=== PATIENT | female | born 1945 | race Caucasian/White ===

== ENCOUNTER → 2017-09-16 09:38 | Outpatient (CLI) | payer MEDICARE, SELFPAY ==
[2017-09-16 15:58] LABS: Vitamin D,25 Hydroxy 29.9 ng/mL (19.95-100.01)
[2017-09-16 16:01] LABS: ALB/GLOB Ratio 0.9 RATIO (0.9-2.4); AST(SGOT) 49 U/L (15-37); Alanine Aminotransfer ALT/SGPT 38 U/L (13-56); Albumin, Serum 3.6 g/dL (3.2-5.0); Alkaline Phosphatase 65 U/L (45-117); Anion Gap 7 (5-15); BUN 12 mg/dL (7-18); BUN/Creat Ratio 12.2 RATIO (10-20); Calcium,Total 8.6 mg/dL (8.5-10.1); Chloride 106 mmol/L (98-107); Cholesterol 234 mg/dL (200); Creatinine, Serum 0.98 mg/dL (0.55-1.02); EST Glomerular Filtration Rate 60 mL/min (>60); Est Glom Filt Rate - Afr Amer 72 mL/min (>60); Glucose 141 mg/dL (70-110); High Density Lipoprotein 39 mg/dL; Potassium 4.2 mmol/L (3.5-5.1); Protein, Total 7.6 g/dL (6.4-8.2); Sodium Level 140 mmol/L (136-145); Thyroid Stim Hormone (TSH) 2.98 uIU/mL (0.358-3.74); Triglycerides 251 mg/dL; Very Low Density Lipoprotein 50 mg/dL (5-40)
[2017-09-16 16:06] LABS: Microalbumin,Random Urine 14.4 mg/L (NO RANGE EST.); Microalbumin:Creatinine Ratio 8.7 mg/g CRE (<30 mg/g CRE)
== END ==
PROVIDERS: Family Provider Family Medicine; PCP Family Medicine; Visit Provider Nurse Practitioner Family
DX: E11.9 Type 2 diabetes mellitus without complications (principal); E78.5 Hyperlipidemia, unspecified; I10 Essential (primary) hypertension; L60.3 Nail dystrophy; L65.9 Nonscarring hair loss, unspecified
CPT/HCPCS: 80053; 80061; 82043; 82306; 82570; 83036; 84443

== ENCOUNTER → 2017-11-20 15:37 | Outpatient (CLI) | payer MEDICARE, SELFPAY | PROVIDERS: Family Provider Family Medicine; PCP Family Medicine | DX: R30.0 Dysuria (principal) | CPT/HCPCS: 87077; 87086; 87088; 87186 ==

== ENCOUNTER → 2017-11-30 15:10 | Outpatient (CLI) | payer MEDICARE, SELFPAY | PROVIDERS: Family Provider Family Medicine; PCP Family Medicine; Visit Provider Family Medicine | DX: Z12.11 Encounter for screening for malignant neoplasm of colon (principal) | CPT/HCPCS: 82274 ==

== ENCOUNTER → 2018-03-18 11:47 | Outpatient (CLI) | payer MEDICARE, SELFPAY ==
[2018-03-18 15:35] LABS: ALB/GLOB Ratio 0.9 RATIO (0.9-2.4); AST(SGOT) 69 U/L (15-37); Alanine Aminotransfer ALT/SGPT 49 U/L (13-56); Albumin, Serum 3.6 g/dL (3.2-5.0); Alkaline Phosphatase 64 U/L (45-117); Anion Gap 7 (5-15); BUN 11 mg/dL (7-18); BUN/Creat Ratio 10.6 RATIO (10-20); Calcium,Total 8.9 mg/dL (8.5-10.1); Chloride 106 mmol/L (98-107); Cholesterol 221 mg/dL (200); Creatinine, Serum 1.04 mg/dL (0.55-1.02); EST Glomerular Filtration Rate 56 mL/min (>60); Est Glom Filt Rate - Afr Amer 67 mL/min (>60); Globulin 3.9 g/dL (2.2-4.2); Glucose 153 mg/dL (74-106); High Density Lipoprotein 40 mg/dL; Potassium 4.3 mmol/L (3.5-5.1); Protein, Total 7.5 g/dL (6.4-8.2); Sodium Level 140 mmol/L (136-145); Triglycerides 250 mg/dL; Very Low Density Lipoprotein 50 mg/dL (5-40)
[2018-03-18 15:38] LABS: Hemoglobin A1c 7.3 % (4.2-6.3)
== END ==
PROVIDERS: Family Provider Family Medicine; PCP Family Medicine; Visit Provider Nurse Practitioner Family
DX: E11.9 Type 2 diabetes mellitus without complications (principal); I10 Essential (primary) hypertension; E78.5 Hyperlipidemia, unspecified
CPT/HCPCS: 80053; 80061; 83036

== ENCOUNTER 2018-04-22 22:19 | Observation (INO) | payer MEDICARE, SELFPAY ==
[2018-04-22 22:20] VITALS: BP 154/84; PULSE 85; RESP 15; TEMP 35.9; O2SAT 98; BMI 27.4
[2018-04-22 22:42] VITALS: BP 173/81; PULSE 80; RESP 19; O2SAT 97
--- NOTE | 2018-04-22 22:50 | EKG12_ITS ---
Test Reason : CP/SOB Blood Pressure : / mmHG Vent. Rate : 083 BPM Atrial Rate : 083 BPM P-R Int : 156 ms QRS Dur : 090 ms QT Int : 386 ms P-R-T Axes : 046 061 029 degrees QTc Int : 453 ms Normal sinus rhythm Normal ECG Confirmed by AMBROSE WOODY ([id number]), acquisitions editor SHEYLA RANGEL ([id number] on 04/29/2018 2:04:15 PM Referred By: JUAN CARLOS Confirmed By:AMBROSE WOODY
--- NOTE | 2018-04-22 22:51 | ED.VISSUMM ---
- ER Visit Summary Date of Service: 04/22/18 Chief Complaint: Chest pain History of Present Illness: The patient is a 73 F who presents for 1 day of substernal chest heaviness and 3 weeks of left-sided posterior rib pain now radiating around to the left anterior ribs. Patient states she has been having gradually worsening pain in the rib cage as described above. She was seen by her doctor for this. It is now radiating around to the anterior chest. Today she developed substernal chest heaviness with associated shortness of breath, mild cough, and pain worse with deep breaths and with coughing. Patient took a full dose aspirin this morning. The substernal heaviness started this evening. The left rib cage pain is described as burning. Patient has had in the past and was told it was inflammation of the chest wall. She denies any fever, abdominal pain, nausea or vomiting, rash or other complaints. She has history of hypertension, diabetes, hypercholesterolemia. No smoking. She has a remote history of a DVT in her upper extremity but does not know how long ago or why it occurred. She is not on blood thinners. She has COPD. No recent steroid use. Physical Examination: Vital signs: afebrile, hypertensive at 173/81, heart rate regular at 80, respirations 19, 97% on room air, no hypoxia on room air General: well nourished, well developed, in no distress Skin: warm, dry, no rash, no pallor HEENT: normocephalic and atraumatic; PERRL, EOMI, moist mucous membranes Cardiovascular: regular rate and rhythm without murmurs, no peripheral edema, 2+ pulses all distal extremities, no hyperesthesia or rash noted to the torso Respiratory: No increased work of breathing, lungs are clear to auscultation bilaterally, no rales, rhonchi or wheezing Abdominal: Abdomen is soft, nontender with normoactive bowel sounds, no guarding or rebound, no masses MSK: Moves all extremities, no deformities, normal strength Neuro: Awake and alert, oriented ?4. No facial droop, sensation and motor function intact and symmetric Test Results: Abnormal Lab Results 04/22/18 04/22/18 04/22/18 22:34 22:34 22:34 WBC 9.2 RBC 4.60 Hgb 13.8 Hct 41.6 MCV 90.4 MCH 30.0 MCHC 33.2 RDW 13.2 RDW Differential 43.1 Plt Count 236 MPV 10.5 Immature Gran % (Auto) 0.100 Neut % (Auto) 48.6 Lymph % (Auto) 41.7 H [place] % (Auto) 5.8 Eos % (Auto) 3.0 Baso % (Auto) 0.8 Absolute Neuts (auto) 4.5 Absolute Lymphs (auto) 3.85 Total Counted Not Reportable PT 12.7 INR 1.0 APTT 29.2 D-Dimer Quant (PE/DVT) 0.35 Sodium 144 Potassium 3.6 Chloride 105 Carbon Dioxide 27.0 Anion Gap 12 BUN 14 Creatinine 1.00 Estim Creat Clear Calc 46.43 Est GFR (MDRD) Af Amer 70 Est GFR (MDRD) Non-Af 58 L BUN/Creatinine Ratio 14.0 Glucose 182 H Calcium 9.1 Troponin I < 0.015 B-Natriuretic Peptide 04/22/18 22:34 WBC RBC Hgb Hct MCV MCH MCHC RDW RDW Differential Plt Count MPV Immature Gran % (Auto) Neut % (Auto) Lymph % (Auto) [place] % (Auto) Eos % (Auto) Baso % (Auto) Absolute Neuts (auto) Absolute Lymphs (auto) Total Counted PT INR APTT D-Dimer Quant (PE/DVT) Sodium Potassium Chloride Carbon Dioxide Anion Gap BUN Creatinine Estim Creat Clear Calc Est GFR (MDRD) Af Amer Est GFR (MDRD) Non-Af BUN/Creatinine Ratio Glucose Calcium Troponin I B-Natriuretic Peptide 29.8 Clinical Impression(s) from Imaging Studies Chest X-Ray 04/22/18 23:00 IMPRESSION: Normal x-ray examination of the chest. Electronically Signed: Dimitrios Salomon MD at 23:09 EDT , Service support , Medications Given Sodium Chloride () 1,000 mls @ 150 mls/hr IV .[id number] [facility] Last Admin: 04/22/18 23:14 Dose: 150 mls/hr Discontinued Medications Morphine Sulfate () 2 mg IV X1 ONE Stop: 04/22/18 23:25 Last Admin: 04/22/18 23:37 Dose: Not Given Nitroglycerin (Nitrostat) 0.4 mg SUBLINGUAL Q5M TIMBO Stop: 04/22/18 23:11 Last Admin: 04/22/18 23:19 Dose: Not Given Admin: 04/22/18 23:19 Dose: Not Given Admin: 04/22/18 23:15 Dose: 0.4 mg Emergency Department Course and Treatment: Patient presents with acute substernal chest heaviness on top of a subacute left-sided rib/chest pain that is different in nature and is worsening. Patient substernal chest heaviness is concerning for possible ACS, given her age and her risk factors. Patient was given 1 nitroglycerin but refused any further because she did not like the flushing feeling it gave her. She also refused any morphine. Patient had [place] taken aspirin this morning. Troponin was negative. EKG shows sinus rhythm without ischemic changes. D-dimer was checked given patient's pleuritic left-sided chest pain for the last 3 weeks that is worsening. D-dimer was normal. BNP normal. CBC and BMP were unremarkable. Chest x-ray showed no acute process, including no infiltrates, effusions or pulmonary edema. Patient was reevaluated and had resolution of the substernal chest heaviness but continued to have the left-sided pleuritic rib pain. She had no evidence of shingles on exam, with no rash and no hyperesthesia to light touch. Because of patient's risk factors, with a HEART score of 4 and JOHANNA of 4, she would benefit from further chest pain workup for possible acute coronary syndrome. Patient was agreeable to this plan. She was discussed with the hospitalist for admission as observation status for further workup. Treatment Plan: [] Disposition: [] Impression: Acute chest pain This note was generated with [employer] software. It may contain incorrect words, spelling, and punctuation that were not noted in review of the chart prior to signing ED Disposition - Plan for ED Patient: Chief Complaint: Shortness of Breath
[2018-04-22 22:55] VITALS: O2SAT 97
[2018-04-22 23:00] LABS: Absolute Lymphocyte Count 3.85 X10^3/ul (0.83-4.51); Absolute Neutrophil Count 4.5 X10^3/uL (2.0-7.7); Basophil# 0.07 X10^3/uL; Basophil% 0.8 % (0-1); Eosinophil# 0.28 X10^3/uL; Hematocrit 41.6 % (37-47); Hemoglobin 13.8 g/dl (12.0-15.0); Lymphocyte # 3.85 X10^3/ul (4.0); Lymphocyte % 41.7 % (19-41); Mean Corp Hgb Conc 33.2 g/gl (32-36); Mean Corpuscular Volume 90.4 fL (81-99); Mean Platelet Vol. 10.5 fl (6.2-12.0); Monocyte# 0.54 X10^3/uL; Monocyte% 5.8 % (0-10); Neutrophil # 4.49 X10^3/uL (2.7-7.7); Neutrophil % 48.6 % (47-70); Platelet Count 236 K/mm3 (150-450); RBC Distribution Width CV 13.2 % (11.6-14.6); RBC Distribution Width SD 43.1 fl (35.1-43.9); White Blood Count 9.2 K/mm3 (4.4-11.0)
[2018-04-22 23:01] LABS: POSITIVE COUNT NO; POSITIVE DIFFERENTIAL NO; POSITIVE MORPHOLOGY NO
[2018-04-22 23:02] LABS: Prothrombin Time (Protime)PT. 12.7 SECONDS (11.7-14.9)
[2018-04-22 23:03] LABS: Partial Thromboplast Time 29.2 Seconds (24.1-36.2)
[2018-04-22 23:06] LABS: D-Dimer Quantitative (DVT/PE) 0.35 FEU/ug/m (0.27-0.49)
[2018-04-22 23:12] LABS: Anion Gap 12 (5-15); BUN 14 mg/dL (7-18); Calcium,Total 9.1 mg/dL (8.5-10.1); Chloride 105 mmol/L (98-107); EST Glomerular Filtration Rate 58 mL/min (>60); Est Glom Filt Rate - Afr Amer 70 mL/min (>60); Estimated Creatinine Clearance 46.43 ml/min; Glucose 182 mg/dL (74-106); Potassium 3.6 mmol/L (3.5-5.1); Sodium Level 144 mmol/L (136-145)
[2018-04-22] MEDS: 0.9% Normal Saline 1,000 ML 150 ML IV (23:14)
[2018-04-22 23:15] VITALS: BP 167/90; PULSE 79
[2018-04-22 23:26] LABS: BNP,B-Type NATRIURETIC PEPTIDE 29.8 pg/mL (0-100)
[2018-04-23] VITALS (20 sets, daily range): BP systolic 139–200; BP diastolic 68–92; PULSE 63–95; RESP 14–18; TEMP 36.4–37.2; O2SAT 94–97; BMI 27.5; BMI 27.8
--- NOTE | 2018-04-23 00:14 | PCM.HP.STD ---
Problem List (1) Left flank pain Status: Acute (2) Chest pain Status: Acute (3) Atypical chest pain Status: Acute (4) Fibromyalgia Status: Chronic (5) Type 2 diabetes mellitus Status: Chronic History of Present Illness Date of Admission: 04/23/18 Chief Complaint: Chest pain ?1 day The patient is a 73 year old F with a significant history of COPD; fibromyalgia; hypertension; and diabetes who presented with a persistence chest pain that started few hours before her admission. She described the chest pain as heaviness on her substernal area. She rates her pain at 5 out of 10. Her pain was aggravated with taking a deep breath. Her pain went away with administration of oxygen at emergency department. She also received a sublingual nitroglycerin ?1 at emergency department. Patient reports that her pain had disappeared before nitroglycerin was administered. EKG and troponin at emergency department was unremarkable. She denies any associated nausea or diaphoresis. Chest pain was nonradiating. Also patient reports 3 weeks of left back and left flank pain. She describes this pain as lying on hot coals. His pain has progressively gotten worse. She was evaluated by her PCP who thought that this was inflammation; and no medication was prescribed at that time. Also she reports episodic 'tightening' pain under her left breast in the last 3 weeks. On the day of admission the frequency of the pain under her left breast increased. This pain is episodic and it last about 1 minute. Past Medical History Past Medical History (Chronic Problems): Chronic Problems Fibromyalgia (Chronic) Type 2 diabetes mellitus (Chronic) Hypertension (Chronic) Allergies escitalopram [From Lexapro] Allergy (Verified 04/22/18 22:49) Other Home Medications: Ambulatory Orders Medication Instructions Recorded Aspirin 1 tab PO DAILY 09/16/16 Metformin HCl [Metformin HCl ER] 1,000 mg PO DAILY 09/16/16 Metoprolol(XL)Succ [Toprol Xl 25 mg PO DAILY #30 tablet 09/16/16 (Beta Esther)] Amlodipine Besylate [Norvasc] 5 mg PO DAILY 08/05/17 Cholecalciferol (Vitamin D3) 5,000 unit PO DAILY 08/05/17 [Vitamin D3] Albuterol IH (ProAir) [Proair Hfa] 2 puff INHALATION Q4H PRN PRN #1 08/06/17 inhaler Budesonide/Formoterol Fumarate 04/23/18 [Symbicort 160-4.5 Mcg Inhaler] Meloxicam [Meloxicam] 7.5 mg PO DAILY 04/23/18 Vitamin D3 04/23/18 Surgical History: cholecystectomy, hysterectomy, total knee arthroplasty, - - Rotator cuff surgery. 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 Paternal History Items: Heart Disease Review of Systems Constitutional: Denies: Chills, Fever, Weight Change Eyes: Denies: Blurred vision, Pain HEENT: Denies: Head Aches, Sinus Congestion, Sinus Drainage Cardiovascular: Reports: Chest Pressure. Denies: Light Headedness, Syncope Respiratory: Reports: Cough, Shortness of Breath Gastrointestinal: Denies: Abdominal Pain, Nausea, Vomiting Genitourinary: Denies: Dysuria Musculoskeletal: Reports: Back Pain. Denies: Joint Pain, Joint Tenderness Skin: Denies: Rash, Wounds Neurological: Denies: Numbness, Tingling, Focal weakness Psychiatric: Denies: Anxiety, Depression, Homicidal Ideations, Suicidal Ideations Hematologic/ Lymphatic: Denies: Easy Bruising, Easy Bleeding VTE Information - Inpt Only VTE Present on Admission: No VTE Mechan Device Prophylaxis: None VTE Pharm Prophylaxis ordered?: Yes Patient Problems: Active and Suspected Problems Left flank pain (Acute) Chest pain (Acute) - Physical Exam General: Alert, Oriented x3, Cooperative HEENT: Atraumatic, PERRLA, EOMI, Normocephalic Neck: Supple, No JVD, Negative Carotid Bruits Lungs: Clear to auscultation, Normal air movement Cardiovascular: Regular rate, No murmurs Abdomen: Bowel Sounds Present, Soft, Non Tender Extremities: No edema, Capillary Refill Less than 3 Seconds Skin: No rashes, No breakdown Musculoskeletal: No Tenderness to Palpation of Joints or Extremities, - - Left flank is not tender to palpation. Lymphatic: No Cervical, Supraclavicular, or Inguinal Adenopathy Neurological: Cranial nerves II-XII grossly intact Psych/Mental Status: Normal Affect, Appropriate Vital Signs Temp Pulse Resp BP Pulse Ox 96.6 F L 79 19 H 167/90 H 97 04/22/18 22:20 04/22/18 23:15 04/22/18 22:42 04/22/18 23:15 04/22/18 22:55 Oxygen Delivery Method Room Air Weight: 74.843 kg Body Mass Index (BMI) 27.4 Finger Stick Blood Glucose 200 Laboratory Tests Past 24 Hrs 04/22/18 04/22/18 04/22/18 22:34 22:34 22:34 WBC 9.2 RBC 4.60 Hgb 13.8 Hct 41.6 MCV 90.4 MCH 30.0 MCHC 33.2 RDW 13.2 RDW Differential 43.1 Plt Count 236 MPV 10.5 Immature Gran % (Auto) 0.100 Neut % (Auto) 48.6 Lymph % (Auto) 41.7 H [place] % (Auto) 5.8 Eos % (Auto) 3.0 Baso % (Auto) 0.8 Absolute Neuts (auto) 4.5 Absolute Lymphs (auto) 3.85 Total Counted Not Reportable PT 12.7 INR 1.0 APTT 29.2 D-Dimer Quant (PE/DVT) 0.35 Sodium 144 Potassium 3.6 Chloride 105 Carbon Dioxide 27.0 Anion Gap 12 BUN 14 Creatinine 1.00 Estim Creat Clear Calc 46.43 Est GFR (MDRD) Af Amer 70 Est GFR (MDRD) Non-Af 58 L BUN/Creatinine Ratio 14.0 Glucose 182 H Calcium 9.1 Troponin I < 0.015 B-Natriuretic Peptide 04/22/18 22:34 WBC RBC Hgb Hct MCV MCH MCHC RDW RDW Differential Plt Count MPV Immature Gran % (Auto) Neut % (Auto) Lymph % (Auto) [place] % (Auto) Eos % (Auto) Baso % (Auto) Absolute Neuts (auto) Absolute Lymphs (auto) Total Counted PT INR APTT D-Dimer Quant (PE/DVT) Sodium Potassium Chloride Carbon Dioxide Anion Gap BUN Creatinine Estim Creat Clear Calc Est GFR (MDRD) Af Amer Est GFR (MDRD) Non-Af BUN/Creatinine Ratio Glucose Calcium Troponin I B-Natriuretic Peptide 29.8 Assessment/Plan All Active Problems Left flank pain (Acute) Chest pain (Acute) Atypical chest pain (Acute) The patient is a 73 year old F with a significant history of COPD; fibromyalgia; hypertension; and diabetes who presented with persistent chest pain that started few hours before her admission; and also with left flank pain that started 3 weeks ago. Atypical chest pain EKG and chest x-ray independently reviewed was unremarkable. Troponin reviewed was unremarkable. Since the time of evaluation patient chest pain had resolved; and further patient had a unremarkable stress test in July 2017, a stress test was not ordered at this time. Patient took her home aspirin 325 mg daily prior to admission. Home aspirin 325 mg continued. Admit to a monitored bed on PCU SL NTG 0.4 mg prn as needed for chest pain Serial cardiac enzymes Stat EKG as needed for chest pain We will consult cardiology for risk stratification and further management. Chronic Hypertension High blood pressure was above goal at the time of admission. This may be a reason for chest pain. Labetalol as needed for systolic blood pressure more than 160. Although patient had blood pressures in the 180s and 200s repeat blood pressure showed a systolic blood pressure of 160. Patient has not required any as needed blood pressure medication at this time. Metoprolol succinate and amlodipine continued. Trend blood pressure; and titrate blood pressure medication. Left flank pain Patient describes left flank pain as a burning. Since burning pain typically goes with pain due to injury to nerve endings gabapentin was prescribed. Patient was requesting imaging to further evaluate for her left flank pain. Since the patient did not have any warning sign of weakness, bowel or bladder incontinence imaging was deferred for a trial of gabapentin. Patient reports that at home she takes Tylenol for pain. Tylenol ordered. Diabetes Above goal at the time of admission. Blood glucose at the time of admission was 182. Patient takes metformin at home. Metformin held since this is too early in her admission; and further tests may be needed. Correction scale insulin ordered. Fibromyalgia Tylenol and meloxicam continued Gabapentin prescribed as above. COPD Albuterol continued. Symbicort continued DVT prophylaxis With subcutaneous heparin. Code Visit OBSV E&M: 05904 Initial observation care L3
--- NOTE | 2018-04-23 00:29 | NURSING ---
Called ED ship captain, Ryan at this time to confirm Pt okay to come to PCU.
[2018-04-23] MEDS: Gabapentin 100 MG Capsule PO ×4 (02:15→18:12)
--- NOTE | 2018-04-23 03:07 | EKG12_ITS ---
Test Reason : CP ADMISSION Blood Pressure : / mmHG Vent. Rate : 070 BPM Atrial Rate : 070 BPM P-R Int : 160 ms QRS Dur : 098 ms QT Int : 426 ms P-R-T Axes : 048 063 031 degrees QTc Int : 460 ms Normal sinus rhythm Normal ECG When compared with ECG of 06-AUG-2017 05:56, No significant change was found Confirmed by AMBROSE WOODY ([id number]), assignment desk editor SHEYLA RANGEL ([id number]) on 04/29/2018 3:14:41 PM Referred By: WOODY Confirmed By:AMBROSE WOODY
[2018-04-23] MEDS: 0.9% NaCl Peripheral Flush Adult/Peds IV ×2 (05:13→20:41)
[2018-04-23 06:56] LABS: Bedside Glucose 152 mg/dL (70-110)
[2018-04-23] MEDS: Albuterol 2.5 MG/3 ML VIAL.NEB. INHALATION ×3 (07:22→18:53)
[2018-04-23] MEDS: Budesonide Respules 0.5 MG/2 ML AMPUL.NEB. INHALATION ×2 (07:22→18:53)
[2018-04-23] MEDS: Aspirin 325 MG Tablet PO (08:53)
[2018-04-23] MEDS: Meloxicam 7.5 MG Tablet PO (08:53)
[2018-04-23] MEDS: amLODIPine 5 MG Tablet PO (08:53)
[2018-04-23] MEDS: Metoprolol(XL)Succ 25 MG Tablet PO (08:53)
[2018-04-23] MEDS: Insulin Lispro 100 UNIT/ML INSULN.PEN SQ ×2 (08:58→20:55)
--- NOTE | 2018-04-23 11:08 | PCM.CONS.C ---
Problem List (1) Left flank pain Status: Acute (2) Chest pain Status: Acute (3) Atypical chest pain Status: Acute (4) Type 2 diabetes mellitus Status: Chronic (5) Hypertension Status: Chronic Reason for Consult Date of Consultation: 04/23/18 Reason for Consultation: Atypical chest pain, diabetes, hypertension, hypercholesterolemia History of Present Illness: The patient is a 73 year old F, moderately obese, with history of hypertension, diabetes, non-smoker, hypercholesterolemia, no previous cardiac issues, very remote catheterization many years ago. Patient noted that she has had progressively worsening left-sided atypical nonexertional sharp chest pain along her left fifth or sixth rib cage, but predominantly focused in the left parasternal area. This pain is reproducible on physical palpation. Patient's pain then progressed last evening with midsternal chest heaviness which she described as someone pressing on her chest. The pain does not appear to be pleuritic in nature with respiration, but is worse when she lays down. Patient has had the shingles shot, and has never had shingles in the past. On further history she has no exertional symptoms, her pain is constant 24/7, and does not worsen with exertion. She denies any fevers, chills, presyncope or syncope. She apparently had a stress test in July 2017 which is a non-walking nuclear test which was negative for inducible ischemia. She has ruled out for myocardial infarction with troponins negative ?3. [] Past Medical History Allergies/Adverse Reactions: Allergies escitalopram [From [employer]] Allergy (Verified 04/22/18 22:49) Other Home Medications: Ambulatory Orders Medication Instructions Recorded Aspirin 1 tab PO DAILY 09/16/16 Metformin HCl [Metformin HCl ER] 1,000 mg PO DAILY 09/16/16 Metoprolol(XL)Succ [Toprol Xl 25 mg PO DAILY #30 tablet 09/16/16 (Beta Esther)] Amlodipine Besylate [Norvasc] 5 mg PO DAILY 08/05/17 Cholecalciferol (Vitamin D3) 5,000 unit PO DAILY 08/05/17 [Vitamin D3] Albuterol IH (ProAir) [Proair Hfa] 2 puff INHALATION Q4H PRN PRN #1 08/06/17 inhaler Budesonide/Formoterol Fumarate 04/23/18 [Symbicort 160-4.5 Mcg Inhaler] Meloxicam [Meloxicam] 7.5 mg PO DAILY 04/23/18 Vitamin D3 04/23/18 Past Medical History (Chronic Problems): Chronic Problems Fibromyalgia (Chronic) Type 2 diabetes mellitus (Chronic) Hypertension (Chronic) Surgical History: cholecystectomy, hysterectomy, total knee arthroplasty, - - Rotator cuff surgery. 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 Paternal History Items: Heart Disease Lives: Spouse/ Significant Other Smoking Status: Never smoker Review of Systems - Review of Systems General: Denies: Fever, Night Sweats, Fatigue Cardiovascular: Reports: Chest Discomfort, Chest Discomfort at Rest. Denies: Shortness of Breath, Orthopnea, PND, Peripheral Edema, Palpitations, Lightheadedness, Dizziness, Near Syncope, Syncope Respiratory: Denies: Cough, Sputum Production, Hemoptysis Gastrointestinal: Denies: Hematemesis, Hematochezia, Melena Genitourinary: Denies: Dysuria, Hematuria Skin: Denies: Rash Subjectve: Patient laying in bed, no acute distress. Does complain of constant dull chest pain which is reproducible with palpation over her left lower parasternal area and is quite tender. Objective: Vital Signs Temp Pulse Resp BP Pulse Ox 97.6 F L 77 15 145/69 H 96 04/23/18 08:51 04/23/18 08:53 04/23/18 08:51 04/23/18 08:51 04/23/18 08:51 Oxygen Delivery Method Room Air Weight: 167 lb 1.766 oz Body Mass Index (BMI) 27.8 Intake and Output for Last 24 Hours 04/21/18 04/22/18 04/23/18 23:59 23:59 23:59 Intake Total 240 / 240 Balance 240 / 240 General: Awake, Alert, Oriented x 3 HEENT: PERRL, EOMI, Sclera Non Icteric Neck: Supple, Good ROM, No Lymph Node Enlargement Lungs: Clear to auscultation Cardiovascular: Regular Rhythm, Normal S1, Normal S2, No Murmurs, No Rubs, No Gallops Vascular: No Carotid Bruits, Normal Femoral Pulses, Normal Radial Pulses, Normal Dorsalis Pedal Pulse, Normal Posterior Tibial Pulses Abdomen: Bowel Sounds Present, Soft, Non Tender, No HSM, No Organomegaly Extremities: No Cyanosis, No Clubbing, No edema Neurological: No Focal Motor or Sensory Deficit 04/23/18 02:00: Troponin I < 0.015 04/23/18 05:04: Troponin I < 0.015 Rhythm: EKG: ECHO: Stress Test: Cardiac Cath: PCI: CT Surgery: Holter monitor: EPS: PPM: CXR: Chest CT Scan: Assessment/Plan 1. Atypical chest pain: The patient has reproducible by palpation atypical exquisite tender pain over her left parasternal area with radiation down into her fifth intercostal space radiating to her back as well. Patient does have a history of fibromyalgia, and this may be a pre-eruption shingles event. Nonetheless she had a different type of chest pressure in her mid chest last evening superimposed upon significant hypertension. She is ruled out for myocardial infarction. Her EKG showed normal sinus rhythm, no acute changes. At this point I would recommend that she undergo a treadmill echocardiogram to determine her blood pressure response to exercise, exercise endurance, and evaluate for ischemia. If the patient has a different quality to her chest pain during the test, or has evidence of ischemia, I have a low threshold for pursuing diagnostic coronary catheterization. If her stress test is negative for inducible ischemia, would recommend medical management at this time. In addition I recommend a 2D echo with Doppler to determine if she has any pericardial effusion which may be contributing to her recumbent type chest pain when she lays back. If this is detected she may have pericarditis and would recommend high-resolution CRP or sed rate. If this is abnormal he she may benefit from ibuprofen 600 mg every 8 hours which would both benefit her fibromyalgia as well as her chest pain. In addition the patient may have symptoms of pre-eruption shingles in that dermatome area which may require antiviral therapy. 2. Hyperlipidemia: Recommend obtaining a fasting lipid profile. Given her diabetes her LDL should be less than 70. 3. Hypertension: It does not appear the patient is well controlled with her blood pressure, I would recommend initiating Cozaar 25 mg p.o. daily. 4. Thank you very much for the opportunity to participate in the cardiac care of your patient. Consultation time took place between 10 and 10:30 AM. Code Visit Inpatient E&M: 80089 Init Hosp L2
[2018-04-23 12:07] LABS: Erythrocyte Sedimentation Rate 11 mm/hr (0-30)
[2018-04-23 12:20] LABS: Bedside Glucose 144 mg/dL (70-110)
[2018-04-23 13:06] LABS: CRP, High Sensitivity Cardiac 1.36 mg/L; Cholesterol 213 mg/dL (200); High Density Lipoprotein 36 mg/dL; Triglycerides 285 mg/dL; Very Low Density Lipoprotein 57 mg/dL (5-40)
--- NOTE | 2018-04-23 14:31 | CASEMGMT ---
According to the [facility] website, the following are in-network tertiary facilities: [facility], [facility], [facility], and . [facility]
[2018-04-23] MEDS: Clopidogrel Bisulfate 300 MG Tablet PO (15:21)
--- NOTE | 2018-04-23 15:30 | PCM.PN.HOSP ---
Patient Problems: Active and Suspected Problems Left flank pain (Acute) Chest pain (Acute) Subjective: No further chest pain. Vitals/I&O's: Vital Signs Temp Pulse Resp BP Pulse Ox 36.4 C L 95 17 139/75 H 95 04/23/18 15:14 04/23/18 15:14 04/23/18 15:14 04/23/18 15:14 04/23/18 15:14 Oxygen Delivery Method Room Air Weight: 75.8 kg Body Mass Index (BMI) 27.8 Intake and Output for Last 24 Hours 04/21/18 04/22/18 04/23/18 23:59 23:59 23:59 Intake Total 640 / 640 Balance 640 / 640 General: Alert, No apparent distress HEENT: Atraumatic, Normocephalic Oral: Moist Mucosa, No Gingival or Mucosal Lesions/ Ulcerations Neck: No Nodes, Thyroid Normal Size and Texture Lungs: Clear to auscultation, Normal air movement, No rhonchi, No wheeze Cardiovascular: Regular rate, Regular Rhythm, Normal S1, Normal S2, No murmurs Abdomen: Bowel Sounds Present, Soft, Non Tender, Non-Distended, No Hepato-splenomegaly Extremities: No edema, No Calf Tenderness Skin: No rashes, No breakdown Psych/Mental Status: Normal Affect, Appropriate Laboratory Results 04/23/18 02:00: Troponin I < 0.015 04/23/18 02:00: C-React Prot High Sens Pending, Triglycerides Pending, Cholesterol Pending, LDL Cholesterol Pending, VLDL Cholesterol Pending, HDL Cholesterol Pending 04/23/18 02:00: C-React Prot High Sens 1.36, Triglycerides 285 H, Cholesterol 213 H, LDL Cholesterol 120, VLDL Cholesterol 57 H, HDL Cholesterol 36 L 04/23/18 05:04: Troponin I < 0.015 04/23/18 05:04: ESR 11 04/23/18 06:41: POC Glucose 152 H 04/23/18 12:15: POC Glucose 144 H Current Medications Acetaminophen (Tylenol) 650 mg PO Q8H PRN PRN PRN Reason: PAIN Albuterol Sulfate (Ventolin Aerosols) 2.5 mg INHALATION Q4H PRN PRN PRN Reason: DYSPNEA/WHEEZING/SOB Albuterol Sulfate (Ventolin Aerosols) 2.5 mg INHALATION Q6HWA.RT [facility] Last Admin: 04/23/18 13:12 Dose: 2.5 mg Amlodipine Besylate (Norvasc) 5 mg PO DAILY [facility] Last Admin: 04/23/18 08:53 Dose: 5 mg Aspirin (Aspirin) 325 mg PO DAILYCM [facility] Last Admin: 04/23/18 08:53 Dose: 325 mg Bisacodyl (Dulcolax) 5 mg PO DAILY PRN PRN PRN Reason: Constipation Budesonide (Pulmicort Aerosol) 0.5 mg INHALATION Q12H.RT [facility] Last Admin: 04/23/18 07:22 Dose: 0.5 mg Cholecalciferol (Vitamin D) 5,000 unit PO DAILY [facility] Last Admin: 04/23/18 08:53 Dose: 5,000 unit Clopidogrel Bisulfate (Plavix) 75 mg PO DAILY [facility] Dextrose (D50w Syringe) 0 gm IV X1 PRN; Protocol PRN Reason: Hypoglycemia Diphenhydramine HCl (Benadryl) 50 mg PO X1 ONE Stop: 04/24/18 06:01 Gabapentin (Neurontin) 100 mg PO TIDCM [facility] Last Admin: 04/23/18 12:15 Dose: 100 mg Glucagon () 1 mg IM .X1 PRN PRN Reason: Hypoglycemia Sodium Chloride () 1,000 mls @ 15 mls/hr IV .Q48H [facility] PRN Reason: KVO Insulin Human Lispro (Humalog Kwikpen (Bkc)) 0 unit SQ ACHS [facility] PRN Reason: Protocol Last Admin: 04/23/18 12:15 Dose: Not Given Labetalol HCl (Trandate) 10 mg IV Q4H PRN PRN PRN Reason: sbp > 160 Last Admin: 04/23/18 05:10 Dose: 10 mg Losartan Potassium (Cozaar) 25 mg PO DAILY [facility] Magnesium Hydroxide (Milk Of Magnesia) 30 ml PO DAILY PRN PRN Reason: Constipation Meloxicam (Mobic) 7.5 mg PO DAILY [facility] Last Admin: 04/23/18 08:53 Dose: 7.5 mg Metoprolol Succinate (Toprol Xl (Beta Esther)) 25 mg PO DAILY [facility] Last Admin: 04/23/18 08:53 Dose: 25 mg Nitroglycerin (Nitrostat) 0.4 mg SUBLINGUAL Q5M PRN PRN Reason: CARDIAC/CHEST PAIN Sodium Chloride () 5 - 30 ml IV UD PRN PRN Reason: SALINE FLUSH Last Admin: 04/23/18 05:13 Dose: 10 ml Medical Necessity - Tobacco Use Smoking Status: Never smoker Assessment/Plan All Active Problems Left flank pain (Acute) Chest pain (Acute) Atypical chest pain (Acute) 1. Chest pain Abnormal stress test today Plan for left heart catheterization on 04/24 On aspirin and Plavix Start high intensity statin 2. DVT prophylaxis with SCDs Code Visit OBSV E&M: 12454 Subsequent observation care L2
[2018-04-23 17:01] LABS: Bedside Glucose 111 mg/dL (70-110)
[2018-04-23] MEDS: Acetaminophen 325 MG Tablet 650 MG PO (20:40)
[2018-04-23] MEDS: Atorvastatin Calcium 40 MG Tablet PO (20:55)
[2018-04-23 22:06] LABS: Bedside Glucose 155 mg/dL (70-110)
[2018-04-24] VITALS (18 sets, daily range): BP systolic 104–141; BP diastolic 55–94; PULSE 70–83; RESP 14–18; TEMP 36–37.2; O2SAT 95–100
[2018-04-24 01:41] LABS: Cholesterol 222 mg/dL (200)
[2018-04-24 01:42] LABS: CRP, High Sensitivity Cardiac 1.36 mg/L; High Density Lipoprotein 33 mg/dL; Triglycerides 286 mg/dL; Very Low Density Lipoprotein 57 mg/dL (5-40)
[2018-04-24 04:00] LABS: Color, Urine Yellow (Yellow); Glucose, Dipstick Normal (Normal); Ketone-Dipstick Negative (Negative); Leukocyte Esterase-Dipstick 25 /ul (Negative); Nitrite-Dipstick Negative (Negative); Occult Blood-Urine Negative /ul (Negative); Protein-Dipstick Negative (Negative); Specific Gravity, Urine 1.015 (1.002-1.030); Urine Bilirubin Dipstick Negative (Negative); Urine Clarity Clear (Clear); Urine Urobilinogen Normal (Normal)
[2018-04-24] MEDS: Losartan Potassium 25 MG Tablet PO (05:50)
[2018-04-24] MEDS: Metoprolol(XL)Succ 25 MG Tablet PO (05:50)
[2018-04-24] MEDS: DiphenhydrAMINE 25 MG Capsule 50 MG PO (05:50)
[2018-04-24] MEDS: Aspirin 325 MG Tablet PO (05:51)
[2018-04-24] MEDS: 0.9% Normal Saline 1,000 ML 15 ML IV (05:51)
[2018-04-24] MEDS: amLODIPine 5 MG Tablet PO ×2 (05:51→13:27)
[2018-04-24] MEDS: Clopidogrel Bisulfate 75 MG Tablet PO (05:51)
[2018-04-24 05:53] LABS: Absolute Lymphocyte Count 1.59 X10^3/ul (0.83-4.51); Absolute Neutrophil Count 3.8 X10^3/uL (2.0-7.7); Basophil# 0.04 X10^3/uL; Basophil% 0.6 % (0-1); Eosinophil# 0.37 X10^3/uL; Eosinophils% 5.8 % (0-5); Hematocrit 39.8 % (37-47); Hemoglobin 13.1 g/dl (12.0-15.0); Lymphocyte # 1.59 X10^3/ul (4.0); Mean Corp Hgb Conc 32.9 g/gl (32-36); Mean Corpuscular Volume 91.1 fL (81-99); Mean Platelet Vol. 10.6 fl (6.2-12.0); Monocyte# 0.53 X10^3/uL; Monocyte% 8.3 % (0-10); Neutrophil # 3.81 X10^3/uL (2.7-7.7); Platelet Count 202 K/mm3 (150-450); RBC Distribution Width CV 13.1 % (11.6-14.6); RBC Distribution Width SD 43.3 fl (35.1-43.9); Red Blood Count 4.37 M/mm3 (4.2-5.4); White Blood Count 6.4 K/mm3 (4.4-11.0)
--- NOTE | 2018-04-24 05:55 | EKG12_ITS ---
Test Reason : AM EKG Blood Pressure : / mmHG Vent. Rate : 072 BPM Atrial Rate : 072 BPM P-R Int : 162 ms QRS Dur : 092 ms QT Int : 414 ms P-R-T Axes : 055 074 053 degrees QTc Int : 453 ms Normal sinus rhythm Normal ECG When compared with ECG of 23-APR-2018 01:28, MANUAL COMPARISON REQUIRED, DATA IS UNCONFIRMED Confirmed by AMBROSE WOODY ([id number]), newspaper editor managing SHEYLA RANGEL ([id number]) on 04/29/2018 3:16:31 PM Referred By: DANIELE Confirmed By:AMBROSE WOODY
[2018-04-24 06:05] LABS: International Normalized Ratio 1.1
[2018-04-24 06:06] LABS: Partial Thromboplast Time 29.5 Seconds (24.1-36.2)
[2018-04-24 06:13] LABS: Anion Gap 10 (5-15); BUN 13 mg/dL (7-18); BUN/Creat Ratio 14.8 RATIO (10-20); Calcium,Total 8.4 mg/dL (8.5-10.1); Chloride 108 mmol/L (98-107); Creatinine, Serum 0.88 mg/dL (0.55-1.02); EST Glomerular Filtration Rate 68 mL/min (>60); Est Glom Filt Rate - Afr Amer 82 mL/min (>60); Estimated Creatinine Clearance 52.76 ml/min; Glucose 150 mg/dL (74-106); Potassium 4.1 mmol/L (3.5-5.1); Sodium Level 142 mmol/L (136-145)
[2018-04-24 06:19] LABS: POSITIVE COUNT NO; POSITIVE DIFFERENTIAL NO; POSITIVE MORPHOLOGY NO
[2018-04-24 06:46] LABS: Bedside Glucose 161 mg/dL (70-110)
[2018-04-24] MEDS: Albuterol 2.5 MG/3 ML VIAL.NEB. INHALATION ×2 (07:13→13:15)
[2018-04-24] MEDS: Budesonide Respules 0.5 MG/2 ML AMPUL.NEB. INHALATION (07:13)
[2018-04-24] MEDS: Gabapentin 100 MG Capsule PO ×3 (10:03→18:06)
[2018-04-24] MEDS: Acetaminophen 325 MG Tablet 650 MG PO ×2 (10:03→18:04)
[2018-04-24] MEDS: Meloxicam 7.5 MG Tablet PO (10:04)
[2018-04-24] MEDS: Carvedilol 3.125 MG TABLET PO (10:05)
[2018-04-24 11:11] LABS: Bedside Glucose 154 mg/dL (70-110)
[2018-04-24] MEDS: Insulin Lispro 100 UNIT/ML INSULN.PEN SQ (11:33)
[2018-04-24] MEDS: Lidocaine 5% Patch 1 PATCH TOPICAL (14:16)
--- NOTE | 2018-04-24 14:55 | PCM.PROGNOTE ---
<Hung Gonsales - Last Filed: 04/24/18 14:55> Patient Problems: Active and Suspected Problems Left flank pain (Acute) Chest pain (Acute) Subjective: No further chest heaviness. Negative cath this AM. Pt is upset this AM that she came in complaining of new back pain in her back ribs that radiates around to the front, and feels that nothing has been done for her back pain and it has not improved. She is not SOB. The pain is worse laying on her left side and laying flat. She has no palpitations. No recent trauma/fall/injury. No pain along the spine/paraspinous area. - Physical Exam General: Alert, Oriented x3, Cooperative HEENT: Atraumatic, PERRLA, EOMI, Normocephalic Neck: Supple, No JVD, Negative Carotid Bruits Lungs: Clear to auscultation, Normal air movement Cardiovascular: Regular rate, No murmurs Abdomen: Bowel Sounds Present, Soft, Non Tender Extremities: No edema, Capillary Refill Less than 3 Seconds Skin: No rashes, No breakdown Musculoskeletal: No Tenderness to Palpation of Joints or Extremities Neurological: Cranial nerves II-XII grossly intact Psych/Mental Status: Normal Affect, Appropriate, Alert and oriented to time, place, person, mood and affect Vital Signs Temp Pulse Resp BP Pulse Ox 97.2 F L 71 16 134/70 H 98 04/24/18 13:00 04/24/18 13:15 04/24/18 13:15 04/24/18 13:00 04/24/18 13:00 Oxygen Delivery Method Room Air Weight: 167 lb 1.766 oz Body Mass Index (BMI) 27.8 Intake and Output for Last 24 Hours 04/22/18 04/23/18 04/24/18 23:59 23:59 23:59 Intake Total 1440 / 1440 570 / 570 Balance 1440 / 1440 570 / 570 Laboratory Tests Past 24 Hrs 04/23/18 04/24/18 04/24/18 02:00 03:02 05:30 WBC 6.4 RBC 4.37 Hgb 13.1 Hct 39.8 MCV 91.1 MCH 30.0 MCHC 32.9 RDW 13.1 RDW Differential 43.3 Plt Count 202 MPV 10.6 Immature Gran % (Auto) 0.300 Neut % (Auto) 60.0 Lymph % (Auto) 25.0 [place] % (Auto) 8.3 Eos % (Auto) 5.8 H Baso % (Auto) 0.6 Absolute Neuts (auto) 3.8 Absolute Lymphs (auto) 1.59 Total Counted Not Reportable PT INR APTT Sodium Potassium Chloride Carbon Dioxide Anion Gap BUN Creatinine Estim Creat Clear Calc Est GFR (MDRD) Af Amer Est GFR (MDRD) Non-Af BUN/Creatinine Ratio Glucose Calcium C-React Prot High Sens 1.36 Triglycerides 286 H Cholesterol 222 H LDL Cholesterol 132 H VLDL Cholesterol 57 H HDL Cholesterol 33 L Urine Color Yellow Urine Clarity Clear Urine pH 6.0 Ur Specific [place] 1.015 Urine Protein Negative Urine Glucose (UA) Normal Urine Ketones Negative Urine Occult Blood Negative Urine Nitrite Negative Urine Bilirubin Negative Urine Urobilinogen Normal Ur Leukocyte Esterase 25 H 04/24/18 04/24/18 05:30 05:30 WBC RBC Hgb Hct MCV MCH MCHC RDW RDW Differential Plt Count MPV Immature Gran % (Auto) Neut % (Auto) Lymph % (Auto) [place] % (Auto) Eos % (Auto) Baso % (Auto) Absolute Neuts (auto) Absolute Lymphs (auto) Total Counted PT 14.0 INR 1.1 APTT 29.5 Sodium 142 Potassium 4.1 Chloride 108 H Carbon Dioxide 24.0 Anion Gap 10 BUN 13 Creatinine 0.88 Estim Creat Clear Calc 52.76 Est GFR (MDRD) Af Amer 82 Est GFR (MDRD) Non-Af 68 BUN/Creatinine Ratio 14.8 Glucose 150 H Calcium 8.4 L C-React Prot High Sens Triglycerides Cholesterol LDL Cholesterol VLDL Cholesterol HDL Cholesterol Urine Color Urine Clarity Urine pH Ur Specific [place] Urine Protein Urine Glucose (UA) Urine Ketones Urine Occult Blood Urine Nitrite Urine Bilirubin Urine Urobilinogen Ur Leukocyte Esterase POC Glucose 04/24/18 04/24/18 04/23/18 10:59 06:42 20:54 POC Glucose 154 H 161 H 155 H 04/23/18 16:56 POC Glucose 111 H Medical Necessity - Tobacco Use Smoking Status: Never smoker Assessment/Plan All Active Problems Left flank pain (Acute) Chest pain (Acute) Atypical chest pain (Acute) 1. Chest pain - +stress but negative cath. See report. Continue asa, statin, coreg, losartan. Trop/bnp negative. LDL 132. Trigs 286. Dr. Zuniga following. Echocardiogram demonstrated EF of 65%, mild hypokinetic inferior mid lateral hypokinesis, final LV EF 70% Chest x-ray negative 2. Back pain - rib pain radiating around ribs - suspect costochondritis. CXR negative. Thoracic xray pending. Lidoderm patch, tylenol. Denies chronic back pain 3. DMt2 - on metformin at home. on SSI here. May benefit from additional therapy, recommend dietary compliance and outpatient a1c. 4. HTN - stable 5. HLD - statin DVT ppx: SCDs DC planning: home when stable This patient was seen by Hung Gonsales PA-C under the supervision of Doctor Ade. <Jeb Booker - Last Filed: 04/24/18 15:53> - Physical Exam General: Alert, Cooperative HEENT: Atraumatic, Normocephalic Lungs: Clear to auscultation, Normal air movement Vital Signs Temp Pulse Resp BP Pulse Ox 36.2 C L 81 16 134/70 H 98 04/24/18 13:00 04/24/18 15:20 04/24/18 13:15 04/24/18 13:00 04/24/18 13:00 Oxygen Delivery Method Room Air Weight: 75.8 kg Body Mass Index (BMI) 27.8 Intake and Output for Last 24 Hours 04/22/18 04/23/18 04/24/18 23:59 23:59 23:59 Intake Total 1440 / 1440 570 / 570 Balance 1440 / 1440 570 / 570 Laboratory Tests Past 24 Hrs 04/23/18 04/24/18 04/24/18 02:00 03:02 05:30 WBC 6.4 RBC 4.37 Hgb 13.1 Hct 39.8 MCV 91.1 MCH 30.0 MCHC 32.9 RDW 13.1 RDW Differential 43.3 Plt Count 202 MPV 10.6 Immature Gran % (Auto) 0.300 Neut % (Auto) 60.0 Lymph % (Auto) 25.0 [place] % (Auto) 8.3 Eos % (Auto) 5.8 H Baso % (Auto) 0.6 Absolute Neuts (auto) 3.8 Absolute Lymphs (auto) 1.59 Total Counted Not Reportable PT INR APTT Sodium Potassium Chloride Carbon Dioxide Anion Gap BUN Creatinine Estim Creat Clear Calc Est GFR (MDRD) Af Amer Est GFR (MDRD) Non-Af BUN/Creatinine Ratio Glucose Calcium C-React Prot High Sens 1.36 Triglycerides 286 H Cholesterol 222 H LDL Cholesterol 132 H VLDL Cholesterol 57 H HDL Cholesterol 33 L Urine Color Yellow Urine Clarity Clear Urine pH 6.0 Ur Specific [place] 1.015 Urine Protein Negative Urine Glucose (UA) Normal Urine Ketones Negative Urine Occult Blood Negative Urine Nitrite Negative Urine Bilirubin Negative Urine Urobilinogen Normal Ur Leukocyte Esterase 25 H 04/24/18 04/24/18 05:30 05:30 WBC RBC Hgb Hct MCV MCH MCHC RDW RDW Differential Plt Count MPV Immature Gran % (Auto) Neut % (Auto) Lymph % (Auto) [place] % (Auto) Eos % (Auto) Baso % (Auto) Absolute Neuts (auto) Absolute Lymphs (auto) Total Counted PT 14.0 INR 1.1 APTT 29.5 Sodium 142 Potassium 4.1 Chloride 108 H Carbon Dioxide 24.0 Anion Gap 10 BUN 13 Creatinine 0.88 Estim Creat Clear Calc 52.76 Est GFR (MDRD) Af Amer 82 Est GFR (MDRD) Non-Af 68 BUN/Creatinine Ratio 14.8 Glucose 150 H Calcium 8.4 L C-React Prot High Sens Triglycerides Cholesterol LDL Cholesterol VLDL Cholesterol HDL Cholesterol Urine Color Urine Clarity Urine pH Ur Specific [place] Urine Protein Urine Glucose (UA) Urine Ketones Urine Occult Blood Urine Nitrite Urine Bilirubin Urine Urobilinogen Ur Leukocyte Esterase POC Glucose 04/24/18 04/24/18 04/23/18 10:59 06:42 20:54 POC Glucose 154 H 161 H 155 H 04/23/18 16:56 POC Glucose 111 H Assessment/Plan Patient seen and examined independently. Data reviewed. I agree with the above note by the physician assistant store manager sales. 1. Chest pain. Left heart catheterization was normal. No additional cardiac workup is necessary. Probably musculoskeletal. 2. Back pain. Patient has reproducible component on exam anteriorly. Thoracic spine x-ray has been performed and results are pending. Based on those results we will determine if any additional testing is necessary or not. Patient states that this pain has been going on for several years which began as a small area in the lateral aspect of her lower thoracic region and then spread more laterally and then anteriorly. Patient states that her pain becomes more severe and then her blood pressure goes up. 2. Hypertension: Patient states that her blood pressure goes up when she is in significant pain. We will increase patient's amlodipine from 5 mg to 10 mg. Code Visit OBSV E&M: 44811 Subsequent observation care L2
[2018-04-24 16:16] LABS: Bedside Glucose 132 mg/dL (70-110)
--- NOTE | 2018-04-24 17:33 | PCM.DC.SUM ---
Discharge Date and Diagnosis - Problem List Patient Problems: Active and Suspected Problems Left flank pain (Acute) Chest pain (Acute) Date of Admission: 04/23/18 Date of Discharge: 04/24/18 - Primary Discharge Diagnosis Active and Suspected Problems Left flank pain - osteoarthritis, mild degenerative spinal changes Chest pain (Acute) - cardiac etiology ruled out Fibromyalgia Type 2 DM HTN COPD - Secondary Discharge Diagnosis Chronic Problems Fibromyalgia (Chronic) Type 2 diabetes mellitus (Chronic) Hypertension (Chronic) Hospital Course and Treatment Imaging Results: RAD/Chest PA and Lateral IMPRESSION: Normal x-ray examination of the chest. Echo: Interpretation Summary The estimated ejection fraction is 65 %. Mid-Lateral : Mildly hypokinetic Abnormal, adequate, treadmill echocardiogram. Positive for ischemia by chest pain and echocardiographic criteria. The patient appeared to developed mid inferior lateral hypokinesis at peak exercise. Poor exercise capacity for age. Hypertensive blood pressure response to exercise. Test terminated due to dyspnea. Final LVEF of 70%. Decreased sensitivity due to poor echo windows requiring Definity enhancing agent. No complications. Heart Cath: CONCLUSIONS Non obstructive coronary arteries Perserved Left Ventricular systolic function with normal EDP RAD/Thoracic Spine 3 Views IMPRESSION: No fracture or dislocation in the thoracic spine. Mild degenerative change. Consults: Zuniga - cardiology Operations: None Procedures: Stress test Summary of Care Provided: The patient is a 73 year old F [] Home Medications: Medications to take at Discharge Aspirin 1 tab PO DAILY 09/16/16 Metoprolol(XL)Succ [Toprol Xl (Beta Esther)] 25 mg PO DAILY #30 tablet 09/16/16 Cholecalciferol (Vitamin D3) [Vitamin D3] 5,000 unit PO DAILY 08/05/17 Albuterol IH (ProAir) [Proair Hfa] 2 puff INHALATION Q4H PRN PRN #1 inhaler 08/06/17 Budesonide/Formoterol Fumarate [Symbicort 160-4.5 Mcg Inhaler] 04/23/18 Meloxicam 7.5 mg PO DAILY 04/23/18 Vitamin D3 04/23/18 Acetaminophen 2 tab PO Q6H PRN #1 tablet 04/24/18 Amlodipine [Norvasc] 10 mg PO DAILY #30 tablet 04/24/18 Gabapentin [Neurontin] 100 mg PO TIDCM #90 capsule 04/24/18 Lidocaine [Lidoderm Patch] 1 patch TOPICAL DAILY #1 patch 04/24/18 Losartan Potassium [Cozaar] 25 mg PO DAILY #30 tablet 04/24/18 Metformin HCl [Metformin HCl ER] 1,000 mg PO DAILY #0 04/24/18 Following Prescrptions Were Given to Patient: Acetaminophen 2 tab PO Q6H PRN #1 tablet PRN Reason: Pain Amlodipine [Norvasc] 10 mg PO DAILY #30 tablet Gabapentin [Neurontin] 100 mg PO TIDCM #90 capsule Losartan Potassium [Cozaar] 25 mg PO DAILY #30 tablet Other Amb Orders: Physical Therapy Evaluation Location: None Selected Primary Care Physician: Tj Velez MD [Primary Care Provider] - Medical Necessity - Tobacco Use Smoking Status: Never smoker
--- NOTE | 2018-04-24 17:36 | PCM.DC ---
- Discharge Diagnoses Current Active Problems: Current Active and Chronic Problems Left flank pain (Acute) Chest pain (Acute) You will use the following diet at home:: No restrictions Your food should be the consistency of: Regular Discharge Activity: Return to Normal Activity Call your doctor if you observe: - - worsening back pain. Allergies/Adverse Reactions: Allergies escitalopram [From Lexapro] Allergy (Verified 04/22/18 22:49) Other Medications to take at Discharge Aspirin 1 tab PO DAILY 09/16/16 Metoprolol(XL)Succ [Toprol Xl (Beta Esther)] 25 mg PO DAILY #30 tablet 09/16/16 Cholecalciferol (Vitamin D3) [Vitamin D3] 5,000 unit PO DAILY 08/05/17 Albuterol IH (ProAir) [Proair Hfa] 2 puff INHALATION Q4H PRN PRN #1 inhaler 08/06/17 Budesonide/Formoterol Fumarate [Symbicort 160-4.5 Mcg Inhaler] 04/23/18 Meloxicam 7.5 mg PO DAILY 04/23/18 Vitamin D3 04/23/18 Acetaminophen 2 tab PO Q6H PRN #1 tablet 04/24/18 Amlodipine [Norvasc] 10 mg PO DAILY #30 tab 04/24/18 Gabapentin [Neurontin] 100 mg PO TIDCM #90 cap 04/24/18 Lidocaine [Lidoderm Patch] 1 patch TOPICAL DAILY #1 patch 04/24/18 Losartan Potassium [Cozaar] 25 mg PO DAILY #30 tab 04/24/18 Metformin HCl [Metformin HCl ER] 1,000 mg PO DAILY #0 04/24/18 The following prescriptions were given: Amlodipine [Norvasc] 10 mg PO DAILY #30 tab Losartan Potassium [Cozaar] 25 mg PO DAILY #30 tab Acetaminophen 2 tab PO Q6H PRN #1 tablet PRN Reason: Pain Gabapentin [Neurontin] 100 mg PO TIDCM #90 cap Orders to be completed after discharge: Physical Therapy Evaluation Location: None Selected Primary Care Physician: Tj Velez MD [Primary Care Provider] - Within 2 Weeks Test Results: Test results from this visit will be discussed in further detail at your follow-up appointment, if applicable. Please Follow Up With: Svetlana Ellsworth MD - Pain Managment. When: as needed for back pain, if medications do not help. Proposed Discharge Date: 04/24/18
--- NOTE | 2018-04-24 17:38 | PCM.DC.SUM ---
Discharge Date and Diagnosis - Problem List Patient Problems: Active and Suspected Problems Thoracic osteoarthritis (Acute) Left flank pain (Acute) Chest pain (Acute) Date of Admission: 04/23/18 Date of Discharge: 04/24/18 - Primary Discharge Diagnosis Active and Suspected Problems Thoracic osteoarthritis (Acute) Left flank pain (Acute) Chest pain (Acute) - Secondary Discharge Diagnosis Chronic Problems Fibromyalgia (Chronic) Type 2 diabetes mellitus (Chronic) Hypertension (Chronic) Hospital Course and Treatment Imaging Results: 04/24/18 13:40 Thoracic Spine 3 Views [RAD] Urgent Clinical Impression(s) from Imaging Studies Chest X-Ray 04/22/18 23:00 IMPRESSION: Normal x-ray examination of the chest. Electronically Signed: Dimitrios Salomon MD at 23:09 EDT , Service support , Thoracic Spine X-Ray 04/24/18 13:40 IMPRESSION: No fracture or dislocation in the thoracic spine. Mild degenerative change. Electronically Signed: Jose Hurley at 16:58 EDT Tel , Service support , Operations: None Procedures: 2-D Echocardiogram, Cardiac catheterization, Stress test Summary of Care Provided: The patient is a 73 year old F back and chest pain. For the chest pain patient underwent standard workup with an echocardiogram which showed an ejection fraction of 70%, a stress test that was abnormal. With the abnormal stress test, cardiology was consulted and patient had a left heart catheterization that showed normal coronaries. Therefore patient's chest pain is noncardiac and likely musculoskeletal. For the patient's back pain, patient states that he gets very bad at times and when it does, her blood pressure can reach into the 200 systolic. Patient underwent a thoracic spine x-ray that did not show any fracture but did show diffuse osteoarthritis. I spoke with the radiologist to read her report and asked if he felt that that this was DISH. He specified he did not and father just more arthritis and not DISH. So this was conveyed to the patient that she has a second arthritis is causing her pain. I told the patient to continue with her Mobic as well as taking up to 4 g per day of Tylenol. Patient was also started on gabapentin which she will continue. Patient may continue with [id number] Lidoderm which are patches instead of the prescription 5% to help her with pain if needed. I recommend patient follow physical therapy and that she may follow-up with pain management to see if injections would be warranted at a later point. I expanded the patient that surgical intervention would be a last resort and there is no indication for surgery at this time. There are did tell her that the arthritis could get worse to the point where she may have nerve root impingement that may potentially yield her requiring surgery. For the patient's accelerated hypertension, patient's Norvasc was increased from 5-10 mg daily, also started on Cozaar 25 mg daily. [] Discharge Diet: No Restrictions Discharge Activity: Return to Normal Activity Call your doctor if you observe: - - worsening back pain. Home Medications: Medications to take at Discharge Aspirin 1 tab PO DAILY 09/16/16 Metoprolol(XL)Succ [Toprol Xl (Beta Esther)] 25 mg PO DAILY #30 tablet 09/16/16 Cholecalciferol (Vitamin D3) [Vitamin D3] 5,000 unit PO DAILY 08/05/17 Albuterol IH (ProAir) [Proair Hfa] 2 puff INHALATION Q4H PRN PRN #1 inhaler 08/06/17 Budesonide/Formoterol Fumarate [Symbicort 160-4.5 Mcg Inhaler] 04/23/18 Meloxicam 7.5 mg PO DAILY 04/23/18 Vitamin D3 04/23/18 Acetaminophen 2 tab PO Q6H PRN #1 tablet 04/24/18 Amlodipine [Norvasc] 10 mg PO DAILY #30 tab 04/24/18 Gabapentin [Neurontin] 100 mg PO TIDCM #90 cap 04/24/18 Lidocaine [Lidoderm Patch] 1 patch TOPICAL DAILY #1 patch 04/24/18 Losartan Potassium [Cozaar] 25 mg PO DAILY #30 tab 04/24/18 Metformin HCl [Metformin HCl ER] 1,000 mg PO DAILY #0 04/24/18 Following Prescrptions Were Given to Patient: Amlodipine [Norvasc] 10 mg PO DAILY #30 tab Losartan Potassium [Cozaar] 25 mg PO DAILY #30 tab Acetaminophen 2 tab PO Q6H PRN #1 tablet PRN Reason: Pain Gabapentin [Neurontin] 100 mg PO TIDCM #90 cap Other Amb Orders: Physical Therapy Evaluation Location: None Selected Primary Care Physician: Tj Velez MD [Primary Care Provider] - Within 2 Weeks Please Follow Up With: Svetlana Ellsworth MD - Pain Managment. When: as needed for back pain, if medications do not help. Disposition: Home Minutes spent on discharge:: 38 Patient Condition:: Good Medical Necessity - Tobacco Use Smoking Status: Never smoker Meaningful Use Info Meaningful Use Diagnoses (Choose all that apply): None applicable Code Visit OBSV E&M: 66198 Observation care discharge
== END 2018-04-24 17:37 | disposition home or self-care (01) ==
LOC: ED 23:40 → PCU 04-23 00:39
PROVIDERS: Internal Medicine Cardiovascular Disease; Admitting Provider Hospitalist; Emergency Provider Emergency Medicine; Family Provider Family Medicine; PCP Family Medicine
DX: R07.89 Other chest pain (principal); I10 Essential (primary) hypertension; E11.9 Type 2 diabetes mellitus without complications; R10.9 Unspecified abdominal pain; M79.7 Fibromyalgia; E78.5 Hyperlipidemia, unspecified; R94.39 Abnormal result of other cardiovascular function study; R06.02 Shortness of breath; Z86.718 Personal history of other venous thrombosis and embolism; J44.9 Chronic obstructive pulmonary disease, unspecified; Z79.899 Other long term (current) drug therapy; Z79.82 Long term (current) use of aspirin; Z79.84 Long term (current) use of oral hypoglycemic drugs; M47.894 Other spondylosis, thoracic region
CPT/HCPCS: 36415; 71046; 72072; 80048; 80061; 81002; 82962; 83880; 84484; 85025; 85379; 85610; 85652; 85730; 86141; 93005; 93017; 93306; 93350; 93458; 94640; 96374; 97802; 99152; 99218; 99284; J7030; Q9957; A4216; C1769; C1894; C8928; C8929; G0378; Q9967

== ENCOUNTER 2019-02-21 23:02 | Emergency (ER) | payer MEDICARE, SELFPAY ==
[2019-02-21 23:03] VITALS: BP 158/85; PULSE 77; RESP 15; TEMP 36.2; BMI 27.6
--- NOTE | 2019-02-21 23:22 | RAD_ITS ---
STUDY: X-RAY - PELVIS AND LEFT HIP REASON FOR EXAM: Female, 74 years old. Left hip injury TECHNIQUE: 3 views of the pelvis and hip. COMPARISON: None. FINDINGS: There is a non-specific bowel gas pattern. Normal visualized soft tissue structures. Normal bilateral iliac wings, sacroiliac joints and visualized sacrum. Normal bilateral superior and inferior pubic rami. Normal pubic symphysis. Normal bilateral ischial tuberosities. Normal visualized femoral head. Normal acetabulum. Normal hip joint. RAD/HIP, UNI W/ Pelvis 2-3 Views IMPRESSION: Negative x-ray examination of the pelvis and hip. Electronically Signed: Souleymane Anders, at 0:13 EDT Tel , Service support ,
--- NOTE | 2019-02-21 23:22 | RAD_ITS ---
STUDY: X-RAY - THORACIC SPINE REASON FOR EXAM: Female, 74 years old. Spine injury TECHNIQUE: 2 view(s) of the thoracic spine were obtained. COMPARISON: None. FINDINGS: Normal kyphosis of the thoracic spine. There is no substantial scoliosis. Normal thoracic vertebrae and endplates. Normal disc space heights. The soft tissue structures are unremarkable. No evidence for fracture or subluxation. RAD/Thoracic Spine 2 Views IMPRESSION: Negative x-ray examination of the thoracic spine. Electronically Signed: Souleymane Anders, at 0:15 EDT Tel , Service support ,
--- NOTE | 2019-02-21 23:24 | ED.VIS.FALL ---
History of Present Illness Chief Complaint: Fall Informant: Patient Occurred: Hours - 1 Mechanism/Context: Trip, Slip Fall down steps #: 1, to concrete outdoors Usually ambulates: Without assistance Location: left hip, left elbow, mid-upper back Quality of Pain: Aching Current Severity: Mild Maximum Severity: Mild Worsened by: movement Relieved by: rest Associated Symptoms: Negative for: Parasthesias, Weakness, Loss of function, Inability to ambulate, Loss of consciousness, Amnesia Narrative: Patient slipped or tripped on the last step coming down a couple outdoor steps to the sidewalk. She had her left arm tucked in when she fell against it, felt like it pushed things over in my back and now it is hurting as well. No neurologic symptoms, no head injury, she had her left hip but has had no discomfort while walking since then. - Past Medical History (1) Thoracic osteoarthritis Status: Chronic (2) Fibromyalgia Status: Chronic (3) Hypertension Status: Chronic (4) Type 2 diabetes mellitus Status: Chronic Past Medical History - Allergies and Home Meds Allergies/Adverse Reactions: Allergies escitalopram [From Lexapro] Allergy (Verified 02/21/19 23:07) Other Primary Care Physician: Tj Velez MD [Primary Care Provider] - Surgical History: cholecystectomy, hysterectomy, total knee arthroplasty, - - Rotator cuff surgery. Lives: Spouse/ Significant Other Smoking Status: Never smoker - Family History Maternal Family History: Reports: - - Liver disease. Paternal Family History: Reports: Heart Disease Review of Systems General: Denies: Chills, Fever, Sweats Eyes: Denies: Visual changes - bilaterally, Diplopia ENT: Denies: Rhinorrhea, Sore throat Cardiovascular: Denies: Chest pain, Palpitations Respiratory: Denies: Dyspnea, Cough, Dyspnea on exertion Gastrointestinal: Denies: Abdominal pain, Nausea, Vomiting, Diarrhea, Melena, Hematochezia Genitourinary: Denies: Dysuria, Hematuria, Frequency Musculoskeletal: Reports: Back pain, Extremity Pain. Denies: Neck pain, Swelling Skin: Reports: Abrasions. Denies: Rash Neurological: Denies: Headache, Weakness, Numbness Physical Exam Vital Signs/Narrative: Vital Signs Temp Pulse Resp BP 02/21/19 23:03 97.2 F L 77 15 158/85 H Inital Vital Signs reviewed: Yes General: Well nourished, Well developed, - - Well-appearing, no distress Head: Normocephalic, Atraumatic Eyes: Perrl, EOMI Neck: Nontender, Full ROM Respiratory: No distress, CTA bilaterally, Chest nontender Abdomen: Soft, Nontender, Nondistended, Normal bowel sounds Back: Paraspinal Tenderness - left rhomboids; minimal associated midline tenderness. no other areas of back tenderness. no step offs. no signs of trauma. Extremeties: Tender left greater trochanter, full range of motion of hip without groin pain. Full range of motion left elbow without any bony tenderness including radial head with supination/pronation. Full range of motion throughout all other joints of all other extremities. Able to ambulate without difficulty. Skin: Normal color, Trauma - minor superficial abrasions lateral left elbow Neurological: Alert, Oriented x3, Cranial nerves II-XII grossly intact, Normal Strength, Normal Sensation, Normal Gait Psychological: Normal affect, Normal Mood Diagnostic/Tx/Re-eval Clinical Impression(s) from Imaging Studies Hip/Pelvis X-Ray 02/21/19 23:22 IMPRESSION: Negative x-ray examination of the pelvis and hip. Electronically Signed: Sebastianernesto Chago, at 0:13 EDT Tel , Service support , Thoracic Spine X-Ray 02/21/19 23:22 IMPRESSION: Negative x-ray examination of the thoracic spine. Electronically Signed: Sebastianernesto Chago, at 0:15 EDT Tel , Service support , - Medical Decision Making Other than known thoracic arthritis in her spine, x-rays show no acute abnormalities as expected. She is ambulatory, given Tylenol at her request, and is doing well and safe for discharge home. ED Disposition - Plan for ED Patient: Disposition: Home or Assisted Living Diagnosis: Fall from slip, trip, or stumble, Contusion of hip, left, Abrasion of left elbow, Acute thoracic myofascial strain Instructions: FALL, Mechanical, Thoracic Strain Referrals: Tj Velez MD [Primary Care Provider] - As Needed
[2019-02-21] MEDS: Acetaminophen 500 MG Tablet 1000 MG PO (23:47)
[2019-02-22 01:00] VITALS: BP 153/73; PULSE 67; RESP 16; O2SAT 97
== END 2019-02-22 01:02 | disposition home or self-care (01) ==
PROVIDERS: Emergency Provider Emergency Medicine; Family Provider Family Medicine; PCP Family Medicine
DX: S29.012A Strain of muscle and tendon of back wall of thorax, initial encounter (principal); S50.312A Abrasion of left elbow, initial encounter; S70.02XA Contusion of left hip, initial encounter; W10.9XXA Fall (on) (from) unspecified stairs and steps, initial encounter; Z88.8 Allergy status to other drugs, medicaments and biological substances; Z90.710 Acquired absence of both cervix and uterus; Z90.49 Acquired absence of other specified parts of digestive tract; E11.9 Type 2 diabetes mellitus without complications; I10 Essential (primary) hypertension; M79.7 Fibromyalgia; M47.9 Spondylosis, unspecified
CPT/HCPCS: 72070; 73502; 99283

== ENCOUNTER → 2019-04-23 12:22 | Outpatient (CLI) | payer MEDICARE, SELFPAY ==
--- NOTE | 2019-04-23 12:26 | BI_ITS ---
MAMMOGRAPHY - BILATERAL SCREENING REASON FOR EXAM: Female, 74 years old. Routine annual screening examination. PERTINENT HISTORY: Non-contributory. Remote left excisional breast biopsy. TECHNIQUE: Digital bilateral breast santy (3D mammographic acquisition) in the CC and MLO projections. 2-D mediolateral oblique (MLO) and craniocaudad (CC) views of both breasts were obtained. CAD: Full Field Digital Mammography with Computer Added Detection was performed. COMPARISON: Comparison is made with prior study dated July 18, 2016 and June 30, 2015. FINDINGS: Breast Composition: The breasts are almost entirely fatty. There are no dominant masses or suspicious calcifications. Stable 1.2 cm nodule in the upper deep outer aspect of the left breast just above a small lymph node. Prior ultrasound demonstrated this to be a lymph node. No other significant abnormalities are identified. There has been no significant change since the prior study. BI/SCREEN MAMM (CAD) W/SANTY BILAT IMPRESSION: Stable bilateral screening mammogram. Yearly follow-up mammogram recommended. (A) ASSESSMENT CATEGORY: BIRADS Category 2: Benign. A letter regarding these results will be sent to the patient by the facility within 30 days. Approximately 10% of breast cancers are not detected by mammography. A normal mammogram should not delay biopsy of a clinically suspicious abnormality. [id number] Electronically Signed: Feroz Lazcano, at 13:28 EDT , Service support ,
== END ==
PROVIDERS: Family Provider Family Medicine; PCP Family Medicine; Referring Provider Family Medicine; Visit Provider Family Medicine
DX: Z12.31 Encounter for screening mammogram for malignant neoplasm of breast (principal)
CPT/HCPCS: 77063; 77067

== ENCOUNTER → 2020-06-14 | Outpatient (CLI) | payer MEDICARE, SELFPAY ==
--- NOTE | 2020-06-14 13:18 | BI_ITS ---
MAMMOGRAPHY - BILATERAL SCREENING REASON FOR EXAM: Female, 75 years old. Routine annual screening examination. PERTINENT HISTORY: Non-contributory. Remote left excisional breast biopsy. TECHNIQUE: Digital bilateral breast santy (3D mammographic acquisition) in the CC and MLO projections. 2-D mediolateral oblique (MLO) and craniocaudad (CC) views of both breasts were obtained. CAD: Full Field Digital Mammography with Computer Added Detection was performed. COMPARISON: Comparison is made with prior study dated 04/23/2019 and 07/18/2016. FINDINGS: Breast Composition: The breasts are almost entirely fatty. There are no dominant masses or suspicious calcifications. Stable 1.2 cm well-defined nodule in the deep upper outer aspect of the left breast in a small lymph node. No other significant abnormalities are identified. There has been no significant change since the prior study. BI/SCREEN MAMM (CAD) W/SANTY BILAT IMPRESSION: Stable bilateral screening mammogram. Yearly follow-up mammogram recommended. (A) ASSESSMENT CATEGORY: BIRADS Category 2: Benign. A letter regarding these results will be sent to the patient by the facility within 30 days. Approximately 10% of breast cancers are not detected by mammography. A normal mammogram should not delay biopsy of a clinically suspicious abnormality. [id number] Electronically Signed: Feroz Lazcano, at 14:19 EDT , Service support ,
== END | disposition home or self-care (01) ==
LOC: OPBI 13:17
PROVIDERS: PCP Family Medicine; Referring Provider Family Medicine; Visit Provider Family Medicine
DX: Z12.31 Encounter for screening mammogram for malignant neoplasm of breast (principal)
CPT/HCPCS: 77063; 77067

== ENCOUNTER → 2020-09-12 | Outpatient (CLI) | payer MEDICARE, SELFPAY ==
[2020-09-12 16:54] LABS: Microalbumin,Random Urine 15.9 mg/L (NO RANGE EST.); Microalbumin:Creatinine Ratio 22.3 mg/g CRE (<30 mg/g CRE)
== END | disposition home or self-care (01) ==
LOC: LABSPEC 16:02
PROVIDERS: PCP Family Medicine; Referring Provider Physician Assistant; Visit Provider Physician Assistant
DX: E11.9 Type 2 diabetes mellitus without complications (principal)
CPT/HCPCS: 82043; 82570

== ENCOUNTER 2020-10-17 09:50 | Outpatient (RCR) | payer MEDICARE, SELFPAY | END 2020-10-17 23:59 | LOC: IMMUN 09:50 | PROVIDERS: PCP Family Medicine; Referring Provider Family Medicine; Visit Provider Family Medicine | DX: Z23 Encounter for immunization (principal) | CPT/HCPCS: 0011A; 0012A ==

== ENCOUNTER → 2020-11-10 12:45 | Outpatient (CLI) | payer MEDICARE, SELFPAY ==
[2020-11-02 13:43] VITALS: BMI 26.1
--- NOTE | 2020-11-10 12:48 | ECHOD_ITS ---
Version 2 Reason For Study: ARRHYTHMIA Procedure This was a 2D Doppler, Color Flow transthoracic echocardiogram. Exam performed in department. Left Ventricle Normal LV size. Left ventricular systolic function is normal. The estimated ejection fraction is 60 %. Stage 1 diastolic dysfunction. No regional wall motion abnormalities noted. Right Ventricle Normal RV size. Normal systolic function. Atria Normal left atrium. Normal right atrium. Mitral Valve Normal mitral valve. Tricuspid Valve Normal tricuspid valve. Mild (1+) tricuspid valve insufficiency. Pulmonary artery systolic pressure is 30 mmHg. Aortic Valve Trisinus/trileaflet aortic valve. Pulmonic Valve Normal pulmonic valve. Great Vessels Normal aortic root. The pulmonary artery is normal size. Normal inferior vena cava. Pericardium/Pleural No pericardial effusion. MMode/2D Measurements & Calculations LVIDd: 4.6 cm IVSd: 0.84 cm Ao root diam: 3.3 cm LVIDs: 3.0 cm LVPWd: 0.74 cm RVDd: 3.3 cm FS: 34.8 % LAV(MOD-bp): 54.8 ml LA A4 area: 19.1 cm2 LA dimension(2D): 3.5 cm LAV(MOD-bp) Indexed: 30.7 ml/m2 LAV(MOD-sp2): 52.0 ml LAV(MOD-sp4): 54.6 ml RA A4 area: 11.1 cm2 Time Measurements MV dec time: 0.24 sec Doppler Measurements & Calculations MV E max corona: 79.0 cm/sec Lat Peak E' Corona: 6.3 cm/sec Med Peak E' Corona: 4.7 cm/sec MV A max corona: 84.5 cm/sec E/E' lat: 12.6 E/E' med: 16.8 MV E/A: 0.93 Ao V2 max: 133.4 cm/sec LV V1 max: 93.7 cm/sec TR max corona: 258.4 cm/sec Ao max P.1 mmHg LV V1 max P.5 mmHg TR max P.7 mmHg Interpretation Summary Normal LV size. Left ventricular systolic function is normal. The estimated ejection fraction is 60 %. Stage 1 diastolic dysfunction. Ordering Physician: Ray Self Referring Physician: GALA SHARMA Performed By: Diamond Rangel, BEN, RVT
== END ==
PROVIDERS: PCP Family Medicine; Referring Provider Internal Medicine Cardiovascular Disease; Visit Provider Internal Medicine Cardiovascular Disease
DX: R00.2 Palpitations (principal)
CPT/HCPCS: 93306

== ENCOUNTER → 2021-03-21 16:18 | Outpatient (CLI) | payer MEDICARE, SELFPAY ==
[2020-11-02 13:43] VITALS: BMI 26.1
[2021-03-21 17:40] LABS: Absolute Lymphocyte Count 2.08 X10^3/uL (0.83-4.51); Absolute Neutrophil Count 4.6 X10^3/uL (2.0-7.7); Basophil# 0.06 X10^3/uL; Basophil% 0.8 % (0-1); Eosinophil# 0.22 X10^3/uL; Eosinophils% 2.9 % (0-5); Hematocrit 42.4 % (37-47); Hemoglobin 13.7 g/dL (12.0-15.0); Lymphocyte # 2.08 X10^3/ul (0.83-4.51); Lymphocyte % 27.8 % (19-41); Mean Corp Hgb Conc 32.3 g/dL (32-36); Mean Platelet Vol. 11.2 fl (6.2-12.0); Monocyte# 0.49 X10^3/uL; Monocyte% 6.5 % (0-10); NRBC Flagged by Analyzer 0 % (0-5); Neutrophil # 4.59 X10^3/uL (2.7-7.7); Neutrophil % 61.3 % (47-70); Platelet Count 279 K/mm3 (150-450); RBC Distribution Width CV 12.9 % (11.6-14.6); RBC Distribution Width SD 43.8 fl (35.1-43.9); Red Blood Count 4.56 M/mm3 (4.2-5.4); White Blood Count 7.5 K/mm3 (4.4-11.0)
[2021-03-21 17:51] LABS: Vitamin D,25 Hydroxy 43.8 ng/mL
[2021-03-21 17:55] LABS: Erythrocyte Sedimentation Rate 13 mm/hr (0-30)
[2021-03-21 18:09] LABS: ALB/GLOB Ratio 0.9 RATIO (0.9-2.4); AST(SGOT) 42 U/L (15-37); Alanine Aminotransfer ALT/SGPT 26 U/L (13-56); Albumin, Serum 3.7 g/dL (3.2-5.0); Alkaline Phosphatase 61 U/L (45-117); Anion Gap 6 (5-15); BUN 15 mg/dL (7-18); BUN/Creat Ratio 15.8 RATIO (10-20); CPK Total, Creatine Kinase 108 U/L (26-192); CRP < 2.90 mg/L (0.0-3.0); Calcium,Total 8.9 mg/dL (8.5-10.1); Chloride 108 mmol/L (98-107); Creatinine, Serum 0.95 mg/dL (0.55-1.02); EST Glomerular Filtration Rate 61 mL/min (>60); Est Glom Filt Rate - Afr Amer 74 mL/min (>60); Globulin 4.1 g/dL (2.2-4.2); Glucose 125 mg/dL (74-106); Magnesium 1.9 mg/dL (1.6-2.6); Potassium 3.9 mmol/L (3.5-5.1); Protein, Total 7.8 g/dL (6.4-8.2); Sodium Level 141 mmol/L (136-145); T4 Free Direct 0.95 ng/dL (0.76-1.46); Thyroid Stim Hormone (TSH) 1.56 uIU/mL (0.358-3.74)
== END ==
PROVIDERS: PCP Family Medicine; Referring Provider Registered Nurse; Visit Provider Registered Nurse
DX: M79.10 Myalgia, unspecified site (principal); R19.7 Diarrhea, unspecified
CPT/HCPCS: 80053; 82306; 82550; 83735; 84439; 84443; 85025; 85652; 86140

== ENCOUNTER 2021-09-07 13:42 | Outpatient (CLI) | payer MEDICARE, SELFPAY ==
[2021-09-07 13:57] VITALS: BP 168/79; PULSE 89; RESP 16; TEMP 36.8; O2SAT 97; BMI 26.2
[2021-09-07] MEDS: 0.9% Saline Lock 10 ML Syringe IV (13:58)
[2021-09-07 14:29] VITALS: BP 148/76; PULSE 74; RESP 16; TEMP 37.1; O2SAT 97
[2021-09-07 15:29] VITALS: BP 176/87; PULSE 77; RESP 16; TEMP 36.8; O2SAT 98
== END 2021-09-07 23:59 | disposition home or self-care (01) ==
LOC: MS3OUT 13:43 → MS3 13:44
PROVIDERS: PCP Family Medicine; Referring Provider Nurse Practitioner Adult Health; Visit Provider Nurse Practitioner Adult Health
DX: Z23 Encounter for immunization (principal); U07.1 COVID-19
CPT/HCPCS: J7050; M0245; Q0245; A4216

== ENCOUNTER → 2022-04-13 | Outpatient (CLI) | payer MEDICARE, SELFPAY ==
[2022-04-13 11:15] LABS: Hematocrit 40.8 % (37-47); Hemoglobin 13.1 g/dL (12.0-15.0); Mean Corp Hgb Conc 32.1 g/dL (32-36); Mean Corpuscular Hgb 29.6 pg (27.0-32.0); Mean Corpuscular Volume 92.1 fL (81-99); Mean Platelet Vol. 11.2 fl (6.2-12.0); Platelet Count 271 K/mm3 (150-450); RBC Distribution Width CV 13.1 % (11.6-14.6); RBC Distribution Width SD 44.1 fl (35.1-43.9); Red Blood Count 4.43 M/mm3 (4.2-5.4); White Blood Count 6.9 K/mm3 (4.4-11.0)
[2022-04-13 11:56] LABS: Anion Gap 4 (5-15); BUN 14 mg/dL (7-18); Calcium,Total 9.3 mg/dL (8.5-10.1); Chloride 107 mmol/L (98-107); EST Glomerular Filtration Rate 58 mL/min (>60); Est Glom Filt Rate - Afr Amer 70 mL/min (>60); Glucose 109 mg/dL (74-106); Potassium 4.1 mmol/L (3.5-5.1); Sodium Level 140 mmol/L (136-145); T4 Total, Thyroxin 9.3 ug/dL (4.8-13.9); Thyroid Stim Hormone (TSH) 2.77 uIU/mL (0.358-3.74)
== END | disposition home or self-care (01) ==
PROVIDERS: PCP Physician Assistant; Referring Provider Nurse Practitioner Gerontology; Visit Provider Nurse Practitioner Gerontology
DX: R00.2 Palpitations (principal); I47.1 Supraventricular tachycardia; R42 Dizziness and giddiness; R07.9 Chest pain, unspecified
CPT/HCPCS: 36415; 80048; 83735; 84436; 84443; 85027; 93225; 93226

== ENCOUNTER → 2022-05-31 | Outpatient (CLI) | payer MEDICARE, SELFPAY ==
--- NOTE | 2022-05-31 09:56 | CDU_ITS ---
Reason For Study: dizziness Rt. Velocities/BP Lt. Velocities/BP Prox CCA 74.9/16.3 cm/sec. Prox CCA 74.0/15.4 cm/sec. Mid CCA 78.7/15.4 cm/sec. Mid CCA 75.9/17.3 cm/sec. Dist CCA 60.7/14.5 cm/sec. Dist CCA 60.7/15.4 cm/sec. Prox ICA 68.3/15.4 cm/sec. Prox ICA 73.0/18.2 cm/sec. Mid ICA 83.4/21.1 cm/sec. Mid ICA 78.7/21.1 cm/sec. Dist ICA 70.2/23.0 cm/sec. Dist ICA 69.2/22.0 cm/sec. Rt. ICA/CCA = 1.1. Lt. ICA/CCA = 1.0. Prox ECA 65.5/13.5 cm/sec. Prox ECA 69.2/9.7 cm/sec. Rt. Vert. 68.3/17.3 cm/sec. Lt. Vert. 54.1/10.7 cm/sec. Right Extracranial There is intimal thickening but no significant atherosclerotic plaque noted in the right common carotid artery. There is heterogeneous, irregular atherosclerotic plaque noted in the right internal carotid artery. There is intimal thickening but no significant atherosclerotic plaque noted in the right external carotid artery. Antegrade flow is noted in the right vertebral artery. Left Extracranial There is homogeneous, smooth atherosclerotic plaque noted in the left common carotid artery. There is heterogeneous, irregular atherosclerotic plaque noted in the left internal carotid artery. There is intimal thickening but no significant atherosclerotic plaque noted in the left external carotid artery. Antegrade flow is noted in the left vertebral artery. Procedure Carotid Duplex [id number]. This is a Carotid Duplex examination using B-mode, color flow and specral Doppler. The exam was diagnostic. Exam performed in department. VL/Carotid Duplex Ultrasound Interpretation Summary Mild (<50%) stenosis right extracranial internal carotid. Mild (<50%) stenosis left extracranial internal carotid. Patent and antegrade vertebrals bilaterally. Ordering Physician: Elaine Delarosa Performed By: John Livingston RVT
== END | disposition home or self-care (01) ==
PROVIDERS: PCP Physician Assistant; Referring Provider Nurse Practitioner Gerontology; Visit Provider Nurse Practitioner Gerontology
DX: I65.23 Occlusion and stenosis of bilateral carotid arteries (principal); R42 Dizziness and giddiness
CPT/HCPCS: 93880

== ENCOUNTER → 2022-11-16 | Outpatient (CLI) | payer MEDICARE, SELFPAY ==
--- NOTE | 2022-11-16 12:42 | US_ITS ---
STUDY: RENAL ULTRASOUND - COMPLETE REASON FOR EXAM: Female, 77 years old. UTI TECHNIQUE: Ultrasound evaluation of the kidneys was performed with real-time and static bustillos-scale imaging. COMPARISON: None. FINDINGS: RIGHT KIDNEY: Normal location of the right kidney, which is normal in size. The right kidney measures 10.1 cm x 4.2 cm x 4.9 cm. There is a normal cortex of the right kidney. The renal cortex measures 1 cm. There is a 0.9 cm x 0.8 cm x 0.6 cm cyst in the lower pole. There are no right renal calculi. There is no right hydronephrosis. DISTAL RIGHT URETER: There is non-visualization of the distal right ureter. There is no demonstrated right ureterovesical junction calculus. There is no demonstrated right ureteral jet. LEFT KIDNEY: Normal location of the left kidney, which is normal in size. The left kidney measures 10.9 cm x 4.6 cm x 5 cm. There is a normal cortex of the left kidney. The renal cortex measures 1 cm. There is no left renal mass or cyst. There are no left renal calculi. There is an extra-renal pelvis of the left kidney. There is no distention of the renal calyces. DISTAL LEFT URETER: There is non-visualization of the distal left ureter. There is no demonstrated left ureterovesical junction calculus. There is no demonstrated left ureteral jet. BLADDER: The distended urinary bladder has a volume of 161.4 ml. There is a normal wall thickness of the distended urinary bladder. There is no demonstrated mass within the urinary bladder. There are no demonstrated bladder calculi. US/Kidney and Bladder IMPRESSION: Subcentimeter cyst in the lower pole of the right kidney. Electronically Signed: Feroz Lazcano MD at 15:29 EDT ,
== END | disposition home or self-care (01) ==
LOC: US 12:41
PROVIDERS: PCP Physician Assistant; Referring Provider Urology; Visit Provider Urology
DX: N39.0 Urinary tract infection, site not specified (principal)
CPT/HCPCS: 76770

== ENCOUNTER → 2022-12-18 | Outpatient (CLI) | payer MEDICARE, SELFPAY ==
--- NOTE | 2022-12-18 12:07 | BI_ITS ---
MAMMOGRAPHY - BILATERAL SCREENING REASON FOR EXAM: Female, 77 years old. Routine annual screening examination. PERTINENT HISTORY: Non-contributory. Remote left excisional breast biopsy and left ultrasound-guided breast biopsy. TECHNIQUE: Digital bilateral breast santy (3D mammographic acquisition) in the CC and MLO projections. 2-D mediolateral oblique (MLO) and craniocaudad (CC) views of both breasts were obtained. CAD: Full Field Digital Mammography with Computer Added Detection was performed. COMPARISON: Comparison is made with prior study dated June 14, 2020 and April 23, 2019. FINDINGS: Breast Composition: The breasts are almost entirely fatty. There are no dominant masses or suspicious calcifications. Stable 9 mm well-defined nodule with a central hilum in the axillary region of the left breast. Stable benign-appearing bilateral axillary lymph nodes. No other significant abnormalities are identified. There has been no significant change since the prior study. BI/SCRN MAMM (CAD)W/SANTY BILAT IMPRESSION: Stable bilateral screening mammogram. Yearly follow-up mammogram recommended. (A) ASSESSMENT CATEGORY: BIRADS Category 2: Benign. A letter regarding these results will be sent to the patient by the facility within 30 days. Approximately 10% of breast cancers are not detected by mammography. A normal mammogram should not delay biopsy of a clinically suspicious abnormality. [id number] Electronically Signed: Feroz Lazcano MD at 12:50 EDT ,
== END | disposition home or self-care (01) ==
LOC: OPBI 12:05
PROVIDERS: PCP Physician Assistant; Referring Provider Physician Assistant; Visit Provider Physician Assistant
DX: Z12.31 Encounter for screening mammogram for malignant neoplasm of breast (principal)
CPT/HCPCS: 77063; 77067

== ENCOUNTER 2023-04-25 14:55 | Emergency (ER) | payer MEDICARE, SELFPAY ==
[2023-04-25 14:56] VITALS: BP 152/95; PULSE 64; RESP 15; TEMP 36; O2SAT 96; BMI 25.4
--- NOTE | 2023-04-25 17:08 | EKG12_ITS ---
Test Reason : DIZZY Blood Pressure : / mmHG Vent. Rate : 069 BPM Atrial Rate : 069 BPM P-R Int : 164 ms QRS Dur : 094 ms QT Int : 410 ms P-R-T Axes : 055 042 032 degrees QTc Int : 439 ms Normal sinus rhythm with sinus arrhythmia Normal ECG Confirmed by KATE MENDENHALL, SIERRA ([id number]), manager editorial SYBIL JAIME ([id number]) on 04/26/2023 12:16:16 PM Referred By: ELOISE/ARYAN Confirmed By:SIERRA LOVE MD
--- NOTE | 2023-04-25 17:13 | EDS_ITS ---
HPI History of Present Illness Chief Complaint: Dizziness Informant: patient Narrative Narrative: Presents with episodes of chest pain and mild dizziness. She contacted her private physician who referred her to the emergency department for work-up. She is actually not having either 1 of these symptoms right now. Patient states that for 2 or 3 months she has been getting episodes of chest pain. She defines a very small area in the upper left breast. She states it feels more like breast pain on the surface. She does not get nausea vomiting diaphoresis lightheadedness or shortness of breath with this. She states that usually lasts a minute or 2. She will get it anywhere 1-3 or 4 times a day. Nothing brings it on and nothing makes it better. Sometimes it sore to press but not always. She has not noted swelling. She feels perfectly fine when its there except for localized discomfort. She does not have a history of heart disease. Her father had heart disease but not till his 90s. She is a non- smoker. She is on metoprolol and amlodipine. She states that this is for diabetes and but her record does list blood pressure. She does not take anything for high cholesterol. She is not having symptoms now. She also states that for several months or more she gets mildly lightheaded. This always occurs after she has been sitting for a while. She gets up. She walks about 6 or 8 steps and then feels lightheaded for a few moments. She will usually stop and hold onto something and then continue on and she is fine. No numbness tingling. No headaches. She has never fallen or passed out. Its pretty consistent with the symptoms. [facility] Medical History (Updated 04/25/23 @ 19:[address] Huy Montiel MD) Asthma Essential (primary) hypertension Fibromyalgia Hyperlipidemia Lightheaded Palpitations Snoring SVT (supraventricular tachycardia) Thoracic osteoarthritis Type 2 diabetes mellitus Home Medications albuterol sulfate 90 mcg/actuation aerosol inhaler 2 puff inhalation Q4H PRN Shortness Of Breath 10/28/20 [History Last Taken Unknown] amlodipine 5 mg tablet 5 mg PO DAILY 10/28/20 [History Last Taken Unknown] celecoxib 200 mg capsule (Celebrex) 200 mg PO DAILY 10/28/20 [History Last Taken Unknown] metformin 500 mg 24 hr tablet,extended release 1,500 mg PO DAILY DM 10/28/20 [History Last Taken Unknown] multivitamin with minerals (Hair,Skin and Nails tablet) 1 tab PO DAILY 11/02/20 [History Last Taken Unknown] metoprolol succinate 50 mg tablet,extended release 24 hr 50 mg PO BID #90 tabs 04/17/22 [Rx Last Taken Unknown] Allergy/AdvReac Type Severity Reaction Status Date / Time escitalopram [From Lexapro] Allergy Severe Anaphylaxis Verified 04/25/23 14:57 Poicrvb-UIM-[id number] Reductase AdvReac Severe Leg pain Verified 04/25/23 14:57 Inhibitor Family History Mother Thyroid disorder Liver disease Father CAD (coronary artery disease) Son Hyperlipidemia Brother Thyroid disorder Sister Thyroid disorder Surgical History History of appendectomy History of arthroscopic knee surgery History of cholecystectomy History of colonoscopy History of left heart catheterization (04/24/18) History of rotator cuff surgery History of total abdominal hysterectomy Social History Smoking Status: Never smoker ROS ROS ED ROS Narrative A complete review of systems was performed and is negative except as documented in the history of present illness. Some specific details below. Constitutional: No recent fevers or chills. No malaise. Although she has the symptoms intermittently she feels fine. She carries on normal activities witho ut difficulty. EYE: No discharge, visual complaints, or pain. She has never had visual field cut or graying of her vision. ENT: No difficulty swallowing. No swelling. No pain. No reflux symptoms. CV: See history of present illness. Respiratory: No cough or pulmonary symptoms. Not short of breath. GI: No abdominal pain. No nausea vomiting diarrhea. No blood in stool. : No frequency dysuria or hematuria. Musculoskeletal: No recent trauma. No pains. No swelling. Skin: No rash. Nondiaphoretic. Neuro: No weakness or numbness. Endocrine: No polyuria or polydipsia. EXAM Physical Exam Narrative Exam Narrative: CONSTITUTIONAL: Patient is nontoxic in appearance. The patient looks comfortable. Work of breathing looks normal. She looks very comfortable sitting in bed. HEENT: No notable trauma. Mucous membranes are still moist. No sinus tenderness. No indication of pain with swallowing. EYES: No conjunctival injection. No proptosis. No icterus. NECK:No JVD. No stridor. CARDIOVASCULAR: Regular rate. Regular rhythm. No notable murmur. No JVD. Tones are not muffled. Pulses are normal and strong in all 4 extremities. She does have slight tenderness to the upper outer left breast but I feel no mass. No lymphadenopathy. She states that sort of like the pain she feels but not completely. But she defines an area that is very small probably the size of half dollar in the upper left chest where she gets the pain on occasion. She describes it as localized sharp and last for maybe a minute or 2. RESPIRATORY: No respiratory distress. Breathing is unlabored. No wheezes. No rhonchi. No rales. No pain with a deep breath. No chest wall tenderness. GASTROINTESTINAL: Not distended. Bowel sounds are normal. No tenderness. No guarding. No rebound. No palpable mass. No bruit is heard. GENITOURINARY: No tenderness over the bladder. No CVA tenderness. MUSCULOSKELETAL: Atraumatic. No peripheral edema. No cord. No tenderness along the deep venous system. No asymmetry. No distended veins. NEUROLOGICAL: Patient is alert and appropriate. No focal deficit noted. SKIN: No noted rashes. No diaphoresis. PSYCHIATRIC: Patient is calm. Mood is appropriate. Const Vital Signs: 04/25/23 14:56 04/25/23 17:34 04/25/23 19:05 Temperature 96.8 F L Temperature Source Temporal Pulse Rate 64 69 Respiratory Rate 15 15 Respiratory Effort Normal Non-Labored Blood Pressure 152/95 H 118/76 Blood Pressure Mean 114 90 Pulse Ox 96 Oxygen Delivery Method Room Air MDM MDM MDM Narrative Medical decision making narrative: Patient CBC is normal. Patient's electrolytes are overall normal other than a mild bump of her creatinine. She admits she has not really been drinking fluids today. This does not need IV fluids and can be managed at home. Patient's troponin is normal at 5. Patient's been having symptoms for months. They are intermittent. Her chest symptoms do not sound cardiac. I think this can be worked as an outpatient. She is comfortable and she would like to go home and follow-up. Lab Data Attestation: I reviewed the patient's lab results. Labs: Laboratory Results - last 24 hr 04/25/23 17:19 WBC 8.2 RBC 4.37 Hgb 13.1 Hct 41.0 MCV 93.8 MCH 30.0 MCHC 32.0 RDW Std Deviation 44.3 H RDW Coeff of Yissel 12.9 Plt Count 247 MPV 10.7 Immature Gran % (Auto) 0.400 Neut % (Auto) 58.8 Lymph % (Auto) 30.3 [place] % (Auto) 6.0 Eos % (Auto) 3.5 Baso % (Auto) 1.0 Absolute Neuts (auto) 4.8 Absolute Lymphs (auto) 2.48 Nucleated RBC % 0 Sodium 139 Potassium 4.4 Chloride 109 H Carbon Dioxide 27.0 Anion Gap 3 L BUN 16 Creatinine 1.12 H Estim Creat Clear Calc 38.45 Est GFR (MDRD) Af Amer 61 Est GFR (MDRD) Non-Af 50 L BUN/Creatinine Ratio 14.3 Glucose 104 Calcium 9.0 Troponin I High Sens 5 EKG Initial EKG: Comments: My independent interpretation the patient's EKG done for history of chest pain shows a normal sinus rhythm with slight respiratory variation. Mild nonspecific ST changes but no acute ST elevation or depression is consistent with acute infarct or ischemia. Rate is overall controlled at 69. NJ interval, QRS duration and QTc are all normal. Discharge Plan Triage Chief Complaint: Dizziness ED Provider: Huy Montiel Dx/Rx/DC Orders Clinical Impression: Episodic lightheadedness, History of chest pain Instructions: ED Dizziness, Uncertain Cause Prescriptions: No Action metformin 500 mg tablet,ER clarissa.retention 24 hr 1,500 mg PO DAILY celecoxib [Celebrex] 200 mg capsule 200 mg PO DAILY amlodipine 5 mg tablet 5 mg PO DAILY albuterol sulfate 90 mcg/actuation HFA aerosol inhaler 2 puff INHALATION Q4H PRN (Reason: Shortness Of Breath) multivitamin with minerals [Hair,Skin and Nails] Tablet 1 tab PO DAILY metoprolol succinate 50 mg tablet extended release 24 hr 50 mg PO BID Qty: 90 4RF Primary Care Provider: Lidya Nation Referrals: Lidya Nation PA [Primary Care Provider] - 3-5 Days Disposition Disposition: Home, Self Care
[2023-04-25] MEDS: 0.9% Normal Saline (500mL Bag) 500 ML 1000 ML IV (17:30)
[2023-04-25 17:39] LABS: Absolute Lymphocyte Count 2.48 X10^3/uL (0.83-4.51); Absolute Neutrophil Count 4.8 X10^3/uL (2.0-7.7); Basophil# 0.08 X10^3/uL; Eosinophil# 0.29 X10^3/uL; Eosinophils% 3.5 % (0-5); Hemoglobin 13.1 g/dL (12.0-15.0); Lymphocyte # 2.48 X10^3/ul (0.83-4.51); Lymphocyte % 30.3 % (19-41); Mean Corpuscular Volume 93.8 fL (81-99); Mean Platelet Vol. 10.7 fl (6.2-12.0); Monocyte# 0.49 X10^3/uL; NRBC Flagged by Analyzer 0 % (0-5); Neutrophil # 4.82 X10^3/uL (2.7-7.7); Neutrophil % 58.8 % (47-70); Platelet Count 247 K/mm3 (150-450); RBC Distribution Width CV 12.9 % (11.6-14.6); RBC Distribution Width SD 44.3 fl (35.1-43.9); Red Blood Count 4.37 M/mm3 (4.2-5.4); White Blood Count 8.2 K/mm3 (4.4-11.0)
[2023-04-25 17:43] LABS: Anion Gap 3 (5-15); BUN 16 mg/dL (7-18); BUN/Creat Ratio 14.3 RATIO (10-20); Chloride 109 mmol/L (98-107); Creatinine, Serum 1.12 mg/dL (0.55-1.02); EST Glomerular Filtration Rate 50 mL/min (>60); Est Glom Filt Rate - Afr Amer 61 mL/min (>60); Estimated Creatinine Clearance 38.45 ml/min; Glucose 104 mg/dL (74-106); Potassium 4.4 mmol/L (3.5-5.1); Sodium Level 139 mmol/L (136-145); Troponin-I HS 5 pg/mL (3.0-54.0)
--- NOTE | 2023-04-25 19:01 | PCM.HP.STD ---
HPI - General General Date of Admission: 04/25/23 Date of Service: 04/25/23 Chief Complaint: dizziness HPI Narrative JACKELIN MEZA, is a 78 F who presents [facility] Medical History Asthma Essential (primary) hypertension Fibromyalgia Hyperlipidemia Lightheaded Palpitations Snoring SVT (supraventricular tachycardia) Thoracic osteoarthritis Type 2 diabetes mellitus Home Medications albuterol sulfate 90 mcg/actuation aerosol inhaler 2 puff inhalation Q4H PRN Shortness Of Breath 10/28/20 [History Last Taken Unknown] amlodipine 5 mg tablet 5 mg PO DAILY 10/28/20 [History Last Taken Unknown] celecoxib 200 mg capsule (Celebrex) 200 mg PO DAILY 10/28/20 [History Last Taken Unknown] metformin 500 mg 24 hr tablet,extended release 1,500 mg PO DAILY DM 10/28/20 [History Last Taken Unknown] multivitamin with minerals (Hair,Skin and Nails tablet) 1 tab PO DAILY 11/02/20 [History Last Taken Unknown] metoprolol succinate 50 mg tablet,extended release 24 hr 50 mg PO BID #90 tabs 04/17/22 [Rx Last Taken Unknown] Allergy/AdvReac Type Severity Reaction Status Date / Time escitalopram [From Lexapro] Allergy Severe Anaphylaxis Verified 04/25/23 14:57 [id number] Reductase AdvReac Severe Leg pain Verified 04/25/23 14:57 Inhibitor Family History Mother Thyroid disorder Liver disease Father CAD (coronary artery disease) Son Hyperlipidemia Brother Thyroid disorder Sister Thyroid disorder Surgical History History of appendectomy History of arthroscopic knee surgery History of cholecystectomy History of colonoscopy History of left heart catheterization (04/24/18) History of rotator cuff surgery History of total abdominal hysterectomy Social History Smoking Status: Never smoker Vital Signs Vital Signs Vital Signs: 04/25/23 14:56 04/25/23 17:34 Temperature 96.8 F L Temperature Source Temporal Pulse Rate 64 Respiratory Rate 15 Respiratory Effort Normal Non-Labored Blood Pressure 152/95 H Blood Pressure Mean 114 Pulse Ox 96 Oxygen Delivery Method Room Air Weight Weight: 153 lb Body Mass Index (BMI) 25.4 Results Lab / Micro Data 04/25/23 17:19 04/25/23 17:19 Labs: Laboratory Results - last 24 hr 04/25/23 17:19: WBC 8.2, RBC 4.37, Hgb 13.1, Hct 41.0, MCV 93.8, MCH 30.0, MCHC 32.0, RDW Std Deviation 44.3 H, RDW Coeff of Yissel 12.9, Plt Count 247, MPV 10.7, Immature Gran % (Auto) 0.400, Neut % (Auto) 58.8, Lymph % (Auto) 30.3, [place] % (Auto) 6.0, Eos % (Auto) 3.5, Baso % (Auto) 1.0, Absolute Neuts (auto) 4.8, Absolute Lymphs (auto) 2.48, Nucleated RBC % 0, Sodium 139, Potassium 4.4, Chloride 109 H, Carbon Dioxide 27.0, Anion Gap 3 L, BUN 16, Creatinine 1.12 H, Estim Creat Clear Calc 38.45, Est GFR (MDRD) Af Amer 61, Est GFR (MDRD) Non-Af 50 L, BUN/Creatinine Ratio 14.3, Glucose 104, Calcium 9.0, Troponin I High Sens 5
[2023-04-25 19:05] VITALS: BP 118/76; PULSE 69; RESP 15
[2023-04-25 19:15] VITALS: BP 124/69; PULSE 82; RESP 15; O2SAT 97
== END 2023-04-25 19:16 | disposition home or self-care (01) ==
PROVIDERS: Emergency Provider Emergency Medicine; PCP Physician Assistant; Visit Provider Emergency Medicine
DX: R42 Dizziness and giddiness (principal); E11.9 Type 2 diabetes mellitus without complications; I10 Essential (primary) hypertension; E78.5 Hyperlipidemia, unspecified; J45.909 Unspecified asthma, uncomplicated; Z79.899 Other long term (current) drug therapy; Z79.84 Long term (current) use of oral hypoglycemic drugs; Z90.49 Acquired absence of other specified parts of digestive tract; Z90.710 Acquired absence of both cervix and uterus; R07.9 Chest pain, unspecified
CPT/HCPCS: 80048; 84484; 85025; 93005; 96360; 96361; 99283; J7040; A4216

== ENCOUNTER 2023-10-14 13:17 | Emergency (ER) | payer MEDICARE, SELFPAY ==
[2023-10-14] VITALS (9 sets, daily range): BP systolic 146–156; BP diastolic 69–95; PULSE 77–127; RESP 17–26; TEMP 35.8–36.4; O2SAT 92–98; BMI 25.4
--- NOTE | 2023-10-14 14:15 | RAD_ITS ---
EXAM: XR CHEST, 2 VIEWS CLINICAL INDICATION: SOB TECHNIQUE: Frontal and lateral views of the chest. COMPARISON: XR Chest dated 04/22/2018 FINDINGS: LUNGS AND PLEURAL SPACES: Normal. No consolidation or edema. No pneumothorax. No effusion. HEART: Normal heart size. MEDIASTINUM: No mediastinal or hilar mass. BONES/JOINTS: No acute abnormality. RAD/Chest PA and Lateral IMPRESSION: No acute cardiopulmonary abnormality. No interval change. Electronically Signed: Axel Crowley MD at 14:39 EST ,
--- NOTE | 2023-10-14 15:02 | EDS_ITS ---
HPI History of Present Illness Chief Complaint: Shortness of Breath Informant: patient Onset/Context/Timing Onset: Days Context: gradual Narrative Narrative: Patient presents secondary to shortness of breath. She has been sick for about the last week with upper respiratory symptoms. Low-grade fever to 99. She was seen by her PCP last week and had a positive RSV test. She is currently on Tessalon Perles as well as Coricidin for cough control. She reports increasing shortness of breath and wheezing over the past day or 2. She reports some chest pain only with cough. Although she has a history of asthma listed in our computer, patient states she has had pneumonia couple times in the past but never been diagnosed with asthma. She does not use inhalers on a regular basis. [facility] Medical History Essential (primary) hypertension Fibromyalgia Hyperlipidemia Lightheaded Palpitations Snoring SVT (supraventricular tachycardia) Thoracic osteoarthritis Type 2 diabetes mellitus Home Medications albuterol sulfate 90 mcg/actuation aerosol inhaler 2 puff inhalation Q4H PRN Shortness Of Breath 10/28/20 [History Last Taken Unknown] amlodipine 5 mg tablet 5 mg PO DAILY 10/28/20 [History Last Taken Unknown] celecoxib 200 mg capsule (Celebrex) 200 mg PO DAILY 10/28/20 [History Last Taken Unknown] metformin 500 mg 24 hr tablet,extended release (gastric retention) 1,500 mg PO DAILY DM 10/28/20 [History Last Taken Unknown] multivitamin with minerals (Hair,Skin and Nails tablet) 1 tab PO DAILY 11/02/20 [History Last Taken Unknown] metoprolol succinate 50 mg tablet,extended release 24 hr 50 mg PO BID #90 tabs 04/17/22 [Rx Last Taken Unknown] prednisone 20 mg tablet 40 mg (2 x 20 mg) PO DAILY #8 tabs 10/14/23 [Rx Last Taken Unknown] Allergy/AdvReac Type Severity Reaction Status Date / Time escitalopram [From Lexapro] Allergy Severe Anaphylaxis Verified 10/14/23 13:18 [id number] Reductase AdvReac Severe Leg pain Verified 10/14/23 13:18 Inhibitor Family History Mother Thyroid disorder Liver disease Father CAD (coronary artery disease) Son Hyperlipidemia Brother Thyroid disorder Sister Thyroid disorder Surgical History History of appendectomy History of arthroscopic knee surgery History of cholecystectomy History of colonoscopy History of left heart catheterization (04/24/18) History of rotator cuff surgery History of total abdominal hysterectomy Social History Smoking Status: Never smoker ROS ROS ED Constitutional Constitutional ED: Denies chills or fever(s) Eyes Eyes: Denies discharge from eye(s) ENT ENT ED: Denies discharge from eye(s), rhinorrhea or sore throat Cardiovascular Cardiovascular: Reports chest pain; Denies palpitations Respiratory/Chest Respiratory/Chest: Reports cough and dyspnea Gastrointestinal Gastrointestinal: Denies abdominal pain, nausea or vomiting Genitourinary Genitourinary ED: Denies dysuria Musculoskeletal Musculoskeletal: Denies back pain or extremity pain Integumentary Denies Abrasions or rash Neurologic Neurologic: Denies headache(s) or weakness Psychiatric Psychiatric: Denies anxiety or depression Allergic/Immunologic Allergic/Immunologic ED: Denies lip swelling or urticaria EXAM Physical Exam Narrative Exam Narrative: Patient no acute distress. Speaking full sentences. Const Vital Signs: 10/14/23 13:18 10/14/23 15:19 10/14/23 15:19 Temperature 96.5 F L Temperature Source Temporal Pulse Rate 81 77 Respiratory Rate 18 17 Respiratory Effort Respiratory Pattern Normal Blood Pressure 156/70 H Blood Pressure Mean 98 Pulse Ox 94 93 Oxygen Delivery Method Room Air Room Air 10/14/23 15:46 10/14/23 17:23 10/14/23 17:22 Temperature Temperature Source Pulse Rate 123 H 118 H Respiratory Rate 21 H 19 H Respiratory Effort Short of Breath Respiratory Pattern Tachypnea Blood Pressure 153/95 H Blood Pressure Mean 114 Pulse Ox 93 Oxygen Delivery Method Room Air Room Air 10/14/23 17:45 Temperature Temperature Source Pulse Rate 123 H Respiratory Rate 20 H Respiratory Effort Respiratory Pattern Blood Pressure 146/69 H Blood Pressure Mean 94 Pulse Ox 93 Oxygen Delivery Method Room Air Positive well nourished and well developed General Appearance ED: well developed HEENT Reports moist mucous membranes Resp normal respiratory effort Resp Narrative: Expiratory wheezes bilaterally. Cardio regular rate and regular rhythm GI non-tender Palpation: soft Extremity normal to inspection Neuro oriented x3 and no sensory deficits noted Motor Exam: strength 5/5 throughout Psych mental status grossly normal Skin no wounds MDM MDM MDM Narrative Medical decision making narrative: 2 view chest x-ray obtained per nursing protocol. Per my interpretation no evidence of focal infiltrate. Radiology interpretation is reviewed and agrees. Patient is given p.o. prednisone along with aerosol treatments. Patient initially given p.o. prednisone, DuoNeb treatment, and 2 albuterol treatments. On repeat evaluation she did have improved air movement but did continue to have bilateral expiratory wheezes. Heart rate was elevated in the 130s. Patient was observed until heart rate came down around 110. She was given 1 additional albuterol treatment along with a dose of Mucinex. I tried to order Robitussin AC for the patient but pharmacy advises that we are out of it. At this time patient's heart rate is around 115. She was ambulated in the department and maintain her saturations. I will write her prescription for p.o. prednisone along with an albuterol inhaler and spacer. She will obtain a pulse ox meter and watch her oxygen levels at home. Return instructions are given. History & Record Review Discussion w/independent historian: Patient and Significant other Radiography Diagnostic Testing: Clinical Impression(s) from Imaging Studies Chest X-Ray 10/14/23 14:15 IMPRESSION: No acute cardiopulmonary abnormality. No interval change. Electronically Signed: Axel Crowley MD at 14:39 EST Reading Location ID and State: [facility] [place] Tel , Service support , Discharge Plan Triage Chief Complaint: Shortness of Breath ED Provider: Eva Villanueva Dx/Rx/DC Orders Clinical Impression: RSV bronchitis, Bronchospasm Instructions: ED RSV Bronchiolitis, ED Bronchospasm (Adult) Prescriptions: New prednisone 20 mg tablet 40 mg PO DAILY Qty: 8 0RF No Action metformin 500 mg tablet,ER clarissa.retention 24 hr 1,500 mg PO DAILY celecoxib [Celebrex] 200 mg capsule 200 mg PO DAILY amlodipine 5 mg tablet 5 mg PO DAILY albuterol sulfate 90 mcg/actuation HFA aerosol inhaler 2 puff INHALATION Q4H PRN (Reason: Shortness Of Breath) multivitamin with minerals [Hair,Skin and Nails] Tablet 1 tab PO DAILY metoprolol succinate 50 mg tablet extended release 24 hr 50 mg PO BID Qty: 90 4RF Primary Care Provider: Lidya Nation Referrals: Lidya Nation, RAUL [Primary Care Provider] - 5-7 Days Activity Restrictions/Additional Instructions: You have been given albuterol inhaler with a spacer to use. Please use 2 puffs every 4 hours as needed for shortness of breath and wheezing. You can use the inhaler more frequently if needed. Disposition Disposition: Home, Self Care
[2023-10-14] MEDS: Ipratropium/Albuterol Sulfate 3 ML AMPUL.NEB INHALATION (15:17)
[2023-10-14] MEDS: Albuterol 2.5 MG/3 ML VIAL.NEB. INHALATION ×3 (15:19→17:23)
[2023-10-14] MEDS: predniSONE 20 MG Tablet 40 MG PO (15:45)
[2023-10-14] MEDS: guaiFENesin 600 MG Tablet PO (17:25)
[2023-10-14] MEDS: Albuterol Sulfate 8 gm Inhaler (60 puffs) 2 PUFF INHALATION (18:49)
[2023-10-14] MEDS: INHALER, ASSIST DEVICES 1 EACH SPACER INHALATION (18:50)
== END 2023-10-14 18:57 | disposition home or self-care (01) ==
PROVIDERS: Emergency Provider Emergency Medicine; PCP Physician Assistant; Visit Provider Emergency Medicine
DX: J20.5 Acute bronchitis due to respiratory syncytial virus (principal); E11.9 Type 2 diabetes mellitus without complications; M79.7 Fibromyalgia; E78.5 Hyperlipidemia, unspecified
CPT/HCPCS: 71046; 99282

== ENCOUNTER → 2025-05-19 | Outpatient (CLI) | payer MEDICARE, SELFPAY ==
--- NOTE | 2025-05-19 11:50 | RAD_ITS ---
PROCEDURE: CHEST PA AND LATERAL 05/19/2025 REASON FOR EXAM: COUGH TECHNIQUE: Procedure Code: RADCXR Modality: DX Procedure: CHEST PA AND LATERAL COMPARISON: October 14, 2023 FINDINGS: Hardware: None Heart: Normal Mediastinum: Mild subglottic narrowing. Lungs: Clear. No pneumothorax or pleural effusion. Bones: Degenerative changes are identified within the thoracic spine. RAD/Chest PA and Lateral IMPRESSION: Mild subglottic narrowing. Correlate with upper airway symptoms. Consider tra cheobronchitis. Reading Location: [id number]
== END | disposition home or self-care (01) ==
LOC: RAD 11:38
PROVIDERS: PCP Physician Assistant; Referring Provider Otolaryngology; Visit Provider Otolaryngology
DX: R05.9 Cough, unspecified (principal)
CPT/HCPCS: 71046

== ENCOUNTER 2025-08-07 11:53 | Emergency (ER) | payer MEDICARE, SELFPAY ==
[2025-08-07 11:54] VITALS: BP 174/85; PULSE 69; RESP 18; TEMP 36.6; O2SAT 98
--- NOTE | 2025-08-07 12:04 | CT_ITS ---
PROCEDURE: BRAIN/HEAD WITHOUT CONTRAST; SPINE CERVICAL WITHOUT CONTRAS 08/07/2025 REASON FOR EXAM: FALL TECHNIQUE: Procedure Code: CTBR; CTSPC Modality: CT Procedure: BRAIN/HEAD WITHOUT CONTRAST; SPINE CERVICAL WITHOUT CONTRAS Coronal and Sagittal reconstruction series were provided. One or more dose reduction techniques were used (e.g., Automated exposure control, adjustment of the mA and/or kV according to patient size, use of iterative reconstruction technique. RADIATION DOSE SUMMARY: CTDlvol: 17.37 mGy DLP: 1149.6 mGycm FINDINGS: CT head: Brain: No acute territorial infarction. No acute intracranial hemorrhage. No mass-effect or midline shift. Diffuse white matter hypodensities which are nonspecific but likely due to chronic small-vessel ischemia. Parenchymal volume loss consistent with brain atrophy. No ventriculomegaly. The orbits are unremarkable. The craniocervical junction is unremarkable. CSF Spaces: Mild generalized cerebral atrophy Sinuses/Mastoids: Clear Bones: No acute bony elements. CT cervical spine: Vertebral: No acute bony abnormalities. Alignment: Anatomical. Disc levels: Multilevel degenerate changes predominantly at C6-C7 where there is disc space narrowing, uncovertebral hypertrophy, severe bilateral foramina stenosis and moderate canal stenosis. Soft tissues: Unremarkable. CT/Spine Cervical without Contras IMPRESSION: No acute intracranial abnormalities. No acute injury to the cervical spine. Reading Location: [facility]
--- NOTE | 2025-08-07 12:04 | CT_ITS ---
PROCEDURE: BRAIN/HEAD WITHOUT CONTRAST; SPINE CERVICAL WITHOUT CONTRAS 08/07/2025 REASON FOR EXAM: FALL TECHNIQUE: Procedure Code: CTBR; CTSPC Modality: CT Procedure: BRAIN/HEAD WITHOUT CONTRAST; SPINE CERVICAL WITHOUT CONTRAS Coronal and Sagittal reconstruction series were provided. One or more dose reduction techniques were used (e.g., Automated exposure control, adjustment of the mA and/or kV according to patient size, use of iterative reconstruction technique. RADIATION DOSE SUMMARY: CTDlvol: 17.37 mGy DLP: 1149.6 mGycm FINDINGS: CT head: Brain: No acute territorial infarction. No acute intracranial hemorrhage. No mass-effect or midline shift. Diffuse white matter hypodensities which are nonspecific but likely due to chronic small-vessel ischemia. Parenchymal volume loss consistent with brain atrophy. No ventriculomegaly. The orbits are unremarkable. The craniocervical junction is unremarkable. CSF Spaces: Mild generalized cerebral atrophy Sinuses/Mastoids: Clear Bones: No acute bony elements. CT cervical spine: Vertebral: No acute bony abnormalities. Alignment: Anatomical. Disc levels: Multilevel degenerate changes predominantly at C6-C7 where there is disc space narrowing, uncovertebral hypertrophy, severe bilateral foramina stenosis and moderate canal stenosis. Soft tissues: Unremarkable. CT/Brain/Head without Contrast IMPRESSION: No acute intracranial abnormalities. No acute injury to the cervical spine. Reading Location: [facility]
--- NOTE | 2025-08-07 12:05 | ED.VIS.FALL ---
HPI HPI - Fall History of Present Illness Chief Complaint: Fall Detail of Chief Complaint: Fall Informant: patient Narrative Narrative: Patient presents to the emergency department after sustaining a fall. Patient states that she was getting out of the vehicle to go to the bank and she think she tripped on the sidewalk. She did hit her head but no loss of consciousness. She is complaining of left shoulder and upper arm pain. She is right-hand dominant. Unsure of her last tetanus. She has been ambulatory since the fall. PFSH PFS Medical History Essential (primary) hypertension Fibromyalgia Hyperlipidemia Lightheaded Palpitations Snoring SVT (supraventricular tachycardia) Thoracic osteoarthritis Type 2 diabetes mellitus Home Medications ?Medication ?Instructions ?Recorded ?Last Taken ?Type albuterol sulfate 90 mcg/actuation 2 puff inhalation Q4H PRN 10/28/20 Unknown History aerosol inhaler Shortness Of Breath amlodipine 5 mg tablet 5 mg PO DAILY 10/28/20 Unknown History celecoxib 200 mg capsule (Celebrex) 200 mg PO DAILY 10/28/20 Unknown History metformin 500 mg 24 hr 1,500 mg PO DAILY DM 10/28/20 Unknown History tablet,extended release (gastric retention) multivitamin with minerals 1 tab PO DAILY 11/02/20 Unknown History (Hair,Skin and Nails tablet) metoprolol succinate 50 mg 50 mg PO BID #90 tabs 04/17/22 Unknown Rx tablet,extended release 24 hr prednisone 20 mg tablet 40 mg (2 x 20 mg) PO DAILY #8 tabs 10/14/23 Unknown Rx Allergy/AdvReac Type Severity Reaction Status Date / Time escitalopram (From Lexapro) Allergy Severe Anaphylaxis Verified 08/07/25 11:56 [id number] Reductase AdvReac Severe Leg pain Verified 08/07/25 11:56 Inhibitor Family History Mother Thyroid disorder Liver disease Father CAD (coronary artery disease) Son Hyperlipidemia Brother Thyroid disorder Sister Thyroid disorder Surgical History History of appendectomy History of arthroscopic knee surgery History of cholecystectomy History of colonoscopy History of left heart catheterization (04/24/18) History of rotator cuff surgery History of total abdominal hysterectomy Social History Smoking Status: Never smoker ROS ROS ED Review of Systems ROS Unobtainable: other Constitutional Constitutional ED: Reports lethargy; Denies chills, fever(s), sweats or weight loss Eyes Eyes: Denies blurry vision, change in vision or diplopia ENT ENT ED: Denies rhinorrhea or sore throat Cardiovascular Cardiovascular: Denies chest pain, orthopnea or racing heartbeat Respiratory/Chest Respiratory/Chest: Denies cough, dyspnea, dyspnea on exertion, orthopnea or sputum Gastrointestinal Gastrointestinal: Denies abdominal pain, diarrhea, nausea or vomiting Genitourinary Genitourinary ED: Denies dysuria, hematuria or urinary frequency Musculoskeletal Musculoskeletal: Reports other Details: Left arm/shoulder pain/injury ; Denies arthralgias, back pain, myalgias or neck pain Integumentary Denies abscess, Abrasions or rash Neurologic Neurologic: Reports headache(s); Denies weakness Psychiatric Psychiatric: Denies anxiety, depression or suicidal thoughts Endocrine Endocrinology: Denies polydipsia, polyphagia or polyuria Hematologic/Lymphatic Hematologic/Lymphatic: Denies easy bleeding, easy bruising or lymphadenopathy Allergic/Immunologic Allergic/Immunologic ED: Denies mouth swelling, tongue swelling or urticaria EXAM Physical Exam Const Vital Signs: 08/07/25 11:54 08/07/25 12:42 Temperature 97.9 F Temperature Source Oral Pulse Rate 69 Respiratory Rate 18 Respiratory Effort Normal Respiratory Depth Normal Respiratory Pattern Normal Blood Pressure 174/85 H Blood Pressure Mean 114 Pulse Ox 98 Oxygen Delivery Method Room Air Room Air Positive well nourished and well developed General Appearance ED: well developed and NAD HEENT Reports TM's clear and moist mucous membranes HEENT Narrative: Soft tissue swelling noted over the left upper orbit with superficial skin abrasion. Extraocular muscle movement is normal and painless. normocephalic and atraumatic; Negative for trauma or tenderness Tympanic Membrane ED: Yes TM's clear Eyes PERRL and EOMs intact bilaterally General Eye ED: Negative for pale conjunctiva or scleral icterus Neck no lymphadenopathy, supple and no JVD Neck Narrative: Mild diffuse tenderness over C-spine. No bony step-offs or depressions. General: Negative for tenderness Chest Wall inspection of chest normal and palpation of chest normal Chest: Negative for tenderness Resp normal respiratory effort and clear to auscultation bilaterally Effort and Inspection: Negative for respiratory distress or pain with movement Auscultation: Negative for rhonchi, wheezes or diminished lung sounds Cardio regular rate, regular rhythm, S1 normal heart sound, S2 normal heart sound and no murmurs Peripheral Pulses: pulses 2+ throughout GI normal to inspection, nondistended, normoactive bowel sounds, soft to palpation, non-tender, non-distended and no masses Back/Spine no CVA tenderness and no thoracic nor lumbar tenderness Extremity Extremity Narrative: Left upper extremity-no sulcus sign. No obvious deformity at the shoulder. Tenderness to the proximal humerus on exam. Neurovascular intact distally. No pain at the elbow or wrist. General Extremety ED: Negative for edema General Extremity: Negative for edema Neuro oriented x3, CN's II-XII intact bilaterally, no sensory deficits noted and gait normal Sensorium / Orientation: awake, alert, oriented to person, oriented to place and oriented to time Motor Exam: strength 5/5 throughout and strength abnormal Psych mental status grossly normal Skin no rashes or lesions noted and no wounds MDM MDM MDM Narrative Medical decision making narrative: Patient presents to the emergency department after mechanical fall with head injury and injury to her left arm. CT scan of the brain without contrast was unremarkable. CT C-spine showed no fractures. X-rays of the left humerus were negative for fracture. She does have some superficial abrasions and was given tetanus booster. She did not want a sling as she states she has 1 at home. Advised to follow-up with her primary care physician within next 5 to 7 days. Radiography Diagnostic Testing: Clinical Impression(s) from Imaging Studies Brain CT 08/07/25 12:04 IMPRESSION: No acute intracranial abnormalities. No acute injury to the cervical spine. Reading Location: [facility] Cervical Spine CT 08/07/25 12:04 IMPRESSION: No acute intracranial abnormalities. No acute injury to the cervical spine. Reading Location: [facility] Humerus X-Ray 08/07/25 12:15 IMPRESSION: No acute osseous abnormalities. Reading Location: [facility] 2 view x-rays of the left humerus obtained interpreted by myself as no evidence of fracture or dislocation. Radiology in agreement Discharge Plan Triage Chief Complaint: Fall ED Provider: Pascale Zheng Dx/Rx/DC Orders Clinical Impression: Fall, Contusion of left shoulder, Closed head injury, Abrasion Instructions: ED Abrasion, ED Mechanical Fall, ED Head Injury (Adult), ED Shoulder Bruise Prescriptions: No Action metformin 500 mg tablet,ER clarissa.retention 24 hr 1,500 mg PO DAILY celecoxib [Celebrex] 200 mg capsule 200 mg PO DAILY amlodipine 5 mg tablet 5 mg PO DAILY albuterol sulfate 90 mcg/actuation HFA aerosol inhaler 2 puff INHALATION Q4H PRN (Reason: Shortness Of Breath) multivitamin with minerals [Hair,Skin and Nails] Tablet 1 tab PO DAILY metoprolol succinate 50 mg tablet extended release 24 hr 50 mg PO BID Qty: 90 4RF prednisone 20 mg tablet 40 mg PO DAILY Qty: 8 0RF Primary Care Provider: Sukumar Gr Referrals: Lidya Nation PA [Non-Staff, Medical] - 3-5 Days Print Language: Croatian Disposition Disposition: Home, Self Care
--- NOTE | 2025-08-07 12:15 | RAD_ITS ---
PROCEDURE: HUMERUS MIN 2 VIEWS 08/07/2025 REASON FOR EXAM: FALL TECHNIQUE: Procedure Code: RADHUM Modality: DX Procedure: HUMERUS MIN 2 VIEWS COMPARISON: None. FINDINGS: No acute bony abnormalities. No dislocations. Soft tissue abnormalities. RAD/Humerus min 2 Views IMPRESSION: No acute osseous abnormalities. Reading Location: [id number]
--- OUTSIDE RECORDS SUMMARY | 2025-08-07 12:36 | XMS RPT_ITS | CCD ---
Author Organization [facility] CliniSyct Care Team Providers Care Project Archivist Name Role Phone Lidya Nation PA-C Primary Care Provider [phone] Dr. Gala Velez Referring Provider [place] VARELA, MARIA Henry Attending Provider RAUL Roberson Primary Care Provider Dr. Jeb Butler Attending Provider Lidya Nation PA-C Primary Care Provider [phone] Lidya Nation PA-C Primary Care Provider [phone] Lidya Nation PA-C Primary Care Provider [phone] SUKUMAR AMES MD Primary Care Physician [phone] SUKUMAR AMES MD Primary Care Unavailable MYRTLE MENDENHALL, DR HÉCTOR Contreras Attending Unavailab Harpal MENDENHALL, DR HÉCTOR Contreras Attending UnavailSUKUMAR Dinh MD Primary Care Unavailable KWAKU MENDENHALL, SUKUMAR Primary Care Unavailable MYRTLE MENDENHALL, DR HÉCTOR Contreras Attending Unavailab le Juliana LINE OPERATOR.BINDERY ASSISTANT, Hyun A Primary Care Provi armando Suppan LINE OPERATOR.BINDERY ASSISTANT, Hyun A Primary Care Provi armando Dimitrios Prabhakar Referring Unavailable Dimitrios Prabhakar Attending Unavailable Lidya Roberson Primary Care Unavailable SUPPAN, HYUN A Attending Unavailable SUPPAN, HYUN A Primary Care Unavailable DIMITRIOS GIRON Attending Unavailable SUPPAN, HYUN A Primary Care Unavailable GALA NATION Primary Care Unavailable SUPPAN, HYUN A Attending Unavailable SUPPAN, HYUN A Primary Care Unavailable SUPPAN, HYUN A Attending Unavailable SUPPAN, HYUN A Referring Unavailable SUPPAN, HYUN A Primary Care Unavailable SUPPAN, HYUN A Referring Unavailable SUPPAN, HYUN A Primary Care Unavailable SUPPAN, HYUN A Primary Care Unavailable VALARIE LANDRY Attending Unavailable VALARIE LANDRY Referring Unavailable GALA NATION Primary Care Unavailable VALARIE LANDRY Attending Unavailable GALA NATION Primary Care Unavailable SUPPAN, HYUN A Attending Unavailable SUPPAN, HYUN A Primary Care Unavailable GALA NATION Primary Care Unavailable SUPPAN, HYUN A Referring Unavailable Lidya Roberson Primary Care Physician Nel MENDENHALL, Dr. Burgos Attending Physician Vanna MENDENHALL, Dr. Pulnkett Attending Physician Dr. Dimitrios Prabhakar MD Referring Provider Allergies Allergy Classification Reported Allergen(s) Allergy Type Date of Onset Reaction(s) Facility (20 sources) atorvastatin; Translations: [ATORVASTATIN CALCIUM] Drug Allergy 5 Other: See Comments [facility] (20 sources) Escitalopram; Translations: [ESCITALOPRAM OXALATE] Drug Allergy 8 Anaphylaxis [facility] Work Phone: (2 sources) HMG-CoA reductase inhibitor; Translations: [[id number] REDUCTASE INHIBITORS] Drug Intolerance 8 Intolerance [facility] Work Phone: (20 sources) HMG-CoA reductase inhibitor Drug Intolerance 8 Intolerance [facility] Work Phone: (6 sources) Escitalopram Drug Allergy 2 Anaphylaxis [facility] (6 sources) Eyxehuu-Ldg-Ejd Reductase Inhibitor Propensity to adverse reactions 2 Leg pain [facility] (1 source) Escitalopram Drug Allergy 4 [facility] Repository (1 source) Lvigflm-Nlu-Vsk Reductase Inhibitor Drug allergy (disorder) 4 [facility] Repository (1 source) gabapentin; Translations: [GABAPENTIN] Drug Allergy 5 [facility] Repository Medications Current Medications Medication Drug Class(es) Dates Sig (Normalized) Sig (Original) [id number] 200 actuat albuterol 0.09 mg/actuat metered dose inhaler (20 sources) beta2-Adrenergic Agonist Start: 10-20-2023 take 2 puff(s) by inhalation every four hours as needed for wheezing albuterol HFA (PROVENTIL HFA, VENTOLIN HFA) 90 mcg/actuation inhaler Inhale 2 Puffs as instructed every 4 hours as needed for wheezing/shortnes s of breath. 8 g 10/20/2023 Active Start: 10-01-2019 End: 07-27-2024 take 2 puff(s) by inhalation every four hours as needed for wheezing albuterol HFA (VENTOLIN HFA) 90 mcg/actuation inhaler Indications: Obstructive chronic bronchitis without exacerbation (HCC) Inhale 2 Puffs as instructed every 4 hours as needed for Wheezing/Shortness of Breath. 1 Inhaler 3 10/01/2019 07/27/2024 Discontinued (Duplicate Entry) Start: 08-06-2017 End: 10-28-2020 Start: 08-06-2017 End: 10-28-2020 take 1 puff(s) by inhalation every four hours Albuterol Sulfate Active 2 PUFF INHALATION Q4H October 28, 2020 1:00am Comment on above: Inhale 2 Puffs as in structed every 4 hours as needed for Wheezing/Shortness of Breath. amLODIPine 5 mg oral tablet (20 sources) Dihydropyridine Calcium Channel Esther Start: 10-29-19 End: 07-27-20 24 take 1 tablet by mouth once daily amLODIPine (NORVASC) 5 mg tablet Indications: Essential hypertension Take 1 tablet by mouth once daily. 90 tablet 3 01/25/2025 Active Start: 04-24-2018 End: 10-28-2020 take 1 tablet by mouth once daily Amlodipine 10 MG tablet Discontinued 10 mg PO DAILY 30 0 April 24, 2018 12:00am October 28, 2020 1:46pm Start: 08-05-2017 End: 04-24-2018 take 1 tablet by mouth once daily Amlodipine (Norvasc) 5 MG tablet Discontinued 5 mg PO DAILY August 05, 2017 1:00am April 24, 2018 5:26pm BP Comment on above: Take 1 tablet by carson once daily. amoxicillin 250 mg oral capsule (2 sources) Penicillin-class Antibacterial Start: 4 amoxicillin 250 mg oral capsule Dose : 250 mg = 1 cap(s), Oral, q6hr, # 28, 0 Refill(s) Start Date: 06/03/24 Status: Ordered aspirin 81 mg chewable tablet (20 sources) Platelet Aggregation Inhibitor, Nonsteroidal Anti-inflammatory Drug Start: take 1 tablet by mouth once daily aspirin 81 mg chewable tablet Take 1 tablet by mouth once daily. 09/22/2018 Active Start: 09-16-2016 End: 10-28-2020 Aspirin 325 MG tablet Discon tinued 1 {tbl} PO DAILY September 16, 2016 1:00am October 28, 2020 1:55pm Comment on above: Take 1 tablet by carson once daily. Blood-Glucose Meter (ONETOUCH ULTRA2 METER) monitoring kit (1 source) Start: 09-10-19 End: 09-11-19 Blood-Glucose Meter (ONETOUCH ULTRA2 METER) monitoring kit 1 Each as needed for up to 1 day. One Touch Meter Kit Diagnosis: Type 2 DM - Controlled E11.9 Insulin: No 1 Each 0 09/10/2022 09/11/2022 Active Comment on above: 1 Each as needed for up to 1 day. One Touch Meter Kit Diagnosis: Type 2 DM - Controlled E11.9 Insulin: No celecoxib 200 mg oral capsule (20 sources) Nonsteroidal Anti-inflammatory Drug Start: 10-29-19 End: 03-09-20 take 1 capsule by mouth once daily Comment on above: Take 1 capsule by mo [facility] once daily. cholecalciferol 0.125 mg oral capsule (20 sources) Vitamin D Start: 02-10-20 take 1 capsule by mouth once daily Cholecalciferol, Vitamin D3, 125 mcg (5,000 unit) cap Indications: Low vitamin D level Take 1 capsule by mouth once daily. 90 capsule 3 02/09/2021 Active Start: 11-02-2020 End: 04-17-2022 take 1 capsule by mouth once daily Cholecalciferol (Vitamin D3) 25 mcg (1,000 unit) capsule Discontinued 25 ug PO DAILY November 02, 2020 12:00am April 17, 2022 10:27am Start: 08-05-2017 End: 11-02-2020 take 1 capsule by mouth once daily Cholecalciferol (Vitamin D3) 5,000 UNIT capsule Discontinued 5000 U PO DAILY August 05, 2017 1:00am November 02, 2020 1:49pm Comment on above: Take 1 capsule by mo [facility] once daily. ciprofloxacin 500 mg oral tablet (1 source) Quinolone Antimicrobial Start: 04-27-20 End: 05-02-20 take 1 tablet by mouth twice daily ciprofloxacin HCl (CIPRO) 500 mg tablet Indications: Left lateral abdominal pain Take 1 tablet by mouth two times a day for 5 days. 10 tablet 04/27/2024 05/02/2024 Active doxycycline hyclate 100 mg oral tablet (3 sources) Tetracycline-class Drug Start: 05-27-20 End: 06-03-20 take 1 tablet by mouth twice daily doxycycline (VIBRA-TABS) 100 mg tablet Take 1 tablet by mouth two times a day for 7 days. 14 tablet 05/27/2024 06/03/2024 Active Start: 10-20-2023 End: 10-30-2023 take 1 tablet by mouth twice daily doxycycline (VIBRA-TABS) 100 mg tablet Take 1 tablet by mouth two times a day for 10 days. 20 tablet 0 10/20/2023 10/30/2023 Active Comment on above: Take 1 tablet by [facility] two times a day for 10 days. fluticasone propionate 0.05 mg/actuat metered dose nasal spray (20 sources) Corticosteroid Start: End: take 2 spray(s) by mouth once daily fluticasone (FLONASE) 50 mcg/actuation nasal spray Indications: Seasonal allergies Use 2 Sprays in each nostril once daily. Rinse mouth after use. 1 Each 2 06/16/2024 09/14/2024 Active Start: 12-12-2020 End: 04-21-2024 take 2 spray(s) by mouth once daily fluticasone (FLONASE) 50 mcg/actuation nasal spray Indications: Allergic rhinitis, unspecified seasonality, unspecified trigger Use 2 Sprays in each nostril once daily. Rinse mouth after use. 1 Bottle 11 12/12/2020 04/21/2024 Discontinued (Discontinued by Patient) Comment on above: Use 2 Sprays in each nostril once daily. Rinse mouth after use. gabapentin 100 mg oral capsule (13 sources) Anti-epileptic Agent Start: 01-25-2025 End: 04-25-2025 take 1 capsule by mouth three times daily gabapentin (NEURONTIN) 100 mg capsule Indications: Chronic bilateral low back pain with left-sided sciatica Take 1 capsule by mouth three times a day for 90 days. 90 capsule 2 01/25/2025 Active Start: 04-24-2018 End: 10-28-2020 take 1 capsule by mouth three times daily at mealtime Gabapentin 100 MG capsule Discontinued 100 mg PO 3 TIMES DAILY WITH MEALS 90 0 April 24, 2018 12:00am October 28, 2020 1:56pm Inhalational Spacing Device (1 source) Start: 10-20-2023 End: 10-20-2023 Inhalational Spacing Device 1 Device one time only for 1 dose. 1 Each 0 10/20/2023 10/20/2023 Active Comment on above: 1 Device one time on ly for 1 dose. 24 hr metFORMIN hydrochloride 500 mg extended release oral tablet (20 sources) Biguanide Start: 06-03-2024 MetFORMIN (Eqv-Glucophage XR) 500 mg oral tablet, EXTENDED RELEASE Dose : 1,500 mg = 3 tab(s), Oral, qDay Start Date: 06/03/24 Status: Ordered Start: 10-30-2021 End: 01-25-2026 take 2 tablets by mouth once daily at breakfast metFORMIN ER (GLUCOPHAGE XR) 500 mg 24 hr tablet Indications: Controlled type 2 diabetes mellitus without complication, without long-term current use of insulin (HCC) Take 2 tablets by mouth daily with breakfast. 180 tablet 3 01/25/2025 01/25/2026 Active Start: 10-28-2020 take 1 tablet by carson th once daily Start: 09-16-2016 End: 10-28-2020 take 1 tablet by mouth once daily Metformin 500 MG tablet,ER clarissa.retention 24 hr Discontinued 1000 mg PO DAILY 0 0 April 24, 2018 5:32pm October 28, 2020 1:48pm DM do not start until 04/29/18 Comment on above: Take 3 tablets by mo uth daily with breakfast. 24 hr metoprolol succinate 50 mg extended release oral tablet (20 sources) beta-Adrenergic Esther Start: 06-03-2024 Metoprolol Succinate ER 50 mg oral TABLET extended release Dose : 50 mg = 1 tab(s), Oral, qDay, # 30 tab(s), 0 Refill(s) Start Date: 06/03/24 Status: Ordered Start: 04-17-2022 take 1 tablet by carson th twice daily Start: 11-02-2020 End: 11-02-2020 take 1 tablet by mouth once daily Metoprolol Succinate 25 mg tablet extended release 24 hr Discontinued 25 mg PO DAILY November 02, 2020 12:00am November 02, 2020 2:19pm Start: 10-16-2020 End: 01-25-2026 take 1 tablet by mouth once daily Metoprolol Succinate 50 mg tablet extended release 24 hr Discontinued 50 mg PO DAILY October 31, 2020 12:00am November 02, 2020 1:48pm Start: 09-16-2016 End: 10-31-2020 take 1 tablet by mouth once daily Metoprolol Succinate 25 MG tablet Discontinued 25 mg PO DAILY 30 0 September 16, 2016 1:00am October 31, 2020 11:23am Comment on above: Take 1 tablet by carson once daily. metroNIDAZOLE 500 mg oral tablet (1 source) Nitroimidazole Antimicrobial Start: 04-27-20 End: 05-02-20 take 1 tablet by mouth three times daily metroNIDAZOLE (FLAGYL) 500 mg tablet Indications: Left lateral abdominal pain Take 1 tablet by mouth three times a day for 5 days. 15 tablet 04/27/2024 05/02/2024 Active MULTIVITAMIN ORAL (20 sources) MULTIVITAMIN ORA L Take by mouth. Active MULTIVITAMIN ORA L Take by mouth. 0 Active Comment on above: Take by mouth. Multivitamin With Minerals ( Hair,Skin And Nails) tablet (6 sources) Start: 11-02-2020 Start: 11-02-2020 take 1 tablet by carson th once daily Multivitamin With Minerals (Hair,Skin And Nails) tablet Active 1 TABLET PO DAILY November 02, 2020 12:00am Vitamin D3 (8 sources) Start: 06-03-2024 Vitamin D3 Dos e : 25 mcg = 1 tab(s), Oral, Daily, 0 Refill(s) Start Date: 06/03/24 Status: Ordered Start: 04-23-2018 End: 10-28-2020 Vitamin D3 Discontinued Apr 12:00am March 12th, 2021 1:56pm Completed/Discontinued Medications Medication Drug Class(es) Dates Sig (Normalized) Sig (Original) acetaminophen 500 mg oral tablet (6 sources) Start: 04-24-2018 End: 10-28-2020 Acetaminophen 500 MG tablet Discontinued 2 {tbl} PO EVERY 6 HOURS as needed for Pain 1 0 April 24, 2018 5:30pm October 28, 2020 1:56pm benzonatate 100 mg oral capsule (7 sources) Non-narcotic Antitussive Start: 10-09-2023 End: 04-21-2024 take 1 capsule by mouth three times daily as needed for cough benzonatate (TESSALON PERLES) 100 mg capsule Indications: URI, acute Take 1 capsule by mouth three times a day as needed for cough. 30 capsule 10/09/2023 04/21/2024 Discontinued (Discontinued by Patient) Comment on above: Take 1 capsule by mo ut three times a day as needed for cough. 60 actuat budesonide 0.16 mg/actuat / formoterol fumarate 0.0045 mg/actuat metered dose inhaler (6 sources) Corticosteroid, beta2-Adrenergic Agonist Start: 04-23-2018 End: 10-28-2020 Budesonide-Formoter ol 6 GM HFA aerosol inhaler Discontinued April 23, 2018 12:00am October 28, 2020 1:55pm Start: 04-23-2018 End: 10-28-2020 Budesonide-Formoterol Discon tinued April 23, 2018 12:00am October 28, 2020 1:55pm colestipol hydrochloride 1000 mg oral tablet (1 source) Bile Acid Sequestrant Start: 04-18-2021 End: 12-12-2021 take 2 tablets by mouth twice daily colestipol (COLESTID) 1 gram tablet Take 2 tablets by mouth twice daily. 120 tablet 1 04/18/2021 12/12/2021 Discontinued Comment on above: Take 2 tablets by mo ut twice daily. DULoxetine 20 mg delayed release oral capsule (7 sources) Serotonin and Norepinephrine Reuptake Inhibitor Start: 04-27-2024 End: 07-26-2024 take 1 capsule by mouth once daily DULoxetine (CYMBALTA) 20 mg capsule Indications: Flank pain , Essential hypertension Take 1 capsule by mouth once daily. 30 capsule 2 04/27/2024 06/16/2024 Discontinued (Discontinued by Patient) Fluticasone Propion-Salmeterol (20 sources) Corticosteroid, beta2-Adrenergic Agonist Start: 10-28-2020 End: 11-02-2020 Fluticasone Propion-Salmetero l (Advair Diskus) 250-50 mcg/dose blister with device Discontinued 1 NMA INHALATION TWICE A DAY October 28, 2020 1:00am November 02, 2020 1:50pm Start: 10-28-2020 End: 11-02-2020 Fluticasone Propion-Salmeter ol (Advair Diskus) 250-50 mcg/dose blister with device Discontinued 1 INH INHALATION TWICE A DAY October 28, 2020 1:00am November 02, 2020 1:50pm Start: 10-08-2019 End: 04-21-2024 take 1 puff(s) by mouth twice daily fluticasone-salmeterol (ADVAIR DISKUS) 250-50 mcg/dose dsdv Inhale 1 Puff as instructed twice daily. Rinse and gargle mouth after use with water. 60 Each 5 10/08/2019 04/21/2024 Discontinued (Discontinued by Patient) Start: 10-08-2019 take 1 puff(s) by mo ut twice daily fluticasone-salmeterol (ADVAIR DISKUS) 250-50 mcg/dose dsdv Inhale 1 Puff as instructed twice daily. Rinse and gargle mouth after use with water. 60 Each 5 10/08/2019 Active Start: 10-08-2019 take 1 puff(s) by mo uth twice daily fluticasone-salmeterol (ADVAIR DISKUS) 250-50 mcg/dose dsdv Inhale 1 Puff as instructed twice daily. Rinse and gargle mouth after use with water. 60 Each 5 10/08/2019 Active Comment on above: Inhale 1 Puff as ins tructed twice daily. Rinse and gargle mouth after use with water. L. acidophilus/Bifid. animalis (DAILY PROBIOTIC ORAL) (1 source) End: 12-12-2021 L. acidophilus/Bifid. animalis (DAILY PROBIOTIC ORAL) Take by mouth as directed. 0 12/12/2021 Discontinued (Discontinued by Patient) Comment on above: Take by mouth as dir ected. lidocaine 0.05 mg/mg medicated patch (6 sources) Antiarrhythmic, Amide Local Anesthetic Start: 04-24-2018 End: 10-28-2020 Lidocaine 1 PATCH patch Discontinued 1 NMA TOPICAL DAILY 1 0 April 24, 2018 12:00am October 28, 2020 1:56pm 12 (or 18) hours on and 12 (or 6) hours off. May use over the counter 4% patch. Please contact the information source for Protocol details. Start: 04-24-2018 End: 10-28-2020 Lidocaine Discontinued 1 PAT CH TOPICAL DAILY April 24, 2018 12:00am October 28, 2020 1:56pm 12 (or 18) hours on and 12 (or 6) hours off. May use over the counter 4% patch. losartan potassium 25 mg oral tablet (6 sources) Angiotensin 2 Receptor Esther Start: 04-24-2018 End: 10-28-2020 take 1 tablet by mouth once daily Losartan 25 MG tablet Discontinued 25 mg PO DAILY 30 0 April 24, 2018 12:00am October 28, 2020 1:56pm meloxicam 7.5 mg oral tablet (6 sources) Nonsteroidal Anti-inflammatory Drug Start: 04-23-2018 End: 10-28-2020 take 1 tablet by mouth once daily Meloxicam 7.5 MG tablet Discontinued 7.5 mg PO DAILY April 23, 2018 12:00am October 28, 2020 1:56pm arthritis nabumetone 500 mg oral tablet (1 source) Nonsteroidal Anti-inflammatory Drug Start: 03-21-2021 End: 12-12-2021 take 1 tablet by mouth twice daily as needed nabumetone (RELAFEN) 500 mg tablet Indications: Muscle pain Take 1 tablet by mouth twice daily as needed. TAKE WITH FOOD 60 tablet 0 03/21/2021 12/12/2021 Discontinued Comment on above: Take 1 tablet by carson twice daily as needed. TAKE WITH FOOD nitrofurantoin, macrocrystals 25 mg / nitrofurantoin, monohydrate 75 mg oral capsule (1 source) Nitrofuran Antibacterial Start: 10-25-2022 End: 11-01-2022 take 1 capsule by mouth twice daily at mealtime nitrofurantoin monohydrate and macrocrystal (MACROBID) 100 mg capsule Take 1 capsule by mouth twice daily with meals for 7 days. 14 capsule 0 10/25/2022 11/01/2022 Comment on above: Take 1 capsule by [facility] twice daily with meals for 7 days. olopatadine 1 mg/ml ophthalmic solution (6 sources) Histamine-1 Receptor Inhibitor Start: 10-28-2020 End: 11-02-2020 Olopatadine 0.1 % drops Discontinued 1 NMA OPHTHALMIC TWICE A DAY October 28, 2020 1:00am November 02, 2020 1:49pm separate doses by at least 6-8 hours pravastatin sodium 10 mg oral tablet (18 sources) HMG-CoA Reductase Inhibitor Start: 12-13-2021 End: 04-21-2024 take 1 tablet by mouth once daily pravastatin (PRAVACHOL) 10 mg tablet Take 1 tablet by mouth once daily. 30 tablet 5 12/13/2021 04/21/2024 Discontinued (Discontinued by Patient) Comment on above: Take 1 tablet by [facility] once daily. predniSONE 10 mg oral tablet (9 sources) Start: 10-20-2023 End: 04-21-2024 predniSONE (DELTASONE) 10 mg tablet Take 4 tabs daily for 3 days, then 2 tabs daily for 3 days, then 1 tab daily for 3 days with food. 21 tablet 10/20/2023 04/21/2024 Discontinued (Discontinued by Patient) Start: 10-14-2023 End: 04-21-2024 take 1 tablet by mouth once predniSONE (DELTASONE) 20 mg tablet Take 1 tablet by mouth every afternoon. 10/14/2023 04/21/2024 Discontinued (Discontinued by Patient) Start: 10-14-2023 take 2 tablets by [facility] once daily Comment on above: Take 1 tablet by carson every afternoon. Take 4 tabs daily fo r 3 days, then 2 tabs daily for 3 days, then 1 tab daily for 3 days with food. probiotic (6 sources) Start: 10-28-2020 End: 11-02-2020 probiotic Discontinued PO DAILY 0 October 28, 2020 1:00am November 02, 2020 1:49pm Start: 10-28-2020 End: 11-02-2020 probiotic Discontinued PO DA JORGE A October 28, 2020 1:00am November 02, 2020 1:49pm tamsulosin hydrochloride 0.4 mg oral capsule (3 sources) alpha-Adrenergic Esther Start: 04-21-2024 End: 05-21-2024 take 1 capsule by mouth once daily at bedtime tamsulosin (FLOMAX) 0.4 mg Indications: Flank pain Take 1 capsule by mouth daily at bedtime. 30 capsule 04/21/2024 04/27/2024 Discontinued (Discontinued by Patient) Problems Active Problems Problem Classification Problem Date Documented Da te Episodic/Chronic Abdominal pain (20 sources) Right upper quadrant pain; Translations: [Right upper quadrant pain] Onset: 5 Resolved: 2 08-09-2005 Episodic Acute bronchitis (1 source) Respiratory syncytial virus bronchitis; Translations: [Acute bronchitis due to respiratory syncytial virus] 10-22-2023 Episodic Cardiac dysrhythmias (20 sources) Supraventricular tachycardia; Translations: [Supraventricular tachycardia] Onset: 0 Chronic Comment on above: per ZIO Patch 09/2020 Cardiac dysrhythmias (6 sources) Palpitations; Translations: [Palpitations] 10-28-2020 Episodic Chronic obstructive pulmonary disease and bronchiectasis (20 sources) Emphysematous bronchitis; Translations: [Chronic obstructive pulmonary disease, unspecified] Onset: 5 08-09-2005 Chronic Conditions associated with dizziness or vertigo (10 sources) Lightheadedness; Translations: [Dizziness and giddiness] Episodic Coronary atherosclerosis and other heart disease (20 sources) Atypical angina; 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] Onset: 1 Chronic Diabetes mellitus without complication (20 sources) Diabetes mellitus without complication; Translations: [Type 2 diabetes mellitus without complications] Onset: 2 Chronic Diseases of white blood cells (1 source) Leukocytosis; Translations: [Elevated white blood cell count, unspecified] 06-15-2024 Chronic Disorders of lipid metabolism (20 sources) Hyperlipidemia; Translations: [Hyperlipidemia, unspecified] Onset: 5 Chronic E Codes: Fall (6 sources) Fall on same level from slipping, tripping or stumbling ; Translations: [Fall on same level from slipping, tripping and stumbling without subsequent striking against object, initial encounter] 02-23-2019 Episodic Essential hypertension (20 sources) Essential hypertension; Translations: [Essential (primary) hypertension] Onset: 8 Resolved: 8 Chronic Genitourinary symptoms and ill-defined conditions (20 sources) Urinary incontinence; Translations: [Unspecified urinary incontinence] Onset: 0 05-23-2010 Chronic Genitourinary symptoms and ill-defined conditions (2 sources) Incomplete emptying of bladder; Translations: [Retention of urine, unspecified] Episodic Headache; including migraine (20 sources) Migraine without aura; Translations: [Migraine without aura, not intractable, without status migrainosus] Onset: 5 08-09-2005 Chronic Headache; including migraine (1 source) Acute headache; Translations: [Acute nonintractable headache, unspecified headache type] 02-27-2025 Episodic Headache; including migraine (1 source) Headache; including migraine; Translations: [Acute nonintractable headache, unspecified headache type] Onset: 5 Menopausal disorders (20 sources) Atrophic vaginitis; Translations: [Postmenopausal atrophic vaginitis] Onset: 7 01-11-2017 Chronic Miscellaneous mental health disorders (1 source) Acute insomnia; Translations: [Adjustment insomnia] Episodic Noninfectious gastroenteritis (1 source) Chronic diarrhea; Translations: [Noninfective gastroenteritis and colitis, unspecified] Episodic Nonspecific chest pain (20 sources) Chest pain; Translations: [Other chest pain] Onset: 0 07-13-2020 Episodic Nutritional deficiencies (20 sources) Vitamin D deficiency; Translations: [Vitamin D deficiency, unspecified] Onset: 4 Chronic Osteoarthritis (20 sources) Arthritis of knee; Translations: [Unilateral primary osteoarthritis, unspecified knee] Onset: 5 Chronic Other aftercare (1 source) Post-discharge follow-up; Translations: [Encounter for follow-up examination after completed treatment for conditions other than malignant neoplasm] 10-24-2023 Episodic Other and ill-defined heart disease (1 source) Left ventricular wall hypokinetic; Translations: [Other ill-defined heart diseases] Chronic Other gastrointestinal disorders (1 source) Incomplete passage of stool; Translations: [Incomplete defecation] Episodic Other lower respiratory disease (1 source) Dyspnea; Translations: [Shortness of breath] Episodic Other lower respiratory disease (2 sources) Rib pain; Translations: [Pleurodynia] Episodic Other nervous system disorders (2 sources) Chronic low back pain; Translations: [Other chronic pain] 01-25-2025 Chronic Other nervous system disorders (3 sources) Other chronic pain; Translations: [Chronic midline low back pain without sciatica] Onset: 4 Chronic Other non-traumatic joint disorders (1 source) Joint pain; Translations: [Pain in unspecified joint] 04-21-2024 Episodic Other upper respiratory disease (20 sources) Seasonal allergy; Translations: [Other seasonal allergic rhinitis] Onset: 1 12-15-2010 Chronic Other upper respiratory disease (1 source) Bronchospasm; Translations: [Acute bronchospasm] 10-22-2023 Episodic Other upper respiratory infections (1 source) Bacterial sinusitis; Translations: [Chronic sinusitis, unspecified] 05-27-2024 Chronic Other upper respiratory infections (5 sources) Acute upper respiratory infection; Translations: [Acute upper respiratory infection, unspecified] Onset: 5 10-09-2023 Episodic Prolapse of female genital organs (20 sources) Cystocele; Translations: [Cystocele, unspecified] 07-20-2011 Chronic Residual codes; unclassified (1 source) Menopause present; Translations: [Asymptomatic menopausal state] Episodic Residual codes; unclassified (1 source) Procedure not done; Translations: [Procedure and treatment not carried out, unspecified reason] 04-20-2023 Episodic Residual codes; unclassified (2 sources) History of chest pain; Translations: [Personal history of other specified conditions] 04-25-2023 Episodic Screening and history of mental health and substance abuse codes (2 sources) Encounter for screening for depression; Translations: [Encounter for screening examination for other mental health and behavioral disorders] Onset: 5 Episodic Sprains and strains (20 sources) Strain of thoracic region; Translations: [Strain of muscle and tendon of unspecified wall of thorax, initial encounter] Onset: 4 Resolved: 2 02-23-2019 Episodic Superficial injury; contusion (12 sources) Contusion of hip; Translations: [Contusion of left hip, initial encounter] 02-23-2019 Episodic Unclassified (6 sources) Age more than 65 years; Translations: [Over 65 years old] 09-05-2021 Unclassified (1 source) Cough, unspecified; Translations: [Cough, unspecified] Onset: 5 Unclassified (1 source) Chronic midline low back pain without sciatica; Translations: [Chronic midline low back pain without sciatica] Onset: 5 Viral infection (6 sources) Disease caused by 2019-nCoV; Translations: [COVID-19] 09-05-2021 Episodic Past or Other Problems Problem Classification Problem Date Documented Da te Episodic/Chronic Diabetes mellitus with complications (20 sources) Type 2 diabetes mellitus; Translations: [Type II or unspecified type diabetes mellitus without mention of complication, uncontrolled] Onset: 08-17-2008 Resolved: 02-05-2012 02-05-2012 Chronic Hemorrhoids (20 sources) Internal hemorrhoids; Translations: [Other hemorrhoids] Resolved: 02-05-2012 02-05-2012 Episodic Malaise and fatigue (20 sources) Malaise and fatigue; Translations: [Other malaise] Onset: 05-28-2007 05-28-2007 Episodic Mood disorders (20 sources) Recurrent major depressive episodes, moderate ; Translations: [Major depressive disorder, recurrent, moderate] Onset: 05-28-2007 Resolved: 02-05-2012 02-05-2012 Chronic Neoplasms of unspecified nature or uncertain behavior (20 sources) Neoplasm of uncertain behavior of skin; Translations: [Neoplasm of uncertain behavior of skin] Onset: 11-05-2007 Resolved: 12-10-2007 12-10-2007 Episodic Other aftercare (20 sources) Surgical follow-up; Translations: [Follow-up examination following surgery] Onset: 08-15-2004 Resolved: 08-09-2005 08-09-2005 Episodic Other and unspecified benign neoplasm (20 sources) Adenoma of left adrenal gland; Translations: [Benign neoplasm of left adrenal gland] Onset: 09-06-2021 09-06-2021 Episodic Other connective tissue disease (20 sources) Muscle pain; Translations: [Myalgia and myositis, unspecified] Onset: 05-28-2007 05-28-2007 Episodic Other connective tissue disease (20 sources) Pain in limb; Translations: [Pain in unspecified limb] Onset: 03-31-2007 Resolved: 02-05-2012 02-05-2012 Episodic Other connective tissue disease (20 sources) Other symptoms and signs involving the musculoskeletal system; Translations: [Other musculoskeletal symptoms referable to limbs] Onset: 10-31-2009 Resolved: 02-05-2012 02-05-2012 Episodic Other ear and sense organ disorders (5 sources) Otalgia, left ear; Translations: [Otalgia, unspecified] Onset: 06-26-2024 06-16-2024 Episodic Other gastrointestinal disorders (20 sources) Occult blood in stools; Translations: [Other fecal abnormalities] Onset: 12-16-2017 12-16-2017 Episodic Other gastrointestinal disorders (20 sources) Constipation; Translations: [Constipation, unspecified] Resolved: 02-05-2012 02-05-2012 Episodic Other non-traumatic joint disorders (2 sources) Pain in left knee; Translations: [Pain in joint, lower leg] Onset: 06-10-2024 06-10-2024 Episodic Other nutritional; endocrine; and metabolic disorders (20 sources) Obesity; Translations: [Obesity, unspecified] Onset: 08-09-2005 Resolved: 01-04-2006 01-04-2006 Chronic Other screening for suspected conditions (not mental disorders or infectious disease) (20 sources) Patient encounter status; Translations: [Encounter for screening for malignant neoplasm of colon] Onset: 12-16-2017 12-16-2017 Episodic Other skin disorders (20 sources) Seborrheic keratosis; Translations: [Other seborrheic keratosis] Onset: 12-10-2007 Resolved: 02-05-2012 02-05-2012 Episodic Other skin disorders (20 sources) Eruption; Translations: [Rash and other nonspecific skin eruption] Onset: 05-23-2010 Resolved: 02-05-2012 02-05-2012 Episodic Other skin disorders (20 sources) Skin tag; Translations: [Other hypertrophic disorders of the skin] Onset: 02-15-2011 Resolved: 02-05-2012 02-05-2012 Episodic Residual codes; unclassified (20 sources) Insomnia; Translations: [Insomnia, unspecified] Onset: 05-28-2007 05-28-2007 Episodic Spondylosis; intervertebral disc disorders; other back problems (20 sources) Low back pain; Translations: [Lumbago] Onset: 12-10-2007 Resolved: 06-19-2012 06-19-2012 Episodic Transient cerebral ischemia (20 sources) Cerebral ischemia; Translations: [Transient cerebral ischemic attack, unspecified] Onset: 12-22-2008 Resolved: 10-29-2016 10-29-2016 Chronic Results Test Name Value Interpretation Reference Range Facility [facility] 06-08-2025 CN Office Visit (FAMPWS ) JACKELIN DIAZ ([id number]) 1945 F Date Time Provider Department 06/08/25 2:20 PM HYUN VILLA [facility] During your visit today, we recorded the following information about you: Pulse Blood pressure Weight 74/minute 130/72 69.4 kg Hyun Villa APRN.[facility] 06/08/2025 3:04 PM Signed This is a 80 year old female who presents today with: Patient presents with: Arthritis HISTORY OF PRESENT ILLNESS: Jackelin Diaz is a 80 year old female. Patient presents with: Arthritis The patient is a 80-year-old female with osteoarthritis of the bilateral knees and hands and spinal stenosis, presenting for evaluation of chronic worsening bilateral leg and back pain. Yue is a 80-year-old female with a history of osteoarthritis, presenting for evaluation of worsening pain in the legs, back, and hands. Osteoarthritis: - Worsening pain in legs, back, and hands over the past 2-3 months. - Pain in legs is described as sharp and affects the entire leg, primarily down the front (shins) and ankles. - Back pain radiates across the back, more pronounced on the left side, and is exacerbated by simple activities. - Pain in hands is worse in the morning, particularly in the distal joints, with some improvement after a hot shower and Tylenol. - Reports difficulty picking up and holding objects due to hand pain. - Left arm and hand have a constant tingly sensation. - Pain between shoulder blades, extending into the ribs. - Pain severity rated as 7/10 today after taking Celebrex and Tylenol; can reach 10/10 on worse days. - Pain is aggravated by activities such as grocery shopping and cleaning, requiring Yue to lie down immediately afterward. - Feels unsteady on feet and at risk of falling due to leg pain. - Leaning on a shopping cart provides some relief for back pain. - Has tried gabapentin in the past but discontinued due to feeling weird and listless. - Currently taking Celebrex and multiple doses of extra strength Tylenol daily for pain management. PAST MEDICAL HISTORY: PAST MEDICAL HISTORY Diagnosis Date COPD (chronic obstructive pulmonary disease) (HCC) Endometriosis Essential hypertension, benign Female bladder prolapse Myalgia and myositis, unspecified Other and unspecified hyperlipidemia Other forms of migraine Snoring Type II or unspecified type diabetes mellitus without mention of complication, not stated as uncontrolled PAST SURGICAL HISTORY Procedure Laterality Date APPENDECTOMY 1985 ARTHROSCOPY KNEE DIAGNOSTIC W/WO SYNOVIAL BX SPX Left 07/25/06 Arthroscopy, knee CHOLECYSTECTOMY 1985 Cholecystectomy COLONOSCOPY FLX DX W/COLLJ SPEC WHEN PFRMD 06/14/06 Repeat in COLONOSCOPY FLX DX W/COLLJ SPEC WHEN PFRMD 12/25/2017 Colonoscopy PAST SURGICAL HISTORY OF rotator cuff repair on R TOTAL ABDOMINAL HYSTERECT W/WO RMVL TUBE OVARY Hysterectomy, BRUNILDA ALLERGIES Lexapro [Escitalopram Oxalate], Lipitor [Atorvastatin Calcium], and Fyuzgof-Vom-Wfo Reductase Inhibitors MEDICATIONS Current Outpatient Medications Medication Sig acetaminophen (TYLENOL EXTRA STRENGTH) 500 mg tablet Take 500 mg by mouth every 8 hours as needed for pain. celecoxib (CELEBREX) 200 mg capsule Take 1 capsule by mouth once daily. amLODIPine (NORVASC) 5 mg tablet Take 1 tablet by mouth once daily. metoprolol succinate ER (TOPROL XL) 50 mg 24 hr tablet Take 1 tablet by mouth once daily. metFORMIN ER (GLUCOPHAGE XR) 500 mg 24 hr tablet Take 2 tablets by mouth daily with breakfast. blood sugar diagnostic (BLOOD GLUCOSE TEST) test strip Test blood sugar(s) once times daily. Dx: Type 2 DM - Controlled E11.9 Insulin: No Lancets lancets One Touch Ultra Blue: Test blood sugar(s) 1 times daily. Dx: Type 2 DM - Controlled E11.9 Insulin: No aspirin 81 mg chewable tablet Take 1 tablet by mouth once daily. gabapentin (NEURONTIN) 100 mg capsule Take 1 capsule by mouth three times a day for 90 days. (Patient not taking: Reported on 02/27/2025) albuterol HFA (PROVENTIL HFA, VENTOLIN HFA) 90 mcg/actuation inhaler Inhale 2 Puffs as instructed every 4 hours as needed for wheezing/shortness of breath. (Patient not taking: Reported on 06/08/2025) MULTIVITAMIN ORAL Take by mouth. Cholecalciferol, Vitamin D3, 125 mcg (5,000 unit) cap Take 1 capsule by mouth once daily. No current facility-administered medications for this visit. FAMILY HISTORY Problem Relation Age of Onset other (thyroid dis) Mother 2 bro, 1 sis other (Liver) Mother Heart Father aunts, uncles other (hyperchol) Son 2 bro, 2 sis other (cva) Sister Diabetes Brother uncles, cousins other (migraine) Other mgm SOCIAL HISTORY[1] REVIEW OF SYSTEMS Neck: (-) neck pain Musculoskeletal: (+) bilateral leg pain, (+) bilateral ankle pain, (+) bilateral guadalupe pain, (+) low back pain, (+) inters (more content not included)... Normal [facility] Chest PA and Lateralon 05-19 Chest PA and Lateral [facility] Imaging Services [address] [place] [address] Chest PA and Lateral MR#: [id number] Acct: [id number] Name: JACKELIN DIAZ Rep #: [id number] : 1945 F 80 From: Tomas Almonte MD PCP: RAUL Travis Status: REG CLI Study: Chest PA and Lateral Date of Exam: 05/19/25 Exam# [id number] Ordering Dr: Dimitrios Prabhakar MD PROCEDURE: CHEST PA AND LATERAL 05/19/2025 REASON FOR EXAM: COUGH TECHNIQUE: Procedure Code: RADCXR Modality: DX Procedure: CHEST PA AND LATERAL COMPARISON: October 14, 2023 FINDINGS: Hardware: None Heart: Normal Mediastinum: Mild subglottic narrowing. Lungs: Clear. No pneumothorax or pleural effusion. Bones: Degenerative changes are identified within the thoracic spine. RAD/Chest PA and Lateral IMPRESSION: Mild subglottic narrowing. Correlate with upper airway symptoms. Consider tracheobronchitis. Reading Location: [id number] CC: Dr. Dimitrios Prabhakar MD; RAUL Travis Pit Boss: Signed Normal [facility] CNOVon 04-28-2025 CN Office Visit (FAMPWS ) JACKELIN DIAZ ([id number]) 1945 F Date Time Provider Department 04/28/25 1:20 PM VALARIE LANDRY During your visit today, we recorded the following information about you: Temperature Pulse Respiration Blood pressure 99.7 degrees 85/minute 16/minute 126/64 Valarie Landry APRN.BINDERY ASSISTANT 04/28/2025 2:23 PM Signed Facts About the Common Cold and Upper Respiratory Infection: Common symptoms include: sore throat, tender lymph nodes, low grade fever 99-101F for first few days, watery nasal drip that progresses to thick yellow-green mucus on blowing and on coughing, facial/sinus pressure, headache, chest tightness and tiredness/ fatigue. Usually they peak with the worst symptoms about 5-7 days and take another 5-7 days to clear, in other words 10-14 days. Occasionally there will be a persistent nagging cough or some residual minor nasal congestion up to several weeks. Viral infections are not susceptible to antibiotics. Due to the critical issues with global antibiotic resistance, we do not prescribe antibiotics if we suspect viral sources. Antibiotics can cause serious complications and therefore should be reserved for only serious infections. Home going instructions for Viral Upper Respiratory Infections In General: - Drink lots of fluids - at least one gallon of non-caffeinated liquids per day - Make sure you are eating well - Get plenty of rest - at least 8 hours of sleep per night for adults - ibuprofen 600mg every 8 hours as needed for discomfort - acetaminophen 500mg every 4-6 hours as needed for fever and discomfort. - may alternate ibuprofen and acetaminophen For nasal congestion try: -Vaporizers, Neti Pot, humidifiers, hot showers, and hot fluids help open respiratory and sinus passages. - [place] [facility] [place] may offer relief of nasal and head congestion 2-3 times per day as needed. - Sudafed is a safe and effective decongestant for people who do not have high blood pressure. Do not take Sudafed if you have ever been told that you have high blood pressure or hypertension. General dosing guidelines: Immediate release: 60 mg every 4-6 hours; Extended release: 120 mg every 12 hours or 240 mg every 24 hours; maximum: 240 mg/24 hours. For Sore Throat try: - Salt water gargles every 2-3 hours as needed for discomfort - Chloraceptic spray or throat lozenges (Cepacol) For Cough and chest congestion try one of the following: - Mucinex or Robitussin are expectorants. You may take 200-400 mg every 4 hours to a not to exceed 2,400 mg/day OR Extended release tablet: 600-1200 mg every 12 hours, not to exceed 2,400 mg/day - Delsym is a cough suppressant: Oral: 10-20 mg every 4 hours or 30 mg every 6-8 hours OR Extended release: 60 mg twice daily; maximum: 120 mg/day - If you have high blood pressure or hypertension it is safe to take Coricidin? HBP Cough AND Cold. If you smoke it is advised that you quit smoking. CONTACT YOUR DOCTOR IF: You have fevers for longer than five days or a fever more than 102 degrees You are still sick after 10 days After several days you are getting worse rather than better 4. You develop nausea, vomiting, diarrhea, or a rash. Go to the ER if you - experience pressure or pain in your chest - experience difficulty swallowing - experience difficulty breathing Follow up in 7-10 days or before if your symptoms get worse. Valarie Landry, NUNO.BINDERY ASSISTANT 04/29/2025 9:59 AM Signed This is a 80 year old female who presents today with: The patient is a 80-year-old female with arthritis, presenting for evaluation of acute sore throat with headache, nasal congestion, and body aches. HISTORY OF PRESENT ILLNESS: Sore Throat: - Onset last night. - Yue Diaz describes pain as severe, causing difficulty swallowing. - Using throat lozenges for relief. URI Symptoms: - Onset [place] afternoon. - Initial symptoms included nasal congestion, severe headache, and myalgias. - Yue reports intermittent ear fullness, but denies severe otalgia. - Tmax 100.4?F; last recorded temperature was yesterday. - Denies cough, nausea, emesis, or diarrhea. - Taking Tylenol for symptom relief; last dose was last night. - Denies known exposure to sick contacts. - has significant cardiac and health issues; Yue is concerned about potential transmission. PAST MEDICAL HISTORY: PAST MEDICAL HISTORY Diagnosis Date COPD (chronic obstructive pulmonary disease) (HCC) Endometriosis Essential hypertension, benign Female bladder prolapse Myalgia and myositis, unspecified Other and unspecified hyperlipidemia Other forms of migraine Snoring Type II or unspecified type diabetes mellitus without mention of complication, not stated as uncontrolled PAST SURGICAL HISTORY Procedure Laterality Date APPENDECTOMY 1985 ARTHROSCOPY KNEE DIAGNOSTIC W/WO SYNOVIAL BX (more content not included)... Normal [facility] COVID & INFLUENZA A/B & RSV PCR, ROUTINEOrdered By: Uriel Brown on 04-28-2025 FLUAV RNA BE+probe Ql (Unsp spec) Not detected Not Detected [facility] FLUBV RNA BE+probe Ql (Unsp spec) Not detected Not Detected [facility] Interpretation and review of laboratory results Abnormal [facility] RSV A RNA BE+probe Ql (Unsp spec) Not detected Not Detected [facility] SARS-CoV-2 (COVID-19) RNA BE+probe Ql (Unsp spec) Detected Abnormal See comment [facility] Reference Range (the expected result in uninfected individuals): Not detected [facility] STREP A MOLECULAR (POC)on Procedural Control Valid [facility] Strep A (POCT) Negative Negative [facility] CNPNon 03-09-2025 CNPN Telephone (FAMPWS) JACKELIN DIAZ ([id number]) 1945 F Date Time Provider Department 03/09/25 HYUN VILLA During your visit today, we recorded the following information about you: Lidya Cardoza RN 03/09/2025 10:43 AM Signed Pt phoned asking pcp to send Rx for celebrex to [facility]. Pended. Pt reports pcp prescribed gabapentin and pt took that and stopped taking celebrex. Pt took gabapentin for 1.5 weeks and noted it made her heart race, made her lethargic, and her arthritis pain got worse without the celebrex. Pt stopped taking the gabapentin and started the celebrex again at 200 mg daily. Reports it doesn't make her arthritis pain go away, but it takes the edge off and she is able to walk better with the celebrex. Asking what pcp thinks about increasing the dose of celebrex? Please advise and phone pt with reply on her cell phone. Hyun Villa APRN.BINDERY ASSISTANT 03/09/2025 2:22 PM Signed Celebrex filled. Please note that Celebrex or any nonsteroidal taken regularly will increase chance of stroke and heart attack as discussed. Acetaminophen is always safer. Ninoska Hinson MA 03/09/2025 2:37 PM Signed Left message for patient to return call. Bernarda Watkins Beth, LPN 03/09/2025 3:05 PM Signed Patient returned call and went over notes below from Hyun Villa DESK REPORTER with understanding. Aware rx sent to the pharmacy. Allergies As of Date: 03/09/2025 Noted Allergy Reaction LEXAPRO (ESCITALOPRAM OXALATE) 06/04/2008 10 - Anaphylaxis Comments: felt tightness in chest and increased blood pressure LIPITOR (ATORVASTATIN CALCIUM) 09/28/2014 14 - Other: See Comments Comments: Muscle aches [id number] REDUCTASE INHIBIT*05/02/2018 5 - Intolerance Comments: Leg cramps, myalgias Date Reviewed: 02/27/2025 Reviewed by: Isaura Baeza LPN - Fully Assessed Reason for Visit: Patient Question [2524] Visit Diagnosis:Primary localized osteoarthrosis of left lower leg [M17.12] Order(s):celecoxib (CELEBREX) 200 mg capsuleTake 1 capsule by mouth once daily.Disp: 90 capsuleRfl: 3 Prescriptions as of 03/09/2025 - celecoxib (CELEBREX) 200 mg capsule Take 1 capsule by mouth once daily. - amLODIPine (NORVASC) 5 mg tablet Take 1 tablet by mouth once daily. - metoprolol succinate ER (TOPROL XL) 50 mg 24 hr tablet Take 1 tablet by mouth once daily. - metFORMIN ER (GLUCOPHAGE XR) 500 mg 24 hr tablet Take 2 tablets by mouth daily with breakfast. - gabapentin (NEURONTIN) 100 mg capsule Take 1 capsule by mouth three times a day for 90 days. - blood sugar diagnostic (BLOOD GLUCOSE TEST) test strip Test blood sugar(s) once times daily. Dx: Type 2 DM - Controlled E11.9 Insulin: No - albuterol HFA (PROVENTIL HFA, VENTOLIN HFA) 90 mcg/actuation inhaler Inhale 2 Puffs as instructed every 4 hours as needed for wheezing/shortness of breath. - MULTIVITAMIN ORAL Take by mouth. - Cholecalciferol, Vitamin D3, 125 mcg (5,000 unit) cap Take 1 capsule by mouth once daily. - Lancets lancets One Touch Ultra Blue: Test blood sugar(s) 1 times daily. Dx: Type 2 DM - Controlled E11.9 Insulin: No - aspirin 81 mg chewable tablet Take 1 tablet by mouth once daily. Problem List As Of Date 03/09/2025 Noted Resolved Rotator cuff (capsule) sprain [S43.429A] 07/12/2004 02/05/2012 SURGERY FOLLOW-UP [V67.0] 08/15/2004 08/09/2005 SURGERY FOLLOWUP NEC [Z09] 12/21/2004 08/09/2005 Hyperlipidemia [E78.5] BENIGN HYPERTENSION [I10] 02/17/2008 PAIN ABDOMEN( Right Upper Quadrant) [R10.11] 08/09/2005 OBESITY NOS [E66.9] 08/09/2005 01/04/2006 COPD W BRONCHITIS,OBSTRUCTIV E [J44.89] 08/09/2005 OSTEOARTHRITIS LOCALIZED, PRIMARY( Lower Leg) [*08/09/2005 MIGRAINE COMMON [G43.009] 08/09/2005 PAIN FLANK [R10.9] 04/09/2006 02/05/2012 Abdominal pain, right lower quadrant [R10.31] 05/23/2010 Unspecified constipation [K59.00] 02/05/2012 Internal hemorrhoids without mention of complic* 02/05/2012 PAIN FOOT [M79.609] 03/31/2007 02/05/2012 MYALGIA AND MYOSITIS NOS [ZUG1791] 05/28/2007 Major depressive disorder, recurrent episode, m*05/28/2007 02/05/2012 MALAISE AND FATIGUE NEC [R53.81, R53.83] 05/28/2007 INSOMNIA NOS [G47.00] 05/28/2007 UNCERTAIN BEHAV NEOPL SKIN [D48.5] 11/05/2007 12/10/2007 PAIN BACK, LOW [M54.50] 12/10/2007 02/05/2012 Essential hypertension [I10] 12/10/2007 Other seborrheic keratosis [L82.1] 12/10/2007 02/05/2012 DM w/o complication type II, uncontrolled [IMO0*08/17/2008 02/05/2012 Unspecified transient cerebral ischemia [G45.9] 12/22/2008 10/29/2016 SVT (supraventricular tachycardia) (HCC) [I47.1*10/31/2009 Left leg weakness [R29.898] 10/31/2009 02/05/2012 Rash [R21] 05/23/2010 02/05/2012 Urinary incontinence [R32] 05/23/2010 Seasonal allergies [J30.2] 12/15/2010 Skin tag [L91.8] 02/15/2011 02/05/2012 Female bladder prolapse [N81.10] Diabetes mellitus without complication (HCC) [ (more content not included)... Normal [facility] CNOVon 02-27-2025 CNOV Office Visit (WOUCA) JACKELIN DIAZ ([id number]) 1945 F Date Time Provider Department 02/27/25 9:30 AM DIMITRIOS GIRON During your visit today, we recorded the following information about you: Temperature Pulse Respiration Blood pressure 97.8 degrees 64/minute 18/minute 150/78 Weight 69.3 kg Dimitrios Giron MD 02/27/2025 10:05 AM Signed [facility] Subjective Jackelin Diaz is a 80 year old female. Patient presents with: Ear Pain: Left ear pain x 1 day, eyes and ACSAS x 3 days Patient presents primarily with concern for left ear infection and possible sinus infection. Left ear pain: Duration: 3 days Location: inside the left ear, over the left eye, top of the head Character: sharp Radiation: No. Aggravating: rotating the head, swallowing, pressing on the eye Relieving: Pain relievers: routine celebrex, taking Alaway for drops for eye symptoms, routine allergy shots Associated: baseline nasal congestion, brushing hair at the crown hurt, history of migraines (left side), chronic left neck tightness Pertinent negatives: Denies numbness, allodynia/paresthesia of the face, rash, fever, chills, sore throat, cough, vision change Ear Pain Review of Systems Objective BP 150/78 Pulse 64 Temp 36.6 ?C (97.8 ?F) (Tympanic) Resp 18 Wt 69.3 kg (152 lb 12.5 oz) SpO2 98% BMI 25.77 kg/m? Physical Exam Constitutional: General: She is not in acute distress. HENT: Right Ear: Tympanic membrane and ear canal normal. Left Ear: Tympanic membrane and ear canal normal. Nose: No congestion or rhinorrhea. Right Sinus: No maxillary sinus tenderness or frontal sinus tenderness. Left Sinus: No maxillary sinus tenderness or frontal sinus tenderness. Mouth/Throat: Mouth: Mucous membranes are moist. Pharynx: No oropharyngeal exudate or posterior oropharyngeal erythema. Eyes: Extraocular Movements: Extraocular movements intact. Conjunctiva/sclera: Conjunctivae normal. Pupils: Pupils are equal, round, and reactive to light. Cardiovascular: Rate and Rhythm: Normal rate and regular rhythm. Heart sounds: No murmur heard. Pulmonary: Effort: No respiratory distress. Breath sounds: No wheezing, rhonchi or rales. Musculoskeletal: Cervical back: Neck supple. Pain with movement present. No muscular tenderness (No pain with self palpation). Lymphadenopathy: Cervical: No cervical adenopathy. Skin: Comments: No erythema, vesicles, or allodynia of the face, scalp, or neck. Neurological: Mental Status: She is alert. {ASSESSMENT/PLAN: 1. Otalgia, left - ICD9: 388.70, ICD10: H92.02 (primary diagnosis) 2. Acute nonintractable headache, unspecified headache type - ICD9: 784.0, ICD10: R51.9 Reassured there is no physical exam abnormality of the left ear ruling out otitis media, otitis externa, or cerumen impaction. No exam findings to confirm zoster, however V2 dermatomal pain is a consideration. More likely causes include left cervical/occipital impingement or lingering left sided migraine. Additional pain medication recommended with acetaminophen. Continue Celebrex and allergy regimen. She may also use ice or heat on her neck. Monitor for vesicle/rash formation or progression of allodynia which would indicate shingles. Dimitrios Giron MD Differential Diagnoses - Musculoskeletal cervical occipital pain with radiation to the left side of the head - Migraine - Zoster - Sinusitis is less likely for the following reason(s): HANDP not suggestive - Otitis media is less likely for the following reason(s): Normal Additional Tests or Interventions The following medication(s) were considered but not ordered: Valacyclovir deferred due to low suspicion for zoster Procedures Allergies As of Date: 02/27/2025 Noted Allergy Reaction LEXAPRO (ESCITALOPRAM OXALATE) 06/04/2008 10 - Anaphylaxis Comments: felt tightness in chest and increased blood pressure LIPITOR (ATORVASTATIN CALCIUM) 09/28/2014 14 - Other: See Comments Comments: Muscle aches [id number] REDUCTASE INHIBIT*05/02/2018 5 - Intolerance Comments: Leg cramps, myalgias Date Reviewed: 02/27/2025 Reviewed by: Isaura Baeza LPN - Fully Assessed Reason for Visit: Ear Pain [817] Cmt: Left ear pain x 1 day, eyes and CASAS x 3 days Primary Visit Diagnosis:Otalgia, left [H92.02] Other Visit Diagnosis:Acute nonintractable headache, unspecified headache type [R51.9] Prescriptions as of 02/27/2025 - amLODIPine (NORVASC) 5 mg tablet Take 1 tablet by mouth once daily. - metoprolol succinate ER (TOPROL XL) 50 mg 24 hr tablet Take 1 tablet by mouth once daily. - metFORMIN ER (GLUCOPHAGE XR) 500 mg 24 hr tablet Take 2 tablets by mouth daily with breakfast. - gabapentin (NEURONTIN) 100 mg capsule Take 1 capsule by mouth three times a day for 90 days. - blood sugar diagnostic (BLOOD GLUCOSE TEST) test (more content not included)... Normal [facility] CNOVon 01-25-2025 CNOV Office Visit (FAMPWS ) JACKELIN DIAZ ([id number]) 1945 F Date Time Provider Department 01/25/25 11:00 AM [facility] During your visit today, we recorded the following information about you: Pulse Blood pressure Weight Height 80/minute 128/60 68.5 kg 1.64 m Hyun Villa APRN.CNP 01/25/2025 11:48 AM Signed Chief Reason For Appointment Patient presents with: Medicare Wellness Exam Jackelin Diaz is a 79 year old female who presents for annual exam. Last office visit date: 07/27/2024 Accompanied By self only Have you had any critical events, hospital stays, ER visits, surgeries or procedures since your last visit here in our office: No Specialists/Other Healthcare Providers Seen: Patient Care Team: Hyun Villa APRN.CNP as PCP - General (Family Medicine) Concerns today: Low back pain- shooting pains LLQ Yue Diaz is a 79-year-old female with a history of arthritis, COPD, and diabetes, presenting for evaluation of acute low back pain and chronic diarrhea. HPI Low Back Pain: - Severe low back pain x3 days. - Described as razor sharp pain, likened to a knife going across. - Pain is constant, worsened by deep breathing and certain movements. - Denies known trauma or injury. - Chronic back pain previously noted as a weak spot, but this episode is more severe and persistent. - Yue has tried various remedies, including sleeping on the couch and using Aspercreme, with no relief. - Taking Celebrex, but reports it is not effective in managing pain. - Has not tried gabapentin before. - Denies fever, chills, nausea, or emesis. Chronic Diarrhea: - Chronic diarrhea, described as a daily thing. - Reports a distinct odor similar to when a baby spits up. - Yue has been on metformin for diabetes management for a long time; initially caused stomach upset but then leveled off. - Denies unintentional weight loss or gain. Arthritis: - Chronic arthritis affecting hands, legs, and knees. - Taking Celebrex, but reports it is not effective in managing pain. - Experiences muscle cramps after taking Tylenol. - Inquires about the use of magnesium creams for arthritis pain relief. - Reports numbness in one finger, with a noticeable bump and contracture. - Family history of Dupuytren's contractures; Yue's father and sister had similar conditions. COPD: - Diagnosed over 20 years ago after multiple bouts of pneumonia. - Does not take any medication for COPD. - Experiences dyspnea in hot weather or during exertion. Diabetes: - Well-controlled blood sugars. - Taking metformin, 3 tablets daily. Allergies: - Receives weekly allergy shots. - Reports severe eye symptoms during allergy season, managed with prescribed eye drops. Active Problems ACTIVE PROBLEM LIST Essential Hypertension - 12/10/2007 (A priority) Hyperlipidemia (A priority) Copd (Chronic Obstructive Pulmonary Disease) (Hcc) Adrenal Adenoma, Left - 09/06/2021 Comment: 08/31/21 CT ab/pel W/WO 8.5mm left adrenal adenoma. 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 04/23/18 Stress Echo resting EF 65%, + chest pain with exercise with mid-lateral hypokinesis, final EF 70% Occult Blood Positive Stool - 12/16/2017 Comment: Added automatically from request for surgery [id number] Encounter for Screening for Malignant Neoplasm of Colon - 12/16/2017 Comment: Added automatically from request for surgery [id number] Atrophic Vaginitis - 01/11/2017 Vitamin D Deficiency - 12/31/2013 Diabetes Mellitus Without Complication (Hcc) - 02/05/2012 Female Bladder Prolapse Seasonal Allergies - 12/15/2010 Urinary Incontinence - 05/23/2010 SVT (supraventricular tachycardia) ([facility]) - 10/31/2009 Comment: 11/10/2020 echocardiogram 2D Doppler: LV size normal, LV SF normal, EF 60%. RV size and RV SF normal, left and right atrium normal size. No valvular heart disease, normal aortic root, normal pulmonary artery size normal inferior vena cava, no pericardial effusion. 10/15/20 Zio monitor demonstrated sinus rhythm with 32 episodes of SVT, fastest 222 bpm x 6 beats, longest 130 x 16 beats: [facility] Myalgia and Myositis, Unspecified - 05/28/2007 Other Malaise and Fatigue - 05/28/2007 Insomnia, Unspecified - 05/28/2007 PAIN ABDOMEN( Right Upper Quadrant) - 08/09/2005 COPD W BRONCHITIS,OBSTRUCTIV E - 08/09/2005 OSTEOARTHRITIS LOCALIZED, PRIMARY( Lower Leg) - 08/09/2005 MIGRAINE COMMON - 08/09/2005 ROS: Constitutional: (-) weight loss, (-) weight gain, (-) fever, (-) chills Head: (-) headaches Eyes: (+) eye irritation, (-) vision changes Ears/Nose/Mouth/Throa (more content not included)... Normal [facility] XR LUMBAR 3V AP/LAT/L5-S1on 01-25-2025 XR LUMBAR 3V AP/LAT/L5-S1 * * *Final Report* * * DATE OF EXAM: Jan 25 2025 12:07PM WOX [id number] - XR LUMBAR 3V AP/LAT/L5-S1 / PROCEDURE REASON: multiple diagnoses * * * * Physician Interpretation * * * * TITLE: XR LUMBAR 3V AP/LAT/L5-S1 CLINICAL INDICATION: Chronic back pain TECHNIQUE: 3 view radiographic study of the lumbar spine COMPARISON: None FINDINGS: There are 5 nonrib-bearing lumbar vertebral bodies. There is reversal of the normal lumbar lordosis. There is preservation of vertebral body height. There is moderate to severe disc space narrowing at L1/L2 with mild endplate sclerosis and with marginal osteophyte formation. There is mild disc space narrowing at L2/L3 with marginal osteophyte formation. There is mild disc space narrowing at L3/L4 with marginal osteophyte formation. There is grade 1 retrolisthesis of L3 on L4. There is moderately severe disc space narrowing at L5/S1 with endplate sclerosis and marginal osteophyte formation. There is facet joint arthrosis in the lumbar spine which is most pronounced at L3/L4, L4/L5 and L5/S1. IMPRESSION: Multilevel degenerative changes as described. Pit Boss: PSCB Transcribe Date/Time: Jan 25 2025 12:17P Dictated by : MIGUEL AGRAWAL MD This examination was interpreted and the report reviewed and electronically signed by: MIGUEL AGRAWAL MD on Jan 25 2025 12:34PM EST [id number] Normal [facility] XR Lumbar spine 3 Viewson IMPRESSION: Multilevel degenerative changes as described. Pit Boss: CESAR Transcribe Date/Time: Jan 25 2025 12:17P Dictated by : MIGUEL AGRAWAL MD This examination was interpreted and the report reviewed and electronically signed by: MIGUEL AGRAWAL MD on Jan 25 2025 12:34PM EST DIVISION OF RADIOLOGY * * *Final Report* * * DATE OF EXAM: Jan 25 2025 12:07PM WOX [id number] - XR LUMBAR 3V AP/LAT/L5-S1 / PROCEDURE REASON: multiple diagnoses * * * * Physician Interpretation * * * * TITLE: XR LUMBAR 3V AP/LAT/L5-S1 CLINICAL INDICATION: Chronic back pain TECHNIQUE: 3 view radiographic study of the lumbar spine COMPARISON: None FINDINGS: There are 5 nonrib-bearing lumbar vertebral bodies. There is reversal of the normal lumbar lordosis. There is preservation of vertebral body height. There is moderate to severe disc space narrowing at L1/L2 with mild endplate sclerosis and with marginal osteophyte formation. There is mild disc space narrowing at L2/L3 with marginal osteophyte formation. There is mild disc space narrowing at L3/L4 with marginal osteophyte formation. There is grade 1 retrolisthesis of L3 on L4. There is moderately severe disc space narrowing at L5/S1 with endplate sclerosis and marginal osteophyte formation. There is facet joint arthrosis in the lumbar spine which is most pronounced at L3/L4, L4/L5 and L5/S1. DIVISION OF RADIOLOGY Provider, Juvenal Cartagena [facility] - 01/25/2025 * * *Final Report* * * DATE OF EXAM: Jan 25 2025 12:07PM WOX [id number] - XR LUMBAR 3V AP/LAT/L5-S1 / PROCEDURE REASON: multiple diagnoses * * * * Physician Interpretation * * * * TITLE: XR LUMBAR 3V AP/LAT/L5-S1 CLINICAL INDICATION: Chronic back pain TECHNIQUE: 3 view radiographic study of the lumbar spine COMPARISON: None FINDINGS: There are 5 nonrib-bearing lumbar vertebral bodies. There is reversal of the normal lumbar lordosis. There is preservation of vertebral body height. There is moderate to severe disc space narrowing at L1/L2 with mild endplate sclerosis and with marginal osteophyte formation. There is mild disc space narrowing at L2/L3 with marginal osteophyte formation. There is mild disc space narrowing at L3/L4 with marginal osteophyte formation. There is grade 1 retrolisthesis of L3 on L4. There is moderately severe disc space narrowing at L5/S1 with endplate sclerosis and marginal osteophyte formation. There is facet joint arthrosis in the lumbar spine which is most pronounced at L3/L4, L4/L5 and L5/S1. IMPRESSION IMPRESSION: Multilevel degenerative changes as described. Pit Boss: [facility] Transcribe Date/Time: Jan 25 2025 12:17P Dictated by : MIGUEL AGRAWAL MD This examination was interpreted and the report reviewed and electronically signed by: MIGUEL AGRAWAL MD on Jan 25 2025 12:34PM [facility] Radiology Study observation (narrative) [facility] XR Lumbar spine 3 ViewsOrder ed By: Juvenal Provider on 01-25-2025 [facility]20[facility] JACKELIN DIAZ ([id number]) 1945 F Date Time Provider Department 07/28/24 HYUN VILLAPWS During your visit today, we recorded the following information about you: Hyun Villa APRN.CNP 07/28/2024 8:03 AM Signed Patient does not have MyChart. Please call her and let her know: Diabetes is well-controlled with a hemoglobin A1c of 6.2%. Thyroid screening is normal. Kidney function, liver function, and blood counts are all normal. Urine for microalbumin creatinine ratio is normal showing no effects of diabetes on her kidneys. However, her LDL, bad cholesterol, is 139. Guidelines recommend high intensity statin as this should be less than 70. I know that she has been intolerant of statins in the past. Watch the saturated fats in your diet by eliminating fried foods and choosing only lean meat/skim dairy products. Your HDL, good cholesterol, is a little low. Try to add into your diet whole grains, purple grape juice, nuts or peanut butter, and soy. That will raise your protection against heart disease. Demi Hernandez RN 07/28/2024 11:22 AM Signed Pt called and is notified of providers results and instructions. Pt voices understanding. Pt states she started the double dose of the Metoprolol of 100 mg today. Demi Hernandez RN Allergies As of Date: 07/28/2024 Noted Allergy Reaction LEXAPRO (ESCITALOPRAM OXALATE) 06/04/2008 10 - Anaphylaxis Comments: felt tightness in chest and increased blood pressure LIPITOR (ATORVASTATIN CALCIUM) 09/28/2014 14 - Other: See Comments Comments: Muscle aches [id number] REDUCTASE INHIBIT*05/02/2018 5 - Intolerance Comments: Leg cramps, myalgias Date Reviewed: 07/27/2024 Reviewed by: Hyun Villa APRN.BINDERY ASSISTANT - Fully Assessed Reason for Visit: Results [95] Prescriptions as of 07/28/2024 - metFORMIN ER (GLUCOPHAGE XR) 500 mg 24 hr tablet Take 3 tablets by mouth daily with breakfast. - metoprolol succinate ER (TOPROL XL) 50 mg 24 hr tablet Take 2 tablets by mouth once daily. - fluticasone (FLONASE) 50 mcg/actuation nasal spray Use 2 Sprays in each nostril once daily. Rinse mouth after use. - blood sugar diagnostic (BLOOD GLUCOSE TEST) test strip Test blood sugar(s) once times daily. Dx: Type 2 DM - Controlled E11.9 Insulin: No - celecoxib (CELEBREX) 200 mg capsule Take 1 capsule by mouth once daily. - albuterol HFA (PROVENTIL HFA, VENTOLIN HFA) 90 mcg/actuation inhaler Inhale 2 Puffs as instructed every 4 hours as needed for wheezing/shortness of breath. - MULTIVITAMIN ORAL Take by mouth. - Cholecalciferol, Vitamin D3, 125 mcg (5,000 unit) cap Take 1 capsule by mouth once daily. - Lancets lancets One Touch Ultra Blue: Test blood sugar(s) 1 times daily. Dx: Type 2 DM - Controlled E11.9 Insulin: No - aspirin 81 mg chewable tablet Take 1 tablet by mouth once daily. Problem List As Of Date 07/28/2024 Noted Resolved Rotator cuff (capsule) sprain [S43.429A] 07/12/2004 02/05/2012 SURGERY FOLLOW-UP [V67.0] 08/15/2004 08/09/2005 SURGERY FOLLOWUP NEC [Z09] 12/21/2004 08/09/2005 Hyperlipidemia [E78.5] BENIGN HYPERTENSION [I10] 02/17/2008 PAIN ABDOMEN( Right Upper Quadrant) [R10.11] 08/09/2005 OBESITY NOS [E66.9] 08/09/2005 01/04/2006 COPD W BRONCHITIS,OBSTRUCTIV E [J44.89] 08/09/2005 OSTEOARTHRITIS LOCALIZED, PRIMARY( Lower Leg) [*08/09/2005 MIGRAINE COMMON [G43.009] 08/09/2005 PAIN FLANK [R10.9] 04/09/2006 02/05/2012 Abdominal pain, right lower quadrant [R10.31] 05/23/2010 Unspecified constipation [K59.00] 02/05/2012 Internal hemorrhoids without mention of complic* 02/05/2012 PAIN FOOT [M79.609] 03/31/2007 02/05/2012 MYALGIA AND MYOSITIS NOS [LJI2374] 05/28/2007 Major depressive disorder, recurrent episode, m*05/28/2007 02/05/2012 MALAISE AND FATIGUE NEC [R53.81, R53.83] 05/28/2007 INSOMNIA NOS [G47.00] 05/28/2007 UNCERTAIN BEHAV NEOPL SKIN [D48.5] 11/05/2007 12/10/2007 PAIN BACK, LOW [M54.50] 12/10/2007 02/05/2012 Essential hypertension [I10] 12/10/2007 Other seborrheic keratosis [L82.1] 12/10/2007 02/05/2012 DM w/o complication type II, uncontrolled [IMO0*08/17/2008 02/05/2012 Unspecified transient cerebral ischemia [G45.9] 12/22/2008 10/29/2016 SVT (supraventricular tachycardia) (HCC) [I47.1*10/31/2009 Left leg weakness [R29.898] 10/31/2009 02/05/2012 Rash [R21] 05/23/2010 02/05/2012 Urinary incontinence [R32] 05/23/2010 Seasonal allergies [J30.2] 12/15/2010 Skin tag [L91.8] 02/15/2011 02/05/2012 Female bladder prolapse [N81.10] Diabetes mellitus without complication (HCC) [E*02/05/2012 Vitamin D deficiency [E55.9] 12/31/2013 Atrophic vaginitis [N95.2] 01/11/2017 Occult blood positive stool [R19.5] 12/16/2017 Encounter for screening for malignant neoplasm *12/16/2017 Other chest pain [R07.89] 07/13/2020 Anginal equivalent (HCC) [I20.89] 12/12/2020 Adrenal adenoma, left (more content not included)... Normal [facility] ALBUMIN/CREATININE RATIO, UR INEon 07-27-2024 Albumin DL <= 20 mg/L (U) [Mass/Vol] 36.3 mg/L Normal [facility] Comment on above: Order Comment: Speci men Type: URINE SPECIMENOrdering Facility: [facility] Address: [address] [place] [id number] Performed By: #### U ACR ####[facility] LABCLIA [id number] [place] [address] [place] Albumin/Creatinine (U) [Mass ratio] 20 mg/g Normal <30 [facility] Comment on above: Order Comment: Speci men Type: URINE SPECIMENOrdering Facility: [facility] Address: [address] [place] [address] Result Comment: Adul t Male and Female Nephrotic Criteria: <30 mg/g is considered normal to mildly increased 30-300 mg/g is considered moderately increased >300 mg/g is considered severely increased KDIGO. (2013). KDIGO 2012 Clinical Practice Guideline for the Evaluation and Management of Chronic Kidney Disease. Official Journal of the International Society of Nephrology, 3(1), 1-150. Performed By: #### U ACR ####[facility] LABCLIA [id number] [place] [address] [place] Creatinine (U) [Mass/Vol] 186.1 mg/dL Normal 20.0-300.0 [facility] Comment on above: Order Comment: Speci men Type: URINE SPECIMENOrdering Facility: [facility] Address: [address] [place] [address] Performed By: #### U ACR ####[facility] LABCLIA [id number] [place] [address] [place] CBC W Auto Differential pane l (Bld)on 07-27-2024 Basophils (Bld) [#/Vol] 0.10 10*3/uL Normal <0.11 [facility] Comment on above: Order Comment: Speci men Type: BLOOD SPECIMENOrdering Facility: [facility] Address: [address] [place] [address] Performed By: #### 5 7021-8 ####[facility] LABCLIA [id number] [place] [address] [place] Basophils/100 WBC (Bld) 1.3 % Normal [facility] Comment on above: Order Comment: Speci men Type: BLOOD SPECIMENOrdering Facility: [facility] Address: [address] [place] [address] Performed By: #### 5 7021-8 ####[facility] LABCLIA [id number] [place] [address] [place] Differential cell count method Nom (Bld) Auto Normal [facility] Comment on above: Order Comment: Speci men Type: BLOOD SPECIMENOrdering Facility: [facility] Address: [address] [place] [address] Performed By: #### 5 7021-8 ####[facility] LABCLIA [id number] [place] [address] [place] Eosinophils (Bld) [#/Vol] 0.33 10*3/uL Normal <0.46 [facility] Comment on above: Order Comment: Speci men Type: BLOOD SPECIMENOrdering Facility: [facility] Address: [address] [place] [address] Performed By: #### 5 7021-8 ####[facility] LABIA [id number] [place] [address] [place] Eosinophils/100 WBC (Bld) 4.2 % Normal [facility] Comment on above: Order Comment: Speci men Type: BLOOD SPECIMENOrdering Facility: [facility] Address: [address] [place] [address] Performed By: #### 5 7021-8 ####[facility] LABIA [id number] [place] [address] [place] Erythrocyte distribution width (RBC) [Ratio] 12.9 % Normal 11.5-15.0 [facility] Comment on above: Order Comment: Speci men Type: BLOOD SPECIMENOrdering Facility: [facility] Address: [address] [place] [address] Performed By: #### 5 7021-8 ####[facility] LABCLIA [id number] [place] [address] [place] Hematocrit (Bld) [Volume fraction] 41.1 % Normal 36.0-46.0 [facility] Comment on above: Order Comment: Speci men Type: BLOOD SPECIMENOrdering Facility: [facility] Address: [address] [place] [address] Performed By: #### 5 7021-8 ####[facility] LABCLIA [id number] [place] [address] [place] Hemoglobin (Bld) [Mass/Vol] 13.4 g/dL Normal 11.5-15.5 [facility] Comment on above: Order Comment: Speci men Type: BLOOD SPECIMENOrdering Facility: [facility] Address: [address] [place] [address] Performed By: #### 5 7021-8 ####[facility] LABCLIA [id number] [place] [address] [place] Immature granulocytes (Bld) [#/Vol] 0.04 10*3/uL Normal <0.10 [facility] Comment on above: Order Comment: Speci men Type: BLOOD SPECIMENOrdering Facility: [facility] Address: [address] [place] [address] Performed By: #### 5 7021-8 ####[facility] LABIA [id number] [place] [address] [place] Immature granulocytes/100 WBC (Bld) 0.5 % Normal [facility] Comment on above: Order Comment: Speci men Type: BLOOD SPECIMENOrdering Facility: [facility] Address: [address] [place] [address] Performed By: #### 5 7021-8 ####[facility] LABIA [id number] [place] [address] [place] Lymphocytes (Bld) [#/Vol] 2.42 10*3/uL Normal 1.00-4.00 [facility] Comment on above: Order Comment: Speci men Type: BLOOD SPECIMENOrdering Facility: [facility] Address: [address] [place] [address] Performed By: #### 5 7021-8 ####[facility] LABIA [id number] [place] [address] [place] Lymphocytes/100 WBC (Bld) 30.9 % Normal [facility] Comment on above: Order Comment: Speci men Type: BLOOD SPECIMENOrdering Facility: [facility] Address: [address] [place] [address] Performed By: #### 5 7021-8 ####[facility] LABIA [id number] [place] [address] [place] MCH (RBC) [Entitic mass] 30.1 pg Normal 26.0-34.0 [facility] Comment on above: Order Comment: Speci men Type: BLOOD SPECIMENOrdering Facility: [facility] Address: [address] [place] [address] Performed By: #### 5 7021-8 ####[facility] LABIA [id number] [place] [address] [place] MCHC (RBC) [Mass/Vol] 32.6 g/dL Normal 30.5-36.0 [facility] Comment on above: Order Comment: Speci men Type: BLOOD SPECIMENOrdering Facility: [facility] Address: [address] [place] [address] Performed By: #### 5 7021-8 ####[facility] LABIA [id number] [place] [address] [place] MCV (RBC) [Entitic vol] 92.4 fL Normal 80.0-100.0 [facility] Comment on above: Order Comment: Speci men Type: BLOOD SPECIMENOrdering Facility: [facility] Address: [address] [place] [address] Performed By: #### 5 7021-8 ####[facility] LABIA [id number] [place] [address] [place] Monocytes (Bld) [#/Vol] 0.57 10*3/uL Normal <0.87 [facility] Comment on above: Order Comment: Speci men Type: BLOOD SPECIMENOrdering Facility: [facility] Address: [address] [place] [address] Performed By: #### 5 7021-8 ####[facility] LABCLIA [id number] [place] [address] [place] Monocytes/100 WBC (Bld) 7.3 % Normal [facility] Comment on above: Order Comment: Speci men Type: BLOOD SPECIMENOrdering Facility: [facility] Address: [address] [place] [address] Performed By: #### 5 7021-8 ####[facility] LABCLIA [id number] [place] [address] [place] Neutrophils (Bld) [#/Vol] 4.37 10*3/uL Normal 1.45-7.50 [facility] Comment on above: Order Comment: Speci men Type: BLOOD SPECIMENOrdering Facility: [facility] Address: [address] [place] [address] Performed By: #### 5 7021-8 ####[facility] LABCLIA [id number] [place] [address] [place] Neutrophils/100 WBC (Bld) 55.8 % Normal [facility] Comment on above: Order Comment: Speci men Type: BLOOD SPECIMENOrdering Facility: [facility] Address: [address] [place] [address] Performed By: #### 5 7021-8 ####[facility] LABCLIA [id number] [place] [address] [place] Nucleated RBC (Bld) [#/Vol] 10*3/uL Normal <0.01 [facility] Comment on above: Order Comment: Speci men Type: BLOOD SPECIMENOrdering Facility: [facility] Address: [address] [place] [address] Performed By: #### 5 7021-8 ####[facility] LABCLIA [id number] [place] [address] [place] Nucleated RBC/100 WBC (Bld) [Ratio] 0.0 /100 WBC Normal [facility] Comment on above: Order Comment: Speci men Type: BLOOD SPECIMENOrdering Facility: [facility] Address: [address] [place] [address] Performed By: #### 5 7021-8 ####[facility] LABCLIA [id number] [place] [address] [place] Platelet mean volume (Bld) [Entitic vol] 11.0 fL Normal 9.0-12.7 [facility] Comment on above: Order Comment: Speci men Type: BLOOD SPECIMENOrdering Facility: [facility] Address: [address] [place] [address] Performed By: #### 5 7021-8 ####[facility] LABCLIA [id number] [place] [address] [place] Platelets (Bld) [#/Vol] 291 10*3/uL Normal 150-400 [facility] Comment on above: Order Comment: Speci men Type: BLOOD SPECIMENOrdering Facility: [facility] Address: [address] [place] [address] Performed By: #### 5 7021-8 ####[facility] LABCLIA [id number] [place] [address] [place] RBC (Bld) [#/Vol] 4.45 10*6/uL Normal 3.90-5.20 [facility] Comment on above: Order Comment: Speci men Type: BLOOD SPECIMENOrdering Facility: [facility] Address: [address] [place] [address] Performed By: #### 5 7021-8 ####[facility] LABCLIA [id number] [place] [address] [place] WBC (Bld) [#/Vol] 7.83 10*3/uL Normal 3.70-11.00 [facility] Comment on above: Order Comment: Speci men Type: BLOOD SPECIMENOrdering Facility: [facility] Address: [address] [place] [address] Performed By: #### 5 7021-8 ####[facility] LABCLIA [id number] [place] [id number] [place] CNOVon 07-27-2024 CNOV Office Visit (FAMPWS ) JACKELIN DIAZ ([id number]) 1945 F Date Time Provider Department 07/27/24 12:40 PM [facility] During your visit today, we recorded the following information about you: Temperature Pulse Respiration Blood pressure 97.4 degrees 73/minute 16/minute 134/70 Weight 69.2 kg Hyun Villa, LINE OPERATOR.BINDERY ASSISTANT 07/27/2024 1:20 PM Signed This is a 79 year old female who presents today with: Patient presents with: Follow Up: 3 month exam HISTORY OF PRESENT ILLNESS: aJckelin Diaz is a 79 year old female. Patient presents with: Follow Up: 3 month exam Neck and ear still bothering her. Saturday she felt funny- tired and checked BP. It was 157/101, pulse 113; 167/63- HR 103 Hadn't missed any medications. Hasn't made appt. To see ear doctor. Waiting until after the new year. HTN: Patient is compliant with meds Yes Monitors bp at home: Yes. Denies side effects: No. Chest pain: Burning epigastric every once in awhile- also between shoulder blades- noticed at rest. Dyspnea: Yes. With exertion but not with these episodes Edema: Some. Palpitations: Yes. Syncope: No. Headache: No. Dizziness: No. PAST MEDICAL HISTORY: PAST MEDICAL HISTORY Diagnosis Date COPD (chronic obstructive pulmonary disease) (HCC) Endometriosis Essential hypertension, benign Female bladder prolapse Myalgia and myositis, unspecified Other and unspecified hyperlipidemia Other forms of migraine Snoring Type II or unspecified type diabetes mellitus without mention of complication, not stated as uncontrolled PAST SURGICAL HISTORY Procedure Laterality Date APPENDECTOMY 1985 ARTHROSCOPY KNEE DIAGNOSTIC W/WO SYNOVIAL BX SPX Left 07/25/06 Arthroscopy, knee CHOLECYSTECTOMY 1985 Cholecystectomy COLONOSCOPY FLX DX W/COLLJ SPEC WHEN PFRMD 06/14/06 Repeat in COLONOSCOPY FLX DX W/COLLJ SPEC WHEN PFRMD 12/25/2017 Colonoscopy PAST SURGICAL HISTORY OF rotator cuff repair on R TOTAL ABDOMINAL HYSTERECT W/WO RMVL TUBE OVARY Hysterectomy, BRUNILDA ALLERGIES Lexapro [Escitalopram Oxalate], Lipitor [Atorvastatin Calcium], and Yjexanb-Qer-Gvz Reductase Inhibitors MEDICATIONS Current Outpatient Medications Medication Sig fluticasone (FLONASE) 50 mcg/actuation nasal spray Use 2 Sprays in each nostril once daily. Rinse mouth after use. celecoxib (CELEBREX) 200 mg capsule Take 1 capsule by mouth once daily. metoprolol succinate ER (TOPROL XL) 50 mg 24 hr tablet Take 1 tablet by mouth once daily. amLODIPine (NORVASC) 5 mg tablet Take 1 tablet by mouth once daily. metFORMIN ER (GLUCOPHAGE XR) 500 mg 24 hr tablet Take 3 tablets by mouth daily with breakfast. albuterol HFA (PROVENTIL HFA, VENTOLIN HFA) 90 mcg/actuation inhaler Inhale 2 Puffs as instructed every 4 hours as needed for wheezing/shortness of breath. MULTIVITAMIN ORAL Take by mouth. Cholecalciferol, Vitamin D3, 125 mcg (5,000 unit) cap Take 1 capsule by mouth once daily. aspirin 81 mg chewable tablet Take 1 tablet by mouth once daily. blood sugar diagnostic (BLOOD GLUCOSE TEST) test strip Test blood sugar(s) once times daily. Dx: Type 2 DM - Controlled E11.9 Insulin: No Lancets lancets One Touch Ultra Blue: Test blood sugar(s) 1 times daily. Dx: Type 2 DM - Controlled E11.9 Insulin: No albuterol HFA (VENTOLIN HFA) 90 mcg/actuation inhaler Inhale 2 Puffs as instructed every 4 hours as needed for Wheezing/Shortness of Breath. No current facility-administered medications for this visit. FAMILY HISTORY Problem Relation Age of Onset other (thyroid dis) Mother 2 bro, 1 sis other (Liver) Mother Heart Father aunts, uncles other (hyperchol) Son 2 bro, 2 sis other (cva) Sister Diabetes Brother uncles, cousins other (migraine) Other mgm Social History Tobacco Use Smoking status: Never Smokeless tobacco: Never Vaping Use Vaping status: Never Used Substance Use Topics Alcohol use: No Drug use: No REVIEW OF SYSTEMS GENERAL: No weight loss, + malaise with fast heart rhythm, no fevers/chills HEENT: Negative for frequent or significant headaches, Both changes in hearing and vision. NECK: Negative for lumps, goiter, pain and significant neck swelling RESPIRATORY: Negative for cough, no hemoptysis, no wheezing, some dyspnea and shortness of breath CARDIOVASCULAR: Heart burn type chest pain, trace leg swelling, no orthopnea, + palpitations GI: Some nausea, no vomiting, + diarrhea/ no constipation. Sometimes hematochezia/melena. + heartburn or reflux symptoms. : No history of dysuria, + frequency, stress incontinence MUSCULOSKELETAL: Negative for joint pain or swelling. Neck bothers her, normal OA AND fibromyalgia SKIN: Negative for lesions, facial AND neck rash, no itching ENDOCRINE: Negative for cold or heat intolerance, polyuria, polydipsia and goiter NEURO: No history of head (more content not included)... Normal [facility] Comprehensive metabolic 2000 panelon 07-27-2024 Albumin [Mass/Vol] 4.3 g/dL Normal 3.9-4.9 [facility] Comment on above: Order Comment: Speci men Type: BLOOD SPECIMENOrdering Facility: [facility] Address: [address] [place] [address] Performed By: #### 2 4323-8, LIPNF, 3023-7, 3016-3 ####[facility] LABCLIA [id number] [place] [address] [place] ALP [Catalytic activity/Vol] 62 U/L Normal 34-123 [facility] Comment on above: Order Comment: Speci men Type: BLOOD SPECIMENOrdering Facility: [facility] Address: [address] [place] [address] Performed By: #### 2 4323-8, LIPNF, 302-7, 3016-3 ####[facility] LABCLIA [id number] [address] [address] [place] ALT [Catalytic activity/Vol] 10 U/L Normal 7-38 [facility] Comment on above: Order Comment: Speci men Type: BLOOD SPECIMENOrdering Facility: [facility] Address: [address] [place] [address] Performed By: #### 2 4323-8, LIPNF, 3023-7, 3016-3 ####[facility] LABIA [id number] [place] [id number] [place] Anion gap [Moles/Vol] 13 mmol/L Normal 8-15 [facility] Comment on above: Order Comment: Speci men Type: BLOOD SPECIMENOrdering Facility: [facility] Address: [address] [place] [address] Performed By: #### 2 4323-8, LIPNF, 3023-7, 3016-3 ####[facility] [id number] [place] [id number] [place] AST [Catalytic activity/Vol] 31 U/L Normal 13-35 [facility] Comment on above: Order Comment: Speci men Type: BLOOD SPECIMENOrdering Facility: [facility] Address: [address] [place] [address] Performed By: #### 2 4323-8, LIPNF, 3023-7, 3016-3 ####[facility] LABIA [id number] [address] [address] [place] Bilirubin [Mass/Vol] 0.3 mg/dL Normal 0.2-1.3 [facility] Comment on above: Order Comment: Speci men Type: BLOOD SPECIMENOrdering Facility: [facility] Address: [address] [place] [address] Performed By: #### 2 4323-8, LIPNF, 302-7, 3016-3 ####[facility] LABCLIA [id number] [address] [address] [place] Calcium [Mass/Vol] 9.3 mg/dL Normal 8.5-10.2 [facility] Comment on above: Order Comment: Speci men Type: BLOOD SPECIMENOrdering Facility: [facility] Address: [address] [place] [address] Performed By: #### 2 4323-8, LIPNF, 3023-7, 3016-3 ####[facility] LABCLIA [id number] [address] [address] [place] Chloride [Moles/Vol] 104 mmol/L Normal 98-107 [facility] Comment on above: Order Comment: Speci men Type: BLOOD SPECIMENOrdering Facility: [facility] Address: [address] [place] [address] Performed By: #### 2 4323-8, LIPNF, 3023-7, 3016-3 ####[facility] LABCLIA [id number] [place] [id number] [place] CO2 [Moles/Vol] 25 mmol/L Normal 22-30 [facility] Comment on above: Order Comment: Speci men Type: BLOOD SPECIMENOrdering Facility: [facility] Address: [address] [place], [place] [address] Performed By: #### 2 4323-8, LIPNF, 3023-7, 3016-3 ####[facility] LABCLIA [id number] [address] [address] [place] Creatinine [Mass/Vol] 0.91 mg/dL Normal 0.58-0.96 [facility] Comment on above: Order Comment: Speci men Type: BLOOD SPECIMENOrdering Facility: [facility] Address: [address] [place] [address] Performed By: #### 2 4323-8, LIPNF, 302-7, 3016-3 ####[facility] LABCLIA [id number] [place] [address] [place] Creatinine and Glomerular filtration rate.predicted panel (S/P/Bld) 65 mL/min/1.73m??? Normal >=60 [facility] Comment on above: Order Comment: Heather curtis Type: BLOOD SPECIMENOrdering Facility: [facility] Address: [address] [place] [address] Result Comment: Rossana mated Glomerular Filtration Rate (eGFR) is calculated using the 2020 CKD-EPI creatinine equation. This equation utilizes serum creatinine, sex, and age as parameters. The creatinine assay has traceable calibration to isotope dilution-mass spectrometry. Refer to KDIGO guidelines for clinical interpretation. In patients with unstable renal function, e.g. those with acute kidney injury, the eGFR may not accurately reflect actual GFR. Performed By: #### 2 4323-8, LIPNF, 3024-7, 3016-3 ####[facility] [id number] [place] [address] [place] Glucose [Mass/Vol] 96 mg/dL Normal 74-99 [facility] Comment on above: Order Comment: Heather curtis Type: BLOOD SPECIMENOrdering Facility: [facility] Address: [address] [place] [address] Result Comment: The [place] Diabetes Association (ADA) provides guidance for cutoff values for fasting glucose and random glucose. The ADA defines fasting as no caloric intake for at least 8 hours. Fasting plasma glucose results between 100 to 125 mg/dL indicate increased risk for diabetes (prediabetes). Fasting plasma glucose results greater than or equal to 126 mg/dL meet the criteria for diagnosis of diabetes. In the absence of unequivocal hyperglycemia, results should be confirmed by repeat testing. In a patient with classic symptoms of hyperglycemia or hyperglycemic crisis, random plasma glucose results greater than or equal to 200 mg/dL meet the criteria for diagnosis of diabetes. Reference: Standards of Medical Care in Diabetes 2016, [place] Diabetes Association. Diabetes Care. 2016.39(Suppl 1). Performed By: #### 2 4323-8, LIPNF, 3024-7, 3016-3 ####[facility] LABCLIA [id number] [address] [address] [place] Potassium [Moles/Vol] 4.1 mmol/L Normal 3.7-5.1 [facility] Comment on above: Order Comment: Speci men Type: BLOOD SPECIMENOrdering Facility: [facility] Address: [address] [place] [address] Performed By: #### 2 4323-8, LIPNF, 3023-7, 3016-3 ####[facility] LABCLIA [id number] [place] [id number] [place] Protein [Mass/Vol] 7.3 g/dL Normal 6.3-8.0 [facility] Comment on above: Order Comment: Speci men Type: BLOOD SPECIMENOrdering Facility: [facility] Address: [address] [place] [address] Performed By: #### 2 4323-8, LIPNF, 3024-02, 6-3 ####[facility] LABCLIA [id number] [place] [id number] [place] Sodium [Moles/Vol] 142 mmol/L Normal 136-144 [facility] Comment on above: Order Comment: Speci men Type: BLOOD SPECIMENOrdering Facility: [facility] Address: [address] [place] [address] Performed By: #### 2 4323-8, LIPNF, 3023-7, 6-3 ####[facility] LABCLIA [id number] [place] [id number] [place] Urea nitrogen [Mass/Vol] 11 mg/dL Normal 7-21 [facility] Comment on above: Order Comment: Speci men Type: BLOOD SPECIMENOrdering Facility: [facility] Address: [address] [place] [address] Performed By: #### 2 4323-8, LIPNF, 3023-7, 3016-3 ####[facility] LABCLIA [id number] [place] [address] [place] HbA1c (Bld)on 07-27-2024 Average glucose Estimated from glycated hemoglobin (Bld) [Mass/Vol] 131 mg/dL Normal [facility] Comment on above: Order Comment: Heather curtis Type: BLOOD SPECIMENOrdering Facility: [facility] Address: [address] [place] [address] Result Comment: eAG: (Estimated average glucose) is a calculated value from HgbA1c and is route service representative of the average blood glucose level in the last 2-3 month period. Performed By: #### 5 5454-3 ####[facility] LABIA [id number] [address] [place] HbA1c (Bld) [Mass fraction] 6.2 % High 4.3-5.6 [facility] Comment on above: Order Comment: Heather curtis Type: BLOOD SPECIMENOrdering Facility: [facility] Address: [address] [place] [address] Result Comment: [place] Diabetes Association guidelines indicate that patients with HgbA1c in the range 5.7-6.4% are at increased risk for development of diabetes, and intervention by lifestyle modification may be beneficial. HgbA1c greater or equal to 6.5% is considered diagnostic of diabetes. Performed By: #### 5 5454-3 ####[facility] LABCLIA [id number] [place] [address] [place] LIPID PANEL, NONFASTINGon Cholesterol [Mass/Vol] 231 mg/dL High <[address] [facility] Comment on above: Order Comment: Heather [facility] Type: BLOOD SPECIMENOrdering Facility: [facility] Address: [address] [place] [address] Result Comment: <200 mg/dL, Desirable 200-239 mg/dL, Borderline high >239 mg/dL, High Performed By: #### 2 4323-8, LIPNF, 3024-7, 3016-3 ####[facility] LABIA [id number] [place] [address] [place] HDL CHOLESTEROL, NF 43 mg/dL Normal >39 [facility] Comment on above: Order Comment: Speci men Type: BLOOD SPECIMENOrdering Facility: [facility] Address: [facility] [place] [address] Result Comment: 40-5 9 mg/dL, Acceptable >59 mg/dL, High: Negative risk factor for coronary heart disease <40 mg/dL, Low: Positive risk factor for coronary heart disease Performed By: #### 2 4323-8, LIPNF, 3024-7, 3016-3 ####[facility] LABCLIA [id number] [address] OF [facility] LDL CHOLESTEROL, NF 135 mg/dL High <100 [facility] Comment on above: Order Comment: Heather ever Type: BLOOD SPECIMENOrdering Facility: [facility] Address: [address] [place] [address] Result Comment: <100 mg/dL, Optimal 100-129 mg/dL, Near optimal/above optimal 130-159 mg/dL, Borderline high 160-189 mg/dL, High >189 mg/dL, Very high Secondary prevention optimal LDL Cholesterol levels are recommended to be < 70 mg/dL Performed By: #### 2 4323-8, LIPNF, 3024-7, 3016-3 ####[facility] LABCLIA [id number] [address] [place] LDL/HDL RATIO, NF 3.14 mg/dL High <2.54 [facility] Comment on above: Order Comment: Speci ever Type: BLOOD SPECIMENOrdering Facility: [facility] Address: [address] [place] [address] Result Comment: [place]: 1. National Cholesterol Education Program ATP III Guideline At-A-Glance Quick Desk Reference: National Heart, Lung, and Blood [place]. National Institutes of Health. 2001: NIH Publication No. 01-3305. 2. An International Atherosclerosis Society position paper: global recommendations for the management of dyslipidemia: executive summary, Atherosclerosis. 2014: 232(2):410-413. Performed By: #### 2 4323-8, LIPNF, 3023-7, 3016-3 ####[facility] LABCLIA [id number] [place] [address] [place] NON HDL CHOL, NF 188 mg/dL High <130 [facility] Comment on above: Order Comment: Speci men Type: BLOOD SPECIMENOrdering Facility: [facility] Address: [address] [place] [address] Result Comment: <130 mg/dL, Optimal 130-159 mg/dL, Near optimal/above optimal 160-189 mg/dL, Borderline high 190-219 mg/dL, High >219 mg/dL, Very high Secondary prevention optimal non HDL Cholesterol levels are recommended to be <100 mg/dL Performed By: #### 2 4323-8, LIPNF, 3023-7, 6-3 ####[facility] LABCLIA [id number] [place] [address] [place] T CHOL/HDL RATIO NF 5.37 mg/dL High <5.10 [facility] Comment on above: Order Comment: Speci men Type: BLOOD SPECIMENOrdering Facility: [facility] Address: [address] [place] [address] Performed By: #### 2 4323-8, LIPNF, 3023-7, 6-3 ####[facility] LABCLIA [id number] [place] [address] [place] TRIGLYCERIDES, NF 267 mg/dL High <150 [facility] Comment on above: Order Comment: Speci men Type: BLOOD SPECIMENOrdering Facility: [facility] Address: [address] [place] [address] Result Comment: <150 mg/dL, Normal 150-199 mg/dL, Borderline high 200-499 mg/dL, High >499 mg/dL, Very high Performed By: #### 2 4323-8, LIPNF, 3023-7, 6-3 ####[facility] LABCLIA [id number] [place] [address] [place] VLDL CHOLESTEROL, NF 53 mg/dL High <30 [facility] Comment on above: Order Comment: Speci men Type: BLOOD SPECIMENOrdering Facility: [facility] Address: [address] [place] [address] Performed By: #### 2 4323-8, LIPNF, 3024-7, 3016-3 ####[facility] LABCLIA [id number] [place] [address] [place] T4 Free SerPl-mCncon 024 Free T4 [Mass/Vol] 1.1 ng/dL Normal 0.9-1.7 [facility] Comment on above: Order Comment: Speci men Type: BLOOD SPECIMENOrdering Facility: [facility] Address: [address] [place] [address] Performed By: #### 2 4323-8, LIPNF, 3024-7, 3016-3 ####[facility] LABCLIA [id number] [place] [address] [place] TSH SerPl-aCncon 07-27-2024 TSH Qn 2.850 m[IU]/L Normal 0.270-4.200 [facility] Comment on above: Order Comment: Speci men Type: BLOOD SPECIMENOrdering Facility: [facility] Address: [address] [place] [address] Performed By: #### 2 4323-8, LIPNF, 3024-7, 3016-3 ####[facility] LABCLIA [id number] [place] [id number] [place] CT BRAIN WO IVCONon 06-26-[address] BRAIN WO IVCON * * *Final Report* * * DATE OF EXAM: Jun 26 2024 10:26AM [facility] 0504 - CT BRAIN WO IVCON / PROCEDURE REASON: Ear pain, left * * * * Physician Interpretation * * * * EXAMINATION: CT BRAIN WO IVCON CLINICAL HISTORY: Left ear pain. Clinical concern for mastoiditis. TECHNIQUE: Serial axial images without IV contrast were obtained from the vertex to the foramen magnum. MQ: CTBWO_3 CT Radiation dose: Integrated Dose-Length Product (DLP) for this visit = 719 mGy*cm CT Dose Reduction Employed: Automated exposure control(AEC) and iterative recon COMPARISON: None. RESULT: Localizer images: No additional findings. Post-operative change: None. Acute change: No evidence of an acute infarct or other acute parenchymal process. Hemorrhage: No evidence of acute intracranial hemorrhage. ECASS hemorrhagic transformation score: Not Applicable Mass Lesion / Mass Effect: There is no evidence of an intracranial mass or extraaxial fluid collection. No significant mass effect. Chronic change: None apparent. Parenchyma: There is no significant volume loss. The brain parenchyma is otherwise within normal limits for age. Ventricles: The ventricles are within normal limits of size and configuration for age. Paranasal sinuses and skull base: The visualized paranasal sinuses are grossly clear. Mastoid air cells and middle ear cavities are clear bilaterally. The skull base and imaged soft tissues are unremarkable. IMPRESSION: Unremarkable CT brain. Clear paranasal sinuses, mastoid air cells, and middle ear cavities bilaterally. Pit Boss: CESAR Transcribe Date/Time: Jun 26 2024 10:32A Dictated by : JO HYLTON MD This examination was interpreted and the report reviewed and electronically signed by: JO HYLTON MD on Jun 26 2024 10:33AM EST [id number] N Normal [facility] CT Head WO contraston 2023 IMPRESSION: Unremarkable CT brain. Clear paranasal sinuses, mastoid air cells, and middle ear cavities bilaterally. Pit Boss: [facility] Transcribe Date/Time: Jun 26 2024 10:32A Dictated by : JO HYLTON MD This examination was interpreted and the report reviewed and electronically signed by: JO HYLTON MD on Jun 26 2024 10:33AM EST DIVISION OF RADIOLOGY * * *Final Report* * * DATE OF EXAM: Jun 26 2024 10:26AM [facility] 0504 - CT BRAIN WO IVCON / PROCEDURE REASON: Ear pain, left * * * * Physician Interpretation * * * * EXAMINATION: CT BRAIN WO IVCON CLINICAL HISTORY: Left ear pain. Clinical concern for mastoiditis. TECHNIQUE: Serial axial images without IV contrast were obtained from the vertex to the foramen magnum. MQ: CTBWO_3 CT Radiation dose: Integrated Dose-Length Product (DLP) for this visit = 719 mGy*cm CT Dose Reduction Employed: Automated exposure control(AEC) and iterative recon COMPARISON: None. RESULT: Localizer images: No additional findings. Post-operative change: None. Acute change: No evidence of an acute infarct or other acute parenchymal process. Hemorrhage: No evidence of acute intracranial hemorrhage. ECASS hemorrhagic transformation score: Not Applicable Mass Lesion / Mass Effect: There is no evidence of an intracranial mass or extraaxial fluid collection. No significant mass effect. Chronic change: None apparent. Parenchyma: There is no significant volume loss. The brain parenchyma is otherwise within normal limits for age. Ventricles: The ventricles are within normal limits of size and configuration for age. Paranasal sinuses and skull base: The visualized paranasal sinuses are grossly clear. Mastoid air cells and middle ear cavities are clear bilaterally. The skull base and imaged soft tissues are unremarkable. DIVISION OF RADIOLOGY Provider, [facility] - 06/26/2024 * * *Final Report* * * DATE OF EXAM: Jun 26 2024 10:26AM [facility] 0504 - CT BRAIN WO IVCON / PROCEDURE REASON: Ear pain, left * * * * Physician Interpretation * * * * EXAMINATION: CT BRAIN WO IVCON CLINICAL HISTORY: Left ear pain. Clinical concern for mastoiditis. TECHNIQUE: Serial axial images without IV contrast were obtained from the vertex to the foramen magnum. MQ: CTBWO_3 CT Radiation dose: Integrated Dose-Length Product (DLP) for this visit = 719 mGy*cm CT Dose Reduction Employed: Automated exposure control(AEC) and iterative recon COMPARISON: None. RESULT: Localizer images: No additional findings. Post-operative change: None. Acute change: No evidence of an acute infarct or other acute parenchymal process. Hemorrhage: No evidence of acute intracranial hemorrhage. ECASS hemorrhagic transformation score: Not Applicable Mass Lesion / Mass Effect: There is no evidence of an intracranial mass or extraaxial fluid collection. No significant mass effect. Chronic change: None apparent. Parenchyma: There is no significant volume loss. The brain parenchyma is otherwise within normal limits for age. Ventricles: The ventricles are within normal limits of size and configuration for age. Paranasal sinuses and skull base: The visualized paranasal sinuses are grossly clear. Mastoid air cells and middle ear cavities are clear bilaterally. The skull base and imaged soft tissues are unremarkable. IMPRESSION IMPRESSION: Unremarkable CT brain. Clear paranasal sinuses, mastoid air cells, and middle ear cavities bilaterally. Pit Boss: CESAR Transcribe Date/Time: Jun 26 2024 10:32A Dictated by : JO HYLTON MD This examination was interpreted and the report reviewed and electronically signed by: JO HYLTON MD on Jun 26 2024 10:33AM EST [facility] Radiology Study observation (narrative) [facility] CT Head WO contrastOrdered B y: [facility] Provider on 06-26-2024 [facility] CNPNon 06-22-2024 CNPN Telephone (FAMPWS) JACKELIN DIZA ([id number]) 1945 F Date Time Provider Department 06/22/[facility] During your visit today, we recorded the following information about you: Hyun Villa APRN.[facility] 06/22/2024 6:06 PM Signed Please let pt. Know that they are sending a note for clearance for total knee. I am going to return it saying that she is not cleared until we figure out about this ear pain. Sorry. We can revisit in July and schedule for pre-op then if ok. (Would need additional time for appt.) Ninoska Hinson MA 06/23/2024 10:18 AM Signed Detailed message left for patient left on identifiable voicemail. Ninoska Hinson MA Allergies As of Date: 06/22/2024 Noted Allergy Reaction LEXAPRO (ESCITALOPRAM OXALATE) 06/04/2008 10 - Anaphylaxis Comments: felt tightness in chest and increased blood pressure LIPITOR (ATORVASTATIN CALCIUM) 09/28/2014 14 - Other: See Comments Comments: Muscle aches [id number]-[id number]-GEQ REDUCTASE INHIBIT*05/02/2018 5 - Intolerance Comments: Leg cramps, myalgias Date Reviewed: 06/16/2024 Reviewed by: Hyun Villa APRN.BINDERY ASSISTANT - Fully Assessed Prescriptions as of 06/23/2024 - fluticasone (FLONASE) 50 mcg/actuation nasal spray Use 2 Sprays in each nostril once daily. Rinse mouth after use. - blood sugar diagnostic (BLOOD GLUCOSE TEST) test strip Test blood sugar(s) once times daily. Dx: Type 2 DM - Controlled E11.9 Insulin: No - celecoxib (CELEBREX) 200 mg capsule Take 1 capsule by mouth once daily. - metoprolol succinate ER (TOPROL XL) 50 mg 24 hr tablet Take 1 tablet by mouth once daily. - amLODIPine (NORVASC) 5 mg tablet Take 1 tablet by mouth once daily. - metFORMIN ER (GLUCOPHAGE XR) 500 mg 24 hr tablet Take 3 tablets by mouth daily with breakfast. - albuterol HFA (PROVENTIL HFA, VENTOLIN HFA) 90 mcg/actuation inhaler Inhale 2 Puffs as instructed every 4 hours as needed for wheezing/shortness of breath. - MULTIVITAMIN ORAL Take by mouth. - Cholecalciferol, Vitamin D3, 125 mcg (5,000 unit) cap Take 1 capsule by mouth once daily. - Lancets lancets One Touch Ultra Blue: Test blood sugar(s) 1 times daily. Dx: Type 2 DM - Controlled E11.9 Insulin: No - albuterol HFA (VENTOLIN HFA) 90 mcg/actuation inhaler Inhale 2 Puffs as instructed every 4 hours as needed for Wheezing/Shortness of Breath. - aspirin 81 mg chewable tablet Take 1 tablet by mouth once daily. Problem List As Of Date 06/22/2024 Noted Resolved Rotator cuff (capsule) sprain [S43.429A] 07/12/2004 02/05/2012 SURGERY FOLLOW-UP [V67.0] 08/15/2004 08/09/2005 SURGERY FOLLOWUP NEC [Z09] 12/21/2004 08/09/2005 Hyperlipidemia [E78.5] BENIGN HYPERTENSION [I10] 02/17/2008 PAIN ABDOMEN( Right Upper Quadrant) [R10.11] 08/09/2005 OBESITY NOS [E66.9] 08/09/2005 01/04/2006 COPD W BRONCHITIS,OBSTRUCTIV E [J44.89] 08/09/2005 OSTEOARTHRITIS LOCALIZED, PRIMARY( Lower Leg) [*08/09/2005 MIGRAINE COMMON [G43.009] 08/09/2005 PAIN FLANK [R10.9] 04/09/2006 02/05/2012 Abdominal pain, right lower quadrant [R10.31] 05/23/2010 Unspecified constipation [K59.00] 02/05/2012 Internal hemorrhoids without mention of complic* 02/05/2012 PAIN FOOT [M79.609] 03/31/2007 02/05/2012 MYALGIA AND MYOSITIS NOS [CXT8937] 05/28/2007 Major depressive disorder, recurrent episode, m*05/28/2007 02/05/2012 MALAISE AND FATIGUE NEC [R53.81, R53.83] 05/28/2007 INSOMNIA NOS [G47.00] 05/28/2007 UNCERTAIN BEHAV NEOPL SKIN [D48.5] 11/05/2007 12/10/2007 PAIN BACK, LOW [M54.50] 12/10/2007 02/05/2012 Essential hypertension [I10] 12/10/2007 Other seborrheic keratosis [L82.1] 12/10/2007 02/05/2012 DM w/o complication type II, uncontrolled [IMO0*08/17/2008 02/05/2012 Unspecified transient cerebral ischemia [G45.9] 12/22/2008 10/29/2016 SVT (supraventricular tachycardia) (HCC) [I47.1*10/31/2009 Left leg weakness [R29.898] 10/31/2009 02/05/2012 Rash [R21] 05/23/2010 02/05/2012 Urinary incontinence [R32] 05/23/2010 Seasonal allergies [J30.2] 12/15/2010 Skin tag [L91.8] 02/15/2011 02/05/2012 Female bladder prolapse [N81.10] Diabetes mellitus without complication (HCC) [E*02/05/2012 Vitamin D deficiency [E55.9] 12/31/2013 Atrophic vaginitis [N95.2] 01/11/2017 Occult blood positive stool [R19.5] 12/16/2017 Encounter for screening for malignant neoplasm *12/16/2017 Other chest pain [R07.89] 07/13/2020 Anginal equivalent (HCC) [I20.89] 12/12/2020 Adrenal adenoma, left [D35.02] 09/06/2021 COPD (chronic obstructive pulmonary disease) (H* Encounter Status:Closed by NINOSKA HINSON on 06/23/24 [facility] CNOVon 06-16-2024 CNOV Office Visit (FAMPWS ) JACKELIN DIAZ ([id number]) 1945 F Date Time Provider Department 06/16/24 10:40 AM [facility] During your visit today, we recorded the following information about you: Temperature Pulse Respiration Blood pressure 97.7 degrees 74/minute 16/minute 128/66 Weight 68.8 kg Hyun Villa, NUNO.[facility] 06/16/2024 11:19 AM Signed This is a 79 year old female who presents today with: Patient presents with: Pain: Left side jaw, radiating into neck and shoulder since she had sinus infection HISTORY OF PRESENT ILLNESS: Jackelin Diaz is a 79 year old female. Patient presents with: Pain: Left side jaw, radiating into neck and shoulder since she had sinus infection No sinus pain or pressure. Pain in left ear, into mastoid area, down side of neck and even across ridge of shoulder. No drainage. Took 2 full courses of antibiotic. Saw clinical coder. Found nothing contributing Saw dentist. Found nothing contributing Hearing isn't always good. No fever or chills Facial swelling and redness is better. Does get night sweats, not new. Last week one day, she had an episode of not being able to think or remember. Pain feels swollen and stretched. Tender to palpate- and sharp pain reproducible. Feels dizzy at times. Ongoing for a month. Can't lay on left side. PAST MEDICAL HISTORY: PAST MEDICAL HISTORY Diagnosis Date COPD (chronic obstructive pulmonary disease) (HCC) Endometriosis Essential hypertension, benign Female bladder prolapse Myalgia and myositis, unspecified Other and unspecified hyperlipidemia Other forms of migraine Snoring Type II or unspecified type diabetes mellitus without mention of complication, not stated as uncontrolled PAST SURGICAL HISTORY Procedure Laterality Date APPENDECTOMY 1985 ARTHROSCOPY KNEE DIAGNOSTIC W/WO SYNOVIAL BX SPX Left 07/25/06 Arthroscopy, knee CHOLECYSTECTOMY 1985 Cholecystectomy COLONOSCOPY FLX DX W/COLLJ SPEC WHEN PFRMD 06/14/06 Repeat in COLONOSCOPY FLX DX W/COLLJ SPEC WHEN PFRMD 12/25/2017 Colonoscopy PAST SURGICAL HISTORY OF rotator cuff repair on R TOTAL ABDOMINAL HYSTERECT W/WO RMVL TUBE OVARY Hysterectomy, BRUNILDA ALLERGIES Lexapro [Escitalopram Oxalate], Lipitor [Atorvastatin Calcium], and Rhvfidu-Dsj-Xgp Reductase Inhibitors MEDICATIONS Current Outpatient Medications Medication Sig DULoxetine (CYMBALTA) 20 mg capsule Take 1 capsule by mouth once daily. (Patient not taking: Reported on 05/27/2024) blood sugar diagnostic (BLOOD GLUCOSE TEST) test strip Test blood sugar(s) once times daily. Dx: Type 2 DM - Controlled E11.9 Insulin: No celecoxib (CELEBREX) 200 mg capsule Take 1 capsule by mouth once daily. metoprolol succinate ER (TOPROL XL) 50 mg 24 hr tablet Take 1 tablet by mouth once daily. amLODIPine (NORVASC) 5 mg tablet Take 1 tablet by mouth once daily. metFORMIN ER (GLUCOPHAGE XR) 500 mg 24 hr tablet Take 3 tablets by mouth daily with breakfast. albuterol HFA (PROVENTIL HFA, VENTOLIN HFA) 90 mcg/actuation inhaler Inhale 2 Puffs as instructed every 4 hours as needed for wheezing/shortness of breath. MULTIVITAMIN ORAL Take by mouth. Cholecalciferol, Vitamin D3, 125 mcg (5,000 unit) cap Take 1 capsule by mouth once daily. Lancets lancets One Touch Ultra Blue: Test blood sugar(s) 1 times daily. Dx: Type 2 DM - Controlled E11.9 Insulin: No albuterol HFA (VENTOLIN HFA) 90 mcg/actuation inhaler Inhale 2 Puffs as instructed every 4 hours as needed for Wheezing/Shortness of Breath. aspirin 81 mg chewable tablet Take 1 tablet by mouth once daily. No current facility-administered medications for this visit. FAMILY HISTORY Problem Relation Age of Onset other (thyroid dis) Mother 2 bro, 1 sis other (Liver) Mother Heart Father aunts, uncles other (hyperchol) Son 2 bro, 2 sis other (cva) Sister Diabetes Brother uncles, cousins other (migraine) Other mgm Social History Tobacco Use Smoking status: Never Smokeless tobacco: Never Vaping Use Vaping status: Never Used Substance Use Topics Alcohol use: No Drug use: No EXAM: BP 128/66 Pulse 74 Temp 36.5 ?C (97.7 ?F) (Tympanic) Resp 16 Wt 68.8 kg (151 lb 10.8 oz) SpO2 96% BMI 25.27 kg/m? PHYSICAL EXAM: Physical Exam Vitals reviewed. Constitutional: Appearance: Normal appearance. HENT: Head: Normocephalic. Right Ear: Tympanic membrane, ear canal and external ear normal. There is no impacted cerumen. Left Ear: Tympanic membrane, ear canal and external ear normal. There is impacted cerumen. Nose: Nose normal. Mouth/Throat: Mouth: Mucous membranes are moist. Pharynx: Oropharynx is clear. Musculoskeletal: Comments: Full flexion with cervical spine, extension 20 degrees, right side 30 degrees, left side 20 degrees, full rotation. Pain in ridge of shoulder on (more content not included)... Normal [facility] 06-15-[address] [facility] Telephone (MIGUEL ANGEL) JACKELIN DIAZ ([id number]) 1945 F Date Time Provider Department 06/15/24 VALARIE LANDRY During your visit today, we recorded the following information about you: Andreia Victoria LPN 06/15/2024 2:18 PM Signed Josephine with [facility] calls to report they received pre-op clearance form from Valarie Landry CNP. With the lab results from [facility] 06/04/24 results show wbc was elevated at 11.6. pt had pre-op appt on 06/10/24. Josephine reports the anesthesiologist wants to know if abnormal wbc was addressed with pt. Josephine is requesting this be addressed on pre-op form and re-faxed to: [phone]. BETZY Farfan William J, MD 06/15/2024 2:47 PM Signed We can recheck, Demi Hernandez RN 06/15/2024 3:16 PM Signed Called and left a detailed voicemail notifying patient of providers message. Clinic phone number was left in case patient had any questions. Called [facility] and let her know provider placed and order for CBC and that I left a message for Pt to come in and get that done. HERVE Loyd, HERVE Ha 06/15/2024 4:36 PM Signed Patient given message below and verbalizes understanding. During call patient did state that she felt her sinus infection is unresolved and has now began to experience mild neck and ear discomfort. No fever stated or any severe sx's. Appt made with provider for tomorrow morning for evaluation. Dilcia Umanzor RN Allergies As of Date: 06/15/2024 Noted Allergy Reaction LEXAPRO (ESCITALOPRAM OXALATE) 06/04/2008 10 - Anaphylaxis Comments: felt tightness in chest and increased blood pressure LIPITOR (ATORVASTATIN CALCIUM) 09/28/2014 14 - Other: See Comments Comments: Muscle aches [id number]-[id number] REDUCTASE INHIBIT*05/02/2018 5 - Intolerance Comments: Leg cramps, myalgias Date Reviewed: 06/10/2024 Reviewed by: Lisa Olson LPN - Fully Assessed Reason for Visit: Results, Lab [1201] Primary Visit Diagnosis:Leukocytosi s, unspecified type [D72.829] Order(s):COMPLETE BLOOD COUNT AND DIFFERENTIAL [SQCBCDIF] Order #: [id number] FUTURE Prescriptions as of 06/15/2024 - DULoxetine (CYMBALTA) 20 mg capsule Take 1 capsule by mouth once daily. - blood sugar diagnostic (BLOOD GLUCOSE TEST) test strip Test blood sugar(s) once times daily. Dx: Type 2 DM - Controlled E11.9 Insulin: No - celecoxib (CELEBREX) 200 mg capsule Take 1 capsule by mouth once daily. - metoprolol succinate ER (TOPROL XL) 50 mg 24 hr tablet Take 1 tablet by mouth once daily. - amLODIPine (NORVASC) 5 mg tablet Take 1 tablet by mouth once daily. - metFORMIN ER (GLUCOPHAGE XR) 500 mg 24 hr tablet Take 3 tablets by mouth daily with breakfast. - albuterol HFA (PROVENTIL HFA, VENTOLIN HFA) 90 mcg/actuation inhaler Inhale 2 Puffs as instructed every 4 hours as needed for wheezing/shortness of breath. - MULTIVITAMIN ORAL Take by mouth. - Cholecalciferol, Vitamin D3, 125 mcg (5,000 unit) cap Take 1 capsule by mouth once daily. - Lancets lancets One Touch Ultra Blue: Test blood sugar(s) 1 times daily. Dx: Type 2 DM - Controlled E11.9 Insulin: No - albuterol HFA (VENTOLIN HFA) 90 mcg/actuation inhaler Inhale 2 Puffs as instructed every 4 hours as needed for Wheezing/Shortness of Breath. - aspirin 81 mg chewable tablet Take 1 tablet by mouth once daily. Problem List As Of Date 06/15/2024 Noted Resolved Rotator cuff (capsule) sprain [S43.429A] 07/12/2004 02/05/2012 SURGERY FOLLOW-UP [V67.0] 08/15/2004 08/09/2005 SURGERY FOLLOWUP NEC [Z09] 12/21/2004 08/09/2005 Hyperlipidemia [E78.5] BENIGN HYPERTENSION [I10] 02/17/2008 PAIN ABDOMEN( Right Upper Quadrant) [R10.11] 08/09/2005 OBESITY NOS [E66.9] 08/09/2005 01/04/2006 COPD W BRONCHITIS,OBSTRUCTIV E [J44.89] 08/09/2005 OSTEOARTHRITIS LOCALIZED, PRIMARY( Lower Leg) [*08/09/2005 MIGRAINE COMMON [G43.009] 08/09/2005 PAIN FLANK [R10.9] 04/09/2006 02/05/2012 Abdominal pain, right lower quadrant [R10.31] 05/23/2010 Unspecified constipation [K59.00] 02/05/2012 Internal hemorrhoids without mention of complic* 02/05/2012 PAIN FOOT [M79.609] 03/31/2007 02/05/2012 MYALGIA AND MYOSITIS NOS [[id number]] 05/28/2007 Major depressive disorder, recurrent episode, m*05/28/2007 02/05/2012 MALAISE AND FATIGUE NEC [R53.81, R53.83] 05/28/2007 INSOMNIA NOS [G47.00] 05/28/2007 UNCERTAIN BEHAV NEOPL SKIN [D48.5] 11/05/2007 12/10/2007 PAIN BACK, LOW [M54.50] 12/10/2007 02/05/2012 Essential hypertension [I10] 12/10/2007 Other seborrheic keratosis [L82.1] 12/10/2007 02/05/2012 DM w/o complication type II, uncontrolled [IMO0*08/17/2008 02/05/2012 Unspecified transient cerebral ischemia [G45.9] 12/22/2008 10/29/2016 SVT (supraventricular tachycardia) (HCC) [I47.1*10/31/2009 Left leg weakness [R29.898] 10/31/2009 02/05/2012 Rash [R21] 05/23/2010 02/05/2012 Urinary incontinence [R32] (more content not included)... Normal [facility] JACKELIN DIAZ ([id number]) 1945 F Date Time Provider Department 06/12/24 [facility] During your visit today, we recorded the following information about you: Valarie Landry APRN.CNP 06/12/2024 5:19 PM Signed Pt aware of stable echo results. Can please fax results/clearance information to Dr. Iraheta's office (on Lisa's desk). Valarie Landry APRN.Lisa Manjarrez LPN 06/15/2024 10:53 AM Signed Form faxed. Lisa Olson LPN Allergies As of Date: 06/12/2024 Noted Allergy Reaction LEXAPRO (ESCITALOPRAM OXALATE) 06/04/2008 10 - Anaphylaxis Comments: felt tightness in chest and increased blood pressure LIPITOR (ATORVASTATIN CALCIUM) 09/28/2014 14 - Other: See Comments Comments: Muscle aches [id number] REDUCTASE INHIBIT*05/02/2018 5 - Intolerance Comments: Leg cramps, myalgias Date Reviewed: 06/10/2024 Reviewed by: Lisa Olson LPN - Fully Assessed Reason for Visit: Results [95] Prescriptions as of 06/15/2024 - DULoxetine (CYMBALTA) 20 mg capsule Take 1 capsule by mouth once daily. - blood sugar diagnostic (BLOOD GLUCOSE TEST) test strip Test blood sugar(s) once times daily. Dx: Type 2 DM - Controlled E11.9 Insulin: No - celecoxib (CELEBREX) 200 mg capsule Take 1 capsule by mouth once daily. - metoprolol succinate ER (TOPROL XL) 50 mg 24 hr tablet Take 1 tablet by mouth once daily. - amLODIPine (NORVASC) 5 mg tablet Take 1 tablet by mouth once daily. - metFORMIN ER (GLUCOPHAGE XR) 500 mg 24 hr tablet Take 3 tablets by mouth daily with breakfast. - albuterol HFA (PROVENTIL HFA, VENTOLIN HFA) 90 mcg/actuation inhaler Inhale 2 Puffs as instructed every 4 hours as needed for wheezing/shortness of breath. - MULTIVITAMIN ORAL Take by mouth. - Cholecalciferol, Vitamin D3, 125 mcg (5,000 unit) cap Take 1 capsule by mouth once daily. - Lancets lancets One Touch Ultra Blue: Test blood sugar(s) 1 times daily. Dx: Type 2 DM - Controlled E11.9 Insulin: No - albuterol HFA (VENTOLIN HFA) 90 mcg/actuation inhaler Inhale 2 Puffs as instructed every 4 hours as needed for Wheezing/Shortness of Breath. - aspirin 81 mg chewable tablet Take 1 tablet by mouth once daily. Problem List As Of Date 06/12/2024 Noted Resolved Rotator cuff (capsule) sprain [S43.429A] 07/12/2004 02/05/2012 SURGERY FOLLOW-UP [V67.0] 08/15/2004 08/09/2005 SURGERY FOLLOWUP NEC [Z09] 12/21/2004 08/09/2005 Hyperlipidemia [E78.5] BENIGN HYPERTENSION [I10] 02/17/2008 PAIN ABDOMEN( Right Upper Quadrant) [R10.11] 08/09/2005 OBESITY NOS [E66.9] 08/09/2005 01/04/2006 COPD W BRONCHITIS,OBSTRUCTIV E [J44.89] 08/09/2005 OSTEOARTHRITIS LOCALIZED, PRIMARY( Lower Leg) [*08/09/2005 MIGRAINE COMMON [G43.009] 08/09/2005 PAIN FLANK [R10.9] 04/09/2006 02/05/2012 Abdominal pain, right lower quadrant [R10.31] 05/23/2010 Unspecified constipation [K59.00] 02/05/2012 Internal hemorrhoids without mention of complic* 02/05/2012 PAIN FOOT [M79.609] 03/31/2007 02/05/2012 MYALGIA AND MYOSITIS NOS [[id number]] 05/28/2007 Major depressive disorder, recurrent episode, m*05/28/2007 02/05/2012 MALAISE AND FATIGUE NEC [R53.81, R53.83] 05/28/2007 INSOMNIA NOS [G47.00] 05/28/2007 UNCERTAIN BEHAV NEOPL SKIN [D48.5] 11/05/2007 12/10/2007 PAIN BACK, LOW [M54.50] 12/10/2007 02/05/2012 Essential hypertension [I10] 12/10/2007 Other seborrheic keratosis [L82.1] 12/10/2007 02/05/2012 DM w/o complication type II, uncontrolled [IMO0*08/17/2008 02/05/2012 Unspecified transient cerebral ischemia [G45.9] 12/22/2008 10/29/2016 SVT (supraventricular tachycardia) (HCC) [I47.1*10/31/2009 Left leg weakness [R29.898] 10/31/2009 02/05/2012 Rash [R21] 05/23/2010 02/05/2012 Urinary incontinence [R32] 05/23/2010 Seasonal allergies [J30.2] 12/15/2010 Skin tag [L91.8] 02/15/2011 02/05/2012 Female bladder prolapse [N81.10] Diabetes mellitus without complication (HCC) [E*02/05/2012 Vitamin D deficiency [E55.9] 12/31/2013 Atrophic vaginitis [N95.2] 01/11/2017 Occult blood positive stool [R19.5] 12/16/2017 Encounter for screening for malignant neoplasm *12/16/2017 Other chest pain [R07.89] 07/13/2020 Anginal equivalent (HCC) [I20.89] 12/12/2020 Adrenal adenoma, left [D35.02] 09/06/2021 COPD (chronic obstructive pulmonary disease) (H* Encounter Status:Closed by LISA OLSON on 06/15/24 Normal [facility] ECHOon 06-11-2024 Echocardiography Echocardiography Report: Transthoracic Echo [facility] Date of service: 06/11/2024 2:18:38 PM SPECIALIST Ordering physician: VALARIE LANDRY Indication: Abnormal ECG Technologist: Cyndi Williamson [facility] Interpreting physician: Dorene Joyner MD PATIENT: Name: MRS. JACKELIN DIAZ : 1945 Age: 79 years Gender: F History of hypertension, diabetes mellitus and dyslipidemia. Primary rhythm: sinus. Height: 165.00 cm BSA: 1.78 m Weight: 69.40 kg BMI: 25.5 kg/m Heart rate 76 bpm Blood pressure 151/76 mmHg Color Doppler was utilized to interrogate the cardiac valves assessed and spectral Doppler was utilized to determine the flow velocities and pressure gradients reported in this exam. Myocardial strain analysis was performed in this exam to aid in the assessment of cardiac function. MEASUREMENTS: Value Indexed Normal Max aortic dimension 3.3 cm Ao < 3.8 Left atrial volume 49 ml (biplane A-L) 28 ml/m Justyn <= 34 LV ID (diastole) 4.3 cm (2D) 2.39 cm/m LV ID (systole) 3.0 cm (2D) 1.69 cm/m IVS, leaflet tips 1.0 cm (2D) Posterior wall thickness 0.9 cm (2D) Left ventricular mass 135 g (2D) 76 g/m Global peak long strain -22.7 % LV stroke volume 32 ml (2D biplane) LV end diastolic volume 53 ml (2D biplane) 29.6 ml/m 29<=EDVi<62 LV end systolic volume 21 ml (2D biplane) 11.7 ml/m Ejection Fraction 61 % (2D biplane) EF > 54 FINDINGS: LEFT VENTRICLE The left ventricle is normal in size. Left ventricular systolic function is normal. Global LV myocardial strain is normal. Grade I left ventricular diastolic dysfunction. Mitral annular lateral E/e': 7.3. Mitral annular septal E/e': 11.0. Wall Motion: All scored segments are normal. RIGHT VENTRICLE The right ventricle is normal in size. Right ventricular systolic function is normal. RV systolic tissue Doppler velocity is 9.0 cm/s. Estimated right ventricular systolic pressure is likely underestimated due to a weak or incomplete tricuspid regurgitation signal and is, at least, 29 mmHg consistent with normal pulmonary artery pressures. Estimated right atrial pressure is 3 mmHg (although IVC not seen). LEFT ATRIUM The left atrial cavity is normal in size. RIGHT ATRIUM The right atrial cavity is normal in size. Inferior Vena Cava: The inferior vena cava appears normal measuring 1.5 cm. MITRAL VALVE The mitral valve leaflets are structurally normal. There is trace (trace - 1+) mitral valve regurgitation. The pressure half time is 51 msec. The peak mitral E/A ratio is 0.66. The average mitral E/e' ratio is 9.2. The mitral flow deceleration time is 176 msec. TRICUSPID VALVE The tricuspid valve leaflets are structurally normal. There is trace (trace - 1+) tricuspid valve regurgitation. AORTIC VALVE The aortic valve cusps are structurally normal. There is trace (trace - 1+) aortic valve regurgitation. Tricuspid aortic valve. The peak gradient is 13 mmHg (peak velocity = 180.7 cm/s). PULMONIC VALVE The pulmonic valve cusps are structurally normal. There is trace pulmonic valve regurgitation. AORTA The visualized aorta is normal in size. Measurements - Mid ascending aorta 3.3 cm. PERICARDIUM There is no pericardial effusion. There is an epicardial fat pad. CONCLUSIONS: - Exam indication: Abnormal ECG - The left ventricle is normal in size. Left ventricular systolic function is normal. EF = 61 5% (2D biplane) Grade I left ventricular diastolic dysfunction. - The right ventricle is normal in size. Right ventricular systolic function is normal. - There are no significant valvular abnormalities. - Exam was compared with the prior CC echocardiographic exam performed on 01/12/2015 (Stress). There is no significant change. * * * Final * * * [facility] : [id number] amicsSISUID Normal [facility] CNOVon 06-10-2024 CNOV Office Visit (FAMPWS ) JACKELIN DIAZ ([id number]) 1945 F Date Time Provider Department 06/10/24 11:00 AM VALARIE LANDRY During your visit today, we recorded the following information about you: Pulse Respiration Blood pressure Weight 73/minute 16/minute 136/72 69.4 kg Valarie Landry APRN.SAUMYA 06/10/2024 9:29 PM Signed HISTORY AND PHYSICAL EXAMINATION SUBJECTIVE 79 year old female is here for consult to determine preoperative surgical clearance requested by Dr. Iraheta for anticipated surgery: L TKA, scheduled for 06/30/2024. She was having preoperative testing and found to have an abnormality on the EKG. Patient's history of surgical problem: no. Hx of previous anesthesia problems: No. Family hx of anesthesia problems: No. Current signs of infection: Yes. Currently being treated for a sinus infection. Chest pain/ hx Cardiac complications: No. Shortness of breath: No. Hx sleep apnea: No. Hx of clotting issues: No. Current bleeding or bruising tendencies: No. Hx GERD No. On anticoagulant medication: No. HISTORIES FAMILY HISTORY Problem Relation Age of Onset other (thyroid dis) Mother 2 bro, 1 sis other (Liver) Mother Heart Father aunts, uncles other (hyperchol) Son 2 bro, 2 sis other (cva) Sister Diabetes Brother uncles, cousins other (migraine) Other mgm PAST MEDICAL HISTORY Diagnosis Date COPD (chronic obstructive pulmonary disease) (HCC) Endometriosis Essential hypertension, benign Female bladder prolapse Myalgia and myositis, unspecified Other and unspecified hyperlipidemia Other forms of migraine Snoring Type II or unspecified type diabetes mellitus without mention of complication, not stated as uncontrolled PAST SURGICAL HISTORY Procedure Laterality Date APPENDECTOMY 1985 ARTHROSCOPY KNEE DIAGNOSTIC W/WO SYNOVIAL BX SPX Left 07/25/06 Arthroscopy, knee CHOLECYSTECTOMY 1985 Cholecystectomy COLONOSCOPY FLX DX W/COLLJ SPEC WHEN PFRMD 06/14/06 Repeat in COLONOSCOPY FLX DX W/COLLJ SPEC WHEN PFRMD 12/25/2017 Colonoscopy PAST SURGICAL HISTORY OF rotator cuff repair on R TOTAL ABDOMINAL HYSTERECT W/WO RMVL TUBE OVARY Hysterectomy, BRUNILDA Social History Tobacco Use Smoking status: Never Smokeless tobacco: Never Vaping Use Vaping status: Never Used Substance Use Topics Alcohol use: No Drug use: No ACTIVE PROBLEM LIST Hyperlipidemia PAIN ABDOMEN( Right Upper Quadrant) COPD W BRONCHITIS,OBSTRUCTIV E OSTEOARTHRITIS LOCALIZED, PRIMARY( Lower Leg) MIGRAINE COMMON Myalgia and Myositis, Unspecified Other Malaise and Fatigue Insomnia, Unspecified Essential Hypertension SVT (supraventricular tachycardia) (HCC) Urinary Incontinence Seasonal Allergies Female Bladder Prolapse Diabetes Mellitus Without Complication (Hcc) Vitamin D Deficiency Atrophic Vaginitis Occult Blood Positive Stool Encounter for Screening for Malignant Neoplasm of Colon Other Chest Pain Anginal Equivalent (Hcc) Adrenal Adenoma, Left Copd (Chronic Obstructive Pulmonary Disease) (Hcc) Current Outpatient Medications Medication Sig Dispense Refill DULoxetine (CYMBALTA) 20 mg capsule Take 1 capsule by mouth once daily. (Patient not taking: Reported on 05/27/2024) 30 capsule 2 blood sugar diagnostic (BLOOD GLUCOSE TEST) test strip Test blood sugar(s) once times daily. Dx: Type 2 DM - Controlled E11.9 Insulin: No 50 Strip 11 celecoxib (CELEBREX) 200 mg capsule Take 1 capsule by mouth once daily. 90 capsule 3 metoprolol succinate ER (TOPROL XL) 50 mg 24 hr tablet Take 1 tablet by mouth once daily. 90 tablet 3 amLODIPine (NORVASC) 5 mg tablet Take 1 tablet by mouth once daily. 90 tablet 3 metFORMIN ER (GLUCOPHAGE XR) 500 mg 24 hr tablet Take 3 tablets by mouth daily with breakfast. 270 tablet 1 albuterol HFA (PROVENTIL HFA, VENTOLIN HFA) 90 mcg/actuation inhaler Inhale 2 Puffs as instructed every 4 hours as needed for wheezing/shortness of breath. 8 g 0 MULTIVITAMIN ORAL Take by mouth. Cholecalciferol, Vitamin D3, 125 mcg (5,000 unit) cap Take 1 capsule by mouth once daily. 90 capsule 3 Lancets lancets One Touch Ultra Blue: Test blood sugar(s) 1 times daily. Dx: Type 2 DM - Controlled E11.9 Insulin: No 50 Each 11 albuterol HFA (VENTOLIN HFA) 90 mcg/actuation inhaler Inhale 2 Puffs as instructed every 4 hours as needed for Wheezing/Shortness of Breath. 1 Inhaler 3 aspirin 81 mg chewable tablet Take 1 tablet by mouth once daily. No current facility-administered medications for this visit. Allergies: Lexapro [Escitalopr* Anaphylaxis Comment:felt tightness in chest and increased blood pressure Lipitor [Atorvastat* Other: See Comments Comment:Muscle aches Vrzzuxx-Nkg-Eoy Red* Intolerance Comment:Leg cramps, myalgias REVIEW OF SYSTEMS: General: No weight loss, malaise or fevers. Neuro: Denies: No Hx (more content not included)... Normal [facility] .Auto Diffon 06-03-2024 Basophil, Absolute 0.1 10 3/mcL Normal 0.0-0.2 [facility] Comment on above: Performed By: #### A KRISTEN FINNEY, CBC, ADIFF, ANEU, A1C, BMP, ALB, GFR #### [id number] [place], [place] [address] Basophils/100 WBC (Bld) 0.7 % Normal 0.0-2.5 [facility] Comment on above: Performed By: #### A KRISTEN FINNEY, CBC, ADIFF, ANEU, A1C, BMP, ALB, GFR #### [id number] [place], [place] [address] Eosinophil, Absolute 0.4 10 3/mcL Normal 0.0-0.7 [facility] Comment on above: Performed By: #### A BOGEL, ABSGEL, CBC, ADIFF, ANEU, A1C, BMP, ALB, GFR #### [address] [address] Eosinophils/100 WBC (Bld) 3.7 % Normal 0.0-7.0 [facility] Comment on above: Performed By: #### A BOGEL, ABSGEL, CBC, ADIFF, ANEU, A1C, BMP, ALB, GFR #### [address] [address] Lymphocyte, Absolute 2.0 10 3/mcL Normal 0.9-4.3 [facility] Comment on above: Performed By: #### A BOGEL, ABSGEL, CBC, ADIFF, ANEU, A1C, BMP, ALB, GFR #### [address] [address] Lymphocytes/100 WBC (Bld) 16.8 % Low 20.0-40.0 [facility] Comment on above: Performed By: #### A BOGEL, ABSGEL, CBC, ADIFF, ANEU, A1C, BMP, ALB, GFR #### [address] [address] Monocyte, Absolute 0.5 10 3/mcL Normal 0.1-1.4 [facility] Comment on above: Performed By: #### A BOGEL, ABSGEL, CBC, ADIFF, ANEU, A1C, BMP, ALB, GFR #### [address] [address] Monocytes/100 WBC (Bld) 4.6 % Normal 2.0-13.0 [facility] Comment on above: Performed By: #### A BOGEL, ABSGEL, CBC, ADIFF, ANEU, A1C, BMP, ALB, GFR #### [address] [address] Neutrophils/100 WBC (Bld) 74.2 % Normal 50.0-75.0 [facility] Comment on above: Performed By: #### A BOGEL, ABSGEL, CBC, ADIFF, ANEU, A1C, BMP, ALB, GFR #### [address] [address] .GFRon 06-03-2024 GFR 58 ml/min/1.73sqm Normal [facility] Comment on above: Result Comment: GFR Population mean for , Non- Americans Ages 20-29 = 116 mL/min/1.73 sq.m. Ages 30-39 = 107 mL/min/1.73 sq.m. Ages 40-49 = 99 mL/min/1.73 sq.m. Ages 50-59 = 93 mL/min/1.73 sq.m. Ages 60-69 = 85 mL/min/1.73 sq.m. Ages 70+ = 75 mL/min/1.73 sq.m. Chronic Kidney Disease: Less than 60 mL/min/1.73 square meters End Stage Renal Disease: Less than 15 mL/min/1.73 square meters Performed By: #### A PRINCEEL, ABSGEL, CBC, ADIFF, ANEU, A1C, BMP, ALB, GFR #### [address] [address] GFR Non- 48 ml/min/1.73sqm Normal [facility] Comment on above: Result Comment: GFR Population mean for , Non- Americans Ages 20-29 = 116 mL/min/1.73 sq.m. Ages 30-39 = 107 mL/min/1.73 sq.m. Ages 40-49 = 99 mL/min/1.73 sq.m. Ages 50-59 = 93 mL/min/1.73 sq.m. Ages 60-69 = 85 mL/min/1.73 sq.m. Ages 70+ = 75 mL/min/1.73 sq.m. Chronic Kidney Disease: Less than 60 mL/min/1.73 square meters End Stage Renal Disease: Less than 15 mL/min/1.73 square meters Performed By: #### A BOGEL, ABSGEL, CBC, ADIFF, ANEU, A1C, BMP, ALB, GFR #### [address] [address] .NEUABSon 06-03-2024 Neutrophil, Absolute 8.6 10 3/mcL High 2.3-8.1 [facility] Comment on above: Performed By: #### A BOGEL, ABSGEL, CBC, ADIFF, ANEU, A1C, BMP, ALB, GFR #### [address] [address] A1Con 06-03-2024 Glucose [Mass/Vol] 128 mg/dL Normal [facility] Comment on above: Result Comment: Rossana mated Average Glucose calculated by equation ((28.7xA1C)-46.7) Estimated average glucose (eAG) is a calculated value from Hemoglobin A1C and is route service representative of the average blood glucose level in the last 2-3 month period. Normal range: less than 114 mg/dL Performed By: #### A BOGEL, ABSGEL, CBC, ADIFF, ANEU, A1C, BMP, ALB, GFR #### [address] [address] HbA1c (Bld) [Mass fraction] 6.1 % Normal 4.3-6.4 [facility] Comment on above: Performed By: #### A BOGEL, ABSGEL, CBC, ADIFF, ANEU, A1C, BMP, ALB, GFR #### [address] [address] ABO/Rh (Gel)on 06-03-2024 ABO/Rh Interp Positive Invalid Interpretation Code [facility] Comment on above: Performed By: #### A BOGEL, ABSGEL, CBC, ADIFF, ANEU, A1C, BMP, ALB, GFR #### [address] [address] ABS (Gel)on 06-03-2024 ABSC Interp (Gel) Negative Normal [facility] Comment on above: Performed By: #### A BOGEL, ABSGEL, CBC, ADIFF, ANEU, A1C, BMP, ALB, GFR #### [address] [address] ALBon 06-03-2024 Albumin Level 4.0 G/dL Normal 3.4-4.8 [facility] Comment on above: Performed By: #### A BOGEL, ABSGEL, CBC, ADIFF, ANEU, A1C, BMP, ALB, GFR #### [address] [address] BMPon 06-03-2024 BUN/Creatinine Ratio 15 ratio Normal 7-27 [facility] Comment on above: Performed By: #### A BOGEL, ABSGEL, CBC, ADIFF, ANEU, A1C, BMP, ALB, GFR #### [address] [address] Calcium [Mass/Vol] 9.7 mg/dL Normal 8.4-10.2 [facility] Comment on above: Performed By: #### A BOGEL, ABSGEL, CBC, ADIFF, ANEU, A1C, BMP, ALB, GFR #### [place] [id number] Chloride [Moles/Vol] 102 mmol/L Normal 98-107 [facility] Comment on above: Performed By: #### A BOGEL, ABSGEL, CBC, ADIFF, ANEU, A1C, BMP, ALB, GFR #### [address] [address] CO2 [Moles/Vol] 27 mmol/L Normal 23-31 [facility] Comment on above: Performed By: #### A BOGEL, ABSGEL, CBC, ADIFF, ANEU, A1C, BMP, ALB, GFR #### [address] [address] Creatinine [Mass/Vol] 1.10 mg/dL High 0.55-1.02 [facility] Comment on above: Result Comment: Test ing performed on Siemens Dimension EXL analyzer using a modified kinetic Norris technique. Performed By: #### A BOGEL, ABSGEL, CBC, ADIFF, ANEU, A1C, BMP, ALB, GFR #### [place] [id number] Electrolyte Balance 7.0 mEq/L Normal 4.0-15.0 [facility] Comment on above: Performed By: #### A BOGEL, ABSGEL, CBC, ADIFF, ANEU, A1C, BMP, ALB, GFR #### [place] [id number] Glucose [Mass/Vol] 100 mg/dL Normal 83-110 [facility] Comment on above: Performed By: #### A BOGEL, ABSGEL, CBC, ADIFF, ANEU, A1C, BMP, ALB, GFR #### [address] [address] Potassium [Moles/Vol] 4.4 mmol/L Normal 3.5-5.1 [facility] Comment on above: Performed By: #### A BOGEL, ABSGEL, CBC, ADIFF, ANEU, A1C, BMP, ALB, GFR #### [address] [address] Sodium [Moles/Vol] 136 mmol/L Normal 136-145 [facility] Comment on above: Performed By: #### A BOGEL, ABSGEL, CBC, ADIFF, ANEU, A1C, BMP, ALB, GFR #### [address] [address] Urea nitrogen [Mass/Vol] 17 mg/dL Normal 7-18 [facility] Comment on above: Performed By: #### A BOGEL, ABSGEL, CBC, ADIFF, ANEU, A1C, BMP, ALB, GFR #### [address] [address] CBCon 06-03-2024 Erythrocyte distribution width (RBC) [Ratio] 14.0 % Normal 11.5-15.5 [facility] Comment on above: Order Comment: Pre-A dmission Testing Performed By: #### A BOGEL, ABSGEL, CBC, ADIFF, ANEU, A1C, BMP, ALB, GFR #### [address] [address] Hematocrit (Bld) [Volume fraction] 41.1 % Normal 34.0-46.0 [facility] Comment on above: Order Comment: Pre-A dmission Testing Performed By: #### A BOGEL, ABSGEL, CBC, ADIFF, ANEU, A1C, BMP, ALB, GFR #### [address] [address] Hgb 13.6 G/dL Normal 12.0-16.0 [facility] Comment on above: Order Comment: Pre-A dmission Testing Performed By: #### A BOGEL, ABSGEL, CBC, ADIFF, ANEU, A1C, BMP, ALB, GFR #### [address] [address] MCH (RBC) [Entitic mass] 30.1 pg Normal 27.0-33.0 [facility] Comment on above: Order Comment: Pre-A dmission Testing Performed By: #### A BOGEL, ABSGEL, CBC, ADIFF, ANEU, A1C, BMP, ALB, GFR #### [address] [address] MCHC 33.0 G/dL Normal 32.0-36.0 [facility] Comment on above: Order Comment: Pre-A dmission Testing Performed By: #### A BOGEL, ABSGEL, CBC, ADIFF, ANEU, A1C, BMP, ALB, GFR #### [address] [address] MCV (RBC) [Entitic vol] 91.1 fL Normal 80.0-99.0 [facility] Comment on above: Order Comment: Pre-A dmission Testing Performed By: #### A BOGEL, ABSGEL, CBC, ADIFF, ANEU, A1C, BMP, ALB, GFR #### [address] [address] Platelet 251 10 3/mcL Normal 150-450 [facility] Comment on above: Order Comment: Pre-A dmission Testing Performed By: #### A BOGEL, ABSGEL, CBC, ADIFF, ANEU, A1C, BMP, ALB, GFR #### [address] [address] Platelet mean volume (Bld) [Entitic vol] 8.8 fL Normal 6.6-10.5 [facility] Comment on above: Order Comment: Pre-A dmission Testing Performed By: #### A BOGEL, ABSGEL, CBC, ADIFF, ANEU, A1C, BMP, ALB, GFR #### [place] [id number] RBC 4.51 10 6/mcL Normal 4.10-5.30 [facility] Comment on above: Order Comment: Pre-A dmission Testing Performed By: #### A BOGEL, ABSGEL, CBC, ADIFF, ANEU, A1C, BMP, ALB, GFR #### [facility] [address] [place], [place] [address] WBC 11.6 10 3/mcL High 4.5-10.8 [facility] Comment on above: Order Comment: Pre-A dmission Testing Performed By: #### A BOGEL, ABSGEL, CBC, ADIFF, ANEU, A1C, BMP, ALB, GFR #### [facility] [address] [place], [place] [address] CT KNEE W/O CONTRAST LEFTon 06-03-2024 CT KNEE W/O CONTRAST LEFT ORIGINAL EXAMINATION: CT OF THE LEFT KNEE WITHOUT CONTRAST 06/03/2024 2:57 pm TECHNIQUE: CT of the left knee was performed without the administration of intravenous contrast. Multiplanar reformatted images are provided for review. Automated exposure control, iterative reconstruction, and/or weight based adjustment of the mA/kV was utilized to reduce the radiation dose to as low as reasonably achievable.TIMOTHY protocol was performed with axial images through the left hip and left ankle. COMPARISON: None. HISTORY ORDERING SYSTEM PROVIDED HISTORY: Reason for Exam: Unilateral primary osteoarthritis, left knee chronic lt knee pain, NKI. TIMOTHY protocol. FINDINGS: Bones: Severe tricompartmental osteoarthritis of the left knee most pronounced in the medial compartment with [id number], subchondral sclerosis and diffuse marginal osteophyte formation. Spurring of the tibial spines and intercondylar notch. Quadriceps and patellar tendon enthesopathy. No evidence of acute fracture or dislocation. No aggressive appearing osseous abnormality or periostitis. Accessory navicularis. There is moderate left femoroacetabular joint space narrowing. Mild degenerative changes of the pubic symphysis. Soft Tissue: Small knee joint effusion. Chondrocalcinosis. Vascular calcifications. Mild diffuse muscle atrophy. Limited evaluation of the neurovascular structures and lack of contrast. IMPRESSION: Severe tricompartmental osteoarthritis of the left knee most pronounced in the medial compartment in patient presenting for preop planning. Chondrocalcinosis. Small knee joint effusion. Additional incidental findings above. Interpreted by: Do Shrestha Preliminary Report By: Do Shrestha Electronically signed By Do Shrestha Dictated Date: 06/03/2024 3:02:37 PM Prelim Date: 06/03/2024 3:06:43 PM Sign Date: 06/03/2024 3:06:43 PM Ordering Provider: HÉCTOR Mckoy [facility] LABORATORYOrdered By: Chi Pavon on 06-03-2024 MRSA (PCR) Not Detected 1 (06/03/24 2:25 PM) Normal Not Detected [facility] Auto Viro/Sero SS Comment on above: Result Comment: [place] [id number] MRSA PCR Int MRSA DNA not detecte d by Real-Time Polymerase Chain Reaction (PCR). A negative result may be due to intermittent colonization. Colonization may vary depending on patient treatment, patient status, or exposure to high-risk environments.As with all PCR based in vitro diagnostic tests, extremely low levels of target below the limit of detection of the assay may be detected, but results may not be reproducible. Invalid Interpretation Code AH Auto Viro/Sero SS LABORATORYOrdered By: Ludmila Beaulieu on 06-03-2024 ABO and Rh group Nom (Bld) Blood group A Rh(D) positive Invalid Interpretation Code AO BB Auto SS Blood group antibody screen Ql Negative ABSC (06/03/24 1:59 PM) Normal AO BB Auto SS LABORATORYOrdered By: SYSTEM SYSTEM on 06-03-2024 Albumin BCP dye [Mass/Vol] 4.0 G/dL Normal 3.4 - 4.8 G/dL AO ADM SS Basophils (Bld) [#/Vol] 0.1 103/mcL Normal 0.0 - 0.2 10^3/mcL AO Workflow SS Basophils/100 WBC (Bld) 0.7 % Normal 0.0 - 2.5 % AO Workflow SS Calcium [Mass/Vol] 9.7 mg/dL Normal 8.4 - 10. 2 mg/dL AO ADM SS Chloride [Moles/Vol] 102 mmol/L Normal 98 - 10 7 mmol/L AO ADM SS CO2 [Moles/Vol] 27 mmol/L Normal 23 - 31 mmol/L AO ADM SS Creatinine [Mass/Vol] 1.10 mg/dL High 0.55 - 1.02 mg/dL AO ADM SS Comment on above: Interpretive Data: T esting performed on Siemens Dimension EXL analyzer using a modified kinetic Norris technique. Electrolyte Balance 7.0 mEq/L Normal 4.0 - 15 .0 mEq/L AO ADM SS Eosinophil, Absolute 0.4 103/mcL Normal 0.0 - 0 .7 10^3/mcL AO Workflow SS Eosinophils/100 WBC (Bld) 3.7 % Normal 0.0 - 7.0 % AO Workflow SS Erythrocyte distribution width (RBC) [Ratio] 14.0 % Normal 11.5 - 15.5 % AO Workflow SS GFR/1.73 sq M.predicted among blacks MDRD (S/P/Bld) [Vol rate/Area] 58 ml/min/1.73sqm Invalid Interpretation Code AO Chemistry S Comment on above: Interpretive Data: GFR Population mean for , Non- Americans Ages 20-29 = 116 mL/min/1.73 sq.m. Ages 30-39 = 107 mL/min/1.73 sq.m. Ages 40-49 = 99 mL/min/1.73 sq.m. Ages 50-59 = 93 mL/min/1.73 sq.m. Ages 60-69 = 85 mL/min/1.73 sq.m. Ages 70+ = 75 mL/min/1.73 sq.m. Chronic Kidney Disease: Less than 60 mL/min/1.73 square meters End Stage Renal Disease: Less than 15 mL/min/1.73 square meters GFR/1.73 sq M.predicted among non-blacks MDRD (S/P/Bld) [Vol rate/Area] 48 ml/min/1.73sqm Invalid Interpretation Code AO Chemistry S Comment on above: Interpretive Data: GFR Population mean for , Non- Americans Ages 20-29 = 116 mL/min/1.73 sq.m. Ages 30-39 = 107 mL/min/1.73 sq.m. Ages 40-49 = 99 mL/min/1.73 sq.m. Ages 50-59 = 93 mL/min/1.73 sq.m. Ages 60-69 = 85 mL/min/1.73 sq.m. Ages 70+ = 75 mL/min/1.73 sq.m. Chronic Kidney Disease: Less than 60 mL/min/1.73 square meters End Stage Renal Disease: Less than 15 mL/min/1.73 square meters Glucose [Mass/Vol] 100 mg/dL Normal 83 - 110 mg/dL AO ADM SS Glucose [Mass/Vol] 128 mg/dL Invalid Interpretation Code AO Chemistry S Comment on above: Interpretive Data: E stimated average glucose (eAG) is a calculated value from Hemoglobin A1C and is route service representative of the average blood glucose level in the last 2-3 month period. Normal range: less than 114 mg/dL HbA1c (Bld) [Mass fraction] 6.1 % Normal 4.3 - 6.4 % AO ADM SS Hematocrit (Bld) [Volume fraction] 41.1 % Normal 34.0 - 46.0 % AO Workflow SS Hemoglobin (Bld) [Mass/Vol] 13.6 G/dL Normal 12.0 - 16.0 G/dL AO Workflow SS Lymphocytes (Bld) [#/Vol] 2.0 103/mcL Normal 0.9 - 4.3 10^3/mcL AO Workflow SS Lymphocytes/100 WBC (Bld) 16.8 % Low 20.0 - 40.0 % AO Workflow SS MCH (RBC) [Entitic mass] 30.1 pg Normal 27.0 - 33.0 pg AO Workflow SS MCHC 33.0 G/dL Normal 32.0 - 36.0 G/dL AO Workflow SS MCV (RBC) [Entitic vol] 91.1 fL Normal 80.0 - 99.0 fL AO Workflow SS Monocytes (Bld) [#/Vol] 0.5 103/mcL Normal 0.1 - 1.4 10^3/mcL AO Workflow SS Monocytes/100 WBC (Bld) 4.6 % Normal 2.0 - 13.0 % AO Workflow SS Neutrophils (Bld) [#/Vol] 8.6 103/mcL High 2.3 - 8.1 10^3/mcL AO Workflow SS Neutrophils/100 WBC (Bld) 74.2 % Normal 50.0 - 75.0 % AO Workflow SS Platelet mean volume (Bld) [Entitic vol] 8.8 fL Normal 6.6 - 10.5 fL AO Workflow SS Platelets (Bld) [#/Vol] 251 103/mcL Normal 150 - 450 10^3/mcL AO Workflow SS Potassium [Moles/Vol] 4.4 mmol/L Normal 3.5 - 5.1 mmol/L AO ADM SS RBC (Bld) [#/Vol] 4.51 106/mcL Normal 4.10 - 5.3 0 10^6/mcL AO Workflow SS Sodium [Moles/Vol] 136 mmol/L Normal 136 - 145 mmol/L AO ADM SS Urea nitrogen [Mass/Vol] 17 mg/dL Normal 7 - 18 mg/dL AO ADM SS Urea nitrogen/Creatinine [Mass ratio] 15 ratio Normal 7 - 27 ratio AO ADM SS WBC (Bld) [#/Vol] 11.6 103/mcL High 4.5 - 10.8 10^3/mcL AO Workflow SS MRSAPCRon 06-03-2024 MRSA (PCR) Not detected Normal Not Detected [facility] Comment on above: Result Comment: [place] [id number] Performed By: #### M RSAPCR #### [address] [address] MRSA PCR Int Normal [facility] Comment on above: Result Comment: MRSA DNA not detected by Real-Time Polymerase Chain Reaction (PCR). A negative result may be due to intermittent colonization. Colonization may vary depending on patient treatment, patient status, or exposure to high-risk environments. As with all PCR based in vitro diagnostic tests, extremely low levels of target below the limit of detection of the assay may be detected, but results may not be reproducible. See Below Performed By: #### M RSAPCR #### [address] [address] C-REACTIVE PROTEINon 024 CRP [Mass/Vol] mg/dL [facility] - 0.9 mg/dL [facility] CBC W Auto Differential pane l (Bld)on 04-21-2024 Basophils (Bld) [#/Vol] 0.10 10*3/uL [facility] Basophils/100 WBC (Bld) 1.5 % [facility] Differential cell count method Nom (Bld) Auto [facility] Eosinophils (Bld) [#/Vol] 0.30 10*3/uL [facility] Eosinophils/100 WBC (Bld) 4.4 % [facility] Erythrocyte distribution width (RBC) [Ratio] 13.2 % 11.5 - 15.0 % [facility] Hematocrit (Bld) [Volume fraction] 42.8 % 36.0 - 46.0 % [facility] Hemoglobin (Bld) [Mass/Vol] 13.6 g/dL 11.5 - 15.5 g/dL [facility] Immature granulocytes (Bld) [#/Vol] NINF [facility] Immature granulocytes/100 WBC (Bld) 0.3 % [facility] Lymphocytes (Bld) [#/Vol] 2.34 10*3/uL [facility] Lymphocytes/100 WBC (Bld) 34.5 % [facility] MCH (RBC) [Entitic mass] 29.5 pg 26.0 - 34.0 pg [facility] MCHC (RBC) [Mass/Vol] 31.8 g/dL 30.5 - 36.0 g/dL [facility] MCV (RBC) [Entitic vol] 92.8 fL 80.0 - 100.0 fL [facility] Monocytes (Bld) [#/Vol] 0.47 10*3/uL [facility] Monocytes/100 WBC (Bld) 6.9 % [facility] Neutrophils (Bld) [#/Vol] 3.55 10*3/uL [facility] Neutrophils/100 WBC (Bld) 52.4 % [facility] Nucleated RBC (Bld) [#/Vol] NINF [facility] Nucleated RBC/100 WBC (Bld) [Ratio] 0.0 % /100 WBC [facility] Platelet mean volume (Bld) [Entitic vol] 11.0 fL 9.0 - 12.7 fL [facility] Platelets (Bld) [#/Vol] 264 10*3/uL [facility] RBC (Bld) [#/Vol] 4.61 10*6/uL 3.90 - 5.2 0 m/uL [facility] WBC (Bld) [#/Vol] 6.78 10*3/uL [facility] Comprehensive metabolic 2000 panelon 04-21-2024 Albumin [Mass/Vol] 4.4 g/dL 3.9 - 4.9 g/dL [facility] ALP [Catalytic activity/Vol] 62 U/L 34 - 123 U/L [facility] ALT [Catalytic activity/Vol] 7 U/L 7 - 38 U/L [facility] Anion gap [Moles/Vol] 11 mmol/L 8 - 15 mmol/L [facility] AST [Catalytic activity/Vol] 30 U/L 13 - 35 U/L [facility] Bilirubin [Mass/Vol] 0.3 mg/dL 0.2 - 1 .3 mg/dL [facility] Calcium [Mass/Vol] 9.9 mg/dL 8.5 - 10. 2 mg/dL [facility] Chloride [Moles/Vol] 103 mmol/L 98 - 10 7 mmol/L [facility] CO2 [Moles/Vol] 26 mmol/L 22 - 30 mmol/L [facility] Creatinine [Mass/Vol] 0.92 mg/dL 0.58 - 0.96 mg/dL [facility] GFR/1.73 sq M.predicted among non-blacks MDRD (S/P/Bld) [Vol rate/Area] 64 mL/min/{1.73_m2} - PINF [facility] Comment on above: Estimated Glomerular Filtration Rate (eGFR) is calculated using the 2020 CKD-EPI creatinine equation. This equation utilizes serum creatinine, sex, and age as parameters. The creatinine assay has traceable calibration to isotope dilution-mass spectrometry. Refer to KDIGO guidelines for clinical interpretation. In patients with unstable renal function, e.g. those with acute kidney injury, the eGFR may not accurately reflect actual GFR. Glucose [Mass/Vol] 111 mg/dL High 74 - 99 mg/dL [facility] Comment on above: The [place] Di[employer] Association (ADA) provides guidance for cutoff values for fasting glucose and random glucose. The ADA defines fasting as no caloric intake for at least 8 hours. Fasting plasma glucose results between 100 to 125 mg/dL indicate increased risk for diabetes (prediabetes). Fasting plasma glucose results greater than or equal to 126 mg/dL meet the criteria for diagnosis of diabetes. In the absence of unequivocal hyperglycemia, results should be confirmed by repeat testing. In a patient with classic symptoms of hyperglycemia or hyperglycemic crisis, random plasma glucose results greater than or equal to 200 mg/dL meet the criteria for diagnosis of diabetes. Reference: Standards of Medical Care in Diabetes 2016, [place] [employer]. Diabetes Care. 2016.39(Suppl 1). Interpretation and review of laboratory results Abnormal [facility] Potassium [Moles/Vol] 4.1 mmol/L 3.7 - 5.1 mmol/L [facility] Protein [Mass/Vol] 7.7 g/dL 6.3 - 8.0 g/dL [facility] Sodium [Moles/Vol] 140 mmol/L 136 - 144 mmol/L [facility] Urea nitrogen [Mass/Vol] 12 mg/dL 7 - 21 mg/dL [facility] No Panel Informationon 04-21 Interpretation and review of laboratory results Normal [facility] RHEUMATOID FACTORon 04-21-20 24 [facility]n [facility] URINALYSIS, REFLEX MICROSCOP ICon 04-21-2024 Bacteria LM.HPF (Urine sed) [#/Area] Negative Negative /HPF [facility] Bilirubin Ql (U) Negative Negative [facility] Clarity (Unsp spec) Clear Clear [facility] Color (U) Yellow Yellow [facility] Epithelial cells LM.HPF (Urine sed) [#/Area] Few /HPF [facility] Glucose Test strip (U) [Mass/Vol] Negative Negative [facility] Hemoglobin Ql (U) Trace Abnormal Negative [facility] Hyaline casts (Urine sed) [#/Area] 0 /[LPF] 0 /LPF [facility] Interpretation and review of laboratory results Abnormal [facility] Ketones Ql (U) Negative Negative [facility] Leukocyte esterase Test strip Ql (U) 2+ Abnormal Negative [facility] Nitrite Ql (U) Negative Negative [facility] pH (U) 5.5 [pH] NINF - 8.5 [facility] Protein (U) [Mass/Vol] Trace Abnormal Negative [facility] RBC LM.HPF (Urine sed) [#/Area] 0-2 /HPF 0-2 /HPF [facility] Specific gravity (U) [Rel density] 1.018 1.005 - 1.030 [facility] Urobilinogen Ql (U) 0.2 EU/dL 0.2-1.0 EU/dL [facility] WBC LM.HPF (Urine sed) [#/Area] 11-20 /HPF Abnormal 0-5 /HPF [facility] Interpret results with caution. Urine preservative tube not filled to the required volume. The BD Vacutainer Urinalysis Plus tube must be filled with at least 7 mL and not more than 9mL of urine in order to maintain the proper additive to urine ratio. This test was developed and its performance characteristics determined by [facility]'s [facility] [place] [facility] It has not been cleared or approved by the FDA. [facility] is regulated under CLIA as qualified to perform high-complexity testing. This test is used for clinical purposes. It should not be regarded as investigational or for research. [facility] COVID & INFLUENZA A/B & RSV NAAT, ROUTINEon 10-09-2023 FLUAV RNA BE+probe Ql (Unsp spec) Not detected Not Detected [facility] FLUBV RNA BE+probe Ql (Unsp spec) Not detected Not Detected [facility] RSV A RNA BE+probe Ql (Unsp spec) Detected Abnormal Not Detected [facility] SARS-CoV-2 (COVID-19) RNA BE+probe Ql (Resp) Not detected See comment [facility] Absolute lymphocyte countOrd ered By: Huy Montiel on 04-25-2023 Lymphocytes Auto (Unsp spec) [#/Vol] 2.48 10*3/uL 0.83-4.51 [facility] Basophil percentageOrdered B y: Huy Montiel on 04-25-2023 Basophils/100 WBC (Bld) 1.0 % 0-1 [facility] Chloride [Moles/Vol] 109 mmol/L 98-107 [facility] Eosinophils/100 WBC (Bld) 3.5 % 0-5 [facility] Glucose [Mass/Vol] 104 mg/dL 74-106 [facility] Comment on above: Fasting Glucose resu lt from 100 to 125 mg/dL suggests IMPAIRED HOMEOSTASIS per A.D.A. criteria. Neutrophils (Bld) [#/Vol] 4.8 10*3/uL 2.0-7.7 [facility] Neutrophils/100 WBC (Bld) 58.8 % 47-70 [facility] Potassium [Moles/Vol] 4.4 mmol/L 3.5-5.1 [facility] Sodium [Moles/Vol] 139 mmol/L 136-145 [facility] WBC (Bld) [#/Vol] 8.2 10*3/uL 4.4-11.0 [facility] Blood erythrocytes count (nu mber/volume)Ordered By: Huy Montiel on 04-25-2023 RBC (Bld) [#/Vol] 4.37 10*6/uL 4.2-5.4 [facility] Blood hemoglobin measurement (mass/volume)Ordered By: Huy Montiel on 04-25-2023 Hemoglobin (Bld) [Mass/Vol] 13.1 g/dL 12.0-15.0 [facility] Blood lymphocytes/100 leukoc ytesOrdered By: Huy Montiel on 04-25-2023 Lymphocytes/100 WBC (Bld) 30.3 % 19-41 [facility] Blood monocytes/100 leukocyt esOrdered By: Huy Montiel on 04-25-2023 Monocytes/100 WBC (Bld) 6.0 % 0-10 [facility] Blood platelet mean volumeOr dered By: Huy Montiel on 04-25-2023 Platelet mean volume (Bld) [Entitic vol] 10.7 fL 6.2-12.0 [facility] Determination of erythrocyte mean corpuscular volume (MCV)Ordered By: Huy Montiel on 04-25-2023 MCV (RBC) [Entitic vol] 93.8 fL 81-99 [facility] Hematocrit Auto (Bld) [Volum e fraction]Ordered By: Huy Montiel on 04-25-2023 Hematocrit (Bld) [Volume fraction] 41.0 % 37-47 [facility] Laboratory - Chemistry and C hemistry - challengeOrdered By: Huy Montiel on 04-25-2023 CO2 [Moles/Vol] 27.0 mmol/L 21.0-32.0 [facility] Urea nitrogen/Creatinine [Mass ratio] 14.3 mg/mg 10-20 [facility] Laboratory - Hematology and Cell countsOrdered By: Huy Montiel on 04-25-2023 Erythrocyte distribution width (RBC) [Entitic vol] 44.3 fL 35.1-43.9 [facility] Erythrocyte distribution width (RBC) [Ratio] 12.9 % 11.6-14.6 [facility] Immature granulocytes/100 WBC (Bld) 0.400 % 0.0-0.9 [facility] Comment on above: IG% - Immature Granu locytes (promyelocytes, myelocytes and metamyelocytes) > 1% indicates that a LEFT SHIFT is Present. MCH (RBC) [Entitic mass] 30.0 pg 27.0-32.0 [facility] Nucleated RBC/100 WBC (Bld) [Ratio] 0 % 0-5 [facility] MCHC Auto (RBC) [Mass/Vol]Or dered By: Huy Montiel on 04-25-2023 MCHC (RBC) [Mass/Vol] 32.0 g/dL 32-36 [facility] No Panel InformationOrdered By: Huy Montiel on 04-25-2023 Estimated Creatinine Clearance Calc 38.45 ml/min [facility] Estimated GFR (MDRD) Amer 61 mL/min >60 [facility] Comment on above: GFR Calc Estimated GFR (MDRD) Non-Af Amer 50 mL/min >60 [facility] Comment on above: Non- GFR Calc Troponin I High Sensitivity 5 pg/mL 3.0-54.0 [facility] Comment on above: Please Note: New Ilene t Units and Gender Specific Reference Ranges. For more information see Policy Stat Procedure [place] High Sensitivity Troponin (TNIH) and attachments. Platelets bldOrdered By: Jona Montiel on 04-25-2023 Platelets (Bld) [#/Vol] 247 10*3/uL 150-450 [facility] Serum or plasma calcium maurice urement (mass/volume)Ordered By: Huy Montiel on 04-25-2023 Calcium [Mass/Vol] 9.0 mg/dL 8.5-10.1 [facility] Serum or plasma creatinine m easurement (mass/volume)Ordered By: Huy Montiel on 04-25-2023 Creatinine [Mass/Vol] 1.12 mg/dL 0.55-1.02 [facility] Comment on above: The validity of the calculated GFR & GFRAA in patients over 70 years has not been determined. Clinical correlation is essential. Serum or plasma urea nitroge n measurement (mass/volume)Ordered By: Huy Montiel on 04-25-2023 Urea nitrogen [Mass/Vol] 16 mg/dL 7-18 [facility] Thin prep Papanicolaou smear with manual screeningOrdered By: Huy Montiel on 04-25-2023 Thin prep Papanicolaou smear with manual screening 3 5-15 [facility] CBC W Auto Differential pane l (Bld)on 10-22-2022 Basophils (Bld) [#/Vol] 0.10 10*3/uL <0.11 k/uL [facility] Basophils/100 WBC (Bld) 1.2 % [facility] Differential cell count method Nom (Bld) Auto [facility] Eosinophils (Bld) [#/Vol] 0.25 10*3/uL <0.46 k/uL [facility] Eosinophils/100 WBC (Bld) 3.0 % [facility] Erythrocyte distribution width (RBC) [Ratio] 13.1 % 11.5 - 15.0 % [facility] Hematocrit (Bld) [Volume fraction] 43.6 % 36.0 - 46.0 % [facility] Hemoglobin (Bld) [Mass/Vol] 13.9 g/dL 11.5 - 15.5 g/dL [facility] Immature granulocytes (Bld) [#/Vol] 0.04 10*3/uL <0.10 k/uL [facility] Immature granulocytes/100 WBC (Bld) 0.5 % [facility] Lymphocytes (Bld) [#/Vol] 2.30 10*3/uL 1.00 - 4.00 k/uL [facility] Lymphocytes/100 WBC (Bld) 27.9 % [facility] MCH (RBC) [Entitic mass] 29.6 pg 26.0 - 34.0 pg [facility] MCHC (RBC) [Mass/Vol] 31.9 g/dL 30.5 - 36.0 g/dL [facility] MCV (RBC) [Entitic vol] 93.0 fL 80.0 - 100.0 fL [facility] Monocytes (Bld) [#/Vol] 0.52 10*3/uL <0.87 k/uL [facility] Monocytes/100 WBC (Bld) 6.3 % [facility] Neutrophils (Bld) [#/Vol] 5.02 10*3/uL 1.45 - 7.50 k/uL [facility] Neutrophils/100 WBC (Bld) 61.1 % [facility] Nucleated RBC (Bld) [#/Vol] <0.01 k/uL [facility] Nucleated RBC/100 WBC (Bld) [Ratio] 0.0 /100 WBC [facility] Platelet mean volume (Bld) [Entitic vol] 10.8 fL 9.0 - 12.7 fL [facility] Platelets (Bld) [#/Vol] 285 10*3/uL 150 - 400 k/uL [facility] RBC (Bld) [#/Vol] 4.69 10*6/uL 3.90 - 5.2 0 m/uL [facility] WBC (Bld) [#/Vol] 8.23 10*3/uL 3.70 - 11. 00 k/uL [facility] UA DIP, URINE (POC)on 2022 BILIRUBIN UA (POCT) Negative Negative [facility] CLARITY UA (POCT) Clear [facility] COLOR UA (POCT) Yellow [facility] GLUCOSE UA (POCT) Negative Negative mg/dL [facility] HEMOGLOBIN/BLOOD UA (POCT) Small Abnormal Negative [facility] KETONE UA (POCT) Negative Negative mg/dL [facility] LEUKOCYTES UA (POCT) Small Abnormal Negative [facility] NITRITE UA (POCT) Positive Abnormal Negative [facility] PH UA (POCT) 5.0 4.5 - 8.0 [facility] Protein Ql (U) Negative Negative mg/dL [facility] SPECIFIC GRAVITY UA (POCT) 1.025 1.005 - 1.030 [facility] UROBILINOGEN UA (POCT) 0.2 E.U./dL Mariana l E.U./dL [facility] XR RIBS/CHEST 3V AP RIB/OBLS /CXR LEFTon 07-21-2022 [facility] XR Ribs - left Views and Jesi st PAon 07-21-2022 IMPRESSION: No acute abnormality Pit Boss: CESAR Transcribe Date/Time: Jul 21 2022 11:34A Dictated by : ALEJANDRO RIZZO MD This examination was interpreted and the report reviewed and electronically signed by: ALEJANDRO RIZZO MD on Jul 21 2022 11:35AM [facility] DIVISION OF RADIOLOGY * * *Final Report* * * DATE OF EXAM: Jul 21 2022 11:21AM WOX [id number] - XR RIB/CHST 3V AP RIB/OBL/CHST L / PROCEDURE REASON: Rib pain on left side * * * * Physician Interpretation * * * * PROCEDURE: Left RIBS with chest INDICATION: Rib pain on left side .pain started a few days ago posterior lower left side marked by a bb denies inj TECHNIQUE: XR RIB/CHST 3V AP RIB/OBL/CHST L COMPARISON: Left RIBS 05/17/2020 FINDINGS: Cardiomediastinal silhouette is within normal limits. No consolidation, pleural effusion or pneumothorax. The left ribs are intact without acute fracture, sclerotic or lytic lesion. DIVISION OF RADIOLOGY Provider, Juvenal logan [place] - 07/21/2022 * * *Final Report* * * DATE OF EXAM: Jul 21 2022 11:21AM WOX [id number] - XR RIB/CHST 3V AP RIB/OBL/CHST L / PROCEDURE REASON: Rib pain on left side * * * * Physician Interpretation * * * * PROCEDURE: Left RIBS with chest INDICATION: Rib pain on left side .pain started a few days ago posterior lower left side marked by a bb denies inj TECHNIQUE: XR RIB/CHST 3V AP RIB/OBL/CHST L COMPARISON: Left RIBS 05/17/2020 FINDINGS: Cardiomediastinal silhouette is within normal limits. No consolidation, pleural effusion or pneumothorax. The left ribs are intact without acute fracture, sclerotic or lytic lesion. IMPRESSION IMPRESSION: No acute abnormality Pit Boss: PSCB Transcribe Date/Time: Jul 21 2022 11:34A Dictated by : ALEJANDRO RIZZO MD This examination was interpreted and the report reviewed and electronically signed by: ALEJANDRO RIZZO MD on Jul 21 2022 11:35AM EST [facility] Radiology Study observation (narrative) [facility] XR Ribs - left Views and Jesi st PAOrdered By: [facility]cf Provider on 07-21-2022 [facility] Basophil percentageon 2021 Chloride [Moles/Vol] 107 mmol/L 98-107 [facility] Work Phone: Glucose [Mass/Vol] 109 mg/dL 74-106 [facility] Work Phone: Comment on above: Fasting Glucose resu lt from 100 to 125 mg/dL suggests IMPAIRED HOMEOSTASIS per A.D.A. criteria. Potassium [Moles/Vol] 4.1 mmol/L 3.5-5.1 [facility] Work Phone: Sodium [Moles/Vol] 140 mmol/L 136-145 [facility] Work Phone: WBC (Bld) [#/Vol] 6.9 10*3/uL 4.4-11.0 [facility] Work Phone: Blood erythrocytes count (nu mber/volume)on 04-13-2022 RBC (Bld) [#/Vol] 4.43 10*6/uL 4.2-5.4 [facility] Work Phone: [phone] Blood hemoglobin measurement (mass/volume)on 04-13-2022 Hemoglobin (Bld) [Mass/Vol] 13.1 g/dL 12.0-15.0 [facility] Work Phone: [phone] Blood platelet mean volumeon 04-13-2022 Platelet mean volume (Bld) [Entitic vol] 11.2 fL 6.2-12.0 [facility] Work Phone: [phone] Determination of erythrocyte mean corpuscular volume (MCV)on 04-13-2022 MCV (RBC) [Entitic vol] 92.1 fL 81-99 [facility] Work Phone: [phone] Hematocrit Auto (Bld) [Volum e fraction]on 04-13-2022 Hematocrit (Bld) [Volume fraction] 40.8 % 37-47 [facility] Work Phone: Laboratory - Chemistry and C hemistry - challengeon 04-13-2022 CO2 [Moles/Vol] 29.0 mmol/L 21.0-32.0 [facility] Work Phone: [phone] Magnesium [Mass/Vol] 2.0 mg/dL 1.6-2.6 [facility] Work Phone: [phone] [Mass/Vol] 9.3 ug/dL 4.8-13.9 [facility] Work Phone: [phone] Urea nitrogen/Creatinine [Mass ratio] 14.0 mg/mg 10-20 [facility] Work Phone: [phone] Laboratory - Hematology and Cell countson 04-13-2022 Erythrocyte distribution width (RBC) [Entitic vol] 44.1 fL 35.1-43.9 [facility] Work Phone: [phone] Erythrocyte distribution width (RBC) [Ratio] 13.1 % 11.6-14.6 [facility] Work Phone: MCH (RBC) [Entitic mass] 29.6 pg 27.0-32.0 [facility] Work Phone: [phone] MCHC Auto (RBC) [Mass/Vol]on 04-13-2022 MCHC (RBC) [Mass/Vol] 32.1 g/dL 32-36 [facility] Work Phone: No Panel Informationon 04-13 Estimated GFR (MDRD) Amer 70 mL/min >60 [facility] Work Phone: Comment on above: GFR Calc Estimated GFR (MDRD) Non-Af Amer 58 mL/min >60 [facility] Work Phone: Comment on above: Non- GFR Calc Thyroid Stimulating Hormone (TSH) 2.77 uIU/mL 0.358-3.74 [facility] Work Phone: Platelets bldon 04-13-2022 Platelets (Bld) [#/Vol] 271 10*3/uL 150-450 [facility] Work Phone: Serum or plasma calcium maurice urement (mass/volume)on 04-13-2022 Calcium [Mass/Vol] 9.3 mg/dL 8.5-10.1 [facility] Work Phone: Serum or plasma creatinine m easurement (mass/volume)on 04-13-2022 Creatinine [Mass/Vol] 1.00 mg/dL 0.55-1.02 [facility] Work Phone: Comment on above: The validity of the calculated GFR & GFRAA in patients over 70 years has not been determined. Clinical correlation is essential. Serum or plasma urea nitroge n measurement (mass/volume)on 04-13-2022 Urea nitrogen [Mass/Vol] 14 mg/dL 7-18 [facility] Work Phone: [phone] Thin prep Papanicolaou smear with manual screeningon 04-13-2022 Thin prep Papanicolaou smear with manual screening 4 5-15 [facility] Work Phone: CBC W Auto Differential pane l (Bld)on 12-12-2021 Abs Immature Gran <0.03 <0.10 k/uL [facility] Basophils (Bld) [#/Vol] 0.09 10*3/uL <0.11 k/uL [facility] Basophils/100 WBC (Bld) 1.3 % [facility] Differential cell count method Nom (Bld) Auto [facility] Eosinophils (Bld) [#/Vol] 0.26 10*3/uL <0.46 k/uL [facility] Eosinophils/100 WBC (Bld) 3.9 % [facility] Erythrocyte distribution width (RBC) [Ratio] 13.0 % 11.5 - 15.0 % [facility] Hematocrit (Bld) [Volume fraction] 43.1 % 36.0 - 46.0 % [facility] Hemoglobin (Bld) [Mass/Vol] 13.8 g/dL 11.5 - 15.5 g/dL [facility] Immature Gran % 0.3 % [facility] Lymphocytes (Bld) [#/Vol] 1.91 10*3/uL 1.00 - 4.00 k/uL [facility] Lymphocytes/100 WBC (Bld) 28.3 % [facility] MCH (RBC) [Entitic mass] 29.4 pg 26.0 - 34.0 pg [facility] MCHC (RBC) [Mass/Vol] 32.0 g/dL 30.5 - 36.0 g/dL [facility] MCV (RBC) [Entitic vol] 91.9 fL 80.0 - 100.0 fL [facility] Monocytes (Bld) [#/Vol] 0.47 10*3/uL <0.87 k/uL [facility] Monocytes/100 WBC (Bld) 7.0 % [facility] Neutrophils (Bld) [#/Vol] 4.00 10*3/uL 1.45 - 7.50 k/uL [facility] Neutrophils/100 WBC (Bld) 59.2 % [facility] Nucleated RBC (Bld) [#/Vol] 10*3/uL <0.01 k/uL [facility] Nucleated RBC/100 WBC (Bld) [Ratio] 0.0 /100 WBC [facility] Platelet mean volume (Bld) [Entitic vol] 10.7 fL 9.0 - 12.7 fL [facility] Platelets (Bld) [#/Vol] 290 10*3/uL 150 - 400 k/uL [facility] RBC (Bld) [#/Vol] 4.69 10*6/uL 3.90 - 5.2 0 m/uL [facility] WBC (Bld) [#/Vol] 6.75 10*3/uL 3.70 - 11. 00 k/uL [facility] Vital Signs Date Time Vital Sign Value Performing Clinician Facility 04-28-2025 13:29-0400 Body temperature 99.7 [degF] Valarie Landry LINE OPERATOR.BINDERY ASSISTANT Work Phone: [facility] 04-28-2025 13:29-0400 Diastolic blood pressure 64 mm[Hg] Valarie Landry LINE OPERATOR.BINDERY ASSISTANT Work Phone: [facility] 04-28-2025 13:29-0400 Heart rate 85 /min Valarie Landry LINE OPERATOR.BINDERY ASSISTANT Work Phone: [facility] 04-28-2025 13:29-0400 Respiratory rate 16 /min Valarie Landry LINE OPERATOR.BINDERY ASSISTANT Work Phone: [facility] 04-28-2025 13:29-0400 SaO2% (BldA) [Mass fraction] 94 % Valarie Landry LINE OPERATOR.BINDERY ASSISTANT Work Phone: [facility] 04-28-2025 13:29-0400 Systolic blood pressure 126 mm[Hg] Valarie Landry LINE OPERATOR.BINDERY ASSISTANT Work Phone: [facility] 02-27-2025 09:34-0400 Body mass index (BMI) [Ratio] 25.77 kg/m2 Dimitrios Giron MD Work Phone: [facility] 02-27-2025 09:34-0400 Body temperature 97.81 [degF] Dimitrios Giron MD Work Phone: [facility] 02-27-2025 09:34-0400 Body weight 69.3 kg Dimitrios Giron MD Work Phone: [facility] 02-27-2025 09:34-0400 Diastolic blood pressure 78 mm[Hg] Dimitrios Giron MD Work Phone: [facility] 02-27-2025 09:34-0400 Heart rate 64 /min Dimitrios Giron MD Work Phone: [facility] 02-27-2025 09:34-0400 Respiratory rate 18 /min Dimitrios Giron MD Work Phone: [facility] 02-27-2025 09:34-0400 SaO2% (BldA) [Mass fraction] 98 % Dimitrios Giron MD Work Phone: [facility] 02-27-2025 09:34-0400 Systolic blood pressure 150 mm[Hg] Dimitrios Giron MD Work Phone: [facility] 01-25-2025 10:59-0400 Body height 164 cm Hyun Suppan LINE OPERATOR.BINDERY ASSISTANT Work Phone: [facility] 01-25-2025 10:59-0400 Body mass index (BMI) [Ratio] 25.47 kg/m2 Hyun Suppan LINE OPERATOR.BINDERY ASSISTANT Work Phone: [facility] 01-25-2025 10:59-0400 Body weight 68.49 kg Hyun Suppan LINE OPERATOR.BINDERY ASSISTANT Work Phone: [facility] 01-25-2025 10:59-0400 Diastolic blood pressure 60 mm[Hg] Hyun Suppan LINE OPERATOR.BINDERY ASSISTANT Work Phone: [facility] 01-25-2025 10:59-0400 Heart rate 80 /min Hyun Suppan LINE OPERATOR.BINDERY ASSISTANT Work Phone: [facility] 01-25-2025 10:59-0400 SaO2% (BldA) [Mass fraction] 96 % Hyun Suppan LINE OPERATOR.BINDERY ASSISTANT Work Phone: [facility] 01-25-2025 10:59-0400 Systolic blood pressure 128 mm[Hg] Hyun Suppan LINE OPERATOR.BINDERY ASSISTANT Work Phone: [facility] 07-27-2024 12:41-0500 Body mass index (BMI) [Ratio] 25.42 kg/m2 Hyun Suppan LINE OPERATOR.BINDERY ASSISTANT Work Phone: [facility] 07-27-2024 12:41-0500 Body temperature 97.39 [degF] Hynu Suppan LINE OPERATOR.BINDERY ASSISTANT Work Phone: [facility] 07-27-2024 12:41-0500 Body weight 69.2 kg Hyun Suppan LINE OPERATOR.BINDERY ASSISTANT Work Phone: [facility] 07-27-2024 12:41-0500 Diastolic blood pressure 70 mm[Hg] Hyun Suppan LINE OPERATOR.BINDERY ASSISTANT Work Phone: [facility] 07-27-2024 12:41-0500 Heart rate 73 /min Hyun Suppan LINE OPERATOR.BINDERY ASSISTANT Work Phone: [facility] 07-27-2024 12:41-0500 Respiratory rate 16 /min Hyun Suppan LINE OPERATOR.BINDERY ASSISTANT Work Phone: [facility] 07-27-2024 12:41-0500 SaO2% (BldA) [Mass fraction] 96 % Hyun Suppan LINE OPERATOR.BINDERY ASSISTANT Work Phone: [facility] 07-27-2024 12:41-0500 Systolic blood pressure 134 mm[Hg] Hyun Suppan LINE OPERATOR.BINDERY ASSISTANT Work Phone: [facility] 06-16-2024 10:40-0400 Body mass index (BMI) [Ratio] 25.27 kg/m2 Hyun Suppan LINE OPERATOR.BINDERY ASSISTANT Work Phone: [facility] 06-16-2024 10:40-0400 Body temperature 97.7 [degF] Hyun Suppan LINE OPERATOR.BINDERY ASSISTANT Work Phone: [facility] 06-16-2024 10:40-0400 Body weight 68.8 kg Hyun Suppan LINE OPERATOR.BINDERY ASSISTANT Work Phone: [facility] 06-16-2024 10:40-0400 Diastolic blood pressure 66 mm[Hg] Hyun Suppan LINE OPERATOR.BINDERY ASSISTANT Work Phone: [facility] 06-16-2024 10:40-0400 Heart rate 74 /min Hyun Suppan LINE OPERATOR.BINDERY ASSISTANT Work Phone: [facility] 06-16-2024 10:40-0400 Respiratory rate 16 /min Hyun Suppan LINE OPERATOR.BINDERY ASSISTANT Work Phone: [facility] 06-16-2024 10:40-0400 SaO2% (BldA) [Mass fraction] 96 % Hyun Suppan LINE OPERATOR.BINDERY ASSISTANT Work Phone: [facility] 06-16-2024 10:40-0400 Systolic blood pressure 128 mm[Hg] Hyun Suppan LINE OPERATOR.BINDERY ASSISTANT Work Phone: [facility] 06-10-2024 10:56-0400 Body mass index (BMI) [Ratio] 25.49 kg/m2 Valarie Haagen LINE OPERATOR.BINDERY ASSISTANT Work Phone: [facility] 06-10-2024 10:56-0400 Body weight 69.4 kg Valarie Haagen LINE OPERATOR.BINDERY ASSISTANT Work Phone: [facility] 06-10-2024 10:56-0400 Diastolic blood pressure 72 mm[Hg] Valarie Haagen LINE OPERATOR.BINDERY ASSISTANT Work Phone: [facility] 06-10-2024 10:56-0400 Heart rate 73 /min Valarie Haagen LINE OPERATOR.BINDERY ASSISTANT Work Phone: [facility] 06-10-2024 10:56-0400 Respiratory rate 16 /min Valarie Haagen LINE OPERATOR.BINDERY ASSISTANT Work Phone: [facility] 06-10-2024 10:56-0400 SaO2% (BldA) [Mass fraction] 97 % Valarie Haagen LINE OPERATOR.BINDERY ASSISTANT Work Phone: [facility] 06-10-2024 10:56-0400 Systolic blood pressure 136 mm[Hg] Valarie Haagen LINE OPERATOR.BINDERY ASSISTANT Work Phone: [facility] 06-03-2024 13:43-0400 Body height 165.[address] HÉCTOR RIAHETA MD [facility] 06-03-2024 13:43-0400 Body weight 68.[address] HÉCTOR IRAHETA MD [facility] 06-03-2024 13:43-0400 Body weight 25.02 kg/m2 DR HÉCTOR IRAHETA MD [facility] 06-03-2024 13:43-0400 Diastolic Blood Pressure Non-Invasive 82 mm[Hg] DR HÉCTOR IRAHETA MD [facility] 06-03-2024 13:43-0400 Heart rate 78 /min DR HÉCTOR IRAHETA MD [facility] 06-03-2024 13:43-0400 Respiratory rate 20 /min DR HÉCTOR IRAHETA MD [facility] 06-03-2024 13:43-0400 Systolic Blood Pressure Non-Invasive 169 mm[Hg] DR HÉCTOR IRAHETA MD [facility] 05-27-2024 10:34-0400 Body mass index (BMI) [Ratio] 25.56 kg/m2 Dustin Gordillo LINE OPERATOR.BINDERY ASSISTANT Work Phone: [facility] 05-27-2024 10:34-0400 Body temperature 97.81 [degF] Dustin Gordillo LINE OPERATOR.BINDERY ASSISTANT Work Phone: [facility] 05-27-2024 10:34-0400 Body weight 69.6 kg Dustin Gordillo LINE OPERATOR.BINDERY ASSISTANT Work Phone: [facility] 05-27-2024 10:34-0400 Diastolic blood pressure 74 mm[Hg] Dustin Gordillo LINE OPERATOR.BINDERY ASSISTANT Work Phone: [facility] 05-27-2024 10:34-0400 Heart rate 84 /min Dustin Gordillo LINE OPERATOR.BINDERY ASSISTANT Work Phone: [facility] 05-27-2024 10:34-0400 Respiratory rate 16 /min Dustin Duy LINE OPERATOR.BINDERY ASSISTANT Work Phone: [facility] 05-27-2024 10:34-0400 SaO2% (BldA) [Mass fraction] 97 % Dustin Gordillo LINE OPERATOR.BINDERY ASSISTANT Work Phone: [facility] 05-27-2024 10:34-0400 Systolic blood pressure 128 mm[Hg] Dustin Gordillo LINE OPERATOR.BINDERY ASSISTANT Work Phone: [facility] 04-27-2024 11:17-0400 Body mass index (BMI) [Ratio] 25.32 kg/m2 Hyun Suppan LINE OPERATOR.BINDERY ASSISTANT Work Phone: [facility] 04-27-2024 11:17-0400 Body weight 68.95 kg Hyun Suppan LINE OPERATOR.BINDERY ASSISTANT Work Phone: [facility] 04-27-2024 11:17-0400 Diastolic blood pressure 70 mm[Hg] Hyun Suppan LINE OPERATOR.BINDERY ASSISTANT Work Phone: [facility] 04-27-2024 11:17-0400 Heart rate 90 /min Hyun Suppan LINE OPERATOR.BINDERY ASSISTANT Work Phone: [facility] 04-27-2024 11:17-0400 Respiratory rate 16 /min Hyun Suppan LINE OPERATOR.BINDERY ASSISTANT Work Phone: [facility] 04-27-2024 11:17-0400 SaO2% (BldA) [Mass fraction] 96 % Hyun Suppan LINE OPERATOR.BINDERY ASSISTANT Work Phone: [facility] 04-27-2024 11:17-0400 Systolic blood pressure 124 mm[Hg] Hyun Suppan LINE OPERATOR.BINDERY ASSISTANT Work Phone: [facility] 04-21-2024 10:14-0400 Diastolic blood pressure 60 mm[Hg] Hyun Suppan LINE OPERATOR.BINDERY ASSISTANT Work Phone: [facility] 04-21-2024 10:14-0400 Systolic blood pressure 124 mm[Hg] Hyun Suppan LINE OPERATOR.BINDERY ASSISTANT Work Phone: [facility] 04-21-2024 09:49-0400 Body mass index (BMI) [Ratio] 25.39 kg/m2 Hyun Suppan LINE OPERATOR.BINDERY ASSISTANT Work Phone: [facility] 04-21-2024 09:49-0400 Body temperature 96.69 [degF] Hyun Suppan LINE OPERATOR.BINDERY ASSISTANT Work Phone: [facility] 04-21-2024 09:49-0400 Body weight 69.13 kg Hyun Suppan LINE OPERATOR.BINDERY ASSISTANT Work Phone: [facility] 04-21-2024 09:49-0400 Heart rate 76 /min Hyun Suppan LINE OPERATOR.BINDERY ASSISTANT Work Phone: [facility] 04-21-2024 09:49-0400 Respiratory rate 16 /min Hyun Suppan LINE OPERATOR.BINDERY ASSISTANT Work Phone: [facility] 10-24-2023 14:29-0500 Body weight 68.95 kg NA Nation PA-C Work Phone: [facility] 10-24-2023 14:29-0500 Diastolic blood pressure 66 mm[Hg] NA Nation PA-C Work Phone: [facility] 10-24-2023 14:29-0500 Heart rate 89 /min NA Nation PA-C Work Phone: [facility] 10-24-2023 14:29-0500 Respiratory rate 20 /min NA Nation PA-C Work Phone: [facility] 10-24-2023 14:29-0500 SaO2% (BldA) [Mass fraction] 97 % NA Nation PA-C Work Phone: [facility] 10-24-2023 14:29-0500 Systolic blood pressure 132 mm[Hg] NA Nation PA-C Work Phone: [facility] 10-20-2023 13:37-0500 Body temperature 99.1 [degF] Jody Bardales LINE OPERATOR.BINDERY ASSISTANT Work Phone: [facility] 10-20-2023 13:37-0500 Body weight 68.49 kg Jody Bardales LINE OPERATOR.BINDERY ASSISTANT Work Phone: [facility] 10-20-2023 13:37-0500 Diastolic blood pressure 79 mm[Hg] Jody Bardales LINE OPERATOR.BINDERY ASSISTANT Work Phone: [facility] 10-20-2023 13:37-0500 Heart rate 107 /min Jody Bardales LINE OPERATOR.BINDERY ASSISTANT Work Phone: [facility] 10-20-2023 13:37-0500 Respiratory rate 20 /min Jody Bardales LINE OPERATOR.BINDERY ASSISTANT Work Phone: [facility] 10-20-2023 13:37-0500 SaO2% (BldA) [Mass fraction] 94 % Jody Bardales LINE OPERATOR.BINDERY ASSISTANT Work Phone: [facility] 10-20-2023 13:37-0500 Systolic blood pressure 165 mm[Hg] Jody Bardales LINE OPERATOR.BINDERY ASSISTANT Work Phone: [facility] 10-09-2023 11:19-0500 Body temperature 99.19 [degF] Sukumar Ames MD Work Phone: [facility] 10-09-2023 11:19-0500 Body weight 70.31 kg Sukumar Ames MD Work Phone: [facility] 10-09-2023 11:19-0500 Diastolic blood pressure 62 mm[Hg] Sukumar Ames MD Work Phone: [facility] 10-09-2023 11:19-0500 Heart rate 88 /min Sukumar Ames MD Work Phone: [facility] 10-09-2023 11:19-0500 SaO2% (BldA) [Mass fraction] 96 % Sukumar Ames MD Work Phone: [facility] 10-09-2023 11:19-0500 Systolic blood pressure 118 mm[Hg] Sukumar Ames MD Work Phone: [facility] 04-25-2023 19:15-0400 Diastolic blood pressure 69 mm[Hg] [facility] 04-25-2023 19:15-0400 Heart rate 82 /min [facility] 04-25-2023 19:15-0400 Respiratory rate 15 /min [facility] 04-25-2023 19:15-0400 SaO2% (BldA) [Mass fraction] 97 % [facility] 04-25-2023 19:15-0400 Systolic blood pressure 124 mm[Hg] [facility] 04-25-2023 14:56-0400 Body height 165.1 cm [facility] 04-25-2023 14:56-0400 Body mass index (BMI) [Ratio] 25.4 kg/m2 [facility] 04-25-2023 14:56-0400 Body temperature 96.8 [degF] [facility] 04-25-2023 14:56-0400 Body weight 69.39 kg [facility] 10-22-2022 10:16-0500 Body temperature 97.81 [degF] NA Nation PA-C Work Phone: [facility] 10-22-2022 10:16-0500 Body weight 70.76 kg NA Nation PA-C Work Phone: [facility] 10-22-2022 10:16-0500 Diastolic blood pressure 62 mm[Hg] NA Nation PA-C Work Phone: [facility] 10-22-2022 10:16-0500 Heart rate 79 /min NA Nation PA-C Work Phone: [facility] 10-22-2022 10:16-0500 Respiratory rate 16 /min NA Nation PA-C Work Phone: [facility] 10-22-2022 10:16-0500 SaO2% (BldA) [Mass fraction] 96 % NA Nation PA-C Work Phone: [facility] 10-22-2022 10:16-0500 Systolic blood pressure 124 mm[Hg] GATO Nation PA-C Work Phone: [facility] 07-21-2022 10:45-0500 Body temperature 97.39 [degF] Dimitrios Giron MD Work Phone: [facility] 07-21-2022 10:45-0500 Body weight 71.76 kg Dimitrios Giron MD Work Phone: [facility] 07-21-2022 10:45-0500 Diastolic blood pressure 78 mm[Hg] Dimitrios Giron MD Work Phone: [facility] 07-21-2022 10:45-0500 Heart rate 84 /min Dimitrios Giron MD Work Phone: [facility] 07-21-2022 10:45-0500 Respiratory rate 16 /min Dimitrios Giron MD Work Phone: [facility] 07-21-2022 10:45-0500 SaO2% (BldA) [Mass fraction] 96 % Dimitrios Giron MD Work Phone: [facility] 07-21-2022 10:45-0500 Systolic blood pressure 130 mm[Hg] Dimitrios Giron MD Work Phone: [facility] 04-17-2022 10:23-0400 Body height 165.[address] Gala Velez Work Phone: [facility] Work Phone: 04-17-2022 10:22-0400 Body mass index (BMI) [Ratio] 26.1 kg/m2 Dr. Gala Velez Work Phone: [facility] Work Phone: 04-17-2022 10:22-0400 Body weight 71.[address] Gala Velez Work Phone: [facility] Work Phone: 04-17-2022 10:22-0400 Diastolic blood pressure 75 mm[Hg] Dr. Gala Velez Work Phone: [facility] Work Phone: 04-17-2022 10:22-0400 Heart rate 73 /min Dr. Gala Velez Work Phone: [facility] Work Phone: 04-17-2022 10:22-0400 Respiratory rate 18 /min Dr. Gala Velez Work Phone: [facility] Work Phone: 04-17-2022 10:22-0400 SaO2% (BldA) [Mass fraction] 96 % Dr. Gala Velez Work Phone: [facility] Work Phone: 04-17-2022 10:22-0400 Systolic blood pressure 124 mm[Hg] Dr. Gala Velez Work Phone: [facility] Work Phone: 12-12-2021 08:01-0400 Body height 165 cm NA Nation PA-C Work Phone: [facility] 12-12-2021 08:01-0400 Body weight 72.12 kg NA Nation PA-C Work Phone: [facility] 12-12-2021 08:01-0400 Diastolic blood pressure 70 mm[Hg] NA Nation PA-C Work Phone: [facility] 12-12-2021 08:01-0400 Heart rate 64 /min NA Nation PA-C Work Phone: [facility] 12-12-2021 08:01-0400 Respiratory rate 14 /min NA Nation PA-C Work Phone: [facility] 12-12-2021 08:01-0400 SaO2% (BldA) [Mass fraction] 96 % NA Nation PA-C Work Phone: [facility] 12-12-2021 08:01-0400 Systolic blood pressure 128 mm[Hg] NA Nation PA-C Work Phone: [facility] Encounters Encounter Date Encounter Type Care Provider Facility Start: 06-08-2025 End: 06-08-2025 ambulatory HYUN VILLA Facility:[facility] Start: 05-19-2025 End: 05-19-2025 ambulatory Lidya CARTER Work Phone: -Radiology [facility] Start: 05-19-2025 End: 05-19-[address] Dimitrios Prabhakar MD -Radiology [facility] Work Phone: Start: 05-19-2025 End: 05-19-2025 ambulatory Dimitrios Prabhakar Facility:[facility] Start: 04-28-2025 End: 04-29-2025 Follow-up encounter Valarie Landry APRN.BINDERY ASSISTANT Work Phone: [facility] [place] Comment on above: Results Start: 04-28-2025 End: 04-28-2025 Office outpatient visit 15 minutes Valarie Landry APRN.BINDERY ASSISTANT Work Phone: [facility] [place] Comment on above: Sore throat (Primary Dx); Viral upper respiratory tract infection Start: 04-28-2025 End: 04-28-2025 ambulatory HYUN Contreras SUPPSIMONE Facility:[facility] Start: 03-09-2025 End: 03-09-2025 Telephone encounter Hyun Villa LINE OPERATOR.BINDERY ASSISTANT Work Phone: [facility] [place] Comment on above: Patient Question Start: 02-27-2025 End: 02-27-2025 Patient encounter procedure Dimitrios Giron MD Work Phone: [facility] [place] Comment on above: Otalgia, left (Prima ry Dx); Acute nonintractable headache, unspecified headache type Start: 02-27-2025 End: 02-27-2025 ambulatory DIMITRIOS GIRON Facility:[facility] Start: 02-16-2025 Non-patient / Non-visit Dr. Brennon Neumann MD -[facility] Work Phone: Start: 01-25-2025 End: 01-25-2025 Follow-up encounter Hyun Villa LINE OPERATOR.BINDERY ASSISTANT Work Phone: [facility] Comment on above: Results Start: 01-25-2025 ambulatory HYUN A SUPPAN Fac ility:[facility] Start: 01-25-2025 End: 01-25-2025 Subsequent hospital visit by physician Stacie [facility] [place] Work Phone: Radiology Comment on above: Chronic bilateral lo w back pain with left-sided sciatica [G89.29, M54.42] Start: 01-25-2025 End: 01-25-2025 Patient encounter procedure Hyun Diane Villa LINE OPERATOR.BINDERY ASSISTANT Work Phone: [facility] Comment on above: Chronic obstructive pulmonary disease, unspecified COPD type (HCC) (Primary Dx); Essential hypertension; Primary localized osteoarthrosis of left lower leg; SVT (supraventricular tachycardia) (HCC); Controlled type 2 diabetes mellitus without complication, without long-term current use of insulin (HCC); Chronic bilateral low back pain with left-sided sciatica; Diabetes mellitus without complication (HCC) Start: 01-25-2025 End: 01-25-2025 ambulatory HYUN A SUPPAN Facility:[facility] Start: 07-28-2024 End: 07-28-2024 Telephone encounter Hyun Villa LINE OPERATOR.BINDERY ASSISTANT Work Phone: [facility] Comment on above: Results Start: 07-27-2024 End: 07-27-2024 ambulatory HYUN A SUPPAN Facility:[facility] Start: 07-27-2024 End: 07-27-2024 Office outpatient visit 25 minutes Hyun A Juliana LINE OPERATOR.BINDERY ASSISTANT Work Phone: [facility] Comment on above: Pure hypercholestero lemia (Primary Dx); Controlled type 2 diabetes mellitus without complication, without long-term current use of insulin (HCC); Diabetes mellitus without complication (HCC); SVT (supraventricular tachycardia) (HCC); Essential hypertension Start: 06-26-2024 End: 06-26-2024 ambulatory GALA NATION Facility:[facility] Start: 06-26-2024 End: 06-26-2024 Subsequent hospital visit by physician Bella [facility] ([facility]) Work Phone: [facility] Comment on above: Ear pain, left [H92. 02] Start: 06-22-2024 End: 06-23-2024 Telephone encounter Hyun Villa APRN.BINDERY ASSISTANT Work Phone: [facility] [place] Start: 06-16-2024 End: 06-16-2024 ambulatory GALA NATION Facility:[facility] Start: 06-16-2024 End: 06-16-2024 Office outpatient visit 15 minutes Hyun Villa LINE OPERATOR.BINDERY ASSISTANT Work Phone: [facility] [place] Comment on above: Seasonal allergies ( Primary Dx); Ear pain, left; Cervical radiculopathy Start: 06-15-2024 End: 06-15-2024 Telephone encounter Valarie Landry APRN.BINDERY ASSISTANT Work Phone: [facility] [place] Comment on above: Results, Lab Start: 06-12-2024 End: 06-15-2024 Telephone encounter Valarie Landry APRN.BINDERY ASSISTANT Work Phone: [facility] [place] Comment on above: Results Start: 06-11-2024 End: 06-11-2024 ambulatory [facility] Facility:[facility] Start: 06-10-2024 End: 06-10-2024 Office outpatient visit 25 minutes Valarie Landry APRN.BINDERY ASSISTANT Work Phone: [facility] [place] Comment on above: Preop examination (P rimary Dx); Abnormal EKG; Chronic pain of left knee Start: 06-10-2024 End: 06-10-2024 Preprocedural examination done Valarie Landry APRN.BINDERY ASSISTANT Work Phone: [facility] Start: 06-10-2024 End: 06-10-2024 ambulatory [facility] Facility:[facility] Start: 06-10-2024 Encounter for other preprocedural examination VALARIE ROBERT [facility] Start: 06-03-2024 End: 06-03-[address] HÉCTOR IRAHETA MD Facility:[facility] Start: 06-03-2024 End: 06-03-[address] HÉCTOR IRAHETA MD [facility] Start: 06-03-2024 End: 06-10-2024 Telephone encounter Valarie Landry APRN.BINDERY ASSISTANT Work Phone: [facility] [place] Comment on above: Patient Update Start: 06-03-2024 End: 06-03-[address] HÉCTOR IRAHETA MD [facility] Start: 06-03-2024 End: 06-03-2024 ambulatory SUKUMAR AMES MD Facility:[facility] Start: 05-27-2024 End: 05-27-2024 Office outpatient visit 25 minutes Dustin Gordillo APRN.BINDERY ASSISTANT Work Phone: [facility] Comment on above: Bacterial sinusitis (Primary Dx) Start: 05-26-2024 ambulatory SUKUMAR AMES MD Facilit y:[facility] Start: 04-27-2024 End: 04-27-2024 Office outpatient visit 25 minutes Hyun Villa LINE OPERATOR.BINDERY ASSISTANT Work Phone: [facility] [place] Comment on above: Flank pain (Primary Dx); Screening for depression; Encounter for screening examination for other mental health and behavioral disorders; Essential hypertension; Diabetes mellitus without complication (HCC); Left lateral abdominal pain; Primary osteoarthritis of left knee Start: 04-23-2024 End: 04-24-2024 Telephone encounter Hyun Villa APRN.BINDERY ASSISTANT Work Phone: [facility] [place] Comment on above: Results Start: 04-21-2024 End: 04-21-2024 Office outpatient visit 25 minutes Hyun Villa LINE OPERATOR.BINDERY ASSISTANT Work Phone: [facility] [place] Comment on above: Flank pain (Primary Dx); Arthralgia, unspecified joint; Diabetes mellitus without complication (HCC) Start: 12-20-2023 Refill Lidya Villa on PA-C Work Phone: [facility] [place] Comment on above: Refill Request Start: 10-24-2023 End: 10-24-2023 Patient encounter procedure Lidya Villaon PA-C Work Phone: [facility] [place] Comment on above: Acute bronchitis wit h chronic obstructive pulmonary disease (COPD) (HCC) (HCC) (Primary Dx); Hospital discharge follow-up Start: 10-20-2023 End: 10-20-2023 Patient encounter procedure Jody Bardales LINE OPERATOR.BINDERY ASSISTANT Work Phone: [facility] Comment on above: COPD with exacerbati on (HCC) (Primary Dx) Start: 10-14-2023 ambulatory Lidya Villa on PA-C Work Phone: [facility] [place] Comment on above: URI Start: 10-10-2023 Telephone encounter Sukumar Ames MD Work Phone: [facility] [place] Comment on above: Results Start: 10-09-2023 End: 10-09-2023 Patient encounter procedure Sukumar Ames MD Work Phone: [facility] [place] Comment on above: URI, acute (Primary Dx) Start: 04-25-2023 End: 04-25-2023 Emergency department patient visit [facility]gency [facility] Work Phone: Start: 04-25-2023 ambulatory Lidya Villa on PA-C Work Phone: [facility] [place] Comment on above: Dizziness Start: 04-20-2023 End: 04-20-2023 Patient encounter procedure Dustin Gordillo LINE OPERATOR.BINDERY ASSISTANT Work Phone: [facility] Comment on above: Procedure not costa d out (Primary Dx) Start: 12-24-2022 Refill Lidya Villa on PA-C Work Phone: [facility] [place] Comment on above: Refill Request Start: 12-18-2022 Chart abstracting Ninoska Hinson MA [facility] Start: 12-18-2022 End: 12-18-2022 ambulatory [facility] Work Phone: Start: 12-18-2022 End: 12-18-2022 Patient encounter procedure [facility] Start: 11-16-2022 End: 11-16-2022 ambulatory [facility] Work Phone: Start: 11-16-2022 End: 11-16-2022 Patient encounter procedure [facility] Start: 10-25-2022 Telephone encounter Lidya Villaon PA-C Work Phone: [facility] Comment on above: Results Start: 10-22-2022 End: 10-22-2022 Patient encounter procedure Lidya Nation PA-C Work Phone: [facility] Comment on above: Chronic diarrhea (Pr imary Dx); Incomplete defecation; Incomplete bladder emptying; Foul smelling urine Start: 09-10-2022 Refill Lidya Jai Allen on PA-C Work Phone: [facility] Comment on above: Refill Request Start: 07-21-2022 End: 07-21-2022 Subsequent hospital visit by physician [facility]r [facility] Work Phone: Radiology Comment on above: Rib pain on left juan ramon e [R07.81] Start: 07-21-2022 End: 07-21-2022 Patient encounter procedure Dimitrios Giron MD Work Phone: [facility] Comment on above: Rib pain on left juan ramon e (Primary Dx) Start: 07-03-2022 Refill Lidya Villa on PA-C Work Phone: [facility] Comment on above: Refill Request Start: 05-31-2022 Non-patient / Non-visit Dr. Bernarda Velez Work Phone: [facility] Start: 05-31-2022 End: 05-31-[address] Gala Velez Work Phone: [facility] Work Phone: Start: 05-31-2022 End: 05-31-[address] Gala Velez Work Phone: [facility]-Cardiovasc ular Services Start: 04-17-2022 End: 04-17-[address] Gala Velez Work Phone: [facility] Start: 04-13-2022 End: 04-13-[address] Gala Velez Work Phone: [facility] Work Phone: Start: 04-13-2022 End: 04-13-[address] Gala Velez Work Phone: [facility]-Pulmonary Services/Neurology Start: 03-13-2022 ambulatory Lidya Jai maldonado PAViss Work Phone: [facility] Comment on above: Headache; vision iss ues Start: 12-12-2021 End: 12-12-2021 Patient encounter procedure Lidya Jai Nation PA-[employer] Work Phone: [facility] Comment on above: Encounter for Medica re annual wellness exam (Primary Dx); SVT (supraventricular tachycardia) (HCC); Anginal equivalent (HCC); Left ventricular hypokinesis; Essential hypertension; Hyperlipidemia, unspecified hyperlipidemia type; Diabetes mellitus without complication (HCC); Vitamin D deficiency; Adjustment insomnia; Arthritis of knee; SOB (shortness of breath); Primary localized osteoarthrosis of left lower leg; Asymptomatic menopausal state Procedures Date Procedure Procedure Detail Performing Clinician Start: 05-19-2025 Radiologic exam ches t 2 views NA Rios CARTER Work Phone: Start: 04-28-2025 COVID & INFLUENZA A/ B & RSV PCR, ROUTINE Valarie Landry APRN.BINDERY ASSISTANT Work Phone: Start: 04-28-2025 Iadna streptococcus group a amplified probe tq Valarie Landry LINE OPERATOR.BINDERY ASSISTANT Work Phone: Start: 01-25-2025 Radex spine lumbosac ral 2/3 views Hyun Villa LINE OPERATOR.BINDERY ASSISTANT Work Phone: Start: 06-26-2024 Ct head/brain w/o co ntrast material Hyun Villa LINE OPERATOR.BINDERY ASSISTANT Work Phone: Start: 04-27-2024 Adult depression scr eening assessment Hyun Villa LINE OPERATOR.BINDERY ASSISTANT Work Phone: Start: 10-09-2023 COVID & INFLUENZA A/ B & RSV NAAT, ROUTINE Sukumar Ames MD Work Phone: Start: 12-18-2022 Screening mammography Start: 11-16-2022 US urinary tract Start: 10-22-2022 Urnls dip stick/tabl et rgnt auto w/o microscopy M Jai Nation PA-C Work Phone: Start: 07-21-2022 Radex ribs uni w/pos teroant ch minimum 3 views Dimitrios Giron MD Work Phone: Start: 12-12-2021 Adult depression scr eening assessment NA Nation PA-C Work Phone: Start: 06-14-2020 Mammography NA Nation PA-C Work Phone: Start: 12-25-2017 Colonoscopy NA Nation PA-C Work Phone: Appendectomy DR HÉCTOR Dowell MD Arthroscopy of knee DR JAILYN IRAHETA MD Comment on above: left Cardiac catheterization DR Lamar IRAHETA MD Cholecystectomy DR HÉCTOR TOBIAS MD Hysterectomy DR HÉCTOR Dowell MD Ligation of fallopian tube Yokasta IRAHETA MD Repair of musculoten dinous cuff of shoulder DR HÉCTOR IRAHETA MD Comment on above: right Plan of Treatment Date Care Activity Detail Author Start: 12-26-2027 Colonoscopy COLONOSCOPY [facility] Start: 12-26-2027 COLORECTAL CANCER SCREENING COLORECTAL CANCER SCREENING [facility] Start: 04-28-2026 Annual PCP Team [employer] Flap Trimmer karmen Disease Visit Annual PCP Team Chronic Disease Visit [facility] Start: 01-25-2026 Annual PCP Team [employer]el Flap Trimmer karmen Disease Visit Annual PCP Team Chronic Disease Visit [facility] Start: 01-25-2026 BP Controlled (<130/80) BP Controlle d (<130/80) [facility] Start: 07-27-2025 Covid-19 Vaccine () Covid-19 Vaccine () [facility] Comment on above: Postponed from 04/19 (Declined at this time) Start: 07-27-2025 Hepatitis B screening Urine Albumin:Creatinine Ratio [facility] Start: 07-27-2025 Hepatitis B surface antibody level LDL Cholesterol [facility] Start: 07-27-2025 RSV Vaccine (1 - 1-d ose 75+ series) RSV Vaccine (1 - 1-dose 75+ series) [facility] Comment on above: Postponed from 02/08 (Declined at this time) Start: 07-27-2025 Shingrix Vaccine (2 of 3) Guadalupe grix Vaccine (2 of 3) [facility] Comment on above: Postponed from 09/06 (Declined at this time) Start: 07-27-2025 Urine microalbumin profile DTa P,Tdap,Td Vaccine (1 - Tdap) [facility] Comment on above: Postponed from 07/31 (Declined at this time) Start: 07-26-2025 End: 07-26-2025 Patient encounter procedure 07/26/2025 12:40 PM EST Office Visit [facility] [address] [place] [address] Hyun Villa APRN.BINDERY ASSISTANT [address] [place] [address] 6 month exam [facility] Comment on above: 6 month exam Start: 06-16-2025 BP Controlled (<130/80) BP Controlle d (<130/80) [facility] Start: 06-10-2025 Annual PCP Team [employer] Flap Trimmer karmen Disease Visit Annual PCP Team Chronic Disease Visit [facility] Start: 06-01-2025 Glaucoma screening Dilated Retinal E xam [facility] Start: 05-27-2025 BP Controlled (<130/80) BP Controlle d (<130/80) [facility] Start: 04-27-2025 Anxiety Screening Anxiety Screening [facility] Start: 04-27-2025 BP Controlled (<130/80) BP Controlle d (<130/80) [facility] Start: 04-27-2025 Depression Screening Depression Scre ening [facility] Start: 04-27-2025 Diabetic foot examination Diabetic F oot Exam [facility] Start: 04-21-2025 BP Controlled (<130/80) BP Controlle d (<130/80) [facility] Start: 04-19-2025 Influenza vaccination C [facility] Start: 02-15-2025 Influenza vaccination Influenza Vacc ine (#1) [facility] Comment on above: Postponed from 04/19 (Declined at this time) Start: 01-25-2025 End: 04-26-2025 Hemoglobin A1c in Blood HEMOGLOBIN A1C Lab Routine Diabetes mellitus without complication (HCC) Expected: 01/25/2025, Expires: 04/26/2025 [facility] Work Phone: Comment on above: Expected: 01/25/2025 , Expires: 04/26/2025 Start: 01-25-2025 Hemoglobin A1c measurement HbA1C [facility] Start: 01-25-2025 End: 01-25-2025 Patient encounter procedure 01/25/2025 11:00 AM EDT Office Visit [facility] [place] [address] [place], [place] [id number] Hyun Villa, LINE OPERATOR.BINDERY ASSISTANT [address] [place], [place] [address] Medicare Wellness Exam [facility] Comment on above: Medicare Wellness Ex am Start: 10-23-2024 Annual PCP Team [employer] Heel Flap Trimmer karmen Disease Visit Annual PCP Team Chronic Disease Visit [facility] Start: 10-19-2024 Hemoglobin A1c measurement HbA1C [facility] Start: 10-09-2024 Annual PCP Team [employer] Heel Flap Trimmer karmen Disease Visit Annual PCP Team Chronic Disease Visit [facility] Start: 10-09-2024 BP Controlled (<130/80) BP Controlle d (<130/80) [facility] Start: 07-27-2024 End: 10-26-2024 CBC W Auto Differential panel - Blood [facility] Comment on above: Expected: 07/27/2024 , Expires: 10/26/2024 Start: 07-27-2024 End: 10-26-2024 Comprehensive metabolic 2000 panel - Serum or Plasma [facility] Comment on above: Expected: 07/27/2024 , Expires: 10/26/2024 Start: 07-27-2024 End: 10-26-2024 Hemoglobin A1c in Blood [facility] Comment on above: Expected: 07/27/2024 , Expires: 10/26/2024 Start: 07-27-2024 End: 10-26-2024 LIPID PANEL, NONFASTING [facility] Comment on above: Expected: 07/27/2024 , Expires: 10/26/2024 Start: 07-27-2024 End: 10-26-2024 Microalbumin/Creatinine [Mass Ratio] in Urine [facility] Work Phone: Comment on above: Expected: 07/27/2024 , Expires: 10/26/2024 Start: 07-27-2024 End: 10-26-2024 Thyrotropin [Units/volume] in Serum or Plasma [facility] Comment on above: Expected: 07/27/2024 , Expires: 10/26/2024 Start: 07-27-2024 End: 10-26-2024 Thyroxine (T4) free [Mass/volume] in Serum or Plasma [facility] Comment on above: Expected: 07/27/2024 , Expires: 10/26/2024 Start: 07-27-2024 End: 07-27-2024 Patient encounter procedure [facility] Comment on above: 3 month follow up ri ght rib pain 3 month f/u and Pre op clearance Start: 06-26-2024 End: 06-26-2024 Patient encounter procedure 06/26/2024 10:00 AM EST Appointment Cat Scan [address] [place] [address] Ear pain, left [H92.02] [facility] Comment on above: Ear pain, left [H92. 02] Start: 06-24-2024 Glaucoma screening Dilated Retinal E xam [facility] Start: 06-23-2024 End: 07-16-2025 CT Head WO contrast CT BRAIN WO IVCON Radiology Routine Ear pain, left Expected: 06/23/2024, Expires: 07/16/2025 [facility] Work Phone: Comment on above: Expected: 06/23/2024 , Expires: 07/16/2025 Start: 06-16-2024 End: 06-16-2024 Patient encounter procedure 06/16/2024 10:40 AM EDT Office Visit Family [facility] [address] [facility] [place] [address] Hyun Villa APRN.BINDERY ASSISTANT [address] [facility] [place] [address] follow up: no improvement in sinus issues, with addition of neck and ear discomfort [facility] Comment on above: follow up: no improv ement in sinus issues, with addition of neck and ear discomfort Start: 06-15-2024 End: 09-14-2024 CBC W Auto Differential panel - Blood COMPLETE BLOOD COUNT AND DIFFERENTIAL Lab Routine Leukocytosis, unspecified type Expected: 06/15/2024, Expires: 09/14/2024 [facility] Work Phone: Comment on above: Expected: 06/15/2024 , Expires: 09/14/2024 Start: 06-11-2024 End: 06-11-2024 Patient encounter procedure 06/11/2024 2:40 PM EDT Office Visit Cardiology [address] [facility] [address] Abnormal EKG [R94.31] Cardiology Comment on above: Abnormal EKG [R94.31 ] Start: 06-10-2024 End: 06-10-2024 Patient encounter procedure 06/10/2024 11:00 AM EDT Office Visit [facility] [address] [facility] [place] [address] Valarie Landry APRN.BINDERY ASSISTANT [address] [place] [address] Pre op left knee replacement 06/30 [facility] Comment on above: Pre op left knee rep lacement 06/30 Start: 04-27-2024 End: 04-27-2024 Patient encounter procedure 04/27/2024 1:40 PM EDT Office Visit [facility] [address] [place] [address] Lidya Nation PA-C [address] [place] [address] 6 month follow up [facility] [place] Comment on above: 6 month follow up Start: 04-27-2024 End: 04-27-2024 Patient encounter procedure 04/27/2024 11:20 AM EDT Office Visit [facility] [place] [address] [place] [address] Hyun Villa APRN.BINDERY ASSISTANT [address] [place] [address] 6 month follow up [facility] [place] Comment on above: 6 month follow up Start: 04-21-2024 End: 07-21-2024 Bacteria identified in Urine by Culture [facility] Comment on above: Expected: 04/21/2024 , Expires: 07/21/2024 Start: 04-21-2024 End: 07-21-2024 Borrelia burgdorferi IgG and IgM panel - Serum [facility] Comment on above: Expected: 04/21/2024 , Expires: 07/21/2024 Start: 04-21-2024 End: 07-21-2024 Erythrocyte sedimentation rate [facility] Comment on above: Expected: 04/21/2024 , Expires: 07/21/2024 Start: 04-21-2024 End: 07-21-2024 Nuclear Ab [Presence] in Serum by Immunoassay [facility] Work Phone: Comment on above: Expected: 04/21/2024 , Expires: 07/21/2024 Start: 04-19-2024 Covid-19 Vaccine ( season) Covid-19 Vaccine () [facility] Start: 04-19-2024 Covid-19 Vaccine ( season) Covid-19 Vaccine () [facility] Start: 04-19-2024 Influenza vaccination Influenza Vacc ine (#1) [facility] Start: 03-21-2024 End: 06-20-2024 Hemoglobin A1c in Blood HEMOGLOBIN A1C Lab Routine Controlled type 2 diabetes mellitus without complication, without long-term current use of insulin (HCC) Expected: 03/21/2024, Expires: 06/20/2024 [facility] Comment on above: Expected: 03/21/2024 , Expires: 06/20/2024 Start: 12-20-2023 End: 03-20-2024 CBC W Auto Differential panel - Blood COMPLETE BLOOD COUNT AND DIFFERENTIAL Lab Routine Essential hypertension Controlled type 2 diabetes mellitus without complication, without long-term current use of insulin (HCC) Expected: 12/20/2023, Expires: 03/20/2024 [facility] Work Phone: Comment on above: Expected: 12/20/2023 , Expires: 03/20/2024 Start: 12-20-2023 End: 03-20-2024 Comprehensive metabolic 2000 panel - Serum or Plasma COMPREHENSIVE METABOLIC PANEL Lab Routine Essential hypertension Controlled type 2 diabetes mellitus without complication, without long-term current use of insulin (HCC) Hyperlipidemia, mixed Expected: 12/20/2023, Expires: 03/20/2024 [facility] Comment on above: Expected: 12/20/2023 , Expires: 03/20/2024 Start: 12-20-2023 End: 03-20-2024 Lipid 1996 panel - Serum or Plasma LIPID PANEL BASIC Lab Routine Controlled type 2 diabetes mellitus without complication, without long-term current use of insulin (HCC) Hyperlipidemia, mixed Expected: 12/20/2023, Expires: 03/20/2024 [facility] Comment on above: Expected: 12/20/2023 , Expires: 03/20/2024 Start: 10-23-2023 ANNUAL PCP TEAM HAT FINISHING MATERIALS PREPARER KARMEN DISEASE VISIT ANNUAL PCP TEAM CHRONIC DISEASE VISIT [facility] Start: 10-23-2023 BP CONTROLLED (<130/80) BP CONTROLLE D (<130/80) [facility] Start: 08-19-2023 Advance Directive Discussion Advance Directive Discussion [facility] Start: 08-19-2023 Behavioral Health Screening Behavioral Health Screening [facility] Start: 08-19-2023 Depression Assessment Depression Ass essment [facility] Start: 08-18-2023 DEPRESSION ASSESSMENT DEPRESSION ASS ESSMENT [facility] Comment on above: Postponed from 08/19 (Declined at this time) Start: 06-21-2023 Hepatitis C antibody , confirmatory test DILATED RETINAL EXAM [facility] Start: 04-24-2023 Hemoglobin A1c measurement HbA1C [facility] Start: 04-24-2023 Hemoglobin A1c/Hemoglobin.total in Blood HBA1C [facility] Start: 04-19-2023 Covid-19 Vaccine () Covid-19 Vaccine () [facility] Start: 04-19-2023 Influenza vaccination INFLUENZA (#1) [facility] Start: 12-12-2022 3 comp foot exam completed DIABETIC FOOT EXAM [facility] Start: 12-12-2022 Adult depression scr eening assessment DEPRESSION SCREENING [facility] Start: 12-12-2022 ANNUAL PCP TEAM HAT FINISHING MATERIALS PREPARER KARMEN DISEASE VISIT ANNUAL PCP TEAM CHRONIC DISEASE VISIT [facility] Start: 12-12-2022 BP CONTROLLED (<130/80) BP CONTROLLE D (<130/80) [facility] Start: 12-12-2022 Diabetic foot examination Diabetic F oot Exam [facility] Start: 12-12-2022 Hepatitis B screening URINE ALBUMIN:CREATININE RATIO [facility] Start: 12-12-2022 Hepatitis B surface antibody level LDL CHOLESTEROL [facility] Start: 12-12-2022 SHINGRIX VACCINE (2 of 3) GUADALUPE GRIX VACCINE (2 of 3) [facility] Comment on above: Postponed from 09/06 (Insurance Coverage) Start: 12-12-2022 Urine microalbumin profile DTAP,TDAP ,TD (1 - Tdap) [facility] Comment on above: Postponed from 07/31 (Insurance Coverage) Start: 10-22-2022 End: 12-22-2022 C reactive protein [Mass/volume] in Serum or Plasma [facility] Work Phone: Comment on above: Expected: 10/22/2022 , Expires: 12/22/2022 Start: 10-22-2022 End: 12-22-[address] [facility] Work Phone: Comment on above: Expected: 10/22/2022 , Expires: 12/22/2022 Start: 10-22-2022 End: 12-22-2022 Comprehensive metabolic 2000 panel - Serum or Plasma [facility] Work Phone: Comment on above: Expected: 10/22/2022 , Expires: 12/22/2022 Start: 10-22-2022 End: 12-22-2022 Hemoglobin A1c in Blood [facility] Work Phone: Comment on above: Expected: 10/22/2022 , Expires: 12/22/2022 Start: 10-22-2022 End: 12-22-2022 Lipase [Enzymatic activity/volume] in Serum or Plasma [facility] Work Phone: Comment on above: Expected: 10/22/2022 , Expires: 12/22/2022 Start: 10-22-2022 End: 12-22-2022 Urinalysis complete panel - Urine URINALYSIS, WITH MICROSCOPIC Lab Routine Incomplete bladder emptying Foul smelling urine Expected: 10/22/2022, Expires: 12/22/2022 [facility] Work Phone: Comment on above: Expected: 10/22/2022 , Expires: 12/22/2022 Start: 10-02-2022 COVID-19 VACCINE (5 - Moderna series) COVID-19 VACCINE (5 - Moderna series) [facility] Start: 08-19-2022 ADVANCE DIRECTIVE DISCUSSION ADVANCE DIRECTIVE DISCUSSION [facility] Start: 08-19-2022 DEPRESSION ASSESSMENT DEPRESSION ASS ESSMENT [facility] Start: 06-27-2022 Hepatitis C antibody , confirmatory test DILATED RETINAL EXAM [facility] Start: 06-13-2022 Hemoglobin A1c/Hemoglobin.total in Blood HBA1C [facility] Start: 04-19-2022 [facility] Start: 2022 RSV Vaccine (1 - 1-d ose 75+ series) RSV Vaccine (1 - 1-dose 75+ series) [facility] Start: 02-07-2022 Hepatitis B surface antibody level LDL CHOLESTEROL [facility] Start: 12-12-2021 End: 02-11-2022 ALBUMIN/CREAT RATIO RND UR [facility] Work Phone: Comment on above: Expected: 12/12/2021 , Expires: 02/11/2022 Start: 12-12-2021 End: 02-11-2022 Comprehensive metabolic 2000 panel - Serum or Plasma [facility] Work Phone: Comment on above: Expected: 12/12/2021 , Expires: 02/11/2022 Start: 12-12-2021 End: 02-11-2022 Hemoglobin A1c/Hemoglobin.total in Blood [facility] Work Phone: Comment on above: Expected: 12/12/2021 , Expires: 02/11/2022 Start: 12-12-2021 End: 02-11-2022 LIPID PANEL BASIC [facility] Work Phone: Comment on above: Expected: 12/12/2021 , Expires: 02/11/2022 Start: 12-12-2021 End: 02-11-2022 VITAMIN D 25 HYDROXY [facility] Work Phone: Comment on above: Expected: 12/12/2021 , Expires: 02/11/2022 Start: 10-16-2021 COVID-19 VACCINE (4 - Booster for Moderna series) COVID-19 VACCINE (4 - Booster for Moderna series) [facility] Start: 09-12-2021 Hepatitis B screening URINE ALBUMIN:CREATININE RATIO [facility] Start: 08-19-2021 ADVANCE DIRECTIVE DISCUSSION ADVANCE DIRECTIVE DISCUSSION [facility] Start: 08-19-2021 DEPRESSION ASSESSMENT DEPRESSION ASS ESSMENT [facility] Start: 08-10-2021 COVID-19 VACCINE (4 - Booster for Moderna series) COVID-19 VACCINE (4 - Booster for Moderna series) [facility] Start: 08-09-2021 Hemoglobin A1c/Hemoglobin.total in Blood HBA1C [facility] Start: 06-14-2021 Mammography MAMMOGRAM [facility] Start: 03-30-2020 BP CONTROLLED (<130/80) BP CONTROLLE D (<130/80) [facility] Start: 11-30-2018 FECAL OCCULT BLOOD FECAL OCCULT BLOO D [facility] Start: 09-06-2014 SHINGRIX VACCINE (2 of 3) GUADALUPE GRIX VACCINE (2 of 3) [facility] Start: 2007 RSV Vaccine (1 - 1-d ose 60+ series) RSV Vaccine (1 - 1-dose 60+ series) [facility] Start: 07-31-2005 Urine microalbumin profile [facility] Start: 02-09-1992 COLOGUARD (FIT-DNA) COLOGUARD (FIT-D NA) [facility] Start: 02-09-[address] COLONOGRAPHY [facility] Start: 02-09-1992 SIGMOIDOSCOPY SIGMOIDOSCOPY [facility] Start: 1965 Anxiety Screening Anxiety Screening [facility] Start: 1965 Depression Screening Depression Scre ening [facility] Start: 1965 Spirometry Spirometry [facility] Bacteria identified in Urine by Culture URINE CULTURE Microbiology Routine Incomplete bladder emptying Foul smelling urine 10/22/2022 11:22 AM EST [facility] Work Phone: Clostridioides diffi cile toxin genes [Presence] in Stool by BE with probe detection C. DIFFICILE PCR Lab Routine Chronic diarrhea Ordered: 10/22/2022 [facility] Work Phone: Comment on above: Ordered: 10/22/2022 End: 01-11-2023 Dxa bone density study 1/ sites axial skel DXA-AXIAL SKELETON Radiology Routine Asymptomatic menopausal state 1 Occurrences starting 12/12/2021 until 01/11/2023 [facility] Work Phone: Comment on above: 1 Occurrences starti ng 12/12/2021 until 01/11/2023 End: 06-10-2025 Echocardiography ECHO Cardiology Routine Abnormal EKG 1 Occurrences starting 06/10/2024 until 06/10/2025 [facility] Work Phone: Comment on above: 1 Occurrences starti ng 06/10/2024 until 06/10/2025 FAT, FECAL QUAL FAT, FECAL QUAL Lab Routine Chronic diarrhea Ordered: 10/22/2022 [facility] Work Phone: Comment on above: Ordered: 10/22/2022 FECAL LACTOFERRIN/LEUKOCYTES FECAL LACTOFERRIN/LEUKOCYTES Lab Routine Chronic diarrhea Ordered: 10/22/2022 [facility] Work Phone: Comment on above: Ordered: 10/22/2022 End: 11-24-2023 NADIA SCREENING W SANTY NADIA SCREENING W SANTY Radiology Routine Encounter for screening mammogram for malignant neoplasm of breast 1 Occurrences starting 12/07/2022 until 11/24/2023 [facility] Work Phone: Comment on above: 1 Occurrences starti ng 12/07/2022 until 11/24/2023 Patient Education ED Dizziness, Uncertain Cause [facility] Work Phone: Patient referral [facility] Work Phone: US Carotid arteries [facility] Work Phone: [facility] Immunizations Immunization Date Immunization Notes Care Provider Fa kwabena 04-30-2023 influenza (HD-IIV4) vaccine, age 65+ yr, high dose, quadrivalent, PF (FLUZONE HIGH-DOSE) Sukumar Ames MD Work Phone: [facility] 04-30-2023 influenza virus vacc ine, unspecified formulation Hyun Villa LINE OPERATOR.BINDERY ASSISTANT Work Phone: [facility] 05-23-2022 influenza, high-dose , quadrivalent vaccine (FLUZONE HIGH DOSE QUADRIVALENT) NA Nation PA-C Work Phone: [facility] 11-14-2020 COVID-19 vaccine, fu ll dose (MODERNA) NA Nation PA-C Work Phone: [facility] 10-17-2020 COVID-19 vaccine, fu ll dose (MODERNA) NA Nation PA-C Work Phone: [facility] Work Phone: 05-17-2020 influenza, high-dose , quadrivalent vaccine (FLUZONE HIGH DOSE QUADRIVALENT) NA Nation PA-C Work Phone: [facility] 06-28-2016 influenza, high dose seasonal, preservative-free NA Nation PA-C Work Phone: [facility] 06-28-2015 influenza, high dose seasonal, preservative-free NA Nation PA-C Work Phone: [facility] 06-28-2015 pneumococcal conjuga te vaccine, 13 valent NA Nation PA-C Work Phone: [facility] 07-12-2014 zoster vaccine, live NA Allen on PA-C Work Phone: [facility] 05-19-2014 influenza, high dose seasonal, preservative-free NA Nation PA-C Work Phone: [facility] Work Phone: 05-19-2014 pneumococcal polysaccharide vaccine, 23 valent NA Nation PA-C Work Phone: [facility] Work Phone: 07-07-2013 influenza virus vacc ine, unspecified formulation NA Nation PA-C Work Phone: [facility] 07-26-2011 influenza virus vacc ine, unspecified formulation NA Nation PA-C Work Phone: [facility] 05-23-2010 influenza virus vacc ine, unspecified formulation NA Nation PA-C Work Phone: [facility] Work Phone: 06-04-2008 influenza virus vacc ine, unspecified formulation NA Nation PA-C Work Phone: [facility] Work Phone: 06-04-2008 pneumococcal conjuga te vaccine, 7 valent NA Nation PA-C Work Phone: [facility] Work Phone: 06-04-2008 pneumococcal polysaccharide vaccine, 23 valent NA Nation PA-C Work Phone: [facility] Work Phone: 07-30-2005 tetanus and diphther ia toxoids, adsorbed, preservative free, for adult use (2 Lf of tetanus toxoid and 2 Lf of diphtheria toxoid) NA Nation PA-C Work Phone: [facility] Work Phone: 01-17-2001 pneumococcal polysaccharide vaccine, 23 valent NA Nation PA-C Work Phone: [facility] Work Phone: 08-04-1993 tetanus and diphther ia toxoids, adsorbed, preservative free, for adult use (2 Lf of tetanus toxoid and 2 Lf of diphtheria toxoid) GATO Nation PA-C Work Phone: [facility] Work Phone: Payers Date Payer Category Payer Self-pay [id number] 2015 Medicare [employer] [place] [id number] 2015-Present [phone] [address] [place] [address] HMO [id number] 2015 Medicare [employer] [place] [id number] 2015-Present [phone] [address] [place] [address] O [id number] 2015 Medicare (Managed Care) [place] MED[place] [id number] 2015 Medicare [id number] 1945 Unknown [id number] 1945 Unknown [id number] Medicare MEDICARE PART A B [id number] Unknown [id number] Social History Date Type Detail Facility Start: 07-10-2011 End: 10-14-2023 Tobacco smoking status NHIS Never smoked tobacco [facility] Start: 12-12-2021 End: 04-28-2025 Alcohol intake Current non-drinker of alcohol (finding) [facility] Start: 1945 Sex Assigned At Not on file C [facility] Start: 11-27-2021 End: 07-21-2022 Exposure to SARS-CoV-2 (event) Not sure [facility] Start: 04-17-2022 End: 04-25-2023 Tobacco smoking status MEIS Unknown if ever smoked [facility] Start: 08-05-2017 None [facility] Start: 02-21-2019 Spouse/ Signif icant Other [facility] Start: 1945 Sex Assigned At Female W [facility] Start: 07-10-2011 Tobacco use and exposure Smokeless tobacco non-user [facility] Work Phone: Start: 10-22-2022 End: 10-24-2023 History of Social function [facility] Start: 10-22-2022 End: 10-24-2023 Tobacco use panel [facility] Start: 07-20-2012 Adult Depression Screening Assessment 0 [facility] How often to you hav e a drink containing alcohol? Never [facility] Medical Equipment Procedure Code Equipment Code Equipment Original Text Equipment Identifier Dates [id number], [id number], [id number] Start: 10-18-2020 End: 04-21-2024 Comment on above: Test blood sugars on ce daily. DX: Ell.9 Insulin: No One Touch Ultra Blue : Test blood sugar(s) 1 times daily. Dx: Type 2 DM - Controlled E11.9 Insulin: No Functional Status Date Assessment Result Facility 01-25-2025 Total score [AUDIT-C] 0 01/26/20 25 11:05 AM EDT Ninoska Hinson MA [facility] 06-03-2024 Functional Status Sensory Deficits None A [facility] 03-04-2015 Are you deaf, or do you have serious difficulty hearing No 03/04/2015 2:35 PM EDT Elaine Martinez RN No [facility] 03-04-2015 Are you blind, or do you have serious difficulty seeing, even when wearing glasses No 03/04/2015 2:35 PM EDT Elaine Martinez RN No [facility] 03-04-2015 Do you have serious difficulty walking or climbing stairs No 03/04/2015 2:35 PM EDT Elaine Martinez RN No [facility] 03-04-2015 Do you have difficul ty dressing or bathing No 03/04/2015 2:35 PM EDT Elaine Martinez RN No [facility] 03-04-2015 Because of a physica l, mental, or emotional condition, do you have difficulty doing errands alone such as visiting a physician's office or shopping No 03/04/2015 2:35 PM EDT Elaine Martinez RN No [facility] Mental Status Date Assessment Result Facility 04-25-2023 Cognitive function Level Of Cons ciousness Awake;Alert;Appropriate;Fol lows Commands [facility] Work Phone: 03-04-2015 Because of a physica l, mental, or emotional condition, do you have serious difficulty concentrating, remembering, or making decisions No 03/04/2015 2:35 PM EDT Elaine Martinez RN No [facility] Clinical Notes 02-15-2011 to 06-08-2025 Telephone Encounter - Mallory Etienne RN - 04/29/2025 10:31 AM EDTTelephone Encounter - Mallory Etienne RN - 04/29/2025 10:31 AM Valarie Hall APRN.CNP - 04/29/2025 9:56 AM EDT Note Date & Type Note Facility 06-08-2025 Note HNO ID: [id number] Author: HYUN VILLA APRN.SAUMYA Service: ? Author Type: Nurse Practitioner Type: Progress Notes Filed: 06/08/2025 15:04 Note Text: This is a 80 year old female who presents today with: Patient presents with: Arthritis HISTORY OF PRESENT ILLNESS: Jackelin Diaz is a 80 year old female. Patient presents with: Arthritis The patient is a 80-year-old female with osteoarthritis of the bilateral knees and hands and spinal stenosis, presenting for evaluation of chronic worsening bilateral leg and back pain. Yue is a 80-year-old female with a history of osteoarthritis, presenting for evaluation of worsening pain in the legs, back, and hands. Osteoarthritis: - Worsening pain in legs, back, and hands over the past 2-3 months. - Pain in legs is described as sharp and affects the entire leg, primarily down the front (shins) and ankles. - Back pain radiates across the back, more pronounced on the left side, and is exacerbated by simple activities. - Pain in hands is worse in the morning, particularly in the distal joints, with some improvement after a hot shower and Tylenol. - Reports difficulty picking up and holding objects due to hand pain. - Left arm and hand have a constant tingly sensation. - Pain between shoulder blades, extending into the ribs. - Pain severity rated as 7/10 today after taking Celebrex and Tylenol; can reach 10/10 on worse days. - Pain is aggravated by activities such as grocery shopping and cleaning, requiring Yue to lie down immediately afterward. - Feels unsteady on feet and at risk of falling due to leg pain. - Leaning on a shopping cart provides some relief for back pain. - Has tried gabapentin in the past but discontinued due to feeling weird and listless. - Currently taking Celebrex and multiple doses of extra strength Tylenol daily for pain management. PAST MEDICAL HISTORY: PAST MEDICAL HISTORY Diagnosis Date COPD (chronic obstructive pulmonary disease) (HCC) Endometriosis Essential hypertension, benign Female bladder prolapse Myalgia and myositis, unspecified Other and unspecified hyperlipidemia Other forms of migraine Snoring Type II or unspecified type diabetes mellitus without mention of complication, not stated as uncontrolled PAST SURGICAL HISTORY Procedure Laterality Date APPENDECTOMY 1985 ARTHROSCOPY KNEE DIAGNOSTIC W/WO SYNOVIAL BX SPX Left 07/25/06 Arthroscopy, knee CHOLECYSTECTOMY 1985 Cholecystectomy COLONOSCOPY FLX DX W/COLLJ SPEC WHEN PFRMD 06/14/06 Repeat in COLONOSCOPY FLX DX W/COLLJ SPEC WHEN PFRMD 12/25/2017 Colonoscopy PAST SURGICAL HISTORY OF rotator cuff repair on R TOTAL ABDOMINAL HYSTERECT W/WO RMVL TUBE OVARY 1970's Hysterectomy, BRUNILDA ALLERGIES Lexapro [Escitalopram Oxalate], Lipitor [Atorvastatin Calcium], and Lgskuvk-Uyx-Pjr Reductase Inhibitors MEDICATIONS Current Outpatient Medications Medication Sig acetaminophen (TYLENOL EXTRA STRENGTH) 500 mg tablet Take 500 mg by mouth every 8 hours as needed for pain. celecoxib (CELEBREX) 200 mg capsule Take 1 capsule by mouth once daily. amLODIPine (NORVASC) 5 mg tablet Take 1 tablet by mouth once daily. metoprolol succinate ER (TOPROL XL) 50 mg 24 hr tablet Take 1 tablet by mouth once daily. metFORMIN ER (GLUCOPHAGE XR) 500 mg 24 hr tablet Take 2 tablets by mouth daily with breakfast. blood sugar diagnostic (BLOOD GLUCOSE TEST) test strip Test blood sugar(s) once times daily. Dx: Type 2 DM - Controlled E11.9 Insulin: No Lancets lancets One Touch Ultra Blue: Test blood sugar(s) 1 times daily. Dx: Type 2 DM - Controlled E11.9 Insulin: No aspirin 81 mg chewable tablet Take 1 tablet by mouth once daily. gabapentin (NEURONTIN) 100 mg capsule Take 1 capsule by mouth three times a day for 90 days. (Patient not taking: Reported on 02/27/2025) albuterol HFA (PROVENTIL HFA, VENTOLIN HFA) 90 mcg/actuation inhaler Inhale 2 Puffs as instructed every 4 hours as needed for wheezing/shortness of breath. (Patient not taking: Reported on 06/08/2025) MULTIVITAMIN ORAL Take by mouth. Cholecalciferol, Vitamin D3, 125 mcg (5,000 unit) cap Take 1 capsule by mouth once daily. No current facility-administered medications for this visit. FAMILY HISTORY Problem Relation Age of Onset other (thyroid dis) Mother 2 bro, 1 sis other (Liver) Mother Heart Father aunts, uncles other (hyperchol) Son 2 bro, 2 sis other (cva) Sister Diabetes Brother uncles, cousins other (migraine) Other mgm SOCIAL HISTORY[1] REVIEW OF SYSTEMS Neck: (-) neck pain Musculoskeletal: (+) bilateral leg pain, (+) bilateral ankle pain, (+) bilateral guadalupe pain, (+) low back pain, (+) interscapular pain, (+) left back pain, (+) bilateral arm pain, (+) bilateral hand pain, (+) morning hand stiffness Neurological: (+) left arm tingling, (+) left hand tingling, (+) lower extremity weakness, (+) gait instability EXAM: BP 130/7 (more content not included)... [facility] 05-19-2025 Radiology Diagnostic study note [facility] Imaging Services [address] [place], [place] [id number] Chest PA and Lateral MR#: [id number] Acct: [id number] Name: JACKELIN DIAZ Rep #: [id number] : 1945 F 80 From: Margaux Almonte MD PCP: RAUL Travis Status: REG C NIESHA Study:Chest PA and Lateral Date of Exam: 05/19/25 Exam# [id number] Ordering Dr: Megha Prabhakar MD PROCEDURE: CHEST PA AND LATERAL 05/19/2025 REASON FOR EXAM: COUGH TECHNIQUE: Procedure Code: RADCXR Modality: DX Procedure: CHEST PA AND LATERAL COMPARISON: October 14, 2023 FINDINGS: Hardware: None Heart: Normal Mediastinum: Mild subglottic narrowing. Lungs: Clear. No pneumothorax or pleural effusion. Bones: Degenerative changes are identified within the thoracic spine. RAD/Chest PA and Lateral IMPRESSION: Mild subglottic narrowing. Correlate with upper airway symptoms. Consider tracheobronchitis. Reading Location: [id number] CC: Dr. Dimitrios Prabhakar MD; RAUL Travis ~ Pit Boss: Signed [facility] 04-29-2025 Telephone encounter Note Called and spoke with pt. She states her headache is pretty much gone, body aches are essentially gone and sore throat is still there but seems better than yesterday. Pt wondering if the benefits outweigh the side effects? Msg sent to Valarie for her opinion and response was: If she is feeling improved I would just keep doing the comfort measures. Less likely that paxlovid would make any difference at this point Pt okay with this. Pt states her started getting sick yesterday and is very congested. Instructed her that he has to be seen to get the Paxlovid. [facility] 04-29-2025 Miscellaneous Notes Called and spoke with pt. She states her headache is pretty much gone, body aches are essentially gone and sore throat is still there but seems better than yesterday. Pt wondering if the benefits outweigh the side effects? Msg sent to Valarie for her opinion and response was: If she is feeling improved I would just keep doing the comfort measures. Less likely that paxlovid would make any difference at this point Pt okay with this. Pt states her started getting sick yesterday and is very congested. Instructed her that he has to be seen to get the Paxlovid. Can please let patient know that I received her test results. She is positive for covid. Is she interested in treatment w/ paxlovid? It needs to be started within the first 5 days of symptoms, so today is her last eligible day. documented in this encounter [facility] 04-29-2025 Telephone encounter Note Can please let patient know that I received her test results. She is positive for covid. Is she interested in treatment w/ paxlovid? It needs to be started within the first 5 days of symptoms, so today is her last eligible day. [facility] Work Phone: 04-29-2025 Note HNO ID: [id number] Author: VALARIE LANDRY APRN.CNP Service: ? Author Type: Nurse Practitioner Type: Progress Notes Filed: 04/29/2025 09:59 Note Text: This is a 80 year old female who presents today with: The patient is a 80-year-old female with arthritis, presenting for evaluation of acute sore throat with headache, nasal congestion, and body aches. HISTORY OF PRESENT ILLNESS: Sore Throat: - Onset last night. - Yeu Diaz describes pain as severe, causing difficulty swallowing. - Using throat lozenges for relief. URI Symptoms: - Onset Saturday afternoon. - Initial symptoms included nasal congestion, severe headache, and myalgias. - Yue reports intermittent ear fullness, but denies severe otalgia. - Tmax 100.4?F; last recorded temperature was yesterday. - Denies cough, nausea, emesis, or diarrhea. - Taking Tylenol for symptom relief; last dose was last night. - Denies known exposure to sick contacts. - has significant cardiac and health issues; Yue is concerned about potential transmission. PAST MEDICAL HISTORY: PAST MEDICAL HISTORY Diagnosis Date COPD (chronic obstructive pulmonary disease) (HCC) Endometriosis Essential hypertension, benign Female bladder prolapse Myalgia and myositis, unspecified Other and unspecified hyperlipidemia Other forms of migraine Snoring Type II or unspecified type diabetes mellitus without mention of complication, not stated as uncontrolled PAST SURGICAL HISTORY Procedure Laterality Date APPENDECTOMY 1985 ARTHROSCOPY KNEE DIAGNOSTIC W/WO SYNOVIAL BX SPX Left 07/25/06 Arthroscopy, knee CHOLECYSTECTOMY 1985 Cholecystectomy COLONOSCOPY FLX DX W/COLLJ SPEC WHEN PFRMD 06/14/06 Repeat in COLONOSCOPY FLX DX W/COLLJ SPEC WHEN PFRMD 12/25/2017 Colonoscopy PAST SURGICAL HISTORY OF rotator cuff repair on R TOTAL ABDOMINAL HYSTERECT W/WO RMVL TUBE OVARY 1969' Hysterectomy, BRUNILDA ALLERGIES Lexapro [Escitalopram Oxalate], Lipitor [Atorvastatin Calcium], and Hrtqsmv-Mfb-Zwa Reductase Inhibitors MEDICATIONS Current Outpatient Medications Medication Sig celecoxib (CELEBREX) 200 mg capsule Take 1 capsule by mouth once daily. amLODIPine (NORVASC) 5 mg tablet Take 1 tablet by mouth once daily. metoprolol succinate ER (TOPROL XL) 50 mg 24 hr tablet Take 1 tablet by mouth once daily. metFORMIN ER (GLUCOPHAGE XR) 500 mg 24 hr tablet Take 2 tablets by mouth daily with breakfast. gabapentin (NEURONTIN) 100 mg capsule Take 1 capsule by mouth three times a day for 90 days. (Patient not taking: Reported on 02/27/2025) blood sugar diagnostic (BLOOD GLUCOSE TEST) test strip Test blood sugar(s) once times daily. Dx: Type 2 DM - Controlled E11.9 Insulin: No albuterol HFA (PROVENTIL HFA, VENTOLIN HFA) 90 mcg/actuation inhaler Inhale 2 Puffs as instructed every 4 hours as needed for wheezing/shortness of breath. MULTIVITAMIN ORAL Take by mouth. Cholecalciferol, Vitamin D3, 125 mcg (5,000 unit) cap Take 1 capsule by mouth once daily. Lancets lancets One Touch Ultra Blue: Test blood sugar(s) 1 times daily. Dx: Type 2 DM - Controlled E11.9 Insulin: No aspirin 81 mg chewable tablet Take 1 tablet by mouth once daily. No current facility-administered medications for this visit. FAMILY HISTORY Problem Relation Age of Onset other (thyroid dis) Mother 2 bro, 1 sis other (Liver) Mother Heart Father aunts, uncles other (hyperchol) Son 2 bro, 2 sis other (cva) Sister Diabetes Brother uncles, cousins other (migraine) Other mgm SOCIAL HISTORY[1] REVIEW OF SYSTEMS Constitutional: (+) fever Ears/Nose/Mouth/Throat: (+) sore throat, (+) odynophagia, (+) nasal congestion, (+) ear fullness Gastrointestinal: (-) nausea, (-) vomiting, (-) diarrhea Musculoskeletal: (+) body aches Neurological: (+) headache EXAM: BP 126/64 Pulse 85 Temp 37.6 ?C (99.7 ?F) Resp 16 SpO2 94% PHYSICAL EXAM: General Appearance: Well appearing, alert, in no acute distress, well-hydrated, well nourished.. Skin: Skin color, texture, turgor normal, no suspicious rashes or lesions. Head: Normocephalic, no masses, lesions, tenderness or abnormalities. Eyes: Anicteric sclera. Pupils are equally round and reactive to light. Extraocular movements are intact. . Ears: External ears normal, canals clear.Normal TMs bilaterally. Oropharynx: Positive findings: moderate oropharyngeal erythema. Lungs: Lungs clear to auscultation. No wheezing, rhonchi, rales.. Heart: RRR without murmur, gallop, or rubs. No ectopy. Neurologic: Gait normal. ASSESSMENT/PLAN 1. Sore throat (J02.9) 2. Viral upper respiratory tract infection (J06.9) - Acute onset of symptoms including severe sore throat, headache, nasal congestion, myalgias, and low-grade fever (Tmax 100.4?F) beginning Saturday; throat pain began last night and is now severe. - Differential includes streptococcal pharyngitis, COVID-19, and other viral etiologies. - Rapid st (more content not included)... [facility] 04-29-2025 History of Present illness Narrative This is a 80 year old female who presents today with: The patient is a 80-year-old female with arthritis, presenting for evaluation of acute sore throat with headache, nasal congestion, and body aches. HISTORY OF PRESENT ILLNESS: Sore Throat: - Onset last night. - Yue Diaz describes pain as severe, causing difficulty swallowing. - Using throat lozenges for relief. URI Symptoms: - Onset Saturday afternoon. - Initial symptoms included nasal congestion, severe headache, and myalgias. - Yue reports intermittent ear fullness, but denies severe otalgia. - Tmax 100.4 F; last recorded temperature was yesterday. - Denies cough, nausea, emesis, or diarrhea. - Taking Tylenol for symptom relief; last dose was last night. - Denies known exposure to sick contacts. - has significant cardiac and health issues; Yue is concerned about potential transmission. PAST MEDICAL HISTORY: PAST MEDICAL HISTORY Diagnosis Date COPD (chronic obstructive pulmonary disease) (HCC) Endometriosis Essential hypertension, benign Female bladder prolapse Myalgia and myositis, unspecified Other and unspecified hyperlipidemia Other forms of migraine Snoring Type II or unspecified type diabetes mellitus without mention of complication, not stated as uncontrolled PAST SURGICAL HISTORY Procedure Laterality Date APPENDECTOMY 1985 ARTHROSCOPY KNEE DIAGNOSTIC W/WO SYNOVIAL BX SPX Left 07/25/06 Arthroscopy, knee CHOLECYSTECTOMY 1985 Cholecystectomy COLONOSCOPY FLX DX W/COLLJ SPEC WHEN PFRMD 06/14/06 Repeat in COLONOSCOPY FLX DX W/COLLJ SPEC WHEN PFRMD 12/25/2017 Colonoscopy PAST SURGICAL HISTORY OF rotator cuff repair on R TOTAL ABDOMINAL HYSTERECT W/WO RMVL TUBE OVARY 1969' Hysterectomy, BRUNILDA ALLERGIES Lexapro [Escitalopram Oxalate], Lipitor [Atorvastatin Calcium], and Pihnyaf-Mjh-Pnv Reductase Inhibitors MEDICATIONS Current Outpatient Medications Medication Sig celecoxib (CELEBREX) 200 mg capsule Take 1 capsule by mouth once daily. amLODIPine (NORVASC) 5 mg tablet Take 1 tablet by mouth once daily. metoprolol succinate ER (TOPROL XL) 50 mg 24 hr tablet Take 1 tablet by mouth once daily. metFORMIN ER (GLUCOPHAGE XR) 500 mg 24 hr tablet Take 2 tablets by mouth daily with breakfast. gabapentin (NEURONTIN) 100 mg capsule Take 1 capsule by mouth three times a day for 90 days. (Patient not taking: Reported on 02/27/2025) blood sugar diagnostic (BLOOD GLUCOSE TEST) test strip Test blood sugar(s) once times daily. Dx: Type 2 DM - Controlled E11.9 Insulin: No albuterol HFA (PROVENTIL HFA, VENTOLIN HFA) 90 mcg/actuation inhaler Inhale 2 Puffs as instructed every 4 hours as needed for wheezing/shortness of breath. MULTIVITAMIN ORAL Take by mouth. Cholecalciferol, Vitamin D3, 125 mcg (5,000 unit) cap Take 1 capsule by mouth once daily. Lancets lancets One Touch Ultra Blue: Test blood sugar(s) 1 times daily. Dx: Type 2 DM - Controlled E11.9 Insulin: No aspirin 81 mg chewable tablet Take 1 tablet by mouth once daily. No current facility-administered medications for this visit. FAMILY HISTORY Problem Relation Age of Onset other (thyroid dis) Mother 2 bro, 1 sis other (Liver) Mother Heart Father aunts, uncles other (hyperchol) Son 2 bro, 2 sis other (cva) Sister Diabetes Brother uncles, cousins other (migraine) Other mgm SOCIAL HISTORY[1] REVIEW OF SYSTEMS Constitutional: (+) fever Ears/Nose/Mouth/Throat: (+) sore throat, (+) odynophagia, (+) nasal congestion, (+) ear fullness Gastrointestinal: (-) nausea, (-) vomiting, (-) diarrhea Musculoskeletal: (+) body aches Neurological: (+) headache EXAM: BP 126/64 Pulse 85 Temp 37.6 C (99.7 F) Resp 16 SpO2 94% PHYSICAL EXAM: General Appearance: Well appearing, alert, in no acute distress, well-hydrated, well nourished.. Skin: Skin color, texture, turgor normal, no suspicious rashes or lesions. Head: Normocephalic, no masses, lesions, tenderness or abnormalities. Eyes: Anicteric sclera. Pupils are equally round and reactive to light. Extraocular movements are intact. . Ears: External ears normal, canals clear.Normal TMs bilaterally. Oropharynx: Positive findings: moderate oropharyngeal erythema. Lungs: Lungs clear to auscultation. No wheezing, rhonchi, rales.. Heart: RRR without murmur, gallop, or rubs. No ectopy. Neurologic: Gait normal. ASSESSMENT/PLAN 1. Sore throat (J02.9) 2. Viral upper respiratory tract infection (J06.9) - Acute onset of symptoms including severe sore throat, headache, nasal congestion, myalgias, and low-grade fever (Tmax 100.4 F) beginning Saturday; throat pain began last night and is now severe. - Differential includes streptococcal pharyngitis, COVID-19, and other viral etiologies. - Rapid strep test ordered. - COVID-19 test to be performed if strep test is negative. - Advised supportive care: continue Tylenol, increase fluid intake, use throat lozenges, and perform saltwater gargles. - Discussed that if both tests are negative, symptoms are likely viral and should resolve with supportive care. - Reviewed COVID-19 isolation precautions if positive, including hand hygiene, surface disinfection, and avoiding shared spaces until afebrile for 24 hours. - Patient advised to call for test results if not available via [employer]. Discussed treatment plan and patient voices understanding. Patient's questions answered appropriately. Medications and potential side effects were discussed and patient voices understanding. Return to the office as scheduled or as needed for worsening/no improvement. Valarie Landry APRN.BINDERY ASSISTANT Recording using Sit[employer] software for draft documentation of the visit was discussed with the patient/authorized route service representative; all questions welcomed and answered. Patient/authorized route service representative agreed to proceed [1] Social History Tobacco Use Smoking status: Never Smokeless tobacco: Never Vaping Use Vaping status: Never Used Substance Use Topics Alcohol use: No Drug use: No documented in this encounter [facility] 04-28-2025 Note SARS-COV-2 (AGENT OF COVID-19) RNA: Detected INFLUENZA A RNA: Not detected INFLUENZA B RNA: Not detected RESPIRATORY SYNCYTIAL VIRUS (RSV) RNA: Not detected [facility] Comment on above: Performed By: #### [id number] ####[facility] ZAC [id number] MITRA [address]AD[place]CARLINE [place] [id number] [place] 04-28-2025 Instructions Valarie Landry APRN.BINDERY ASSISTANT - 04/28/2025 2:23 PM EDT Facts About the Common Cold and Upper Respiratory Infection: Common symptoms include: sore throat, tender lymph nodes, low grade fever 99-101F for first few days, watery nasal drip that progresses to thick yellow-green mucus on blowing and on coughing, facial/sinus pressure, headache, chest tightness and tiredness/ fatigue. Usually they peak with the worst symptoms about 5-7 days and take another 5-7 days to clear, in other words 10-14 days. Occasionally there will be a persistent nagging cough or some residual minor nasal congestion up to several weeks. Viral infections are not susceptible to antibiotics. Due to the critical issues with global antibiotic resistance, we do not prescribe antibiotics if we suspect viral sources. Antibiotics can cause serious complications and therefore should be reserved for only serious infections. Home going instructions for Viral Upper Respiratory Infections In General: - Drink lots of fluids - at least one gallon of non-caffeinated liquids per day - Make sure you are eating well - Get plenty of rest - at least 8 hours of sleep per night for adults - ibuprofen 600mg every 8 hours as needed for discomfort - acetaminophen 500mg every 4-6 hours as needed for fever and discomfort. - may alternate ibuprofen and acetaminophen For nasal congestion try: -Vaporizers, Neti Pot, humidifiers, hot showers, and hot fluids help open respiratory and sinus passages. - [place] [facility] [place] may offer relief of nasal and head congestion 2-3 times per day as needed. - Sudafed is a safe and effective decongestant for people who do not have high blood pressure. Do not take Sudafed if you have ever been told that you have high blood pressure or hypertension. General dosing guidelines: Immediate release: 60 mg every 4-6 hours; Extended release: 120 mg every 12 hours or 240 mg every 24 hours; maximum: 240 mg/24 hours. For Sore Throat try: - Salt water gargles every 2-3 hours as needed for discomfort - Chloraceptic spray or throat lozenges (Cepacol) For Cough and chest congestion try one of the following: - Mucinex or Robitussin are expectorants. You may take 200-400 mg every 4 hours to a not to exceed 2,400 mg/day OR Extended release tablet: 600-1200 mg every 12 hours, not to exceed 2,400 mg/day - Delsym is a cough suppressant: Oral: 10-20 mg every 4 hours or 30 mg every 6-8 hours OR Extended release: 60 mg twice daily; maximum: 120 mg/day - If you have high blood pressure or hypertension it is safe to take Coricidin HBP Cough & Cold. If you smoke it is advised that you quit smoking. CONTACT YOUR DOCTOR IF: You have fevers for longer than five days or a fever more than 102 degrees You are still sick after 10 days After several days you are getting worse rather than better 4. You develop nausea, vomiting, diarrhea, or a rash. Go to the ER if you - experience pressure or pain in your chest - experience difficulty swallowing - experience difficulty breathing Follow up in 7-10 days or before if your symptoms get worse. documented in this encounter [facility] 03-09-2025 Telephone encounter Note Patient returned call and went over notes below from Hyun Villa DESK REPORTER with understanding. Aware rx sent to the pharmacy. [facility] 03-09-2025 Miscellaneous Notes Patient returned call and went over notes below from Hyun Villa NP with understanding. Aware rx sent to the pharmacy. Left message for patient to return call. Ninoska Hinson Ma Celebrex filled. Please note that Celebrex or any nonsteroidal taken regularly will increase chance of stroke and heart attack as discussed. Acetaminophen is always safer. Pt phoned asking pcp to send Rx for celebrex to [facility] [place]. Pended. Pt reports pcp prescribed gabapentin and pt took that and stopped taking celebrex. Pt took gabapentin for 1.5 weeks and noted it made her heart race, made her lethargic, and her arthritis pain got worse without the celebrex. Pt stopped taking the gabapentin and started the celebrex again at 200 mg daily. Reports it doesn't make her arthritis pain go away, but it takes the edge off and she is able to walk better with the celebrex. Asking what pcp thinks about increasing the dose of celebrex? Please advise and phone pt with reply on her cell phone. documented in this encounter [facility] 03-09-2025 Telephone encounter Note Left message for patient to return call. Ninoska Hinson Ma [facility] 03-09-2025 Telephone encounter Note Celebrex filled. Please note that Celebrex or any nonsteroidal taken regularly will increase chance of stroke and heart attack as discussed. Acetaminophen is always safer. [facility] 03-09-2025 Telephone encounter Note Pt phoned asking pcp to send Rx for celebrex to [facility] [place]. Pended. Pt reports pcp prescribed gabapentin and pt took that and stopped taking celebrex. Pt took gabapentin for 1.5 weeks and noted it made her heart race, made her lethargic, and her arthritis pain got worse without the celebrex. Pt stopped taking the gabapentin and started the celebrex again at 200 mg daily. Reports it doesn't make her arthritis pain go away, but it takes the edge off and she is able to walk better with the celebrex. Asking what pcp thinks about increasing the dose of celebrex? Please advise and phone pt with reply on her cell phone. [facility] 02-27-2025 Note HNO ID: [id number] Author: DIMITRIOS GIRON MD Service: ? Author Type: Physician Type: Progress Notes Filed: 02/27/2025 10:05 Note Text: [facility] Marbella Diaz is a 80 year old female. Patient presents with: Ear Pain: Left ear pain x 1 day, eyes and CASAS x 3 days Patient presents primarily with concern for left ear infection and possible sinus infection. Left ear pain: Duration: 3 days Location: inside the left ear, over the left eye, top of the head Character: sharp Radiation: No. Aggravating: rotating the head, swallowing, pressing on the eye Relieving: Pain relievers: routine celebrex, taking Alaway for drops for eye symptoms, routine allergy shots Associated: baseline nasal congestion, brushing hair at the crown hurt, history of migraines (left side), chronic left neck tightness Pertinent negatives: Denies numbness, allodynia/paresthesia of the face, rash, fever, chills, sore throat, cough, vision change Ear Pain Review of Systems Objective BP 150/78 Pulse 64 Temp 36.6 ?C (97.8 ?F) (Tympanic) Resp 18 Wt 69.3 kg (152 lb 12.5 oz) SpO2 98% BMI 25.77 kg/m? Physical Exam Constitutional: General: She is not in acute distress. HENT: Right Ear: Tympanic membrane and ear canal normal. Left Ear: Tympanic membrane and ear canal normal. Nose: No congestion or rhinorrhea. Right Sinus: No maxillary sinus tenderness or frontal sinus tenderness. Left Sinus: No maxillary sinus tenderness or frontal sinus tenderness. Mouth/Throat: Mouth: Mucous membranes are moist. Pharynx: No oropharyngeal exudate or posterior oropharyngeal erythema. Eyes: Extraocular Movements: Extraocular movements intact. Conjunctiva/sclera: Conjunctivae normal. Pupils: Pupils are equal, round, and reactive to light. Cardiovascular: Rate and Rhythm: Normal rate and regular rhythm. Heart sounds: No murmur heard. Pulmonary: Effort: No respiratory distress. Breath sounds: No wheezing, rhonchi or rales. Musculoskeletal: Cervical back: Neck supple. Pain with movement present. No muscular tenderness (No pain with self palpation). Lymphadenopathy: Cervical: No cervical adenopathy. Skin: Comments: No erythema, vesicles, or allodynia of the face, scalp, or neck. Neurological: Mental Status: She is alert. {ASSESSMENT/PLAN: 1. Otalgia, left - ICD9: 388.70, ICD10: H92.02 (primary diagnosis) 2. Acute nonintractable headache, unspecified headache type - ICD9: 784.0, ICD10: R51.9 Reassured there is no physical exam abnormality of the left ear ruling out otitis media, otitis externa, or cerumen impaction. No exam findings to confirm zoster, however V2 dermatomal pain is a consideration. More likely causes include left cervical/occipital impingement or lingering left sided migraine. Additional pain medication recommended with acetaminophen. Continue Celebrex and allergy regimen. She may also use ice or heat on her neck. Monitor for vesicle/rash formation or progression of allodynia which would indicate shingles. Dimitrios Giron MD Differential Diagnoses - Musculoskeletal cervical occipital pain with radiation to the left side of the head - Migraine - Zoster - Sinusitis is less likely for the following reason(s): HANDP not suggestive - Otitis media is less likely for the following reason(s): Normal Additional Tests or Interventions The following medication(s) were considered but not ordered: Valacyclovir deferred due to low suspicion for zoster Procedures [facility] 02-27-2025 History of Present illness [facility] a 80 year old female. Patient presents with: Ear Pain: Left ear pain x 1 day, eyes and CASAS x 3 days Patient presents primarily with concern for left ear infection and possible sinus infection. Left ear pain: Duration: 3 days Location: inside the left ear, over the left eye, top of the head Character: sharp Radiation: No. Aggravating: rotating the head, swallowing, pressing on the eye Relieving: Pain relievers: routine celebrex, taking Alaway for drops for eye symptoms, routine allergy shots Associated: baseline nasal congestion, brushing hair at the crown hurt, history of migraines (left side), chronic left neck tightness Pertinent negatives: Denies numbness, allodynia/paresthesia of the face, rash, fever, chills, sore throat, cough, vision change Ear Pain Review of Systems Objective BP 150/78 Pulse 64 Temp 36.6 C (97.8 F) (Tympanic) Resp 18 Wt 69.3 kg (152 lb 12.5 oz) SpO2 98% BMI 25.77 kg/m Physical Exam Constitutional: General: She is not in acute distress. HENT: Right Ear: Tympanic membrane and ear canal normal. Left Ear: Tympanic membrane and ear canal normal. Nose: No congestion or rhinorrhea. Right Sinus: No maxillary sinus tenderness or frontal sinus tenderness. Left Sinus: No maxillary sinus tenderness or frontal sinus tenderness. Mouth/Throat: Mouth: Mucous membranes are moist. Pharynx: No oropharyngeal exudate or posterior oropharyngeal erythema. Eyes: Extraocular Movements: Extraocular movements intact. Conjunctiva/sclera: Conjunctivae normal. Pupils: Pupils are equal, round, and reactive to light. Cardiovascular: Rate and Rhythm: Normal rate and regular rhythm. Heart sounds: No murmur heard. Pulmonary: Effort: No respiratory distress. Breath sounds: No wheezing, rhonchi or rales. Musculoskeletal: Cervical back: Neck supple. Pain with movement present. No muscular tenderness (No pain with self palpation). Lymphadenopathy: Cervical: No cervical adenopathy. Skin: Comments: No erythema, vesicles, or allodynia of the face, scalp, or neck. Neurological: Mental Status: She is alert. {ASSESSMENT/PLAN: 1. Otalgia, left - ICD9: 388.70, ICD10: H92.02 (primary diagnosis) 2. Acute nonintractable headache, unspecified headache type - ICD9: 784.0, ICD10: R51.9 Reassured there is no physical exam abnormality of the left ear ruling out otitis media, otitis externa, or cerumen impaction. No exam findings to confirm zoster, however V2 dermatomal pain is a consideration. More likely causes include left cervical/occipital impingement or lingering left sided migraine. Additional pain medication recommended with acetaminophen. Continue Celebrex and allergy regimen. She may also use ice or heat on her neck. Monitor for vesicle/rash formation or progression of allodynia which would indicate shingles. Dimitrios Giron MD Differential Diagnoses - Musculoskeletal cervical occipital pain with radiation to the left side of the head - Migraine - Zoster - Sinusitis is less likely for the following reason(s): H&P not suggestive - Otitis media is less likely for the following reason(s): Normal Additional Tests or Interventions The following medication(s) were considered but not ordered: Valacyclovir deferred due to low suspicion for zoster Procedures documented in this encounter [facility] 01-25-2025 Telephone encounter Note Patient was made aware of the results. Patient verbalizes understanding. Ninoska Hinson Ma [facility] 01-25-2025 Telephone encounter Note ----- Message from Hyun Villa sent at 01/25/2025 1:56 PM EDT ----- Please let patient know that there is no compression fracture. 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 This severe arthritis starts at L1-L2. That is exactly where I thought her problem was. That is responsible for the pains that radiated around to her left lower abdomen. Lets see if the gabapentin helps. We may need to send her to a pain doctor to have an epidural injection into her lumbar spine. [facility] 01-25-2025 Miscellaneous Notes Patient was made aware of the results. Patient verbalizes understanding. Ninoska Hinsno Ma ----- Message from Hyun Villa sent at 01/25/2025 1:56 PM EDT ----- Please let patient know that there is no compression fracture. 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 This severe arthritis starts at L1-L2. That is exactly where I thought her problem was. That is responsible for the pains that radiated around to her left lower abdomen. Lets see if the gabapentin helps. We may need to send her to a pain doctor to have an epidural injection into her lumbar spine. Please let patient know that there is no compression fracture. 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 This severe arthritis starts at L1-L2. That is exactly where I thought her problem was. That is responsible for the pains that radiated around to her left lower abdomen. Lets see if the gabapentin helps. We may need to send her to a pain doctor to have an epidural injection into her lumbar spine. documented in this encounter [facility] 01-25-2025 Progress note Formatting of t his note might be different from the original. Please let patient know that there is no compression fracture. 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 This severe arthritis starts at L1-L2. That is exactly where I thought her problem was. That is responsible for the pains that radiated around to her left lower abdomen. Lets see if the gabapentin helps. We may need to send her to a pain doctor to have an epidural injection into her lumbar spine. [facility] 01-25-2025 History of Present illness Narrative Radiology Service Progress Note PATIENT NAME: Jackelin Diaz DATE OF SERVICE: January 25, 2025 TIME: 11:57 AM PATIENT IDENTITY VERIFICATION COMPLETED USING TWO (2) IDENTIFIERS: Name and Date of confirmed by patient verbally. FALL SCREENING: Has the patient had 2 falls in the last year or 1 fall with injury or currently using an Ambulatory Assistive Device (Walker, Cane, Wheelchair, Crutches, etc.)? No PATIENT GENDER DATA: Assigned female at . status: : No status: NO. PATIENT RELEVANT IMPLANT DATA REVIEWED: Not Applicable PATIENT PRESENTS WITH AN IMPLANTABLE OR ATTACHED STACKER: No RADIOLOGY DEPARTMENT: General X-ray: Exam(s) Completed: Spine X-Ray(s): Lumbar AP / LAT / L5-S1 PERIPHERAL IV DATA: Not applicable SIGNED BY: RT Emory(R) January 25, 2025 11:57 AM documented in this encounter [facility] 01-25-2025 Note HNO ID: [id number] Author: KATE ABRAHAM RT(R) Service: Radiology Author Type: Technologist Type: Progress Notes Filed: 01/25/2025 12:07 Note Text: Radiology Service Progress Note PATIENT NAME: Jackelin Diaz DATE OF SERVICE: January 25, 2025 TIME: 11:57 AM PATIENT IDENTITY VERIFICATION COMPLETED USING TWO (2) IDENTIFIERS: Name and Date of confirmed by patient verbally. FALL SCREENING: Has the patient had 2 falls in the last year or 1 fall with injury or currently using an Ambulatory Assistive Device (Walker, Cane, Wheelchair, Crutches, etc.)? No PATIENT GENDER DATA: Assigned female at . status: : No status: NO. PATIENT RELEVANT IMPLANT DATA REVIEWED: Not Applicable PATIENT PRESENTS WITH AN IMPLANTABLE OR ATTACHED STACKER: No RADIOLOGY DEPARTMENT: General X-ray: Exam(s) Completed: Spine X-Ray(s): Lumbar AP / LAT / L5-S1 PERIPHERAL IV DATA: Not applicable SIGNED BY: RT Emory(R) January 25, 2025 11:57 AM [facility] 01-25-2025 Instructions Hyun Villa APRN.BINDERY ASSISTANT - 01/25/2025 11:46 AM EDT - Stop taking celecoxib (Celebrex); it is not providing significant relief and may increase cardiovascular risks. - Reduce metformin from three tablets daily to two tablets daily; take both with food at one meal that works best for you. If diarrhea does not improve, we will consider stopping metformin and switching to another diabetes medication. - Begin gabapentin 100 mg three times daily (morning, midday, evening); if you experience drowsiness, decrease to twice daily (morning and evening). - Complete the low back x-ray ordered today; results will be reviewed promptly to check for any compression fracture. Screening schedule The following prevention plan is recommended: Advance Directive Discussion due on 08/19/2024 HbA1C due on 01/25/2025 WHAT YOU CAN DO TO PREVENT FALLS Many falls can be prevented. By making some changes, you can lower your chances of falling. Four things YOU can do to prevent falls for you* and your caregiver 1. Begin a regular exercise program Exercise is one of the most important ways to lower your chances of falling. It makes you stronger and helps you feel better. Exercises that improve balance and coordination (like Soren Chi) are the most helpful. Lack of exercise leads to weakness and increases your chances of falling. Ask your doctor or health care provider about the best type of exercise program for you. 2. Have your health care provider review your medicines Have your doctor or pharmacist review all the medicines you take, even [id number] medicines. As you get older, the way medicines work in your body can change. Some medicines, or combinations of medicines, can make you sleepy or dizzy and can cause you to fall. 3. Have your vision checked Have your eyes checked by an eye doctor at least once a year. You may be wearing the wrong glasses or have a condition like glaucoma or cataracts that limits your vision. Poor vision can increase your chances of falling. 4. Make your home safer About half of all falls happen at home. To make your home safer: Remove things you can trip over (like papers, books, clothes, and shoes) from stairs and places where you walk. Remove small throw rugs or use double-sided tape to keep the rugs from slipping. Keep items you use often in cabinets you can reach easily without using a step stool. Have grab bars put in next to your toilet and in the tub or shower. Use non-slip mats in the bathtub and on shower floors. Improve the lighting in your home. As you get older, you need brighter lights to see well. Hang light-weight curtains or shades to reduce glare. Have handrails and lights put in on all staircases. Wear shoes both inside and outside the house. Avoid going barefoot or wearing slippers. For more information, contact: Centers for Disease Control and Prevention www.cdc.gov/injury * This information may not apply if you have certain medical conditions. documented in this encounter [facility] 01-25-2025 Note HNO ID: [id number] Author: HYUN VILLA APRN.CNP Service: ? Author Type: Nurse Practitioner Type: Progress Notes Filed: 01/25/2025 11:48 Note Text: Chief Reason For Appointment Patient presents with: Medicare Wellness Exam Jackelin Diaz is a 79 year old female who presents for annual exam. Last office visit date: 07/27/2024 Accompanied By self only Have you had any critical events, hospital stays, ER visits, surgeries or procedures since your last visit here in our office: No Specialists/Other Healthcare Providers Seen: Patient Care Team: Hyun Villa APRN.CNP as PCP - General (Family Medicine) Concerns today: Low back pain- shooting pains LLQ Yue Diaz is a 79-year-old female with a history of arthritis, COPD, and diabetes, presenting for evaluation of acute low back pain and chronic diarrhea. HPI Low Back Pain: - Severe low back pain x3 days. - Described as razor sharp pain, likened to a knife going across. - Pain is constant, worsened by deep breathing and certain movements. - Denies known trauma or injury. - Chronic back pain previously noted as a weak spot, but this episode is more severe and persistent. - Yue has tried various remedies, including sleeping on the couch and using Aspercreme, with no relief. - Taking Celebrex, but reports it is not effective in managing pain. - Has not tried gabapentin before. - Denies fever, chills, nausea, or emesis. Chronic Diarrhea: - Chronic diarrhea, described as a daily thing. - Reports a distinct odor similar to when a baby spits up. - Yue has been on metformin for diabetes management for a long time; initially caused stomach upset but then leveled off. - Denies unintentional weight loss or gain. Arthritis: - Chronic arthritis affecting hands, legs, and knees. - Taking Celebrex, but reports it is not effective in managing pain. - Experiences muscle cramps after taking Tylenol. - Inquires about the use of magnesium creams for arthritis pain relief. - Reports numbness in one finger, with a noticeable bump and contracture. - Family history of Dupuytren's contractures; Yue's father and sister had similar conditions. COPD: - Diagnosed over 20 years ago after multiple bouts of pneumonia. - Does not take any medication for COPD. - Experiences dyspnea in hot weather or during exertion. Diabetes: - Well-controlled blood sugars. - Taking metformin, 3 tablets daily. Allergies: - Receives weekly allergy shots. - Reports severe eye symptoms during allergy season, managed with prescribed eye drops. Active Problems ACTIVE PROBLEM LIST Essential Hypertension - 12/10/2007 (A priority) Hyperlipidemia (A priority) Copd (Chronic Obstructive Pulmonary Disease) ([facility]) Adrenal Adenoma, Left - 09/06/2021 Comment: 08/31/21 CT ab/pel W/WO 8.5mm left adrenal adenoma. 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 04/23/18 Stress Echo resting EF 65%, + chest pain with exercise with mid-lateral hypokinesis, final EF 70% Occult Blood Positive Stool - 12/16/2017 Comment: Added automatically from request for surgery [id number] Encounter for Screening for Malignant Neoplasm of Colon - 12/16/2017 Comment: Added automatically from request for surgery [id number] Atrophic Vaginitis - 01/11/2017 Vitamin D Deficiency - 12/31/2013 Diabetes Mellitus Without Complication (Hcc) - 02/05/2012 Female Bladder Prolapse Seasonal Allergies - 12/15/2010 Urinary Incontinence - 05/23/2010 SVT (supraventricular tachycardia) (HCC) - 10/31/2009 Comment: 11/10/2020 echocardiogram 2D Doppler: LV size normal, LV SF normal, EF 60%. RV size and RV SF normal, left and right atrium normal size. No valvular heart disease, normal aortic root, normal pulmonary artery size normal inferior vena cava, no pericardial effusion. 10/15/20 Zio monitor demonstrated sinus rhythm with 32 episodes of SVT, fastest 222 bpm x 6 beats, longest 130 x 16 beats: [facility] Myalgia and Myositis, Unspecified - 05/28/2007 Other Malaise and Fatigue - 05/28/2007 Insomnia, Unspecified - 05/28/2007 PAIN ABDOMEN( Right Upper Quadrant) - 08/09/2005 COPD W BRONCHITIS,OBSTRUCTIVE - 08/09/2005 OSTEOARTHRITIS LOCALIZED, PRIMARY( Lower Leg) - 08/09/2005 MIGRAINE COMMON - 08/09/2005 ROS: Constitutional: (-) weight loss, (-) weight gain, (-) fever, (-) chills Head: (-) headaches Eyes: (+) eye irritation, (-) vision changes Ears/Nose/Mouth/Throat: (+) nasal congestion Neck: (-) neck swelling Cardiovascular: (+) palpitations, (-) chest pain, (-) leg swelling Respiratory: (+) exertional dyspnea, (-) cough, (-) wheeze, (-) orthopnea Gastrointestinal: (+) diarrhea, (+) abdominal pain, (-) nausea, (more content not included)... [facility] 01-25-2025 History of Present illness Narrative Images from the original note were not included. Chief Reason For Appointment Patient presents with: Medicare Wellness Exam Jackelin Diaz is a 79 year old female who presents for annual exam. Last office visit date: 07/27/2024 Accompanied By self only Have you had any critical events, hospital stays, ER visits, surgeries or procedures since your last visit here in our office: No Specialists/Other Healthcare Providers Seen: Patient Care Team: Hyun Villa APRN.BINDERY ASSISTANT as PCP - General (Family Medicine) Concerns today: Low back pain- shooting pains LLQ Yue Diaz is a 79-year-old female with a history of arthritis, COPD, and diabetes, presenting for evaluation of acute low back pain and chronic diarrhea. HPI Low Back Pain: - Severe low back pain x3 days. - Described as razor sharp pain, likened to a knife going across. - Pain is constant, worsened by deep breathing and certain movements. - Denies known trauma or injury. - Chronic back pain previously noted as a weak spot, but this episode is more severe and persistent. - Yue has tried various remedies, including sleeping on the couch and using Aspercreme, with no relief. - Taking Celebrex, but reports it is not effective in managing pain. - Has not tried gabapentin before. - Denies fever, chills, nausea, or emesis. Chronic Diarrhea: - Chronic diarrhea, described as a daily thing. - Reports a distinct odor similar to when a baby spits up. - Yue has been on metformin for diabetes management for a long time; initially caused stomach upset but then leveled off. - Denies unintentional weight loss or gain. Arthritis: - Chronic arthritis affecting hands, legs, and knees. - Taking Celebrex, but reports it is not effective in managing pain. - Experiences muscle cramps after taking Tylenol. - Inquires about the use of magnesium creams for arthritis pain relief. - Reports numbness in one finger, with a noticeable bump and contracture. - Family history of Dupuytren's contractures; Yue's father and sister had similar conditions. COPD: - Diagnosed over 20 years ago after multiple bouts of pneumonia. - Does not take any medication for COPD. - Experiences dyspnea in hot weather or during exertion. Diabetes: - Well-controlled blood sugars. - Taking metformin, 3 tablets daily. Allergies: - Receives weekly allergy shots. - Reports severe eye symptoms during allergy season, managed with prescribed eye drops. Active Problems ACTIVE PROBLEM LIST Essential Hypertension - 12/10/2007 (A priority) Hyperlipidemia (A priority) Copd (Chronic Obstructive Pulmonary Disease) (Hcc) Adrenal Adenoma, Left - 09/06/2021 Comment: 08/31/21 CT ab/pel W/WO 8.5mm left adrenal adenoma. S/p choly and subtotal gastrectomy Anginal Equivalent - 12/12/2020 Other Chest Pain - 07/13/2020 Comment: Was hospitalized in 2018 with left upper chest pain 9/5/18 heart cath demonstrating no significant disease, <33% in LAD, RCA, EF 65%. 04/23/18 Stress Echo resting EF 65%, + chest pain with exercise with mid-lateral hypokinesis, final EF 70% Occult Blood Positive Stool - 12/16/2017 Comment: Added automatically from request for surgery [id number] Encounter for Screening for Malignant Neoplasm of Colon - 12/16/2017 Comment: Added automatically from request for surgery [id number] Atrophic Vaginitis - 01/11/2017 Vitamin D Deficiency - 12/31/2013 Diabetes Mellitus Without Complication ([facility]) - 02/05/2012 Female Bladder Prolapse Seasonal Allergies - 12/15/2010 Urinary Incontinence - 05/23/2010 SVT (supraventricular tachycardia) ([facility]) - 10/31/2009 Comment: 11/10/2020 echocardiogram 2D Doppler: LV size normal, LV SF normal, EF 60%. RV size and RV SF normal, left and right atrium normal size. No valvular heart disease, normal aortic root, normal pulmonary artery size normal inferior vena cava, no pericardial effusion. 10/15/20 Zio monitor demonstrated sinus rhythm with 32 episodes of SVT, fastest 222 bpm x 6 beats, longest 130 x 16 beats: consult to [place] [facility], [place] [facility] Myalgia and Myositis, Unspecified - 05/28/2007 Other Malaise and Fatigue - 05/28/2007 Insomnia, Unspecified - 05/28/2007 PAIN ABDOMEN( Right Upper Quadrant) - 08/09/2005 COPD W BRONCHITIS,OBSTRUCTIVE - 08/09/2005 OSTEOARTHRITIS LOCALIZED, PRIMARY( Lower Leg) - 08/09/2005 MIGRAINE COMMON - 08/09/2005 ROS: Constitutional: (-) weight loss, (-) weight gain, (-) fever, (-) chills Head: (-) headaches Eyes: (+) eye irritation, (-) vision changes Ears/Nose/Mouth/Throat: (+) nasal congestion Neck: (-) neck swelling Cardiovascular: (+) palpitations, (-) chest pain, (-) leg swelling Respiratory: (+) exertional dyspnea, (-) cough, (-) wheeze, (-) orthopnea Gastrointestinal: (+) diarrhea, (+) abdominal pain, (-) nausea, (-) vomiting, (-) constipation Musculoskeletal: (+) low back pain, (+) radicular leg pain, (+) muscle cramps, (+) finger stiffness Skin: (+) pruritus Neurological: (+) finger numbness, (-) seizures, (-) tremors Psychiatric: (-) hopelessness, (-) helplessness, (-) suicidal thoughts PAST MEDICAL HISTORY Diagnosis Date COPD (chronic obstructive pulmonary disease) (HCC) Endometriosis Essential hypertension, benign Female bladder prolapse Myalgia and myositis, unspecified Other and unspecified hyperlipidemia Other forms of migraine Snoring Type II or unspecified type diabetes mellitus without mention of complication, not stated as uncontrolled PAST SURGICAL HISTORY Procedure Laterality Date APPENDECTOMY 1985 ARTHROSCOPY KNEE DIAGNOSTIC W/WO SYNOVIAL BX SPX Left 07/25/06 Arthroscopy, knee CHOLECYSTECTOMY 1985 Cholecystectomy COLONOSCOPY FLX DX W/COLLJ SPEC WHEN PFRMD 06/14/06 Repeat in COLONOSCOPY FLX DX W/COLLJ SPEC WHEN PFRMD 12/25/2017 Colonoscopy PAST SURGICAL HISTORY OF rotator cuff repair on R TOTAL ABDOMINAL HYSTERECT W/WO RMVL TUBE OVARY Hysterectomy, BRUNILDA Medication List Current Outpatient Medications Medication Sig Dispense Refill metFORMIN ER (GLUCOPHAGE XR) 500 mg 24 hr tablet Take 3 tablets by mouth daily with breakfast. 270 tablet 1 metoprolol succinate ER (TOPROL XL) 50 mg 24 hr tablet Take 2 tablets by mouth once daily. (Patient taking differently: Take 50 mg by mouth once daily.) 90 tablet 3 celecoxib (CELEBREX) 200 mg capsule Take 1 capsule by mouth once daily. 90 capsule 3 albuterol HFA (PROVENTIL HFA, VENTOLIN HFA) 90 mcg/actuation inhaler Inhale 2 Puffs as instructed every 4 hours as needed for wheezing/shortness of breath. 8 g 0 MULTIVITAMIN ORAL Take by mouth. Cholecalciferol, Vitamin D3, 125 mcg (5,000 unit) cap Take 1 capsule by mouth once daily. 90 capsule 3 aspirin 81 mg chewable tablet Take 1 tablet by mouth once daily. blood sugar diagnostic (BLOOD GLUCOSE TEST) test strip Test blood sugar(s) once times daily. Dx: Type 2 DM - Controlled E11.9 Insulin: No 50 Strip 11 Lancets lancets One Touch Ultra Blue: Test blood sugar(s) 1 times daily. Dx: Type 2 DM - Controlled E11.9 Insulin: No 50 Each 11 No current facility-administered medications for this visit. Weight Summary: Weight Change: Body mass index is 25.47 kg/m . Last Wt 01/25/25 : 68.5 kg (151 lb) 07/27/24 : 69.2 kg (152 lb 8.9 oz) 06/16/24 : 68.8 kg (151 lb 10.8 oz) 06/10/24 : 69.4 kg (153 lb) 05/27/24 : 69.6 kg (153 lb 7 oz) Physical Exam: GENERAL: NAD, alert and oriented. SKIN: Unremarkable, no rash or skin lesions. HEAD: Normocephalic. EYES: PERRLA, EOMI, conjunctiva clear. EARS: External ears normal, canals clear, TM's normal. NOSE/SINUSES: Nares normal. Septum midline. Mild erythema noted on the left side. OROPHARYNX: Lips, mucosa, and tongue normal, good dentition. Mild pharyngeal erythema noted. NECK: Supple, no lymphadenopathy, normal thyroid, no carotid bruits. LUNGS: Clear to auscultation bilaterally, no wheezes/rhonchi/rales. HEART: Regular rate and rhythm, no murmurs. No ectopy. EXTREMITIES: Normal, no deformities, no skin discoloration, no edema. Dupuytren's contracture noted on the right hand. ABDOMEN: Soft, mild tenderness noted. No rebound tenderness or guarding. BACK: Tenderness noted around L1-L2 region. Limited range of motion with pain on flexion, extension, and rotation. Negative leg lift grecia. NEURO: Awake, alert and oriented x3, cranial nerves II-XII grossly intact, normal gait, no involuntary motions. SCREENINGS Health Maintenance Listing BP Controlled (<130/80) Advance Directive Discussion HbA1C TEST RESULTS: Lab Studies: Date of lab studies: Tests - (2018) Colonoscopy: Normal. No diverticulosis. - glucose - potassium - Creatinine, gfr - LFTs Lipid: WBC, H&H, Platelets: A1C: Vitamin D: Other: A/P: 1. Essential hypertension (I10) - Clinically stable. 2. Primary localized osteoarthrosis of left lower leg (M17.12) - Discontinued Celebrex due to insufficient relief and potential cardiovascular risks. - Discussed alternative treatments including gabapentin and duloxetine. - Start gabapentin 100 mg 3 x day- discussed risks and benefits 3. SVT (supraventricular tachycardia) (HCC) (I47.10) - No recent episodes reported. 4. Controlled type 2 diabetes mellitus without complication, without long-term current use of insulin (HCC) (E11.9) 5. Diabetes mellitus without complication (HCC) (E11.9) - Reduced metformin dosage from 3 tablets to 2 tablets daily to address chronic diarrhea. - Advised to take metformin with food. 6. Chronic obstructive pulmonary disease, unspecified COPD type (HCC) (J44.9) - No current treatment; occasional dyspnea in hot weather. 7. Chronic bilateral low back pain with left-sided sciatica (G89.29) - Acute exacerbation with sharp, radiating pain across the lower back and into the left leg. - Ordered lumbar spine X-ray to rule out compression fracture. - Initiated gabapentin 100 mg TID; instructed to reduce to BID if excessive drowsiness occurs. - Educated on potential side effects of gabapentin, including drowsiness and lightheadedness. - Follow-up after X-ray results to reassess pain management. Discussed treatment plan and patient voices understanding. Patient's questions answered appropriately. Medications and potential side effects were discussed and patient voices understanding. Return to the office as scheduled or as needed for worsening/no improvement. Follow Up Plans: 6 m Jackelin Diaz is a 79 year old female here for a Medicare wellness visit. Medicare Health Risk Assessment General Health Fair Exercise: Minutes/Day 0 min Exercise: Days/Week 0 days Alcohol: Daily Use Never Alcohol: Drinks/Day Patient does not drink Alcohol: 6 or more drinks Never Feel off balance Yes Concerns: Teeth/Dentures No Concerns: Sexual function No Troubled by feelings None of the above Frequency: Eating healthy diet Nearly every day ADLs requiring help None of the above Safety precautions in home/vehicle Yes Smoke, vape, chews tobacco No Difficulty hearing No Difficulty seeing No Current Providers Specialists: I have reviewed specialist-related care of the patient in the medical record. Medical/Family history review Reviewed and updated problem list, medical/surgical/family/social history, medications, and allergies. Opioid use review Opioid Medications (last 90 days) No data to display Anxiety/Depression screening PHQ-2 Score: 0 (Lower risk for depression) Recommendation: no further intervention at this time Cognitive screening Mini Cog Score: 5 Cognitive screening reviewed and No further action needed (score 3-5). Functional Observation Was the patient's Timed Up & Go test unsteady or >= 12 seconds? No Advance Care Planning Surrogate decision maker documented and/or advance directives scanned in chart Measurements BP 128/60 Pulse 80 Ht 164 cm (5' 4.57) Wt 68.5 kg (151 lb) SpO2 96% BMI 25.47 kg/m Vision Screening: Follows with optometry/ophthalmology Assessment/Plan Medicare annual wellness visit, initial (Z00.00) - Counseled on healthy diet and regular exercise - Fall avoidance information provided - Personalized prevention plan provided documented in this encounter [facility] 07-28-2024 Telephone encounter Note Pt called and is notified of providers results and instructions. Pt voices understanding. Pt states she started the double dose of the Metoprolol of 100 mg today. Demi Hernandez RN [facility] 07-28-2024 Miscellaneous Notes Pt called and is notified of providers results and instructions. Pt voices understanding. Pt states she started the double dose of the Metoprolol of 100 mg today. Demi Hernandez RN Patient does not have MyChart. Please call her and let her know: Diabetes is well-controlled with a hemoglobin A1c of 6.2%. Thyroid screening is normal. Kidney function, liver function, and blood counts are all normal. Urine for microalbumin creatinine ratio is normal showing no effects of diabetes on her kidneys. However, her LDL, bad cholesterol, is 139. Guidelines recommend high intensity statin as this should be less than 70. I know that she has been intolerant of statins in the past. Watch the saturated fats in your diet by eliminating fried foods and choosing only lean meat/skim dairy products. Your HDL, good cholesterol, is a little low. Try to add into your diet whole grains, purple grape juice, nuts or peanut butter, and soy. That will raise your protection against heart disease. documented in this encounter [facility] 07-28-2024 Telephone encounter Note Patient does not have MyChart. Please call her and let her know: Diabetes is well-controlled with a hemoglobin A1c of 6.2%. Thyroid screening is normal. Kidney function, liver function, and blood counts are all normal. Urine for microalbumin creatinine ratio is normal showing no effects of diabetes on her kidneys. However, her LDL, bad cholesterol, is 139. Guidelines recommend high intensity statin as this should be less than 70. I know that she has been intolerant of statins in the past. Watch the saturated fats in your diet by eliminating fried foods and choosing only lean meat/skim dairy products. Your HDL, good cholesterol, is a little low. Try to add into your diet whole grains, purple grape juice, nuts or peanut butter, and soy. That will raise your protection against heart disease. [facility] 07-27-2024 Instructions Hyun iVlla APRN.CNP - 07/27/2024 1:19 PM EST 1) Check labs 2) Stop amlodipine 3) Increase Metoprolol Xl to 100 mg daily 4) documented in this encounter [facility] 07-27-2024 Note HNO ID: [id number] Author: HYUN VILLA APRN.CNP Service: ? Author Type: Clinical Nurse Specialist Type: Progress Notes Filed: 07/27/2024 13:20 Note Text: This is a 79 year old female who presents today with: Patient presents with: Follow Up: 3 month exam HISTORY OF PRESENT ILLNESS: Jackelin Diaz is a 79 year old female. Patient presents with: Follow Up: 3 month exam Neck and ear still bothering her. Saturday she felt funny- tired and checked BP. It was 157/101, pulse 113; 167/63- HR 103 Hadn't missed any medications. Hasn't made appt. To see ear doctor. Waiting until after the new year. HTN: Patient is compliant with meds Yes Monitors bp at home: Yes. Denies side effects: No. Chest pain: Burning epigastric every once in awhile- also between shoulder blades- noticed at rest. Dyspnea: Yes. With exertion but not with these episodes Edema: Some. Palpitations: Yes. Syncope: No. Headache: No. Dizziness: No. PAST MEDICAL HISTORY: PAST MEDICAL HISTORY Diagnosis Date COPD (chronic obstructive pulmonary disease) (HCC) Endometriosis Essential hypertension, benign Female bladder prolapse Myalgia and myositis, unspecified Other and unspecified hyperlipidemia Other forms of migraine Snoring Type II or unspecified type diabetes mellitus without mention of complication, not stated as uncontrolled PAST SURGICAL HISTORY Procedure Laterality Date APPENDECTOMY 1985 ARTHROSCOPY KNEE DIAGNOSTIC W/WO SYNOVIAL BX SPX Left 07/25/06 Arthroscopy, knee CHOLECYSTECTOMY 1985 Cholecystectomy COLONOSCOPY FLX DX W/COLLJ SPEC WHEN PFRMD 06/14/06 Repeat in COLONOSCOPY FLX DX W/COLLJ SPEC WHEN PFRMD 12/25/2017 Colonoscopy PAST SURGICAL HISTORY OF rotator cuff repair on R TOTAL ABDOMINAL HYSTERECT W/WO RMVL TUBE OVARY 1969' Hysterectomy, BRUNILDA ALLERGIES Lexapro [Escitalopram Oxalate], Lipitor [Atorvastatin Calcium], and Spvdzyx-[id number]-[id number] Reductase Inhibitors MEDICATIONS Current Outpatient Medications Medication Sig fluticasone (FLONASE) 50 mcg/actuation nasal spray Use 2 Sprays in each nostril once daily. Rinse mouth after use. celecoxib (CELEBREX) 200 mg capsule Take 1 capsule by mouth once daily. metoprolol succinate ER (TOPROL XL) 50 mg 24 hr tablet Take 1 tablet by mouth once daily. amLODIPine (NORVASC) 5 mg tablet Take 1 tablet by mouth once daily. metFORMIN ER (GLUCOPHAGE XR) 500 mg 24 hr tablet Take 3 tablets by mouth daily with breakfast. albuterol HFA (PROVENTIL HFA, VENTOLIN HFA) 90 mcg/actuation inhaler Inhale 2 Puffs as instructed every 4 hours as needed for wheezing/shortness of breath. MULTIVITAMIN ORAL Take by mouth. Cholecalciferol, Vitamin D3, 125 mcg (5,000 unit) cap Take 1 capsule by mouth once daily. aspirin 81 mg chewable tablet Take 1 tablet by mouth once daily. blood sugar diagnostic (BLOOD GLUCOSE TEST) test strip Test blood sugar(s) once times daily. Dx: Type 2 DM - Controlled E11.9 Insulin: No Lancets lancets One Touch Ultra Blue: Test blood sugar(s) 1 times daily. Dx: Type 2 DM - Controlled E11.9 Insulin: No albuterol HFA (VENTOLIN HFA) 90 mcg/actuation inhaler Inhale 2 Puffs as instructed every 4 hours as needed for Wheezing/Shortness of Breath. No current facility-administered medications for this visit. FAMILY HISTORY Problem Relation Age of Onset other (thyroid dis) Mother 2 bro, 1 sis other (Liver) Mother Heart Father aunts, uncles other (hyperchol) Son 2 bro, 2 sis other (cva) Sister Diabetes Brother uncles, cousins other (migraine) Other mgm Social History Tobacco Use Smoking status: Never Smokeless tobacco: Never Vaping Use Vaping status: Never Used Substance Use Topics Alcohol use: No Drug use: No REVIEW OF SYSTEMS GENERAL: No weight loss, + malaise with fast heart rhythm, no fevers/chills HEENT: Negative for frequent or significant headaches, Both changes in hearing and vision. NECK: Negative for lumps, goiter, pain and significant neck swelling RESPIRATORY: Negative for cough, no hemoptysis, no wheezing, some dyspnea and shortness of breath CARDIOVASCULAR: Heart burn type chest pain, trace leg swelling, no orthopnea, + palpitations GI: Some nausea, no vomiting, + diarrhea/ no constipation. Sometimes hematochezia/melena. + heartburn or reflux symptoms. : No history of dysuria, + frequency, stress incontinence MUSCULOSKELETAL: Negative for joint pain or swelling. Neck bothers her, normal OA AND fibromyalgia SKIN: Negative for lesions, facial AND neck rash, no itching ENDOCRINE: Negative for cold or heat intolerance, polyuria, polydipsia and goiter NEURO: No history of headaches, syncope, paralysis, seizures or tremors MOOD: Negative for depression, anxiety, or suicidal ideation. EXAM: BP 134/70 Pulse 73 Temp 36.3 ?C (97.4 ?F) (Tympanic) Resp 16 Wt 69.2 kg (152 lb 8.9 oz) SpO2 96% BMI 25.42 kg/m? PHYSICAL EXAM: Physical Exam Vitals (more content not included)... [facility] 07-27-2024 History of Present illness Narrative This is a 79 year old female who presents today with: Patient presents with: Follow Up: 3 month exam HISTORY OF PRESENT ILLNESS: Jackelin Diaz is a 79 year old female. Patient presents with: Follow Up: 3 month exam Neck and ear still bothering her. Saturday she felt funny- tired and checked BP. It was 157/101, pulse 113; 167/63- HR 103 Hadn't missed any medications. Hasn't made appt. To see ear doctor. Waiting until after the new year. HTN: Patient is compliant with meds Yes Monitors bp at home: Yes. Denies side effects: No. Chest pain: Burning epigastric every once in awhile- also between shoulder blades- noticed at rest. Dyspnea: Yes. With exertion but not with these episodes Edema: Some. Palpitations: Yes. Syncope: No. Headache: No. Dizziness: No. PAST MEDICAL HISTORY: PAST MEDICAL HISTORY Diagnosis Date COPD (chronic obstructive pulmonary disease) (HCC) Endometriosis Essential hypertension, benign Female bladder prolapse Myalgia and myositis, unspecified Other and unspecified hyperlipidemia Other forms of migraine Snoring Type II or unspecified type diabetes mellitus without mention of complication, not stated as uncontrolled PAST SURGICAL HISTORY Procedure Laterality Date APPENDECTOMY 1985 ARTHROSCOPY KNEE DIAGNOSTIC W/WO SYNOVIAL BX SPX Left 07/25/06 Arthroscopy, knee CHOLECYSTECTOMY 1985 Cholecystectomy COLONOSCOPY FLX DX W/COLLJ SPEC WHEN PFRMD 06/14/06 Repeat in COLONOSCOPY FLX DX W/COLLJ SPEC WHEN PFRMD 12/25/2017 Colonoscopy PAST SURGICAL HISTORY OF rotator cuff repair on R TOTAL ABDOMINAL HYSTERECT W/WO RMVL TUBE OVARY Hysterectomy, BRUNILDA ALLERGIES Lexapro [Escitalopram Oxalate], Lipitor [Atorvastatin Calcium], and Rcacdlu-Tbf-Ada Reductase Inhibitors MEDICATIONS Current Outpatient Medications Medication Sig fluticasone (FLONASE) 50 mcg/actuation nasal spray Use 2 Sprays in each nostril once daily. Rinse mouth after use. celecoxib (CELEBREX) 200 mg capsule Take 1 capsule by mouth once daily. metoprolol succinate ER (TOPROL XL) 50 mg 24 hr tablet Take 1 tablet by mouth once daily. amLODIPine (NORVASC) 5 mg tablet Take 1 tablet by mouth once daily. metFORMIN ER (GLUCOPHAGE XR) 500 mg 24 hr tablet Take 3 tablets by mouth daily with breakfast. albuterol HFA (PROVENTIL HFA, VENTOLIN HFA) 90 mcg/actuation inhaler Inhale 2 Puffs as instructed every 4 hours as needed for wheezing/shortness of breath. MULTIVITAMIN ORAL Take by mouth. Cholecalciferol, Vitamin D3, 125 mcg (5,000 unit) cap Take 1 capsule by mouth once daily. aspirin 81 mg chewable tablet Take 1 tablet by mouth once daily. blood sugar diagnostic (BLOOD GLUCOSE TEST) test strip Test blood sugar(s) once times daily. Dx: Type 2 DM - Controlled E11.9 Insulin: No Lancets lancets One Touch Ultra Blue: Test blood sugar(s) 1 times daily. Dx: Type 2 DM - Controlled E11.9 Insulin: No albuterol HFA (VENTOLIN HFA) 90 mcg/actuation inhaler Inhale 2 Puffs as instructed every 4 hours as needed for Wheezing/Shortness of Breath. No current facility-administered medications for this visit. FAMILY HISTORY Problem Relation Age of Onset other (thyroid dis) Mother 2 bro, 1 sis other (Liver) Mother Heart Father aunts, uncles other (hyperchol) Son 2 bro, 2 sis other (cva) Sister Diabetes Brother uncles, cousins other (migraine) Other mgm Social History Tobacco Use Smoking status: Never Smokeless tobacco: Never Vaping Use Vaping status: Never Used Substance Use Topics Alcohol use: No Drug use: No REVIEW OF SYSTEMS GENERAL: No weight loss, + malaise with fast heart rhythm, no fevers/chills HEENT: Negative for frequent or significant headaches, Both changes in hearing and vision. NECK: Negative for lumps, goiter, pain and significant neck swelling RESPIRATORY: Negative for cough, no hemoptysis, no wheezing, some dyspnea and shortness of breath CARDIOVASCULAR: Heart burn type chest pain, trace leg swelling, no orthopnea, + palpitations GI: Some nausea, no vomiting, + diarrhea/ no constipation. Sometimes hematochezia/melena. + heartburn or reflux symptoms. : No history of dysuria, + frequency, stress incontinence MUSCULOSKELETAL: Negative for joint pain or swelling. Neck bothers her, normal OA & fibromyalgia SKIN: Negative for lesions, facial & neck rash, no itching ENDOCRINE: Negative for cold or heat intolerance, polyuria, polydipsia and goiter NEURO: No history of headaches, syncope, paralysis, seizures or tremors MOOD: Negative for depression, anxiety, or suicidal ideation. EXAM: BP 134/70 Pulse 73 Temp 36.3 C (97.4 F) (Tympanic) Resp 16 Wt 69.2 kg (152 lb 8.9 oz) SpO2 96% BMI 25.42 kg/m PHYSICAL EXAM: Physical Exam Vitals reviewed. Constitutional: Appearance: Normal appearance. HENT: Head: Normocephalic. Cardiovascular: Rate and Rhythm: Normal rate and regular rhythm. Pulses: Normal pulses. Heart sounds: Normal heart sounds. Pulmonary: Effort: Pulmonary effort is normal. Breath sounds: Normal breath sounds. Abdominal: General: Bowel sounds are normal. There is no distension. Palpations: Abdomen is soft. Tenderness: There is no abdominal tenderness. Musculoskeletal: General: Normal range of motion. Skin: General: Skin is warm and dry. Neurological: Mental Status: She is alert and oriented to person, place, and time. Psychiatric: Mood and Affect: Mood normal. Behavior: Behavior normal. LABS: get labs ASSESSMENT/PLAN: 1. Pure hypercholesterolemia - ICD9: 272.0, ICD10: E78.00 (primary diagnosis) Stable - LIPID PANEL, NONFASTING 2. Controlled type 2 diabetes mellitus without complication, without long-term current use of insulin (HCC) - ICD9: 250.00, ICD10: E11.9 - Control undetermined, due for labs - Continue current medications - METFORMIN ER 500 MG TABLET,EXTENDED RELEASE 24 HR 3. Diabetes mellitus without complication (HCC) - ICD9: 250.00, ICD10: E11.9 - Control undetermined, due for labs - Continue current medications - ALBUMIN/CREATININE RATIO, URINE - COMPLETE BLOOD COUNT AND DIFFERENTIAL - COMPREHENSIVE METABOLIC PANEL - HEMOGLOBIN A1C 4. SVT (supraventricular tachycardia) (HCC) - ICD9: 427.89, ICD10: I47.10 Increase metoprolol XL 100 mg daily - THYROID STIMULATING HORMONE - T4 FREE/FREE THYROXINE - METOPROLOL SUCCINATE ER 50 MG TABLET,EXTENDED RELEASE 24 HR 5. Essential hypertension - ICD9: 401.9, ICD10: I10 - Controlled - Recommend home blood pressure monitoring, to bring results to next visit - Encouraged sodium restriction, DASH or Mediterranean diet - Recommend regular aerobic exercise - COMPLETE BLOOD COUNT AND DIFFERENTIAL - METOPROLOL SUCCINATE ER 50 MG TABLET,EXTENDED RELEASE 24 HR Discussed treatment plan and patient voices understanding. Patient's questions answered appropriately. Medications and potential side effects were discussed and patient voices understanding. Return to the office as scheduled or as needed for worsening/no improvement. Hyun Villa APRN.CNP documented in this encounter [facility] 06-26-2024 History of Present illness Narrative Radiology Service Progress Note PATIENT NAME: Jackelin Diaz DATE OF SERVICE: June 26, 2024 TIME: 2:14 PM PATIENT IDENTITY VERIFICATION COMPLETED USING TWO (2) IDENTIFIERS: Name and Date of confirmed by patient verbally. FALL SCREENING: Has the patient had 2 falls in the last year or 1 fall with injury or currently using an Ambulatory Assistive Device (Walker, Cane, Wheelchair, Crutches, etc.)? No PATIENT GENDER DATA: Female. status: : No status: NO. PATIENT RELEVANT IMPLANT DATA REVIEWED: Yes PATIENT PRESENTS WITH AN IMPLANTABLE OR ATTACHED STACKER: No RADIOLOGY DEPARTMENT: CT; Exam(s) Completed: Brain PERIPHERAL IV DATA: Not applicable SIGNED BY: GRECIA Franks) June 26, 2024 2:14 PM documented in this encounter [facility] 06-26-2024 Note HNO ID: [id number] Author: CANDACE CHINCHILLA RT(R) Service: ? Author Type: Chief Data Officer Type: Progress Notes Filed: 06/26/2024 14:15 Note Text: Radiology Service Progress Note PATIENT NAME: Jackelin Diaz DATE OF SERVICE: June 26, 2024 TIME: 2:14 PM PATIENT IDENTITY VERIFICATION COMPLETED USING TWO (2) IDENTIFIERS: Name and Date of confirmed by patient verbally. FALL SCREENING: Has the patient had 2 falls in the last year or 1 fall with injury or currently using an Ambulatory Assistive Device (Walker, Cane, Wheelchair, Crutches, etc.)? No PATIENT GENDER DATA: Female. status: : No status: NO. PATIENT RELEVANT IMPLANT DATA REVIEWED: Yes PATIENT PRESENTS WITH AN IMPLANTABLE OR ATTACHED STACKER: No RADIOLOGY DEPARTMENT: CT; Exam(s) Completed: Brain PERIPHERAL IV DATA: Not applicable SIGNED BY: RT Tiny(R) June 26, 2024 2:14 PM [facility] 06-23-2024 Miscellaneous Notes Detailed message left for patient left on identifiable voicemail. Ninoska Hinson MA Please let pt. Know that they are sending a note for clearance for total knee. I am going to return it saying that she is not cleared until we figure out about this ear pain. Sorry. We can revisit in July and schedule for pre-op then if ok. (Would need additional time for appt.) documented in this encounter [facility] 06-23-2024 Telephone encounter Note Detailed message left for patient left on identifiable voicemail. Ninoska Hinson MA [facility] 06-22-2024 Telephone encounter Note Please let pt. Know that they are sending a note for clearance for total knee. I am going to return it saying that she is not cleared until we figure out about this ear pain. Sorry. We can revisit in July and schedule for pre-op then if ok. (Would need additional time for appt.) [facility] 06-16-2024 Instructions Hyun Villa APRN.CNP - 06/16/2024 11:17 AM EDT 1) CT scan of head 2) Flonase nasal spray- 2 sprays each nare aily 3) Exercises as discussed 4) Keep appt. In July documented in this encounter [facility] 06-16-2024 Note HNO ID: [id number] Author: HYUN VILLA APRN.CNP Service: ? Author Type: Clinical Nurse Specialist Type: Progress Notes Filed: 06/16/2024 11:19 Note Text: This is a 79 year old female who presents today with: Patient presents with: Pain: Left side jaw, radiating into neck and shoulder since she had sinus infection HISTORY OF PRESENT ILLNESS: Jackelin Diaz is a 79 year old female. Patient presents with: Pain: Left side jaw, radiating into neck and shoulder since she had sinus infection No sinus pain or pressure. Pain in left ear, into mastoid area, down side of neck and even across ridge of shoulder. No drainage. Took 2 full courses of antibiotic. Saw clinical coder. Found nothing contributing Saw dentist. Found nothing contributing Hearing isn't always good. No fever or chills Facial swelling and redness is better. Does get night sweats, not new. Last week one day, she had an episode of not being able to think or remember. Pain feels swollen and stretched. Tender to palpate- and sharp pain reproducible. Feels dizzy at times. Ongoing for a month. Can't lay on left side. PAST MEDICAL HISTORY: PAST MEDICAL HISTORY Diagnosis Date COPD (chronic obstructive pulmonary disease) (HCC) Endometriosis Essential hypertension, benign Female bladder prolapse Myalgia and myositis, unspecified Other and unspecified hyperlipidemia Other forms of migraine Snoring Type II or unspecified type diabetes mellitus without mention of complication, not stated as uncontrolled PAST SURGICAL HISTORY Procedure Laterality Date APPENDECTOMY 1985 ARTHROSCOPY KNEE DIAGNOSTIC W/WO SYNOVIAL BX SPX Left 07/25/06 Arthroscopy, knee CHOLECYSTECTOMY 1985 Cholecystectomy COLONOSCOPY FLX DX W/COLLJ SPEC WHEN PFRMD 06/14/06 Repeat in COLONOSCOPY FLX DX W/COLLJ SPEC WHEN PFRMD 12/25/2017 Colonoscopy PAST SURGICAL HISTORY OF rotator cuff repair on R TOTAL ABDOMINAL HYSTERECT W/WO RMVL TUBE OVARY 1969' Hysterectomy, BRUNILDA ALLERGIES Lexapro [Escitalopram Oxalate], Lipitor [Atorvastatin Calcium], and Xagbhxc-Pes-Qve Reductase Inhibitors MEDICATIONS Current Outpatient Medications Medication Sig DULoxetine (CYMBALTA) 20 mg capsule Take 1 capsule by mouth once daily. (Patient not taking: Reported on 05/27/2024) blood sugar diagnostic (BLOOD GLUCOSE TEST) test strip Test blood sugar(s) once times daily. Dx: Type 2 DM - Controlled E11.9 Insulin: No celecoxib (CELEBREX) 200 mg capsule Take 1 capsule by mouth once daily. metoprolol succinate ER (TOPROL XL) 50 mg 24 hr tablet Take 1 tablet by mouth once daily. amLODIPine (NORVASC) 5 mg tablet Take 1 tablet by mouth once daily. metFORMIN ER (GLUCOPHAGE XR) 500 mg 24 hr tablet Take 3 tablets by mouth daily with breakfast. albuterol HFA (PROVENTIL HFA, VENTOLIN HFA) 90 mcg/actuation inhaler Inhale 2 Puffs as instructed every 4 hours as needed for wheezing/shortness of breath. MULTIVITAMIN ORAL Take by mouth. Cholecalciferol, Vitamin D3, 125 mcg (5,000 unit) cap Take 1 capsule by mouth once daily. Lancets lancets One Touch Ultra Blue: Test blood sugar(s) 1 times daily. Dx: Type 2 DM - Controlled E11.9 Insulin: No albuterol HFA (VENTOLIN HFA) 90 mcg/actuation inhaler Inhale 2 Puffs as instructed every 4 hours as needed for Wheezing/Shortness of Breath. aspirin 81 mg chewable tablet Take 1 tablet by mouth once daily. No current facility-administered medications for this visit. FAMILY HISTORY Problem Relation Age of Onset other (thyroid dis) Mother 2 bro, 1 sis other (Liver) Mother Heart Father aunts, uncles other (hyperchol) Son 2 bro, 2 sis other (cva) Sister Diabetes Brother uncles, cousins other (migraine) Other mgm Social History Tobacco Use Smoking status: Never Smokeless tobacco: Never Vaping Use Vaping status: Never Used Substance Use Topics Alcohol use: No Drug use: No EXAM: BP 128/66 Pulse 74 Temp 36.5 ?C (97.7 ?F) (Tympanic) Resp 16 Wt 68.8 kg (151 lb 10.8 oz) SpO2 96% BMI 25.27 kg/m? PHYSICAL EXAM: Physical Exam Vitals reviewed. Constitutional: Appearance: Normal appearance. HENT: Head: Normocephalic. Right Ear: Tympanic membrane, ear canal and external ear normal. There is no impacted cerumen. Left Ear: Tympanic membrane, ear canal and external ear normal. There is impacted cerumen. Nose: Nose normal. Mouth/Throat: Mouth: Mucous membranes are moist. Pharynx: Oropharynx is clear. Musculoskeletal: Comments: Full flexion with cervical spine, extension 20 degrees, right side 30 degrees, left side 20 degrees, full rotation. Pain in ridge of shoulder on palpation but nothing on cervical spine or either side of cervical spine Skin: General: Skin is warm and dry. Neurological: General: No focal deficit present. Mental Status: She is alert and oriented to person, place, and time. Comments: Cranial nerves III-XII intact with slight (more content not included)... [facility] 06-16-2024 History of Present illness Narrative This is a 79 year old female who presents today with: Patient presents with: Pain: Left side jaw, radiating into neck and shoulder since she had sinus infection HISTORY OF PRESENT ILLNESS: Jackelin Diaz is a 79 year old female. Patient presents with: Pain: Left side jaw, radiating into neck and shoulder since she had sinus infection No sinus pain or pressure. Pain in left ear, into mastoid area, down side of neck and even across ridge of shoulder. No drainage. Took 2 full courses of antibiotic. Saw clinical coder. Found nothing contributing Saw dentist. Found nothing contributing Hearing isn't always good. No fever or chills Facial swelling and redness is better. Does get night sweats, not new. Last week one day, she had an episode of not being able to think or remember. Pain feels swollen and stretched. Tender to palpate- and sharp pain reproducible. Feels dizzy at times. Ongoing for a month. Can't lay on left side. PAST MEDICAL HISTORY: PAST MEDICAL HISTORY Diagnosis Date COPD (chronic obstructive pulmonary disease) (HCC) Endometriosis Essential hypertension, benign Female bladder prolapse Myalgia and myositis, unspecified Other and unspecified hyperlipidemia Other forms of migraine Snoring Type II or unspecified type diabetes mellitus without mention of complication, not stated as uncontrolled PAST SURGICAL HISTORY Procedure Laterality Date APPENDECTOMY 1985 ARTHROSCOPY KNEE DIAGNOSTIC W/WO SYNOVIAL BX SPX Left 07/25/06 Arthroscopy, knee CHOLECYSTECTOMY 1985 Cholecystectomy COLONOSCOPY FLX DX W/COLLJ SPEC WHEN PFRMD 06/14/06 Repeat in COLONOSCOPY FLX DX W/COLLJ SPEC WHEN PFRMD 12/25/2017 Colonoscopy PAST SURGICAL HISTORY OF rotator cuff repair on R TOTAL ABDOMINAL HYSTERECT W/WO RMVL TUBE OVARY 1969' Hysterectomy, BRUNILDA ALLERGIES Lexapro [Escitalopram Oxalate], Lipitor [Atorvastatin Calcium], and Qnrcrbr-Ogy-Aep Reductase Inhibitors MEDICATIONS Current Outpatient Medications Medication Sig DULoxetine (CYMBALTA) 20 mg capsule Take 1 capsule by mouth once daily. (Patient not taking: Reported on 05/27/2024) blood sugar diagnostic (BLOOD GLUCOSE TEST) test strip Test blood sugar(s) once times daily. Dx: Type 2 DM - Controlled E11.9 Insulin: No celecoxib (CELEBREX) 200 mg capsule Take 1 capsule by mouth once daily. metoprolol succinate ER (TOPROL XL) 50 mg 24 hr tablet Take 1 tablet by mouth once daily. amLODIPine (NORVASC) 5 mg tablet Take 1 tablet by mouth once daily. metFORMIN ER (GLUCOPHAGE XR) 500 mg 24 hr tablet Take 3 tablets by mouth daily with breakfast. albuterol HFA (PROVENTIL HFA, VENTOLIN HFA) 90 mcg/actuation inhaler Inhale 2 Puffs as instructed every 4 hours as needed for wheezing/shortness of breath. MULTIVITAMIN ORAL Take by mouth. Cholecalciferol, Vitamin D3, 125 mcg (5,000 unit) cap Take 1 capsule by mouth once daily. Lancets lancets One Touch Ultra Blue: Test blood sugar(s) 1 times daily. Dx: Type 2 DM - Controlled E11.9 Insulin: No albuterol HFA (VENTOLIN HFA) 90 mcg/actuation inhaler Inhale 2 Puffs as instructed every 4 hours as needed for Wheezing/Shortness of Breath. aspirin 81 mg chewable tablet Take 1 tablet by mouth once daily. No current facility-administered medications for this visit. FAMILY HISTORY Problem Relation Age of Onset other (thyroid dis) Mother 2 bro, 1 sis other (Liver) Mother Heart Father aunts, uncles other (hyperchol) Son 2 bro, 2 sis other (cva) Sister Diabetes Brother uncles, cousins other (migraine) Other mgm Social History Tobacco Use Smoking status: Never Smokeless tobacco: Never Vaping Use Vaping status: Never Used Substance Use Topics Alcohol use: No Drug use: No EXAM: BP 128/66 Pulse 74 Temp 36.5 C (97.7 F) (Tympanic) Resp 16 Wt 68.8 kg (151 lb 10.8 oz) SpO2 96% BMI 25.27 kg/m PHYSICAL EXAM: Physical Exam Vitals reviewed. Constitutional: Appearance: Normal appearance. HENT: Head: Normocephalic. Right Ear: Tympanic membrane, ear canal and external ear normal. There is no impacted cerumen. Left Ear: Tympanic membrane, ear canal and external ear normal. There is impacted cerumen. Nose: Nose normal. Mouth/Throat: Mouth: Mucous membranes are moist. Pharynx: Oropharynx is clear. Musculoskeletal: Comments: Full flexion with cervical spine, extension 20 degrees, right side 30 degrees, left side 20 degrees, full rotation. Pain in ridge of shoulder on palpation but nothing on cervical spine or either side of cervical spine Skin: General: Skin is warm and dry. Neurological: General: No focal deficit present. Mental Status: She is alert and oriented to person, place, and time. Comments: Cranial nerves III-XII intact with slight droop of left side of mouth but no other abnormality Psychiatric: Mood and Affect: Mood normal. Behavior: Behavior normal. LABS: ASSESSMENT/PLAN: 1. Seasonal allergies - ICD9: 477.9, ICD10: J30.2 (primary diagnosis) Ongoing - FLUTICASONE PROPIONATE 50 MCG/ACTUATION NASAL SPRAY,SUSPENSION 2 sprays each nare daily 2. Ear pain, left - ICD9: 388.70, ICD10: H92.02 Ongoing- into mastoid bone and down left side of neck- concern for mastoiditis or acoustic neuroma - CT BRAIN WO IVCON 3. Cervical radiculopathy - ICD9: 723.4, ICD10: M54.12 Possibly flared by mastoiditis - Get CT scan - May need ENT - 2 courses of antibiotics given already- one here and one with dentist Discussed treatment plan and patient voices understanding. Patient's questions answered appropriately. Medications and potential side effects were discussed and patient voices understanding. Return to the office as scheduled or as needed for worsening/no improvement. Hyun Villa APRN.SAUMYA Villa APRN.BINDERY ASSISTANT documented in this encounter [facility] 06-15-2024 Telephone encounter Note Patient given message below and verbalizes understanding. During call patient did state that she felt her sinus infection is unresolved and has now began to experience mild neck and ear discomfort. No fever stated or any severe sx's. Appt made with provider for tomorrow morning for evaluation. Dilcia Umanzor RN [facility] 06-15-2024 Miscellaneous Notes Patient given message below and verbalizes understanding. During call patient did state that she felt her sinus infection is unresolved and has now began to experience mild neck and ear discomfort. No fever stated or any severe sx's. Appt made with provider for tomorrow morning for evaluation. Dilcia Umanzor RN Called and left a detailed voicemail notifying patient of providers message. Clinic phone number was left in case patient had any questions. Called [facility] and let her know provider placed and order for CBC and that I left a message for Pt to come in and get that done. Demi Hernandez, HERVE We can recheck, Josephine with [facility] calls to report they received pre-op clearance form from Valarie Landry CNP. With the lab results from [facility] 06/04/24 results show wbc was elevated at 11.6. pt had pre-op appt on 06/10/24. Josephine reports the anesthesiologist wants to know if abnormal wbc was addressed with pt. Josephine is requesting this be addressed on pre-op form and re-faxed to: [phone]. Andreia Victoria LPN documented in this encounter [facility] 06-15-2024 Telephone encounter Note Called and left a detailed voicemail notifying patient of providers message. Clinic phone number was left in case patient had any questions. Called [facility] and let her know provider placed and order for CBC and that I left a message for Pt to come in and get that done. Demi Hernandez, RN [facility] 06-15-2024 Telephone encounter Note We can recheck, [facility] 06-15-2024 Telephone encounter Note Josephine with [facility] calls to report they received pre-op clearance form from Valarie Landry CNP. With the lab results from [facility] 06/04/24 results show wbc was elevated at 11.6. pt had pre-op appt on 06/10/24. Josephine reports the anesthesiologist wants to know if abnormal wbc was addressed with pt. Josephine is requesting this be addressed on pre-op form and re-faxed to: [phone]. Andreia Victoria LPN [facility] 06-15-2024 Telephone encounter Note Form faxed. Lisa Olson LPN [facility] 06-15-2024 Miscellaneous Notes Form faxed. Lisa Olson LPN Pt aware of stable echo results. Can please fax results/clearance information to Dr. Iraheta's office (on [employer] desk). Valarie Landry APRN.CNP documented in this encounter [facility] 06-12-2024 Telephone encounter Note Pt aware of stable echo results. Can please fax results/clearance information to Dr. Iraheta's office (on [employer] desk). Valarie Landry APRN.CNP [facility] Work Phone: 06-12-2024 Note HNO ID: [id number] Author: VALARIE LANDRY APRN.CNP Service: ? Author Type: Nurse Practitioner Type: Progress Notes Filed: 06/12/2024 17:10 Note Text: Echo results normal. No noted cardiac wall abnormalities. Pt is okay to proceed with Left TKA, as planned. Notes and xray results will be faxed to Dr. Iraheta's office. Thank you for allowing us to participate in Jackelin's care. Please let us know if we can be of further assistance. Valarie Landry APRN.CNP [facility] 06-10-2024 Instructions Valarie Landry APRN.CNP - 06/10/2024 11:47 AM EDT Schedule the echocardiogram. documented in this encounter [facility] 06-10-2024 Note HNO ID: [id number] Author: VALARIE LANDRY APRN.CNP Service: ? Author Type: Nurse Practitioner Type: Progress Notes Filed: 06/10/2024 21:29 Note Text: HISTORY AND PHYSICAL EXAMINATION SUBJECTIVE 79 year old female is here for consult to determine preoperative surgical clearance requested by Dr. Iraheta for anticipated surgery: L TKA, scheduled for 06/30/2024. She was having preoperative testing and found to have an abnormality on the EKG. Patient's history of surgical problem: no. Hx of previous anesthesia problems: No. Family hx of anesthesia problems: No. Current signs of infection: Yes. Currently being treated for a sinus infection. Chest pain/ hx Cardiac complications: No. Shortness of breath: No. Hx sleep apnea: No. Hx of clotting issues: No. Current bleeding or bruising tendencies: No. Hx GERD No. On anticoagulant medication: No. HISTORIES FAMILY HISTORY Problem Relation Age of Onset other (thyroid dis) Mother 2 bro, 1 sis other (Liver) Mother Heart Father aunts, uncles other (hyperchol) Son 2 bro, 2 sis other (cva) Sister Diabetes Brother uncles, cousins other (migraine) Other mgm PAST MEDICAL HISTORY Diagnosis Date COPD (chronic obstructive pulmonary disease) (HCC) Endometriosis Essential hypertension, benign Female bladder prolapse Myalgia and myositis, unspecified Other and unspecified hyperlipidemia Other forms of migraine Snoring Type II or unspecified type diabetes mellitus without mention of complication, not stated as uncontrolled PAST SURGICAL HISTORY Procedure Laterality Date APPENDECTOMY 1985 ARTHROSCOPY KNEE DIAGNOSTIC W/WO SYNOVIAL BX SPX Left 07/25/06 Arthroscopy, knee CHOLECYSTECTOMY 1985 Cholecystectomy COLONOSCOPY FLX DX W/COLLJ SPEC WHEN PFRMD 06/14/06 Repeat in COLONOSCOPY FLX DX W/COLLJ SPEC WHEN PFRMD 12/25/2017 Colonoscopy PAST SURGICAL HISTORY OF rotator cuff repair on R TOTAL ABDOMINAL HYSTERECT W/WO RMVL TUBE OVARY 1970's Hysterectomy, BRUNILDA Social History Tobacco Use Smoking status: Never Smokeless tobacco: Never Vaping Use Vaping status: Never Used Substance Use Topics Alcohol use: No Drug use: No ACTIVE PROBLEM LIST Hyperlipidemia PAIN ABDOMEN( Right Upper Quadrant) COPD W BRONCHITIS,OBSTRUCTIVE OSTEOARTHRITIS LOCALIZED, PRIMARY( Lower Leg) MIGRAINE COMMON Myalgia and Myositis, Unspecified Other Malaise and Fatigue Insomnia, Unspecified Essential Hypertension SVT (supraventricular tachycardia) (HCC) Urinary Incontinence Seasonal Allergies Female Bladder Prolapse Diabetes Mellitus Without Complication (Hcc) Vitamin D Deficiency Atrophic Vaginitis Occult Blood Positive Stool Encounter for Screening for Malignant Neoplasm of Colon Other Chest Pain Anginal Equivalent (Hcc) Adrenal Adenoma, Left Copd (Chronic Obstructive Pulmonary Disease) (Hcc) Current Outpatient Medications Medication Sig Dispense Refill DULoxetine (CYMBALTA) 20 mg capsule Take 1 capsule by mouth once daily. (Patient not taking: Reported on 05/27/2024) 30 capsule 2 blood sugar diagnostic (BLOOD GLUCOSE TEST) test strip Test blood sugar(s) once times daily. Dx: Type 2 DM - Controlled E11.9 Insulin: No 50 Strip 11 celecoxib (CELEBREX) 200 mg capsule Take 1 capsule by mouth once daily. 90 capsule 3 metoprolol succinate ER (TOPROL XL) 50 mg 24 hr tablet Take 1 tablet by mouth once daily. 90 tablet 3 amLODIPine (NORVASC) 5 mg tablet Take 1 tablet by mouth once daily. 90 tablet 3 metFORMIN ER (GLUCOPHAGE XR) 500 mg 24 hr tablet Take 3 tablets by mouth daily with breakfast. 270 tablet 1 albuterol HFA (PROVENTIL HFA, VENTOLIN HFA) 90 mcg/actuation inhaler Inhale 2 Puffs as instructed every 4 hours as needed for wheezing/shortness of breath. 8 g 0 MULTIVITAMIN ORAL Take by mouth. Cholecalciferol, Vitamin D3, 125 mcg (5,000 unit) cap Take 1 capsule by mouth once daily. 90 capsule 3 Lancets lancets One Touch Ultra Blue: Test blood sugar(s) 1 times daily. Dx: Type 2 DM - Controlled E11.9 Insulin: No 50 Each 11 albuterol HFA (VENTOLIN HFA) 90 mcg/actuation inhaler Inhale 2 Puffs as instructed every 4 hours as needed for Wheezing/Shortness of Breath. 1 Inhaler 3 aspirin 81 mg chewable tablet Take 1 tablet by mouth once daily. No current facility-administered medications for this visit. Allergies: Lexapro [Escitalopr* Anaphylaxis Comment:felt tightness in chest and increased blood pressure Lipitor [Atorvastat* Other: See Comments Comment:Muscle aches Ftadsdn-Beu-Lpk Red* Intolerance Comment:Leg cramps, myalgias REVIEW OF SYSTEMS: General: No weight loss, malaise or fevers. Neuro: Denies: No Hx of stroke or seizures. Gets some chronic n/t in the left leg. Respiratory: COPD. + allergies. Prn albuterol, but rare use. No pneumonia in the last 6 months. Cardiovascular: Negative for: NV, DVT/PE, CHF. + hx of SVT, HTN, hyperlipidemia. GI: No history of (more content not included)... [facility] 06-10-2024 History of Present illness Narrative HISTORY AND PHYSICAL EXAMINATION SUBJECTIVE 79 year old female is here for consult to determine preoperative surgical clearance requested by Dr. Iraheta for anticipated surgery: L TKA, scheduled for 06/30/2024. She was having preoperative testing and found to have an abnormality on the EKG. Patient's history of surgical problem: no. Hx of previous anesthesia problems: No. Family hx of anesthesia problems: No. Current signs of infection: Yes. Currently being treated for a sinus infection. Chest pain/ hx Cardiac complications: No. Shortness of breath: No. Hx sleep apnea: No. Hx of clotting issues: No. Current bleeding or bruising tendencies: No. Hx GERD No. On anticoagulant medication: No. HISTORIES FAMILY HISTORY Problem Relation Age of Onset other (thyroid dis) Mother 2 bro, 1 sis other (Liver) Mother Heart Father aunts, uncles other (hyperchol) Son 2 bro, 2 sis other (cva) Sister Diabetes Brother uncles, cousins other (migraine) Other mgm PAST MEDICAL HISTORY Diagnosis Date COPD (chronic obstructive pulmonary disease) (HCC) Endometriosis Essential hypertension, benign Female bladder prolapse Myalgia and myositis, unspecified Other and unspecified hyperlipidemia Other forms of migraine Snoring Type II or unspecified type diabetes mellitus without mention of complication, not stated as uncontrolled PAST SURGICAL HISTORY Procedure Laterality Date APPENDECTOMY 1985 ARTHROSCOPY KNEE DIAGNOSTIC W/WO SYNOVIAL BX SPX Left 07/25/06 Arthroscopy, knee CHOLECYSTECTOMY 1985 Cholecystectomy COLONOSCOPY FLX DX W/COLLJ SPEC WHEN PFRMD 06/14/06 Repeat in COLONOSCOPY FLX DX W/COLLJ SPEC WHEN PFRMD 12/25/2017 Colonoscopy PAST SURGICAL HISTORY OF rotator cuff repair on R TOTAL ABDOMINAL HYSTERECT W/WO RMVL TUBE OVARY 1970's Hysterectomy, BRUNILDA Social History Tobacco Use Smoking status: Never Smokeless tobacco: Never Vaping Use Vaping status: Never Used Substance Use Topics Alcohol use: No Drug use: No ACTIVE PROBLEM LIST Hyperlipidemia PAIN ABDOMEN( Right Upper Quadrant) COPD W BRONCHITIS,OBSTRUCTIVE OSTEOARTHRITIS LOCALIZED, PRIMARY( Lower Leg) MIGRAINE COMMON Myalgia and Myositis, Unspecified Other Malaise and Fatigue Insomnia, Unspecified Essential Hypertension SVT (supraventricular tachycardia) ([facility]) Urinary Incontinence Seasonal Allergies Female Bladder Prolapse Diabetes Mellitus Without Complication (Hcc) Vitamin D Deficiency Atrophic Vaginitis Occult Blood Positive Stool Encounter for Screening for Malignant Neoplasm of Colon Other Chest Pain Anginal Equivalent (Hcc) Adrenal Adenoma, Left Copd (Chronic Obstructive Pulmonary Disease) ([facility]) Current Outpatient Medications Medication Sig Dispense Refill DULoxetine (CYMBALTA) 20 mg capsule Take 1 capsule by mouth once daily. (Patient not taking: Reported on 05/27/2024) 30 capsule 2 blood sugar diagnostic (BLOOD GLUCOSE TEST) test strip Test blood sugar(s) once times daily. Dx: Type 2 DM - Controlled E11.9 Insulin: No 50 Strip 11 celecoxib (CELEBREX) 200 mg capsule Take 1 capsule by mouth once daily. 90 capsule 3 metoprolol succinate ER (TOPROL XL) 50 mg 24 hr tablet Take 1 tablet by mouth once daily. 90 tablet 3 amLODIPine (NORVASC) 5 mg tablet Take 1 tablet by mouth once daily. 90 tablet 3 metFORMIN ER (GLUCOPHAGE XR) 500 mg 24 hr tablet Take 3 tablets by mouth daily with breakfast. 270 tablet 1 albuterol HFA (PROVENTIL HFA, VENTOLIN HFA) 90 mcg/actuation inhaler Inhale 2 Puffs as instructed every 4 hours as needed for wheezing/shortness of breath. 8 g 0 MULTIVITAMIN ORAL Take by mouth. Cholecalciferol, Vitamin D3, 125 mcg (5,000 unit) cap Take 1 capsule by mouth once daily. 90 capsule 3 Lancets lancets One Touch Ultra Blue: Test blood sugar(s) 1 times daily. Dx: Type 2 DM - Controlled E11.9 Insulin: No 50 Each 11 albuterol HFA (VENTOLIN HFA) 90 mcg/actuation inhaler Inhale 2 Puffs as instructed every 4 hours as needed for Wheezing/Shortness of Breath. 1 Inhaler 3 aspirin 81 mg chewable tablet Take 1 tablet by mouth once daily. No current facility-administered medications for this visit. Allergies: Lexapro [Escitalopr* Anaphylaxis Comment:felt tightness in chest and increased blood pressure Lipitor [Atorvastat* Other: See Comments Comment:Muscle aches Ydhvkvn-Iov-Aau Red* Intolerance Comment:Leg cramps, myalgias REVIEW OF SYSTEMS: General: No weight loss, malaise or fevers. Neuro: Denies: No Hx of stroke or seizures. Gets some chronic n/t in the left leg. Respiratory: COPD. + allergies. Prn albuterol, but rare use. No pneumonia in the last 6 months. Cardiovascular: Negative for: NV, DVT/PE, CHF. + hx of SVT, HTN, hyperlipidemia. GI: No history of GI symptoms or problems. No history of esophageal varices, recent ascites, or ETOH greater than 2 drinks per day. (Chronically gets episodes of diarrhea). : No history of UTI in past 6 weeks. No history of renal failure. Not currently on or requiring dialysis. No history of symptoms or problems. CYBER LEGAL ADVISOR: Negative for abnormal vaginal bleeding, abnormal vaginal discharge. : N/A Endocrine: Diabetes Mellitus on oral agent Hematology: No history of bleeding or clotting disorder. Pt is not taking anti-coagulation or platelet medications. No history of hematological symptoms or problems. Oncology: No history of CA metastasis, chemo within 30 days, or radiotherapy within 90 days. Has not lost 10% of body wt in 6 months. No history of oncological symptoms or problems. Psych: No history of psychiatric symptoms or problems. Musculoskeletal: + fibromyalgia. Skin: Negative for lesions, rash and itching. PHYSICAL EXAM: VITALS: BP 136/72 Pulse 73 Resp 16 Wt 69.4 kg (153 lb) SpO2 97% BMI 25.49 kg/m General Appearance: Well appearing, alert, in no acute distress, well-hydrated, well nourished.. Skin: Skin color, texture, turgor normal, no suspicious rashes or lesions. Head: Normocephalic, no masses, lesions, tenderness or abnormalities. Eyes: Anicteric sclera. Pupils are equally round and reactive to light. Extraocular movements are intact. . Ears: External ears normal, canals clear.Normal TMs bilaterally. Oropharynx: Lips, mucosa, and tongue normal, teeth and gums normal, oropharynx normal. Neck: Supple, no adenopathy; thyroid symmetric, normal size, no bruits. Lungs: Lungs clear to auscultation. No wheezing, rhonchi, rales.. Heart: RRR without murmur, gallop, or rubs. No ectopy. Abdomen: Abdomen soft, non-tender. Bowel sounds normal. No masses, organomegaly. Extremities: No deformities, edema, skin discoloration, clubbing or cyanosis. Good capillary refill. . Neurologic: Gait normal. Diagnostic tests reviewed for today's visit: Most recent labs Clinical Risk Factors for Possible Cardiac Complications: None Patient is scheduled for a intermediate-risk procedure. FUNCTIONAL STATUS: Climb a flight of stairs or walk up a hill (5.50 METs) ASSESSMENT/PLAN: 1. Preop examination - ICD9: V72.84, ICD10: Z01.818 (primary diagnosis) Pt scheduled for intermediate risk procedure. She had EKG with questionable old inferior infarct. Will get echo for further evaluation. Follow-up pending results. Scheduled for echo later this week. If abnormal, will likely need further evaluation by cardiology. Once complete, will forward notes to Dr. Iraheta's office. Thank you for allowing us to particpate in Jackelin's care. Please let us know if we can be of further assistance. 2. Abnormal EKG - ICD9: 794.31, ICD10: R94.31 She is asymptomatic. She previously did follow with cardiology and had cardiac cath in 2018 with minimal disease. Will get echo. - ECHO - PERFLUTREN LIPID MICROSPHERES 1.1 MG/ML INJECTION IN NS 10 ML - SODIUM CHLORIDE 0.9 % (FLUSH) INJECTION SYRINGE 3. Chronic pain of left knee - ICD9: 719.46, 338.29, ICD10: M25.562, G89.29 Per ortho. Discussed treatment plan and patient voices understanding. Patient's questions answered appropriately. Medications and potential side effects were discussed and patient voices understanding. Return to the office as scheduled or as needed for worsening/no improvement. Valarie Landry APRN.BINDERY ASSISTANT documented in this encounter [facility] 06-10-2024 Telephone encounter Note Yes, forms received and on nurses desk. Lisa Olson LPN [facility] 06-10-2024 Miscellaneous Notes Yes, forms received and on nurses desk. Lisa Olson LPN Do we have forms/EKG/tests? Fax from Sarika in office for patient asking to have abnormal EKG addressed prior to providing medical clearance for left TKA. Will forward to provider. Scheduled 06/10/24. documented in this encounter [facility] 06-09-2024 Telephone encounter Note Do we have forms/EKG/tests? [facility] Work Phone: 06-03-2024 Telephone encounter Note Fax from Sarika in office for patient asking to have abnormal EKG addressed prior to providing medical clearance for left TKA. Will forward to provider. Scheduled 06/10/24. [facility] 06-03-2024 Note ORIGINAL EXAMINATION: CT OF THE LEFT KNEE WITHOUT CONTRAST 06/03/2024 2:57 pm TECHNIQUE: CT of the left knee was performed without the administration of intravenous contrast. Multiplanar reformatted images are provided for review. Automated exposure control, iterative reconstruction, and/or weight based adjustment of the mA/kV was utilized to reduce the radiation dose to as low as reasonably achievable.TIMOTHY protocol was performed with axial images through the left hip and left ankle. COMPARISON: None. HISTORY ORDERING SYSTEM PROVIDED HISTORY: Reason for Exam: Unilateral primary osteoarthritis, left knee chronic lt knee pain, NKI. TIMOTHY protocol. FINDINGS: Bones: Severe tricompartmental osteoarthritis of the left knee most pronounced in the medial compartment with [id number], subchondral sclerosis and diffuse marginal osteophyte formation. Spurring of the tibial spines and intercondylar notch. Quadriceps and patellar tendon enthesopathy. No evidence of acute fracture or dislocation. No aggressive appearing osseous abnormality or periostitis. Accessory navicularis. There is moderate left femoroacetabular joint space narrowing. Mild degenerative changes of the pubic symphysis. Soft Tissue: Small knee joint effusion. Chondrocalcinosis. Vascular calcifications. Mild diffuse muscle atrophy. Limited evaluation of the neurovascular structures and lack of contrast. IMPRESSION: Severe tricompartmental osteoarthritis of the left knee most pronounced in the medial compartment in patient presenting for preop planning. Chondrocalcinosis. Small knee joint effusion. Additional incidental findings above. Interpreted by: Do Shrestha Preliminary Report By: Do Shrestha Electronically signed By Do Shrestha Dictated Date: 06/03/2024 3:02:37 PM Prelim Date: 06/03/2024 3:06:43 PM Sign Date: 06/03/2024 3:06:43 PM Ordering Provider: HÉCTOR [facility] 05-27-2024 History of Present illness Narrative Subjective HPI Nontoxic-appearing female presents urgent care chief complaint possible sinus infection. Duration of symptoms 10 days. Associated symptoms sinus pressure some drainage and left ear pain. OTC medication Claritin this did not help. Denies known sick contacts. History of sinus factions this feels similar. Past medical history prescription medications allergies reviewed. .Patient presents with: Sinus Problem: sinus pressure, drainage, left ear pain on left side x 10 days PAST MEDICAL HISTORY Diagnosis Date COPD (chronic obstructive pulmonary disease) (HCC) Endometriosis Essential hypertension, benign Female bladder prolapse Myalgia and myositis, unspecified Other and unspecified hyperlipidemia Other forms of migraine Snoring Type II or unspecified type diabetes mellitus without mention of complication, not stated as uncontrolled PAST SURGICAL HISTORY Procedure Laterality Date APPENDECTOMY 1985 ARTHROSCOPY KNEE DIAGNOSTIC W/WO SYNOVIAL BX SPX Left 07/25/06 Arthroscopy, knee CHOLECYSTECTOMY 1985 Cholecystectomy COLONOSCOPY FLX DX W/COLLJ SPEC WHEN PFRMD 06/14/06 Repeat in COLONOSCOPY FLX DX W/COLLJ SPEC WHEN PFRMD 12/25/2017 Colonoscopy PAST SURGICAL HISTORY OF rotator cuff repair on R TOTAL ABDOMINAL HYSTERECT W/WO RMVL TUBE OVARY Hysterectomy, BRUNILDA ALLERGIES Lexapro [Escitalopram Oxalate], Lipitor [Atorvastatin Calcium], and Vzrvaqq-Ijs-Dvp Reductase Inhibitors MEDICATIONS blood sugar diagnostic (BLOOD GLUCOSE TEST) test strip Test blood sugar(s) once times daily. Dx: Type 2 DM - Controlled E11.9 Insulin: No celecoxib (CELEBREX) 200 mg capsule Take 1 capsule by mouth once daily. metoprolol succinate ER (TOPROL XL) 50 mg 24 hr tablet Take 1 tablet by mouth once daily. amLODIPine (NORVASC) 5 mg tablet Take 1 tablet by mouth once daily. metFORMIN ER (GLUCOPHAGE XR) 500 mg 24 hr tablet Take 3 tablets by mouth daily with breakfast. albuterol HFA (PROVENTIL HFA, VENTOLIN HFA) 90 mcg/actuation inhaler Inhale 2 Puffs as instructed every 4 hours as needed for wheezing/shortness of breath. MULTIVITAMIN ORAL Take by mouth. Cholecalciferol, Vitamin D3, 125 mcg (5,000 unit) cap Take 1 capsule by mouth once daily. Lancets lancets One Touch Ultra Blue: Test blood sugar(s) 1 times daily. Dx: Type 2 DM - Controlled E11.9 Insulin: No albuterol HFA (VENTOLIN HFA) 90 mcg/actuation inhaler Inhale 2 Puffs as instructed every 4 hours as needed for Wheezing/Shortness of Breath. aspirin 81 mg chewable tablet Take 1 tablet by mouth once daily. DULoxetine (CYMBALTA) 20 mg capsule Take 1 capsule by mouth once daily. (Patient not taking: Reported on 05/27/2024) FAMILY HISTORY Problem Relation Age of Onset other (thyroid dis) Mother 2 bro, 1 sis other (Liver) Mother Heart Father aunts, uncles other (hyperchol) Son 2 bro, 2 sis other (cva) Sister Diabetes Brother uncles, cousins other (migraine) Other mgm Social History Tobacco Use Smoking status: Never Smokeless tobacco: Never Vaping Use Vaping status: Never Used Substance Use Topics Alcohol use: No Drug use: No BP 128/74 Pulse 84 Temp 36.6 C (97.8 F) Resp 16 Wt 69.6 kg (153 lb 7 oz) SpO2 97% BMI 25.56 kg/m Review of Systems Constitutional: Negative for chills, fever and malaise/fatigue. HENT: Positive for congestion, ear pain and sinus pain. Negative for ear discharge and sore throat. Eyes: Negative for blurred vision, pain, discharge and redness. Respiratory: Negative for cough, hemoptysis, sputum production, shortness of breath, wheezing and stridor. Cardiovascular: Negative for chest pain. Gastrointestinal: Negative for abdominal pain, diarrhea, nausea and vomiting. Musculoskeletal: Negative for myalgias. Skin: Negative for itching and rash. Neurological: Negative for dizziness and headaches. Objective Physical Exam Constitutional: General: She is not in acute distress. Appearance: She is not diaphoretic. HENT: Head: Normocephalic. Jaw: No trismus, tenderness, swelling or pain on movement. Right Ear: Tympanic membrane, ear canal and external ear normal. Left Ear: Tympanic membrane, ear canal and external ear normal. Nose: Congestion present. Right Sinus: No maxillary sinus tenderness. Left Sinus: Maxillary sinus tenderness present. Mouth/Throat: Mouth: Mucous membranes are moist. Pharynx: Oropharynx is clear. Uvula midline. No pharyngeal swelling, oropharyngeal exudate, posterior oropharyngeal erythema or uvula swelling. Eyes: Conjunctiva/sclera: Conjunctivae normal. Pupils: Pupils are equal, round, and reactive to light. Cardiovascular: Rate and Rhythm: Normal rate and regular rhythm. Heart sounds: Normal heart sounds. Pulmonary: Effort: Pulmonary effort is normal. No tachypnea, accessory muscle usage or respiratory distress. Breath sounds: Normal breath sounds. No stridor. No wheezing, rhonchi or rales. Musculoskeletal: Cervical back: Normal range of motion and neck supple. No edema, erythema, rigidity or tenderness. No pain with movement. Normal range of motion. Lymphadenopathy: Cervical: No cervical adenopathy. Skin: General: Skin is warm and dry. Neurological: Mental Status: She is alert and oriented to person, place, and time. ASSESSMENT/PLAN: 1. Bacterial sinusitis - ICD9: 473.9, 041.9, ICD10: J32.9, B96.89 Diagnosed with bacterial sinusitis. Placed on doxycycline. Patient was educated on supportive therapies. Patient will follow up with primary care provider as needed. Patient was instructed to immediately proceed to emergency room for any new, worsening, or symptoms lasting longer than anticipated. The patient's clinical presentation is otherwise unremarkable at this time. Based on exam and clinical finding, the patient is stable for discharge. Plan of care was discussed with patient. Patient verbalizes understanding and agrees to plan of care. This note was generated using [employer] software. It may contain errors in wording, punctuation, or spelling. Dustin Gordillo APRN.SAUMYA documented in this encounter [facility] 04-27-2024 Instructions Hyun Villa APRN.CNP - 04/27/2024 11:53 AM EDT 1) Stop tamsulosin 2) Trial Duloxetine 20 mg daily at bedtime for pain 3) Metronidazole 500 mg 3 x day for 5 days 4) Cipro 500 mg 2 x day for 5 days with Metronidazole 5) Call and let me know next Saturday if left side abdomen is better- If nausea, vomiting or pain worsens- go to ER 6) Referral to Orthopedics for left knee pain 7) Follow up in 3 months documented in this encounter [facility] 04-27-2024 History of Present illness Narrative This is a 79 year old female who presents today with: Patient presents with: 6 Month Exam HISTORY OF PRESENT ILLNESS: Jackelin Diaz is a 79 year old female. Patient presents with: 6 Month Exam Right flank pain that hurts with movement. Pain has extended out peripherally over time. A couple weeks at least. Pain 4/10, can creep up to 8/10. No bright red hematuria. No fever or chills. Some nausea, no vomiting. Never had a kidney stone. Takes Celebrex so she is not sure what OTC medication she can take. Did use Aspercreme that did nothing. Movement makes it worse or deep breaths. Sitting still helps. Does think at times that it improved some. Left pelvic pain- for a few days. Had a lot of diarrhea. No nausea or vomiting. PAST MEDICAL HISTORY: PAST MEDICAL HISTORY No date: COPD (chronic obstructive pulmonary disease) (HCC) No date: Endometriosis No date: Essential hypertension, benign No date: Female bladder prolapse No date: Myalgia and myositis, unspecified No date: Other and unspecified hyperlipidemia No date: Other forms of migraine No date: Snoring No date: Type II or unspecified type diabetes mellitus without mention of complication, not stated as uncontrolled PAST SURGICAL HISTORY 1985: APPENDECTOMY 07/25/06: ARTHROSCOPY KNEE DIAGNOSTIC W/WO SYNOVIAL BX SPX; Left Comment: Arthroscopy, knee 1985: CHOLECYSTECTOMY Comment: Cholecystectomy 06/14/06: COLONOSCOPY FLX DX W/COLLJ SPEC WHEN PFRMD Comment: Repeat in 12/25/2017: COLONOSCOPY FLX DX W/COLLJ SPEC WHEN PFRMD Comment: Colonoscopy No date: PAST SURGICAL HISTORY OF Comment: rotator cuff repair on R 1969's: TOTAL ABDOMINAL HYSTERECT W/WO RMVL TUBE OVARY Comment: Hysterectomy, BRUNILDA ALLERGIES Lexapro [Escitalopram Oxalate], Lipitor [Atorvastatin Calcium], and Sfdymjd-Nmt-Tlc Reductase Inhibitors MEDICATIONS Current Outpatient Medications Medication Sig tamsulosin (FLOMAX) 0.4 mg Take 1 capsule by mouth daily at bedtime. blood sugar diagnostic (BLOOD GLUCOSE TEST) test strip Test blood sugar(s) once times daily. Dx: Type 2 DM - Controlled E11.9 Insulin: No celecoxib (CELEBREX) 200 mg capsule Take 1 capsule by mouth once daily. metoprolol succinate ER (TOPROL XL) 50 mg 24 hr tablet Take 1 tablet by mouth once daily. amLODIPine (NORVASC) 5 mg tablet Take 1 tablet by mouth once daily. metFORMIN ER (GLUCOPHAGE XR) 500 mg 24 hr tablet Take 3 tablets by mouth daily with breakfast. albuterol HFA (PROVENTIL HFA, VENTOLIN HFA) 90 mcg/actuation inhaler Inhale 2 Puffs as instructed every 4 hours as needed for wheezing/shortness of breath. MULTIVITAMIN ORAL Take by mouth. Cholecalciferol, Vitamin D3, 125 mcg (5,000 unit) cap Take 1 capsule by mouth once daily. Lancets lancets One Touch Ultra Blue: Test blood sugar(s) 1 times daily. Dx: Type 2 DM - Controlled E11.9 Insulin: No albuterol HFA (VENTOLIN HFA) 90 mcg/actuation inhaler Inhale 2 Puffs as instructed every 4 hours as needed for Wheezing/Shortness of Breath. aspirin 81 mg chewable tablet Take 1 tablet by mouth once daily. No current facility-administered medications for this visit. FAMILY HISTORY Problem Relation Age of Onset other (thyroid dis) Mother 2 bro, 1 sis other (Liver) Mother Heart Father aunts, uncles other (hyperchol) Son 2 bro, 2 sis other (cva) Sister Diabetes Brother uncles, cousins other (migraine) Other mgm Social History Tobacco Use Smoking status: Never Smokeless tobacco: Never Vaping Use Vaping status: Never Used Substance Use Topics Alcohol use: No Drug use: No Ultrasound of kidneys showed tiny cyst in October Last colonoscopy was 2017 and good for 10 years DM: Reports overall feeling well. Medication side effects: No. Home sugar checks: 130's Hypoglycemic spells: No. Watching diet: Yes. Unexpected weight loss: No. Polyuria, polydipsia: No. Vision Changes: Some. Foot lesions or numbness or pain: Yes Started last 3-4 months. EXAM: BP 124/70 Pulse 90 Resp 16 Wt 68.9 kg (152 lb) SpO2 96% BMI 25.32 kg/m PHYSICAL EXAM: Physical Exam Vitals reviewed. Constitutional: Appearance: Normal appearance. HENT: Head: Normocephalic. Cardiovascular: Rate and Rhythm: Normal rate and regular rhythm. Pulses: Normal pulses. Heart sounds: Normal heart sounds. Pulmonary: Effort: Pulmonary effort is normal. Breath sounds: Normal breath sounds. Abdominal: General: There is no distension. Palpations: Abdomen is soft. There is no mass. Tenderness: There is abdominal tenderness. There is no guarding or rebound. Comments: Entire left side of abdomen tender to palpate. No masses noted. No rebound tenderness. Right flank with negative CVA tenderness. No palpable pain or masses noted right upper outer quadrant. Musculoskeletal: General: Normal range of motion. Comments: No palpable tenderness along spine- cervical to lumbar. Left knee with known severe arthritis. Patient is in constant pain, some instability. X-ray reviewed from 2020 and notes severe arthritis. Skin: General: Skin is warm and dry. Neurological: Mental Status: She is alert. LABS: reviewed recent labs with pt. ASSESSMENT/PLAN: 1. Flank pain - ICD9: 789.09, ICD10: R10.9 (primary diagnosis) Etiology unclear - Possibly fibromyalgia 2. Screening for depression - ICD9: V79.0, ICD10: Z13.31 Stable - DEPRESSION SCREENING 3. Encounter for screening examination for other mental health and behavioral disorders - ICD9: V79.8, ICD10: Z13.39 Stable - ANXIETY SCREENING 4. Essential hypertension - ICD9: 401.9, ICD10: I10 - Controlled - Recommend home blood pressure monitoring, to bring results to next visit - Encouraged sodium restriction, DASH or Mediterranean diet - Recommend regular aerobic exercise 5. Diabetes mellitus without complication (HCC) - ICD9: 250.00, ICD10: E11.9 - Controlled - Continue current medications 6. Left lateral abdominal pain - ICD9: 789.09, ICD10: R10.9 Differential Diagnosis includes diverticulitis and IBS - CIPROFLOXACIN 500 MG TABLET - METRONIDAZOLE 500 MG TABLET 7. Primary osteoarthritis of left knee - ICD9: 715.16, ICD10: M17.12 Left knee pain for years. Worsening. Severe OA noted in 2020 - Pt. Would like to see orthopedics - Refer to orthopedics, not [facility] - Previous Xray, although 2020, noted severe osteoarthritis. X-rays not repeated. Discussed treatment plan and patient voices understanding. Patient's questions answered appropriately. Medications and potential side effects were discussed and patient voices understanding. Return to the office as scheduled or as needed for worsening/no improvement. Hyun Villa APRN.SAUMYA documented in this encounter [facility] 04-24-2024 Telephone encounter Note Patient returned call and went over results, notes from yHun Villa DESK REPORTER with understanding. Patient requesting to call her cell number please. [facility] 04-24-2024 Miscellaneous Notes Patient returned call and went over results, notes from Hyun Villa NP with understanding. Patient requesting to call her cell number please. Left message for patient to return call. Ninoska Hinson Ma ----- Message from Hyun Villa sent at 04/23/2024 8:40 AM EDT ----- Your lab work looks good. Blood counts, kidney function, liver functions, and electrolytes are all normal. Your inflammatory markers were all normal. Lymes panel was negative. It looks as though you have a urinary tract infection and I am waiting for the culture to return. Will call with those results. documented in this encounter [facility] 04-23-2024 Telephone encounter Note Left message for patient to return call. Ninoska Hinson Ma [facility] 04-23-2024 Telephone encounter Note ----- Message from Hyun Villa sent at 04/23/2024 8:40 AM EDT ----- Your lab work looks good. Blood counts, kidney function, liver functions, and electrolytes are all normal. Your inflammatory markers were all normal. Lymes panel was negative. It looks as though you have a urinary tract infection and I am waiting for the culture to return. Will call with those results. [facility] 04-21-2024 Note Addended by: HYUN VILLA on: 04/21/2024 10:25 AM Modules accepted: Orders [facility] 04-21-2024 Miscellaneous Notes Addended by: HYUN VILLA on: 04/21/2024 10:25 AM Modules accepted: Orders documented in this encounter [facility] 04-21-2024 Instructions Hyun Villa APRN.BINDERY ASSISTANT - 04/21/2024 10:16 AM EDT 1) Check urinalysis and send for culture 2) Check blood work today 3) Start tamsulosin 0.4 mg daily 4) Use acetaminophen 500 mg 3 x day 5) Keep appt. Next week documented in this encounter [facility] 04-21-2024 History of Present illness Narrative This is a 79 year old female who presents today with: Patient presents with: Pain HISTORY OF PRESENT ILLNESS: Jackelin Diaz is a 79 year old female. Patient presents with: Pain Right flank pain that hurts with movement. Pain has extended out peripherally over time. A couple weeks at least. Pain 4/10, can creep up to 8/10. No bright red hematuria. No fever or chills. Some nausea, no vomiting. Never had a kidney stone. Takes Celebrex so she is not sure what OTC medication she can take. Did use Aspercreme that did nothing. Movement makes it worse or deep breaths. Sitting still helps. PAST MEDICAL HISTORY: PAST MEDICAL HISTORY No date: COPD (chronic obstructive pulmonary disease) (HCC) No date: Endometriosis No date: Essential hypertension, benign No date: Female bladder prolapse No date: Myalgia and myositis, unspecified No date: Other and unspecified hyperlipidemia No date: Other forms of migraine No date: Snoring No date: Type II or unspecified type diabetes mellitus without mention of complication, not stated as uncontrolled PAST SURGICAL HISTORY 1985: APPENDECTOMY 07/25/06: ARTHROSCOPY KNEE DIAGNOSTIC W/WO SYNOVIAL BX SPX; Left Comment: Arthroscopy, knee 1985: CHOLECYSTECTOMY Comment: Cholecystectomy 06/14/06: COLONOSCOPY FLX DX W/COLLJ SPEC WHEN PFRMD Comment: Repeat in 12/25/2017: COLONOSCOPY FLX DX W/COLLJ SPEC WHEN PFRMD Comment: Colonoscopy No date: PAST SURGICAL HISTORY OF Comment: rotator cuff repair on R 1969's: TOTAL ABDOMINAL HYSTERECT W/WO RMVL TUBE OVARY Comment: Hysterectomy, BRUNILDA ALLERGIES Lexapro [Escitalopram Oxalate], Lipitor [Atorvastatin Calcium], and Dmtpbnm-Cug-Yea Reductase Inhibitors MEDICATIONS Current Outpatient Medications Medication Sig celecoxib (CELEBREX) 200 mg capsule Take 1 capsule by mouth once daily. metoprolol succinate ER (TOPROL XL) 50 mg 24 hr tablet Take 1 tablet by mouth once daily. amLODIPine (NORVASC) 5 mg tablet Take 1 tablet by mouth once daily. metFORMIN ER (GLUCOPHAGE XR) 500 mg 24 hr tablet Take 3 tablets by mouth daily with breakfast. albuterol HFA (PROVENTIL HFA, VENTOLIN HFA) 90 mcg/actuation inhaler Inhale 2 Puffs as instructed every 4 hours as needed for wheezing/shortness of breath. MULTIVITAMIN ORAL Take by mouth. Cholecalciferol, Vitamin D3, 125 mcg (5,000 unit) cap Take 1 capsule by mouth once daily. blood sugar diagnostic ([employer]UCH ULTRA TEST STRIP) test strip Test blood sugars once daily. DX: Ell.9 Insulin: No Lancets lancets One Touch Ultra Blue: Test blood sugar(s) 1 times daily. Dx: Type 2 DM - Controlled E11.9 Insulin: No albuterol HFA (VENTOLIN HFA) 90 mcg/actuation inhaler Inhale 2 Puffs as instructed every 4 hours as needed for Wheezing/Shortness of Breath. aspirin 81 mg chewable tablet Take 1 tablet by mouth once daily. predniSONE (DELTASONE) 20 mg tablet Take 1 tablet by mouth every afternoon. (Patient not taking: Reported on 04/21/2024) predniSONE (DELTASONE) 10 mg tablet Take 4 tabs daily for 3 days, then 2 tabs daily for 3 days, then 1 tab daily for 3 days with food. (Patient not taking: Reported on 04/21/2024) benzonatate (TESSALON PERLES) 100 mg capsule Take 1 capsule by mouth three times a day as needed for cough. (Patient not taking: Reported on 10/20/2023) pravastatin (PRAVACHOL) 10 mg tablet Take 1 tablet by mouth once daily. (Patient not taking: Reported on 08/29/2023) fluticasone (FLONASE) 50 mcg/actuation nasal spray Use 2 Sprays in each nostril once daily. Rinse mouth after use. (Patient not taking: Reported on 04/21/2024) fluticasone-salmeterol (ADVAIR DISKUS) 250-50 mcg/dose dsdv Inhale 1 Puff as instructed twice daily. Rinse and gargle mouth after use with water. (Patient not taking: Reported on 04/21/2024) No current facility-administered medications for this visit. FAMILY HISTORY Problem Relation Age of Onset other (thyroid dis) Mother 2 bro, 1 sis other (Liver) Mother Heart Father aunts, uncles other (hyperchol) Son 2 bro, 2 sis other (cva) Sister Diabetes Brother uncles, cousins other (migraine) Other mgm Social History Tobacco Use Smoking status: Never Smokeless tobacco: Never Vaping Use Vaping status: Never Used Substance Use Topics Alcohol use: No Drug use: No EXAM: BP 142/64 (BP Site: Left Arm, BP Position: Sitting, BP Cuff Size: Large Adult) Pulse 76 Temp (!) 35.9 C (96.7 F) (Temporal) Resp 16 Wt 69.1 kg (152 lb 6.4 oz) BMI 25.39 kg/m PHYSICAL EXAM: Physical Exam Vitals reviewed. Constitutional: Appearance: Normal appearance. HENT: Head: Normocephalic. Cardiovascular: Rate and Rhythm: Normal rate and regular rhythm. Pulses: Normal pulses. Heart sounds: Normal heart sounds. Pulmonary: Effort: Pulmonary effort is normal. Breath sounds: Normal breath sounds. Musculoskeletal: Comments: Multiple joint pains- knees, hands, toes and hips Positive CVA tenderness Skin: General: Skin is warm and dry. Neurological: Mental Status: She is alert. LABS: check labs for inflammation & kidney stone ASSESSMENT/PLAN: 1. Flank pain - ICD9: 789.09, ICD10: R10.9 (primary diagnosis) Differential Diagnosis includes Gall bladder colic/cholelithiasis and Kidney stones/colic - URINE CULTURE - URINALYSIS, WITH MICROSCOPIC - TAMSULOSIN 0.4 MG CAPSULE 2. Arthralgia, unspecified joint - ICD9: 719.40, ICD10: M25.50 Celebrex not effective - RHEUMATOID FACTOR - ZABRINA BLOOD - SEDIMENTATION RATE, WESTERGREN - C-REACTIVE PROTEIN - COMPLETE BLOOD COUNT AND DIFFERENTIAL - LYME AB LATE >30 DAYS SYMPTOMS - COMPREHENSIVE METABOLIC PANEL - Stop Celebrex, use acetaminophen 500 mg 3 x day Discussed treatment plan and patient voices understanding. Patient's questions answered appropriately. Medications and potential side effects were discussed and patient voices understanding. Return to the office as scheduled or as needed for worsening/no improvement. Hyun Villa APRN.CNP documented in this encounter [facility] 12-20-2023 Telephone encounter Note Detailed message left for pt on identifiable voicemail Ninoska Hinson MA [facility] 12-20-2023 Miscellaneous Notes Detailed message left for pt on identifiable voicemail Ninoska Hinson MA Please have her complete fasting bloodwork and urine, has been over a year, we got out of sync with last appointment by my doing. Refill on 12/20/23 COMPLETE BLOOD COUNT AND DIFFERENTIAL COMPREHENSIVE METABOLIC PANEL HEMOGLOBIN A1C LIPID PANEL BASIC The following approved medication requests have been transmitted electronically. Requested Prescriptions Signed Prescriptions Disp Refills celecoxib (CELEBREX) 200 mg capsule 90 capsule 3 Sig: Take 1 capsule by mouth once daily. Authorizing Provider: Lidya NATION metoprolol succinate ER (TOPROL XL) 50 mg 24 hr tablet 90 tablet 3 Sig: Take 1 tablet by mouth once daily. Authorizing Provider: Lidya NATION amLODIPine (NORVASC) 5 mg tablet 90 tablet 3 Sig: Take 1 tablet by mouth once daily. Authorizing Provider: Lidya NATION metFORMIN ER (GLUCOPHAGE XR) 500 mg 24 hr tablet 270 tablet 1 Sig: Take 3 tablets by mouth daily with breakfast. Authorizing Provider: Lidya NATION PA-C [facility]acy [facility] Patient has been identified by name and date of : Yes Patient aware RX will be sent to pharmacy. No need to notify patient. Patient phones for refill(s): Requested Prescriptions Pending Prescriptions Disp Refills celecoxib (CELEBREX) 200 mg capsule 90 capsule 3 Sig: Take 1 capsule by mouth once daily. metoprolol succinate ER (TOPROL XL) 50 mg 24 hr tablet 90 tablet 3 Sig: Take 1 tablet by mouth once daily. amLODIPine (NORVASC) 5 mg tablet 90 tablet 3 Sig: Take 1 tablet by mouth once daily. metFORMIN ER (GLUCOPHAGE XR) 500 mg 24 hr tablet 270 tablet 1 Sig: Take 3 tablets by mouth daily with breakfast. Date of last office visit : 10/24/2023 Date of next office visit : 04/27/2024 Last 2 Encounter Wt Readings: Date: Wt: 10/24/2023 68.9 kg (152 lb) 10/20/2023 68.5 kg (151 lb) Patient also needs One Touch Test Strips. Unable to pend from med list. Please advise. Eva Bahena documented in this encounter [facility] 12-20-2023 Telephone encounter Note Please have her complete fasting bloodwork and urine, has been over a year, we got out of sync with last appointment by my doing. Refill on 12/20/23 COMPLETE BLOOD COUNT AND DIFFERENTIAL COMPREHENSIVE METABOLIC PANEL HEMOGLOBIN A1C LIPID PANEL BASIC The following approved medication requests have been transmitted electronically. Requested Prescriptions Signed Prescriptions Disp Refills celecoxib (CELEBREX) 200 mg capsule 90 capsule 3 Sig: Take 1 capsule by mouth once daily. Authorizing Provider: Lidya NATION metoprolol succinate ER (TOPROL XL) 50 mg 24 hr tablet 90 tablet 3 Sig: Take 1 tablet by mouth once daily. Authorizing Provider: Lidya NATION amLODIPine (NORVASC) 5 mg tablet 90 tablet 3 Sig: Take 1 tablet by mouth once daily. Authorizing Provider: Lidya NATION metFORMIN ER (GLUCOPHAGE XR) 500 mg 24 hr tablet 270 tablet 1 Sig: Take 3 tablets by mouth daily with breakfast. Authorizing Provider: Lidya NATION PA-C [facility] 12-20-2023 Telephone encounter Note Pharmacy [facility] Patient has been identified by name and date of : Yes Patient aware RX will be sent to pharmacy. No need to notify patient. Patient phones for refill(s): Requested Prescriptions Pending Prescriptions Disp Refills celecoxib (CELEBREX) 200 mg capsule 90 capsule 3 Sig: Take 1 capsule by mouth once daily. metoprolol succinate ER (TOPROL XL) 50 mg 24 hr tablet 90 tablet 3 Sig: Take 1 tablet by mouth once daily. amLODIPine (NORVASC) 5 mg tablet 90 tablet 3 Sig: Take 1 tablet by mouth once daily. metFORMIN ER (GLUCOPHAGE XR) 500 mg 24 hr tablet 270 tablet 1 Sig: Take 3 tablets by mouth daily with breakfast. Date of last office visit : 10/24/2023 Date of next office visit : 04/27/2024 Last 2 Encounter Wt Readings: Date: Wt: 10/24/2023 68.9 kg (152 lb) 10/20/2023 68.5 kg (151 lb) Patient also needs One Touch Test Strips. Unable to pend from med list. Please advise. Eva Bahena [facility] 10-24-2023 Instructions Lidya Nation PA-C - 10/24/2023 3:12 PM EST Continue current medications If fever, worsening, call office as soon as possible. documented in this encounter [facility] 10-24-2023 History of Present illness Narrative 78 year old female with c/o f/u from [facility]: Not sure why she needed this appointment Is feeling better after starting prednisone 10/20/2023 presented to express care with the following from notes: Acute onset 2 weeks ago + coughing +wheezing +SOB Seen here 10/09/23 She tested +RSV Placed on Tessalon Perles She called into the office on 10/14/23 for worsening symptoms. Referred by PCP and Seen in ED 10/14/23 Chest xray negative at that time Sent home with steroids and albuterol inhaler She presents today Can't sleep at night + cough +wheezing +SOB with coughing Denies CP Denies hemoptysis. Denies dyspnea Rx doxycycline, Albuterol MDI, prednisone 40-0/ 9 days 10/14/2023 sent to [facility] ER Notes identify as above has been sick for approximately a week with low-grade fever, positive RSV through express care, on Tessalon and Coricidin for cough control. Noted increased wheezing over the prior few days, some chest pain only with cough. Past history of pneumonia and asthma. Vital signs 96.5 [id number]-[id number]/72-94% RA, recheck blood pressure 146/69. Exam was essentially normal except for bilateral wheezing, no respiratory labor. Chest x-ray showed no acute disease. Patient was given oral prednisone along with DuoNeb aerosol and then 2 albuterol treatments, heart rate accelerated into the 130s and when she was down back to around 110 was given a third albuterol treatment with a dose of Mucinex. On discharge patient's heart rate was down to 115, she was ambulating in the department and maintaining saturations. Repeat chest x-ray showed no acute disease. She was given prednisone 20 mg 2 tablets daily, #8/0 HISTORIES FAMILY HISTORY Problem Relation Age of Onset other (thyroid dis) Mother 2 bro, 1 sis other (Liver) Mother Heart Father aunts, uncles other (hyperchol) Son 2 bro, 2 sis other (cva) Sister Diabetes Brother uncles, cousins other (migraine) Other mgm PAST MEDICAL HISTORY Diagnosis Date COPD (chronic obstructive pulmonary disease) (HCC) Endometriosis Essential hypertension, benign Female bladder prolapse Myalgia and myositis, unspecified Other and unspecified hyperlipidemia Other forms of migraine Snoring Type II or unspecified type diabetes mellitus without mention of complication, not stated as uncontrolled PAST SURGICAL HISTORY Procedure Laterality Date APPENDECTOMY 1985 ARTHROSCOPY KNEE DIAGNOSTIC W/WO SYNOVIAL BX SPX Left 07/25/06 Arthroscopy, knee CHOLECYSTECTOMY 1985 Cholecystectomy COLONOSCOPY FLX DX W/COLLJ SPEC WHEN PFRMD 06/14/06 Repeat in COLONOSCOPY FLX DX W/COLLJ SPEC WHEN PFRMD 12/25/2017 Colonoscopy PAST SURGICAL HISTORY OF rotator cuff repair on R TOTAL ABDOMINAL HYSTERECT W/WO RMVL TUBE OVARY 1970' Hysterectomy, [facility] Social History Tobacco Use Smoking status: Never Smokeless tobacco: Never Vaping Use Vaping Use: Never used Substance Use Topics Alcohol use: No Drug use: No ACTIVE PROBLEM LIST Hyperlipidemia PAIN ABDOMEN( Right Upper Quadrant) COPD W BRONCHITIS,OBSTRUCTIVE OSTEOARTHRITIS LOCALIZED, PRIMARY( Lower Leg) MIGRAINE COMMON Myalgia and Myositis, Unspecified Other Malaise and Fatigue Insomnia, Unspecified Essential Hypertension SVT (supraventricular tachycardia) (HCC) Urinary Incontinence Seasonal Allergies Female Bladder Prolapse Diabetes Mellitus Without Complication (Hcc) Vitamin D Deficiency Atrophic Vaginitis Occult Blood Positive Stool Encounter for Screening for Malignant Neoplasm of Colon Other Chest Pain Anginal Equivalent (Hcc) Adrenal Adenoma, Left Current Outpatient Medications Medication Sig Dispense Refill predniSONE (DELTASONE) 20 mg tablet Take 1 tablet by mouth every afternoon. predniSONE (DELTASONE) 10 mg tablet Take 4 tabs daily for 3 days, then 2 tabs daily for 3 days, then 1 tab daily for 3 days with food. 21 tablet 0 doxycycline (VIBRA-TABS) 100 mg tablet Take 1 tablet by mouth two times a day for 10 days. 20 tablet 0 albuterol HFA (PROVENTIL HFA, VENTOLIN HFA) 90 mcg/actuation inhaler Inhale 2 Puffs as instructed every 4 hours as needed for wheezing/shortness of breath. 8 g 0 benzonatate (TESSALON PERLES) 100 mg capsule Take 1 capsule by mouth three times a day as needed for cough. (Patient not taking: Reported on 10/20/2023) 30 capsule 0 metFORMIN ER (GLUCOPHAGE XR) 500 mg 24 hr tablet Take 3 tablets by mouth daily with breakfast. 270 tablet 1 metoprolol succinate ER (TOPROL XL) 50 mg 24 hr tablet Take 1 tablet by mouth once daily. 90 tablet 3 celecoxib (CELEBREX) 200 mg capsule Take 1 capsule by mouth once daily. 90 capsule 3 amLODIPine (NORVASC) 5 mg tablet Take 1 tablet by mouth once daily. 90 tablet 3 pravastatin (PRAVACHOL) 10 mg tablet Take 1 tablet by mouth once daily. (Patient not taking: Reported on 08/29/2023) 30 tablet 5 MULTIVITAMIN ORAL Take by mouth. Cholecalciferol, Vitamin D3, 125 mcg (5,000 unit) cap Take 1 capsule by mouth once daily. 90 capsule 3 fluticasone (FLONASE) 50 mcg/actuation nasal spray Use 2 Sprays in each nostril once daily. Rinse mouth after use. 1 Bottle 11 blood sugar diagnostic ([employer] ULTRA TEST STRIP) test strip Test blood sugars once daily. DX: Ell.9 Insulin: No 50 Strip 5 Lancets lancets One Touch Ultra Blue: Test blood sugar(s) 1 times daily. Dx: Type 2 DM - Controlled E11.9 Insulin: No 50 Each 11 fluticasone-salmeterol (ADVAIR DISKUS) 250-50 mcg/dose dsdv Inhale 1 Puff as instructed twice daily. Rinse and gargle mouth after use with water. 60 Each 5 albuterol HFA (VENTOLIN HFA) 90 mcg/actuation inhaler Inhale 2 Puffs as instructed every 4 hours as needed for Wheezing/Shortness of Breath. 1 Inhaler 3 aspirin 81 mg chewable tablet Take 1 tablet by mouth once daily. No current facility-administered medications for this visit. DTaP,Tdap,Td Vaccine(1 - Tdap) due on 07/31/2005 RSV Vaccine(1 - 1-dose 60+ series) Never done Shingrix Vaccine(2 of 3) due on 09/06/2014 BP Controlled (<130/80) due on 03/30/2020 Urine Albumin:Creatinine Ratio due on 12/12/2022 LDL Cholesterol due on 12/12/2022 Diabetic Foot Exam due on 12/12/2022 Covid-19 Vaccine( season) due on 04/19/2023 HbA1C due on 04/24/2023 Advance Directive Discussion due on 08/19/2023 Depression Assessment Never done EXAM: BP 132/66 Pulse 89 Resp 20 Wt 68.9 kg (152 lb) SpO2 97% BMI 25.32 kg/m Pleasant older adult woman in no acute distress. Alert and oriented all spheres. Normal affect and cognition. Speech normal. No deficits to learning or comprehension. Skin warm, dry, pink to lips and nailbeds. Normal turgor. Respirations regular and unlabored. HEENT: NCAT. No scleral icterus or conjunctival injection. TM's clear. Nose and oropharynx free from injection or lesion. Oral membranes moist and pink. No cervical lymph nodes. Thyroid non-tender, no masses, or enlargement. Carotids pulses 2+/4+ without bruits. No JVD with HOB at 30 degrees. Chest is normal shape. Lungs are clear to all taylor with good air exchange through out. HRRR without murmur or gallop. No lifts, heaves, or rubs. Extrem: no clubbing or cyanosis. Edema: none. Extremities are warm and pink with prompt capillary refill. ASSESSMENT/PLAN: 1. Acute bronchitis with chronic obstructive pulmonary disease (COPD) ([facility]) (HCC) - ICD9: 491.22, ICD10: J44.0, J20.9 2. Hospital/ER discharge follow-up - ICD9: V67.59, ICD10: Z09 Had no improvement on doxycycline but has had improvement with prednisone tapers, will continue but was dispensed from ER. We discussed usual course of bronchitis which is aggravated by her underlying COPD May take sometimes 3 weeks or more for cough to subside though generally other symptoms should improve. Continue current course, if fever, worsening cough, increased congestion, chest discomfort or hemoptysis, patient is to notify as soon as possible. She agrees to do so. Some of this note may have been copied and pasted for the purpose of history context and comparison and has been adjusted for changes in prior data. Lidya Nation PA-C documented in this encounter [facility] 10-20-2023 History of Present illness Narrative This note was created using [employer]. Subjective Jackelin Diaz is a 78 year old female. 78 year old female with PMH COPD, HTN, SVT, migraines, DM and OA presents for illness. Acute onset 2 weeks ago + coughing +wheezing +SOB Seen here 10/09/23 She tested +RSV Placed on Tessalon Perles She called into the office on 10/14/23 for worsening symptoms. Referred by PCP and Seen in ED 10/14/23 Chest xray negative at that time Sent home with steroids and albuterol inhaler She presents today Can't sleep at night + cough +wheezing +SOB with coughing Denies CP Denies hemoptysis. Denies dyspnea The history is provided by the patient. No protocol officer was used. Cough This is a recurrent problem. The current episode started more than 1 week ago. The problem occurs constantly. The problem has been gradually worsening. Cough characteristics: productive at times, and then non productive at times. There has been no fever. Associated symptoms include ear pain, headaches, rhinorrhea, shortness of breath and wheezing. Pertinent negatives include no chest pain, no chills, no sweats, no weight loss, no ear congestion and no eye redness. Treatments tried: steroids, albuterol. The treatment provided no relief. She is not a smoker. Her past medical history is significant for COPD. Her past medical history does not include bronchitis, pneumonia, bronchiectasis, emphysema or asthma. PAST MEDICAL HISTORY Diagnosis Date COPD (chronic obstructive pulmonary disease) (HCC) Endometriosis Essential hypertension, benign Female bladder prolapse Myalgia and myositis, unspecified Other and unspecified hyperlipidemia Other forms of migraine Snoring Type II or unspecified type diabetes mellitus without mention of complication, not stated as uncontrolled PAST SURGICAL HISTORY Procedure Laterality Date APPENDECTOMY 1985 ARTHROSCOPY KNEE DIAGNOSTIC W/WO SYNOVIAL BX SPX Left 07/25/06 Arthroscopy, knee CHOLECYSTECTOMY 1985 Cholecystectomy COLONOSCOPY FLX DX W/COLLJ SPEC WHEN PFRMD 06/14/06 Repeat in COLONOSCOPY FLX DX W/COLLJ SPEC WHEN PFRMD 12/25/2017 Colonoscopy PAST SURGICAL HISTORY OF rotator cuff repair on R TOTAL ABDOMINAL HYSTERECT W/WO RMVL TUBE OVARY 1969' Hysterectomy, BRUNILDA ALLERGIES Lexapro [Escitalopram Oxalate], Lipitor [Atorvastatin Calcium], and Yzetkjj-Uro-Ukj Reductase Inhibitors MEDICATIONS predniSONE (DELTASONE) 20 mg tablet Take 1 tablet by mouth every afternoon. metFORMIN ER (GLUCOPHAGE XR) 500 mg 24 hr tablet Take 3 tablets by mouth daily with breakfast. metoprolol succinate ER (TOPROL XL) 50 mg 24 hr tablet Take 1 tablet by mouth once daily. celecoxib (CELEBREX) 200 mg capsule Take 1 capsule by mouth once daily. amLODIPine (NORVASC) 5 mg tablet Take 1 tablet by mouth once daily. MULTIVITAMIN ORAL Take by mouth. Cholecalciferol, Vitamin D3, 125 mcg (5,000 unit) cap Take 1 capsule by mouth once daily. fluticasone (FLONASE) 50 mcg/actuation nasal spray Use 2 Sprays in each nostril once daily. Rinse mouth after use. blood sugar diagnostic (ONETOUCH ULTRA TEST STRIP) test strip Test blood sugars once daily. DX: Ell.9 Insulin: No Lancets lancets One Touch Ultra Blue: Test blood sugar(s) 1 times daily. Dx: Type 2 DM - Controlled E11.9 Insulin: No fluticasone-salmeterol (ADVAIR DISKUS) 250-50 mcg/dose dsdv Inhale 1 Puff as instructed twice daily. Rinse and gargle mouth after use with water. albuterol HFA (VENTOLIN HFA) 90 mcg/actuation inhaler Inhale 2 Puffs as instructed every 4 hours as needed for Wheezing/Shortness of Breath. aspirin 81 mg chewable tablet Take 1 tablet by mouth once daily. predniSONE (DELTASONE) 10 mg tablet Take 4 tabs daily for 3 days, then 2 tabs daily for 3 days, then 1 tab daily for 3 days with food. doxycycline (VIBRA-TABS) 100 mg tablet Take 1 tablet by mouth two times a day for 10 days. albuterol HFA (PROVENTIL HFA, VENTOLIN HFA) 90 mcg/actuation inhaler Inhale 2 Puffs as instructed every 4 hours as needed for wheezing/shortness of breath. Inhalational Spacing Device 1 Device one time only for 1 dose. benzonatate (TESSALON PERLES) 100 mg capsule Take 1 capsule by mouth three times a day as needed for cough. (Patient not taking: Reported on 10/20/2023) pravastatin (PRAVACHOL) 10 mg tablet Take 1 tablet by mouth once daily. (Patient not taking: Reported on 08/29/2023) FAMILY HISTORY Problem Relation Age of Onset other (thyroid dis) Mother 2 bro, 1 sis other (Liver) Mother Heart Father aunts, uncles other (hyperchol) Son 2 bro, 2 sis other (cva) Sister Diabetes Brother uncles, cousins other (migraine) Other mgm Social History Tobacco Use Smoking status: Never Smokeless tobacco: Never Vaping Use Vaping Use: Never used Substance Use Topics Alcohol use: No Drug use: No Review of Systems Constitutional: Negative for chills, fatigue and weight loss. HENT: Positive for congestion, ear pain and rhinorrhea. Eyes: Negative for pain, discharge, redness and itching. Respiratory: Positive for cough, chest tightness, shortness of breath and wheezing. Cardiovascular: Negative for chest pain. Gastrointestinal: Negative for abdominal pain, diarrhea, nausea and vomiting. Musculoskeletal: Negative for back pain. Skin: Negative for color change, pallor, rash and wound. Allergic/Immunologic: Negative for environmental allergies, food allergies and immunocompromised state. Neurological: Positive for headaches. Hematological: Negative for adenopathy. Does not bruise/bleed easily. Psychiatric/Behavioral: Negative for agitation and behavioral problems. Objective BP 165/79 Pulse 107 Temp 37.3 C (99.1 F) Resp 20 Wt 68.5 kg (151 lb) SpO2 94% BMI 25.16 kg/m Physical Exam Vitals and nursing note reviewed. Constitutional: General: She is not in acute distress. Appearance: Normal appearance. She is normal weight. She is not ill-appearing, toxic-appearing or diaphoretic. Comments: Elderly, but non toxic HENT: Head: Normocephalic and atraumatic. Right Ear: Ear canal and external ear normal. Left Ear: Ear canal and external ear normal. Nose: Nose normal. No congestion or rhinorrhea. Mouth/Throat: Mouth: Mucous membranes are moist. Pharynx: No oropharyngeal exudate or posterior oropharyngeal erythema. Eyes: General: Right eye: No discharge. Left eye: No discharge. Extraocular Movements: Extraocular movements intact. Conjunctiva/sclera: Conjunctivae normal. Pupils: Pupils are equal, round, and reactive to light. Cardiovascular: Rate and Rhythm: Normal rate and regular rhythm. Pulses: Normal pulses. Heart sounds: Normal heart sounds. No murmur heard. No friction rub. Pulmonary: Effort: Pulmonary effort is normal. No respiratory distress. Breath sounds: No stridor. Wheezing and rhonchi present. No rales. Chest: Chest wall: No tenderness. Abdominal: General: Abdomen is flat. There is no distension. Palpations: Abdomen is soft. There is no mass. Tenderness: There is no abdominal tenderness. There is no right CVA tenderness, left CVA tenderness, guarding or rebound. Hernia: No hernia is present. Musculoskeletal: General: No swelling, tenderness, deformity or signs of injury. Normal range of motion. Cervical back: Normal range of motion and neck supple. No rigidity. Right lower leg: No edema. Left lower leg: No edema. Lymphadenopathy: Cervical: No cervical adenopathy. Skin: General: Skin is warm and dry. Capillary Refill: Capillary refill takes less than 2 seconds. Coloration: Skin is not jaundiced or pale. Findings: No bruising, erythema, lesion or rash. Neurological: General: No focal deficit present. Mental Status: She is alert and oriented to person, place, and time. Cranial Nerves: No cranial nerve deficit. Sensory: No sensory deficit. Motor: No weakness. Coordination: Coordination normal. Gait: Gait normal. Psychiatric: Mood and Affect: Mood normal. Behavior: Behavior normal. Thought Content: Thought content normal. Judgment: Judgment normal. Assessment and Plan ASSESSMENT/PLAN: 1. COPD with exacerbation (HCC) - ICD9: 491.21, ICD10: J44.1 Has been going for 2 weeks now Seen onb 10/09/23 +RSV confirmation Seen in ED 10/14/23 CXR negative Presents today still coughing +SOB +chest tightness No CXR available Hemodynamically stable Lungs with wheeze and rhonchi RX Doxy RX Prednisone taper RX Albuterol inhaler (was given mini albuterol through [facility]) Discussed red flags F/u with PCP, appt made for this Jody Bardales APRN.SAUMYA documented in this encounter [facility] 10-14-2023 Miscellaneous Notes Pt called and is notified of providers results and instructions. Pt voices understanding. Pt states she will be going to [facility] ER once her gets home to drive her. Demi Hernandez RN Agree with ER. Not appropriate for office appointment. Delay in care to come to office and not evaluate fully with advanced imaging and intravenous medications as needed. Protocol recommends go to ER and have someone drive you. Pt refuses and would rather see provider. Please call and advise. Care plan reviewed with patient. Patient voices understanding, but declines. Advised patient that if symptoms get worse to be evaluated in Urgent Care or ER. Reason for Disposition [1] MODERATE difficulty breathing (e.g., speaks in phrases, SOB even at rest, pulse 100-120) AND [2] still present when not coughing Answer Assessment - Initial Assessment Questions 1. ONSET: The cough began 10/07. 2. SEVERITY: The cough today is moderate 3. SPUTUM: The Pt denies sputum. 4. HEMOPTYSIS: Denies coughing up any blood. 5. DIFFICULTY BREATHING: - MILD: No SOB at rest, mild SOB with walking, speaks normally in sentences, can lie down, no retractions, pulse < 100. - MODERATE: SOB at rest, SOB with minimal exertion and prefers to sit, cannot lie down flat, speaks in phrases, mild retractions, audible wheezing, pulse 100-120. - SEVERE: Very SOB at rest, speaks in single words, struggling to breathe, sitting hunched forward, retractions, pulse > 120 Moderate, SOB at rest and with minimal exertion. States HR 90-101 at rest. Cannot lie flat down. States she can hear wheezing. 6. FEVER: Pt denies fever, states he has had low grade on 99 range. 7. CARDIAC HISTORY: Pt any history of heart disease such as heart attack, congestive heart failure. 8. LUNG HISTORY: Pt history of lung disease reports COPD. Pt denies pulmonary embolus, asthma, emphysema. 9. PE RISK FACTORS: Pt reports a history of blood clots a long time ago, in the elbow. 10. OTHER SYMPTOMS: Pt repots runny nose, wheezing, chest congestion, dizziness, elevated HR, headache, SOB at rest and exertion, body sore from coughing so much, coughing so much she starts to gag, and elevated BP. Pt denies chest pain 11. : Postmenopausal 12. TRAVEL: Denies traveling out of the country in the last month. Protocols used: Cough - Acute Cll-Jmdfjwdajv-UNRKJ-AH documented in this encounter [facility] 10-10-2023 Miscellaneous Notes Patient notified. Let her know she is positive for RSV, which is a respiratory virus. That means antibiotics will not help. We just try and improve symptoms. Fluids and rest. Call if symptoms worsen at all or if not better in one to two weeks documented in this encounter [facility] 10-09-2023 History of Present illness Narrative Patient presents with: Chest Congestion HPI: Patient presents today for office visit for follow up. Patient presents today complaining of increased cough. Duration: started on Saturday night. Cough is productive:YES. Fever: :No. Shortness of breath:chest feels heavy/tight. Sore throat :No. Ear Pain :a little to left ear. Chest Pain :sore. Previous treatments tried: claritin. No home covid test. has been ill for 2 1/2 weeks. MEDICATIONS: Current Outpatient Medications Medication Sig metFORMIN ER (GLUCOPHAGE XR) 500 mg 24 hr tablet Take 3 tablets by mouth daily with breakfast. metoprolol succinate ER (TOPROL XL) 50 mg 24 hr tablet Take 1 tablet by mouth once daily. celecoxib (CELEBREX) 200 mg capsule Take 1 capsule by mouth once daily. amLODIPine (NORVASC) 5 mg tablet Take 1 tablet by mouth once daily. pravastatin (PRAVACHOL) 10 mg tablet Take 1 tablet by mouth once daily. (Patient not taking: Reported on 08/29/2023) MULTIVITAMIN ORAL Take by mouth. Cholecalciferol, Vitamin D3, 125 mcg (5,000 unit) cap Take 1 capsule by mouth once daily. fluticasone (FLONASE) 50 mcg/actuation nasal spray Use 2 Sprays in each nostril once daily. Rinse mouth after use. blood sugar diagnostic (ONETOUCH ULTRA TEST STRIP) test strip Test blood sugars once daily. DX: Ell.9 Insulin: No Lancets lancets One Touch Ultra Blue: Test blood sugar(s) 1 times daily. Dx: Type 2 DM - Controlled E11.9 Insulin: No fluticasone-salmeterol (ADVAIR DISKUS) 250-50 mcg/dose dsdv Inhale 1 Puff as instructed twice daily. Rinse and gargle mouth after use with water. albuterol HFA (VENTOLIN HFA) 90 mcg/actuation inhaler Inhale 2 Puffs as instructed every 4 hours as needed for Wheezing/Shortness of Breath. aspirin 81 mg chewable tablet Take 1 tablet by mouth once daily. No current facility-administered medications for this visit. ALLERGIES: ALLERGIES Allergen Reactions Lexapro [Escitalopr* Anaphylaxis felt tightness in chest and increased blood pressure Lipitor [Atorvastat* Other: See Comments Muscle aches Xacezhs-Hwm-Dbz Red* Intolerance Leg cramps, myalgias PAST MEDICAL HISTORY Diagnosis Date COPD (chronic obstructive pulmonary disease) (HCC) Endometriosis Essential hypertension, benign Female bladder prolapse Myalgia and myositis, unspecified Other and unspecified hyperlipidemia Other forms of migraine Snoring Type II or unspecified type diabetes mellitus without mention of complication, not stated as uncontrolled PAST SURGICAL HISTORY Procedure Laterality Date APPENDECTOMY 1985 ARTHROSCOPY KNEE DIAGNOSTIC W/WO SYNOVIAL BX SPX Left 07/25/06 Arthroscopy, knee CHOLECYSTECTOMY 1985 Cholecystectomy COLONOSCOPY FLX DX W/COLLJ SPEC WHEN PFRMD 06/14/06 Repeat in COLONOSCOPY FLX DX W/COLLJ SPEC WHEN PFRMD 12/25/2017 Colonoscopy PAST SURGICAL HISTORY OF rotator cuff repair on R TOTAL ABDOMINAL HYSTERECT W/WO RMVL TUBE OVARY Hysterectomy, BRUNILDA FAMILY HISTORY Problem Relation Age of Onset other (thyroid dis) Mother 2 bro, 1 sis other (Liver) Mother Heart Father aunts, uncles other (hyperchol) Son 2 bro, 2 sis other (cva) Sister Diabetes Brother uncles, cousins other (migraine) Other mgm Social History Tobacco Use Smoking status: Never Smokeless tobacco: Never Vaping Use Vaping Use: Never used Substance Use Topics Alcohol use: No Drug use: No Reviewed current medications, allergies, past medical history, surgical history, family history and social history today. REVIEW OF SYSTEMS GI: No nausea, vomiting, or diarrhea All other reviewed and negative other than HPI. VITALS: BP 118/62 Pulse 88 Temp 37.3 C (99.2 F) (Tympanic) Wt 70.3 kg (155 lb) SpO2 96% BMI 25.82 kg/m Last 4 Encounter Wt Readings: Date: Wt: 08/29/2023 70.3 kg (155 lb) 10/22/2022 70.8 kg (156 lb) 07/21/2022 71.8 kg (158 lb 3.2 oz) 12/12/2021 72.1 kg (159 lb) PHYSICAL EXAMINATION: General appearance: Well appearing, alert, in no acute distress, well-hydrated, well nourished. Skin: Skin color, texture, turgor normal, no suspicious rashes or lesions Head: Normocephalic, no masses, lesions, tenderness or abnormalities Eyes: Anicteric sclera. Pupils are equally round and reactive to light. Extraocular movements are intact. Ears: External ears normal, canals clear Nose/Sinuses: Nares normal, septum midline, mucosa normal, no drainage or sinus tenderness Oropharynx: Lips, mucosa, and tongue normal, teeth and gums normal, oropharynx normal Neck: Negative findings: no adenopathy Lungs: Lungs clear to auscultation. No wheezing, rhonchi, rales Heart: RRR without murmur, gallop, or rubs. No ectopy Abdomen: Normal abdominal exam, Abdomen soft, non-tender. Bowel sounds normal. No masses, organomegaly ASSESSMENT/PLAN: 1. URI, acute - ICD9: 465.9, ICD10: J06.9 Discussed risks and benefits of new medication with the patient. Advised them to call if any side effects or questions. Red flags for re-assessment reviewed with patient in detail. Call if symptoms worsen at all or if not better in one to two weeks Reviewed diagnosis and treatment options in detail. Questions were answered. Patient expressed understanding of treatment plan. - COVID & INFLUENZA A/B & RSV NAAT, ROUTINE - BENZONATATE 100 MG CAPSULE Sukumar Ames MD documented in this encounter [facility] 04-25-2023 Miscellaneous Notes Patient reports her is home now and will take her to ER to find out why she has been having CP and dizziness off/on for 2 mths. Called and left a message to see if Pt had gone to the ER. Asked Pt to call back with and update. Demi Hernandez RN Called prior to PCPs message and let Pt know she was supposed to f/u with Cardiology 6-8 weeks after she had seen them a year ago. Pt was going to call Cardiology and ask their opinion. Pt called and is notified of providers message and instructions. Pt voices understanding, and states her doesn't get home for an hour and a half. Pt was told to call Cardiology and let them know what was going on. Demi Hernandez, RN Heart cath 5 years ago, should follow protocol and go to ER please. We can't negotiate with chest pain Thanks, Bryan Nation PA-C Protocol recommends go to ER now. Pt styates she saw Dr Self 1 1/2 years ago and they couldn't find a reason for the chest pain, but they said to come back if it got worse. Pt had said it had become more frequent I the last 2 months, but has not contacted them. Pt states she will think it over at home and wait until her gets there. Care plan reviewed with patient. Patient voices understanding. Advised patient that if symptoms get worse to call 911. Reason for Disposition [1] Chest pain (or angina) comes and goes AND [2] is happening more often (increasing in frequency) or getting worse (increasing in severity) (Exception: chest pains that last only a few seconds) Answer Assessment - Initial Assessment Questions 1. DESCRIPTION: Described dizziness as head feels light but the rest of her body feels heavy. 2. LIGHTHEADED: Feels lightheaded somewhat faint like she would if she didn't sit down, woozy, weak upon standing, like everything is in slow mothin. 3. VERTIGO: Denies the room is spinning or tilting. 4. SEVERITY: - MILD: Feels slightly dizzy, but walking normally. - MODERATE: Feels unsteady when walking, but not falling; interferes with normal activities (e.g., school, work). - SEVERE: Unable to walk without falling, or requires assistance to walk without falling; feels like passing out now. She can walk, but feels like she will faint if she doesn't get somewhere to sit or hold on to. States she hasn't fainted, but afraid she will fall. 5. ONSET: The dizziness began 6-8 months, but is becoming more frequent. 6. AGGRAVATING FACTORS: Standing makes it worse. 7. HEART RATE: 64 8. CAUSE: Unsure. 9. RECURRENT SYMPTOM: last night 1030-11 pm when getting up from couch to go to shower, she sat down until it passed. 10. OTHER SYMPTOMS: Pt denies fever, vomiting, diarrhea, and bleeding. Pt reports left chest pain in the the breast area, not under it. Sharp and intermittent pain /10. States the breast pain has been going on 2 months, just comes and goes, but doesn't match up with the dizziness but she had it yesterday when laying down. 11. : Postmenopausal Answer Assessment - Initial Assessment Questions 1. LOCATION: It hurts in the left breast, not underneath. 2. RADIATION: The pain goes to the jaw/ear and L shoulder sometimes. 3. ONSET: Pt reports she had chest pain yesterday for 3-4 min. 4. PATTERN The pain comes and goes and doesn't get worse with exertion. 5. DURATION: 3-4 min 6. SEVERITY: - MILD (1-3): doesn't interfere with normal activities - MODERATE (4-7): interferes with normal activities or awakens from sleep - SEVERE (8-10): excruciating pain, unable to do any normal activities Pt rates the pain 4/10, states it has woken her out of sleep before, but she can still do activities. 7. CARDIAC RISK FACTORS: Pt reports angina, diabetes, high blood pressure, high cholesterol, and strong family history of heart disease (father had heart attack). 8. PULMONARY RISK FACTORS: Pt denies blood clots in lung, asthma, emphysema, and control pills. 9. CAUSE: Unsure 10. OTHER SYMPTOMS: Pt reports dizziness. Pt denies nausea, vomiting, sweating, fever, difficulty breathing, and cough. 11. : Postmenopausal Protocols used: Dizziness - Ulxjgslpwwtozdr-KQJHK-EP, Chest Ijol-WRACI-JC documented in this encounter [facility] 04-25-2023 Discharge summary Note Date/Time April 25, 2023 5:20pm [facility] Medical Records Department [address] [place] [address] Emergency Department Summary 04/25/23 MR#: [id number] Acct: [id number] Name: JACKELIN DIAZ Rep #:[id number] : 1945 78 From: Huy Montiel MD PCP: RAUL Travis Status:REG E R Location: ED HPI History of Present Illness Chief Complaint: Dizziness Informant: patient Narrative Narrative: Presents with episodes of chest pain and mild dizziness. She contacted her private physician who referred her to the emergency department for work-up. Sheis actually not having either 1 of these symptoms right now. Patient states that for 2 or 3 months she has been getting episodes of chest pain. She defines a very small area in the upper left breast. She states it feels more like breast pain on the surface. She does not get nausea vomiting diaphoresis lightheadedness or shortness of breath with this. She states that usually lasts a minute or 2. She will get it anywhere 1-3 or 4 times a day. Nothing brings it on and nothing makes it better. Sometimes it sore to press but not always. She has not noted swelling. She feels perfectly fine when its there except for localized discomfort. She does not have a history of heart disease. Her father had heart disease but not till his 90s. She is a non-smoker. She is on metoprolol and amlodipine. She states that this is for diabetes and but her record does list blood pressure. She does not take anything for high cholesterol. She is not having symptoms now. She also states that for several months or more she gets mildly lightheaded. This always occurs after she has been sitting for a while. She gets up. She walks about 6 or 8 steps and then feels lightheaded for a few moments. She willusually stop and hold onto something and then continue on and she is fine. No numbness tingling. No headaches. She has never fallen or passed out. Its pretty consistent with the symptoms. [facility] Medical History (Updated 04/25/23 @ 19:[address] Huy Montiel MD) Asthma Essential (primary) hypertension Fibromyalgia Hyperlipidemia Lightheaded Palpitations Snoring SVT (supraventricular tachycardia) Thoracic osteoarthritis Type 2 diabetes mellitus Home Medications albuterol sulfate 90 mcg/actuation aerosol inhaler 2 puff inhalation Q4H PRN Shortness Of Breath 10/28/20 [History Last Taken Unknown] amlodipine 5 mg tablet 5 mg PO DAILY 10/28/20 [History Last Taken Unknown] celecoxib 200 mg capsule (Celebrex) 200 mg PO DAILY 10/28/20 [History Last Taken Unknown] metformin 500 mg 24 hr tablet,extended release 1,500 mg PO DAILY DM 10/28/20 [History Last Taken Unknown] multivitamin with minerals (Hair,Skin and Nails tablet) 1 tab PO DAILY 11/02/20 [History Last Taken Unknown] metoprolol succinate 50 mg tablet,extended release 24 hr 50 mg PO BID #90 tabs 04/17/22 [Rx Last Taken Unknown] Allergy/AdvReac Type Severity Reaction Status Date / Time escitalopram [From Lexapro] Allergy Severe Anaphylaxis Verified 04/25/23 14:57 Ikznnis-WRL-MjM Reductase AdvReac Severe Leg pain Verified 04/25/23 14:57 Inhibitor Family History Mother Thyroid disorder Liver disease Father CAD (coronary artery disease) Son Hyperlipidemia Brother Thyroid disorder Sister Thyroid disorder Surgical History History of appendectomy History of arthroscopic knee surgery History of cholecystectomy History of colonoscopy History of left heart catheterization (04/24/18) History of rotator cuff surgery History of total abdominal hysterectomy Social History Smoking Status: Never smoker ROS ROS ED ROS Narrative A complete review of systems was performed and is negative except as documented in the history of present illness. Some specific details below. Constitutional: No recent fevers or chills. No malaise. Although she has the symptoms intermittently she feels fine. She carries on normal activities without difficulty. EYE: No discharge, visual complaints, or pain. She has never had visual field cut or graying of her vision. ENT: No difficulty swallowing. No swelling. No pain. No reflux symptoms. CV: See history of present illness. Respiratory: No cough or pulmonary symptoms. Not short of breath. GI: No abdominal pain. No nausea vomiting diarrhea. No blood in stool. : No frequency dysuria or hematuria. Musculoskeletal: No recent trauma. No pains. No swelling. Skin: No rash. Nondiaphoretic. Neuro: No weakness or numbness. Endocrine: No polyuria or polydipsia. EXAM Physical Exam Narrative Exam Narrative: CONSTITUTIONAL: Patient is nontoxic in appearance. The patient looks comfortable. Work of breathing looks normal. She looks very comfortable sittingin bed. HEENT: No notable trauma. Mucous membranes are still moist. No sinus tenderness.No indication of pain with swallowing. EYES: No conjunctival injection. No proptosis. No icterus. NECK:No JVD. No stridor. CARDIOVASCULAR: Regular rate. Regular rhythm. No notable murmur. No JVD. Tones are not muffled. Pulses are normal and strong in all 4 extremities. She does have slight tenderness to the upper outer left breast but I feel no mass. No lymphadenopathy. She states that sort of like the pain she feels but not completely. But she defines an area that is very small probably the size of half dollar in the upper left chest where she gets the pain on occasion. She describes it as localized sharp and last for maybe a minute or 2. RESPIRATORY: No respiratory distress. Breathing is unlabored. No wheezes. No rhonchi. No rales. No pain with a deep breath. No chest wall tenderness. GASTROINTESTINAL: Not distended. Bowel sounds are normal. No tenderness. No guarding. No rebound. No palpable mass. No bruit is heard. GENITOURINARY: No tenderness over the bladder. No CVA tenderness. MUSCULOSKELETAL: Atraumatic. No peripheral edema. No cord. No tenderness along the deep venous system. No asymmetry. No distended veins. NEUROLOGICAL: Patient is alert and appropriate. No focal deficit noted. SKIN: No noted rashes. No diaphoresis. PSYCHIATRIC: Patient is calm. Mood is appropriate. Const Vital Signs: 04/25/23 14:56 04/25/23 17:34 04/25/23 19:05 Temperature 96.8 F L Temperature Source Temporal Pulse Rate 64 69 Respiratory Rate 15 15 Respiratory Effort Normal Non-Labored Blood Pressure 152/95 H 118/76 Blood Pressure Mean 114 90 Pulse Ox 96 Oxygen Delivery Method Room Air MDM MDM MDM Narrative Medical decision making narrative: Patient CBC is normal. Patient's electrolytes are overall normal other than a mild bump of her creatinine. She admits she has not really been drinking fluids today. This does not need IV fluids and can be managed at home. Patient's troponin is normal at 5. Patient's been having symptoms for months. They are intermittent. Her chest symptoms do not sound cardiac. I think this can be worked as an outpatient. She is comfortable and she would like to go home and follow-up. Lab Data Attestation: I reviewed the patient's lab results. Labs: Laboratory Results - last 24 hr 04/25/23 17:19 WBC 8.2 RBC 4.37 Hgb 13.1 Hct 41.0 MCV 93.8 MCH 30.0 MCHC 32.0 RDW Std Deviation 44.3 H RDW Coeff of Yissel 12.9 Plt Count 247 MPV 10.7 Immature Gran % (Auto) 0.400 Neut % (Auto) 58.8 Lymph % (Auto) 30.3 [place] % (Auto) 6.0 Eos % (Auto) 3.5 Baso % (Auto) 1.0 Absolute Neuts (auto) 4.8 Absolute Lymphs (auto) 2.48 Nucleated RBC % 0 Sodium 139 Potassium 4.4 Chloride 109 H Carbon Dioxide 27.0 Anion Gap 3 L BUN 16 Creatinine 1.12 H Estim Creat Clear Calc 38.45 Est GFR (MDRD) Af Amer 61 Est GFR (MDRD) Non-Af 50 L BUN/Creatinine Ratio 14.3 Glucose 104 Calcium 9.0 Troponin I High Sens 5 EKG Initial EKG: Comments: My independent interpretation the patient's EKG done for historyof chest pain shows a normal sinus rhythm with slight respiratory variation. Mild nonspecific ST changes but no acute ST elevation or depression is consistent with acute infarct or ischemia. Rate is overall controlled at 69. MA interval, QRS duration and QTc are all normal. Discharge Plan Triage Chief Complaint: Dizziness ED Provider: Huy Montiel Dx/Rx/DC Orders Clinical Impression: Episodic lightheadedness, History of chest pain Instructions: ED Dizziness, Uncertain Cause Prescriptions: No Action metformin 500 mg tablet,ER clarissa.retention 24 hr 1,500 mg PO DAILY celecoxib [Celebrex] 200 mg capsule 200 mg PO DAILY amlodipine 5 mg tablet 5 mg PO DAILY albuterol sulfate 90 mcg/actuation HFA aerosol inhaler 2 puff INHALATION Q4H PRN (Reason: Shortness Of Breath) multivitamin with minerals [Hair,Skin and Nails] Tablet 1 tab PO DAILY metoprolol succinate 50 mg tablet extended release 24 hr 50 mg PO BID Qty: 90 4RF Primary Care Provider: Lidya Nation Referrals: Lidya Nation, RAUL [Primary Care Provider] - 3-5 Days Disposition Disposition: Home, Self Care What to do if you have Problems For any increased pain, shortness of breath, bleeding, nausea or vomiting, chestpain, or any unexpected problems, contact your Primary Care Provider. Call [facility] ([phone]) or report to the closest Emergency Room. Call 911 if necessary. 04/25/231906 <Electronically signed by Huy Montiel MD> Cosigner Signature (if applicable): CC: RAUL Travis ~ Signed [facility] Work Phone: [phone] 498-143109-02-2023 History of Present illness Narrative* Dustin Gordillo APRN.CNP - 04/20/2023 2:50 PM EDT Nontoxic-appearing female presents urgent care chief complaint dizziness. Patient states dizziness has been present for the last month or so. Has worsened over the last few days. States dizziness is most prominent if she stands up after sitting for an extended period time. Patient states that vision becomes dark and she has to sit back down. States these episodes of dizziness lasts for a couple minutes. She also has had new onset chest discomfort. Describes it as sharp pain over her left side last week. Denies any other concerns. With patient's presenting symptoms I recommend the patient be seen in the ED for further evaluation care. Patient verbalized understanding agrees plan of care. Dustin Gordillo APRN.SAUMYA documented in this encounterFayette [facility]05-08-2023 Miscellaneous Notes* Telephone Encounter - Lisa Olson LPN - 12/24/2022 5:04 PM EDT YOBANI 3/6/23 NOV no upcoming appt * Telephone Encounter - Magalis Anderson Pss - 12/24/2022 4:40 PM EDT Patient has been identified by name and date of : Yes Requested Prescriptions Pending Prescriptions Disp Refills metoprolol succinate ER (TOPROL XL) 50 mg 24 hr tablet 90 tablet 3 Sig: Take 1 tablet by mouth once daily. celecoxib (CELEBREX) 200 mg capsule 90 capsule 3 Sig: Take 1 capsule by mouth once daily. amLODIPine (NORVASC) 5 mg tablet 90 tablet 3 Sig: Take 1 tablet by mouth once daily. RX INSTRUCTIONS: Patient aware RX will be sent to pharmacy. No need to notify patient. Magalis Anderson Pss documented in this encounterFayette County [facility] Hospital04-21-2023 Miscellaneous Notes* Telephone Encounter - Lisa Olson LPN - 12/07/2022 8:22 AM EDT Faxed. Lisa Olson LPN * Telephone Encounter - Lidya Nation PA-C - 12/07/2022 5:01 AM EDT Please fax to [facility] Telephone on 10/25/22 NADIA SCREENING W Bryan Aleman PA-C * Telephone Encounter - Hannah Anderson LPN - 10/25/2022 11:46 AM EST Pt called back and has apt with Dr. Neumann for 11/14/22 at 1 pm. Referral and supporting information faxed to Dr. Neumann. Done. Pt asking for mammogram orders also be faxed to [facility]. Please approve and fax orders. Hannah Anderson LPN * Telephone Encounter - Katerina Canseco Ma - 10/25/2022 9:28 AM EST Spoke to patient who is aware of all results. Patient advised diarrhea is same not gotten any better and still has pressure. Flank pain has gotten worse. Patient will call to make appointment with Dr. Nel Canseco Ma * Telephone Encounter - Lidya Nation PA-C - 10/25/2022 6:46 AM EST Please advise urine culture is positive for E. coli. Prescription for Macrobid sent in. Push fluids. If fever, vomiting, any severe abdominal pain patient is to go to the emergency department. lab work all looks pretty good, blood sugar is slightly elevated but I do not think she wasfasting. Creatinine michael just a tiny bit but I am not concerned about it as I think that was related to fluid status. Hemoglobin A1c in good range. Screens for celiac disease and inflammatory markers were negative. Blood count was normal. Please update status with diarrhea The following approved medication requests have been transmitted electronically. Requested Prescriptions Signed Prescriptions Disp Refills nitrofurantoin monohydrate and macrocrystal (MACROBID) 100 mg capsule 14 capsule 0 Sig: Take 1 capsule by mouth twice daily with meals for 7 days. Authorizing Provider: Lidya NATION PA-C documented in this encounterFayette County [facility] Hospital03-06-2023 Instructions* Patient Instructions* Lidya Nation PA-C - 10/22/2022 10:51 AM EST [place] services: Dr. Loretta Neumann uro-ladle cleaner documented in this encounterFayette County [facility] Hospital03-06-2023 History of Present illness Narrative* Lidya Nation PA-C - 10/22/2022 10:21 AM EST 77 year old female with c/o diarrhea back with a vengeance. Doesn't want to go anywhere. Walking across to kitchen in the morning and has terrible sense of immediacy and pressure. Every bite in results in diarrhea. No normal stools. Giles brown color, slimy. No black, tarry, bloody, oil droplets or steatorrhea. Tried fiber supplements Has to wear a pad everywhere. Some pain in LLQ: like a giant cramp that just stays there. Squeezing, no sharp. Went of all vitamins and arthritis medications Not losing weight. Appetite normal No nausea or vomiting. No heart burn or acid reflux. Has a hemorrhoid- using Prep H. Notes bad odor to urine- like fish. 12/25/[address] Caba: Non-bleeding external and internal hemorrhoids. No specimens collected. Heart still races intermittently Every few days some irregular rhythm, full feeling in chest, spazzy. Not pain. No SOB. No syncopal or dizzy sx. HISTORIES FAMILY HISTORY Problem Relation Age of Onset other (thyroid dis) Mother 2 bro, 1 sis other (Liver) Mother Heart Father aunts, uncles other (hyperchol) Son 2 bro, 2 sis other (cva) Sister Diabetes Brother uncles, cousins other (migraine) Other mgm PAST MEDICAL HISTORY Diagnosis Date COPD (chronic obstructive pulmonary disease) (HCC) Endometriosis Essential hypertension, benign Female bladder prolapse Myalgia and myositis, unspecified Other and unspecified hyperlipidemia Other forms of migraine Snoring Type II or unspecified type diabetes mellitus without mention of complication, not stated as uncontrolled PAST SURGICAL HISTORY Procedure Laterality Date APPENDECTOMY 1985 ARTHROSCOPY KNEE DIAGNOSTIC W/WO SYNOVIAL BX SPX Left 07/25/06 Arthroscopy, knee CHOLECYSTECTOMY 1985 Cholecystectomy COLONOSCOPY FLX DX W/COLLJ SPEC WHEN PFRMD 06/14/06 Repeat in COLONOSCOPY FLX DX W/COLLJ SPEC WHEN PFRMD 12/25/2017 Colonoscopy PAST SURGICAL HISTORY OF rotator cuff repair on R TOTAL ABDOMINAL HYSTERECT W/WO RMVL TUBE OVARY 1970's Hysterectomy, BRUNILDA Social History Tobacco Use Smoking status: Never Smokeless tobacco: Never Vaping Use Vaping Use: Never used Substance Use Topics Alcohol use: No Drug use: No ACTIVE PROBLEM LIST Hyperlipidemia PAIN ABDOMEN( Right Upper Quadrant) COPD W BRONCHITIS,OBSTRUCTIVE OSTEOARTHRITIS LOCALIZED, PRIMARY( Lower Leg) MIGRAINE COMMON Myalgia and Myositis, Unspecified Other Malaise and Fatigue Insomnia, Unspecified Essential Hypertension SVT (supraventricular tachycardia) (HCC) Urinary Incontinence Seasonal Allergies Female Bladder Prolapse Diabetes Mellitus Without Complication (Hcc) Vitamin D Deficiency Atrophic Vaginitis Occult Blood Positive Stool Encounter for Screening for Malignant Neoplasm of Colon Other Chest Pain Anginal Equivalent (Hcc) Adrenal Adenoma, Left Current Outpatient Medications Medication Sig Dispense Refill metFORMIN ER (GLUCOPHAGE XR) 500 mg 24 hr tablet Take 3 tablets by mouth daily with breakfast. 270 tablet 1 pravastatin (PRAVACHOL) 10 mg tablet Take 1 tablet by mouth once daily. 30 tablet 5 MULTIVITAMIN ORAL Take by mouth. metoprolol succinate ER (TOPROL XL) 50 mg 24 hr tablet Take 1 tablet by mouth once daily. 90 tablet3 amLODIPine (NORVASC) 5 mg tablet Take 1 tablet by mouth once daily. 90 tablet 3 celecoxib (CELEBREX) 200 mg capsule Take 1 capsule by mouth once daily. 90 capsule 3 Cholecalciferol, Vitamin D3, 125 mcg (5,000 unit) cap Take 1 capsule by mouth once daily. 90 capsule 3 fluticasone (FLONASE) 50 mcg/actuation nasal spray Use 2 Sprays in each nostril once daily. Rinse mouth after use. 1 Bottle 11 blood sugar diagnostic (ONETOUCH ULTRA TEST STRIP) test strip Test blood sugars once daily. DX: Ell.9 Insulin: No 50 Strip 5 Lancets lancets One Touch Ultra Blue: Test blood sugar(s) 1 times daily. Dx: Type 2 DM - [id number] Insulin: No 50 Each 11 fluticasone-salmeterol (ADVAIR DISKUS) 250-50 mcg/dose dsdv Inhale 1 Puff as instructed twice daily. Rinse and gargle mouth after use with water. 60 Each 5 albuterol HFA (VENTOLIN HFA) 90 mcg/actuation inhaler Inhale 2 Puffs as instructed every 4 hours asneeded for Wheezing/Shortness of Breath. 1 Inhaler 3 aspirin 81 mg chewable tablet Take 1 tablet by mouth once daily. No current facility-administered medications for this visit. BP CONTROLLED (<130/80) due on 03/30/2020 HBA1C due on 06/13/2022 ADVANCE DIRECTIVE DISCUSSION Never done EXAM: BP 124/62 Pulse 79 Temp 36.6 C (97.8 F) Resp 16 Wt 70.8 kg (156 lb) SpO2 96% BMI 25.99 kg/m Pleasant well appearing adult woman in usual pleasant spirits, smiling and talkative, in no acute distress. Alert and oriented all spheres. Normal affect and cognition. Speech normal. No deficits to learning or comprehension. Skin warm, dry, pink to lips and nailbeds. Normal turgor. Respirations regular and unlabored. HEENT: NCAT. No scleral icterus or conjunctival injection. TM's clear. Nose and oropharynx free from injection or lesion. Oral membranes moist and pink. No cervical lymph nodes. Thyroid non-tender, no masses, or enlargement. Carotids pulses 2+/4+ without bruits. No JVD with HOB at 30 degrees. Chest is normal shape. Lungs are clear to all taylor with good air exchange through out. HRRR without murmur or gallop. No lifts, heaves, or rubs. Abdomen: active bowel sounds throughout, soft, slight discomfort on palpation lower abdomen, no masses or organomegaly. No CVAT. Extrem: no clubbing or cyanosis. Edema: none. Extremities are warm and pink with prompt capillary refill. ASSESSMENT/PLAN: 1. Chronic diarrhea - ICD9: 787.91, ICD10: K52.9 (primary diagnosis) FH celiac: need to check. Will recheck additional for signs infection (doubt), pancreatic insufficiency. ? mi - CELIAC COMPREHENSIVE PANEL - URINALYSIS, DIPSTICK ONLY - HGB A1C - COMP METABOLIC PANEL - LIPASE BLD - FAT, FECAL QUAL - FECAL LACTOFERRIN/LEUKOCYTES - C. DIFFICILE PCR - CONSULT TO FEMALE UROLOGY/URO GYNECOLOGY - CBC + DIFF - C-REACTIVE PROTEIN (CRP) 2. Incomplete defecation - ICD9: 787.61, ICD10: R15.0 - CONSULT TO FEMALE UROLOGY/URO GYNECOLOGY 3. Incomplete bladder emptying - ICD9: 788.21, ICD10: R33.9 - CONSULT TO FEMALE UROLOGY/URO GYNECOLOGY - URINALYSIS, WITH MICROSCOPIC - URINE CULTURE - URINALYSIS, WITH MICROSCOPIC 4. Foul smelling urine - ICD9: 791.9, ICD10: R82.90 - URINALYSIS, WITH MICROSCOPIC - URINE CULTURE - URINALYSIS, WITH MICROSCOPIC Lidya Nation PA-C documented in this encounterFayette [facility]01-23-2023 Miscellaneous Notes* Telephone Encounter - Magalis Justin Bahena - 09/10/2022 1:35 PM EST Patient is calling in asking for a NEW one touch ultra 2; she states that her stopped working and needs a new prescription for this for the insurance to pay so that she aguilar not have to pay out of pocket. This prescription needs to go to [facility] in [place]. Once this has been sent to them please contact patient. Contact patient [phone]. Magalis Justin Bahena documented in this encounterFayette County [facility]12-03-2022 History of Present illness Narrative* Kate Abraham RT(R) - 07/21/2022 11:10 AM EST Radiology Service Progress Note PATIENT NAME: Jackelin Diaz DATE OF SERVICE: July 21, 2022 TIME: 11:11 AM PATIENT IDENTITY VERIFICATION COMPLETED USING TWO (2) IDENTIFIERS: Name and Date of confirmedby patient verbally. FALL SCREENING: Has the patient had 2 falls in the last year or 1 fall with injury or currently using an Ambulatory Assistive Device (Walker, Cane, Wheelchair, Crutches, etc.)? No PATIENT GENDER DATA: Female. status: : No status: NO. PATIENT RELEVANT IMPLANT DATA REVIEWED: Not Applicable RADIOLOGY DEPARTMENT: General X-ray: Exam(s) Completed: Rib X-Ray: Left PERIPHERAL IV DATA: Not applicable SIGNED BY: RT Emory(R) July 21, 2022 11:11 AM documented in this encounterFayette County [facility] Hospital12-03-2022 History of Present illness Narrative* Dimitrios Giron MD - 07/21/2022 10:57 AM EST Patient presents with: Pain: Pt reported intermittent pain scapula radiating to (LT) breast, facial tingling x3 days. HPI: Left chest pain: Duration: 3 days Location: left scapular back Character: constant burning and tingling Radiation: Wraps around to the left breast sometimes. Initially in the left face, jaw, and ear alsobut resolved. Aggravating: not worse with movement of activity. Worse lying on the left side. Relieving: none Pain relievers: celebrex, aspirin Associated: baseline palpitations, tingling in left arm and leg (says normal for a long time) Pertinent negatives: Denies cough, fever, injury, rash, shortness of breath In 2018, she underwent a left heart catheterization which demonstrated minimal disease noted in theleft anterior descending artery and right coronary artery. MEDICATIONS: metFORMIN ER (GLUCOPHAGE XR) 500 mg 24 hr tablet Take 3 tablets by mouth daily with breakfast. MULTIVITAMIN ORAL Take by mouth. metoprolol succinate ER (TOPROL XL) 50 mg 24 hr tablet Take 1 tablet by mouth once daily. amLODIPine (NORVASC) 5 mg tablet Take 1 tablet by mouth once daily. celecoxib (CELEBREX) 200 mg capsule Take 1 capsule by mouth once daily. fluticasone (FLONASE) 50 mcg/actuation nasal spray Use 2 Sprays in each nostril once daily. Rinse mouth after use. blood sugar diagnostic (ONETOUCH ULTRA TEST STRIP) test strip Test blood sugars once daily. DX: Ell.9 Insulin: No Lancets lancets One Touch Ultra Blue: Test blood sugar(s) 1 times daily. Dx: Type 2 DM - XokdoeyzjxO48.9 Insulin: No albuterol HFA (VENTOLIN HFA) 90 mcg/actuation inhaler Inhale 2 Puffs as instructed every 4 hours asneeded for Wheezing/Shortness of Breath. aspirin 81 mg chewable tablet Take 1 tablet by mouth once daily. pravastatin (PRAVACHOL) 10 mg tablet Take 1 tablet by mouth once daily. (Patient not taking: Reported on 07/21/2022) Cholecalciferol, Vitamin D3, 125 mcg (5,000 unit) cap Take 1 capsule by mouth once daily. (Patient not taking: Reported on 07/21/2022) fluticasone-salmeterol (ADVAIR DISKUS) 250-50 mcg/dose dsdv Inhale 1 Puff as instructed twice daily. Rinse and gargle mouth after use with water. (Patient not taking: Reported on 12/12/2021 ) ALLERGIES: ALLERGIES Allergen Reactions Lexapro [Escitalopr* Anaphylaxis felt tightness in chest and increased blood pressure Lipitor [Atorvastat* Other: See Comments Muscle aches Xtqkfci-[id number]-Xdj Red* Intolerance Leg cramps, myalgias VITALS: BP 130/78 Pulse 84 Temp 36.3 C (97.4 F) Resp 16 Wt 71.8 kg (158 lb 3.2 oz) SpO2 96% BMI26.36 kg/m PHYSICAL EXAM: GEN: pleasant, no acute distress, alert HEENT: PERRL, EOMI, MMM NECK: supple, no lymphadenopathy, no thyromegaly HEART: regular rate, regular rhythm, no murmurs LUNGS: clear to auscultation, no wheezes or crackles, no increased WOB CHEST: No midline spinous pain. Tender left ~eighth rib from spine to sternum. No rash. EXT: no clubbing, no cyanosis, no edema. Right fifth finger flexion. NEURO: Alert and oriented to person, place, and time. CN II-XII intact. DTR 2+/4. Normal strength. Normal gait. No tremor. ASSESSMENT/PLAN: 1. Rib pain on left side - ICD9: 786.50, ICD10: R07.81 - XR RIBS/CHEST 3V AP RIB/OBLS/CXR LEFT - negative. Atypical chest pain, symptoms are not consistent with cardiac ischemia due to nonexertional nature of symptom and is reproducible with palpation. possible etiology include musculoskeletal and radicular pain. Continue supportive care with Celebrex. Follow up with PCP if not improving. Follow up in the ER with shortness of breath, increasing chest pain, increasing palpitations, dizziness, or late onset fever. Dimitrios Giron MD documented in this encounterFayette County [facility] Hospital11-15-2022 Miscellaneous Notes* Telephone Encounter - Eva Alvarez [facility] - 07/03/2022 10:29 AM EST [facility] Patient has been identified by name and date of : Yes Patient aware RX will be sent to pharmacy. No need to notify patient. Patient phones for refill(s): Requested Prescriptions Pending Prescriptions Disp Refills metFORMIN ER (GLUCOPHAGE XR) 500 mg 24 hr tablet 270 tablet 1 Sig: Take 3 tablets by mouth daily with breakfast. Date of last office visit : 12/12/2021 Date of next office visit : Visit date not found Last 2 Encounter Wt Readings: Date: Wt: 12/12/2021 72.1 kg (159 lb) 09/02/2021 73 kg (161 lb) Please advise. Eva Alvarez Pss documented in this encounterFayette County Memorial Hospital07-26-2022 Miscellaneous Notes* Telephone Encounter - Dilcia Umanzor RN - 03/13/2022 9:51 AM EDT Patient contacted and given provider's message. Patient verbalized understanding and plans to go [facility] ER today. Dilcia Umanzor RN * Telephone Encounter - Valarie Landry APRN.CNP - 03/13/2022 9:34 AM EDT I am concerned that she is gong to need stat imaging of her head to r/o CVA/TIA. She may better be served by getting urgent evaluation in the ER. * Telephone Encounter - Dilcia Umanzor RN - 03/13/2022 9:18 AM EDT Patient triaged per provider instruction. See below. Patient has appt with Valarie Landry this morning. Please advise patient if other instruction is necessary. Thank you. Reason for Disposition [1] Brief (now gone) blurred vision AND [2] unexplained Answer Assessment - Initial Assessment Questions (See TE 03/13/22 as well) 1. DESCRIPTION: Patient reports yesterday evening she experienced mild headache with zig zag visionin her right eye lasting about 15 minutes then went away- never lost sight-this same thing happened a few months ago. States has not had migraines for many years until about 2-3 months ago 2. LOCATION: zig zag vision issue in one eye (right) only 3. SEVERITY: impaired right eye vision slightly due to the zig zag lines but never lost vision, left eye was fine 4. ONSET: yesterday evening 5. PATTERN: comes and goes 6. PAIN: mild headache only for few minutes 7. CONTACTS-GLASSES: Wears glasses 8. CAUSE: Patient not sure-history of migraines years ago 9. OTHER SYMPTOMS: Had confusion with this episode yesterday and states that's what concerned her-she states she knew what she wanted to say yesterday but could not put into words. Denies dizziness or weakness ojn one part of body. States felt very tired for a little while yesterday during episode.No changes in stress or environment. 10. : n/a Protocols used: VISION LOSS OR [id number] documented in this encounterFayette County Memorial Hospital04-26-2022 Instructions* Patient Instructions* M Jai Nation PA-C - 12/12/2021 10:18 AM EDT BONE MINERAL DENSITY PATIENT INSTRUCTIONS Bone mineral density testing measures the amount of calcium in certain parts of your bones. This information determines how strong your bones are. The test is used to detect osteoporosis, a disease in which the bone's mineral content and density are low, increasing a person's risk of fractures. Thelumbar spine (lower back) and the hip are the skeletal sites usually examined. For the test, remember that: 1. You cannot take this test if you are . 2. Eat a normal diet on the day of the test. 3. Take your medications as you normally would. 4. DO NOT take calcium supplements (such as Tums) for 24 hours before the test. 5. On the day of the test, leave valuables (jewelry or credit cards) at home. 6. The test should be performed prior to oral, rectal or IV contrast studies, or at least 7 days after any of these studies. For the test, you may be asked to wear a hospital gown. You will lie on your back, on a padded table, in a comfortable position. Generally, you can resume your usual activities immediately. [facility] History of Present illness Narrative* Lidya Nation PA-C - 12/12/2021 8:00 AM EDT 76 year old female with c/o Welcome to Medicare Annual wellness Jackelin Diaz is a 76 year old female who present today for INITIAL AWV I have reviewed the Risk Assessment filled out by the patient. PAST MEDICAL HISTORY Diagnosis Date COPD (chronic obstructive pulmonary disease) (HCC) Endometriosis Essential hypertension, benign Female bladder prolapse Myalgia and myositis, unspecified Other and unspecified hyperlipidemia Other forms of migraine Snoring Type II or unspecified type diabetes mellitus without mention of complication, not stated as uncontrolled PAST SURGICAL HISTORY Procedure Laterality Date APPENDECTOMY 1985 ARTHROSCOPY KNEE DIAGNOSTIC W/WO SYNOVIAL BX SPX Left 07/25/06 Arthroscopy, knee CHOLECYSTECTOMY 1985 Cholecystectomy COLONOSCOPY FLX DX W/COLLJ SPEC WHEN PFRMD 06/14/06 Repeat in COLONOSCOPY FLX DX W/COLLJ SPEC WHEN PFRMD 12/25/2017 Colonoscopy PAST SURGICAL HISTORY OF rotator cuff repair on R TOTAL ABDOMINAL HYSTERECT W/WO RMVL TUBE OVARY 1969' Hysterectomy, BRUNILDA FAMILY HISTORY Problem Relation Age of Onset other (thyroid dis) Mother 2 bro, 1 sis other (Liver) Mother Heart Father aunts, uncles other (hyperchol) Son 2 bro, 2 sis other (cva) Sister Diabetes Brother uncles, cousins other (migraine) Other mgm Current Outpatient Medications Medication Sig MULTIVITAMIN ORAL Take by mouth. metFORMIN ER (GLUCOPHAGE XR) 500 mg 24 hr tablet Take 3 tablets by mouth daily with breakfast. celecoxib (CELEBREX) 200 mg capsule Take 1 capsule by mouth once daily. Cholecalciferol, Vitamin D3, 125 mcg (5,000 unit) cap Take 1 capsule by mouth once daily. amLODIPine (NORVASC) 5 mg tablet Take 1 tablet by mouth once daily. fluticasone (FLONASE) 50 mcg/actuation nasal spray Use 2 Sprays in each nostril once daily. Rinse mouth after use. blood sugar diagnostic (ONETOUCH ULTRA TEST STRIP) test strip Test blood sugars once daily. DX: Ell.9 Insulin: No Lancets lancets One Touch Ultra Blue: Test blood sugar(s) 1 times daily. Dx: Type 2 DM - [id number] Insulin: No metoprolol succinate ER (TOPROL XL) 50 mg 24 hr tablet Take 1 tablet by mouth once daily. albuterol HFA (VENTOLIN HFA) 90 mcg/actuation inhaler Inhale 2 Puffs as instructed every 4 hours asneeded for Wheezing/Shortness of Breath. aspirin 81 mg chewable tablet Take 1 tablet by mouth once daily. colestipol (COLESTID) 1 gram tablet Take 2 tablets by mouth twice daily. (Patient not taking: Reported on 12/12/2021 ) nabumetone (RELAFEN) 500 mg tablet Take 1 tablet by mouth twice daily as needed. TAKE WITH FOOD (Patient not taking: Reported on 07/06/2021 ) fluticasone-salmeterol (ADVAIR DISKUS) 250-50 mcg/dose dsdv Inhale 1 Puff as instructed twice daily. Rinse and gargle mouth after use with water. (Patient not taking: Reported on 12/12/2021 ) No current facility-administered medications for this visit. Allergy: Lexapro [Escitalopram Oxalate], Lipitor [Atorvastatin Calcium], and Wlpizrs-Rbk-Fsr Reductase Inhibitors SOCIAL HISTORY: Patient is . She has never smoked. Jackelin reports her alcohol use as never. Jackelin works out regularly 3 times per week with stationary bicycling and light weights. She watches her diet for sodium, low fat and low cholesterol most of the time. Depression screen She in the past two weeks denies having felt down, depressed, hopeless or with little interest or pleasure in doing things. Functional Ability/Safety Screen 1. Was the patient's timed Up and Go test unsteady or longer than 30 seconds? No I have reviewed functional ability and level of safety. Hearing impairment: has noticed mild loss of hearing Activities of daily living: able to do whatever she needs Falls, risk: none Home safety: no issues 2. Does the patient need help with the phone, transportation, shopping, preparing meals, housework,laundry, medications or managing money? No 3. Does your home have rungs in the hallway, lack of grab bars in the bathroom, lack of handrails on the stairs or have poor lighting? Yes Hearing Evaluation: within normal limits Other factors as appropriate for medical and social history BP 128/70 Pulse 64 Resp 14 Ht 165 cm (5' 4.96) Wt 72.1 kg (159 lb) SpO2 96% BMI 26.49 kg/m BMI 26.49 kg/(m^2) Discussed the patient's BMI with her. The BMI is in the acceptable range. 76 year old female - Fall avoidance - Glaucoma screening - Mammogram recommended and ordered - BMD testing for osteoporosis or estrogen deficiency - Lipid panel YES reviewed current list of providers involved in patient care; discussed with patient Detection Cognitive Impairment Direct observation from the information obtained by patient and concerns from family or care takers. 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 Cardiovascular interval hx: 11/10/2020 echocardiogram 2D Doppler: LV size normal, LV SF normal, EF 60%. RV size and RV SF normal, left and right atrium normal size. No valvular heart disease, normal aortic root, normal pulmonaryartery size normal inferior vena cava, no pericardial effusion. 10/15/20 Zio monitor demonstrated sinus rhythm with 32 episodes of SVT, fastest 222 bpm x 6 beats, longest 130 x 16 beats: [facility] [place] Was hospitalized in 2018 with left upper chest pain 04/23/18 heart cath demonstrating no significant disease, <33% in LAD, RCA, EF 65%. 04/23/18 Stress Echo resting EF 65%, + chest pain with exercise with mid-lateral hypokinesis, final EF 70% Current meds: Amlodipine 5 mg once daily Metoprolol XL 50 mg daily Use of NTG: N/A Chest pain, arm, jaw pain, neck, or upper back pain suggestive of angina: No. SOB: No Dyspnea with exertion: Yes: with yard work, running sweeper, gets red in face, SOB orthopnea: No racing or irregular heartbeats: Yes, brief episode < 30 sec, no associated sx palpitations: Yes syncopal sx: No Unexplainable fatigue always tired Leg swelling: No Nausea: occasional diaphoresis: Yes: sudden episodes with profuse sweating, night or day Heartburn: No Claudication: No. Does have pain with arthritis Smoking: No Following Low cholesterol, high fiber diet? Yes If on statin: muscle aches? No If on statin: GI sx or diarrhea? No Additional history none. Diabetes Mellitus Type 2: Current medications: Metformin ER 3 tablets daily with breakfast Taking medication as directed consistently? Yes Medical Issues / Complications: hypertension and hyperlipidemia Checking blood sugars at home? Yes. 130-140s, occasional 100 Watching diet? Being careful. Goes to TOPS Physical Activity: Modest Hypoglycemic spells? No Any visual disturbance? No Chest pain? No New numbness, tingling or loss of sensation? No Any recent foot problems, sores or rashes? No Any recent or sudden weight loss? No Change in urination? No. If yes: Any recent illness? No Last eye exam: up to date. Last foot exam: today. HBA1C: Hemoglobin A1C (%) Date Value 02/07/2021 6.8 07/22/2020 6.7 ) CLast 2 Encounter Wt Readings: Date: Wt: 09/02/2021 73 kg (161 lb) 12/12/2020 72.9 kg (160 lb 12.8 oz) Hyperlipidemia: Current medication Colestipol 1 g 2 tablets by mouth twice daily: never started (for diarrhea0 Intolerance to statins several years ago Observing low cholesterol high fiber diet somewhat Muscle aches fibromyalgia Stomach complaints/ diarrhea No Last 2 Lipids: Component Latest Ref Rng & Units 07/22/2020 02/07/2021 Cholesterol, Total <200 mg/dL 227 (H) 240 (H) Triglyceride <150 mg/dL 221 (H) 262 (H) HDL Cholesterol >39 mg/dL 41 39 (L) LDL Cholesterol <100 mg/dL 142 (H) 149 (H) Non HDL Cholesterol <130 mg/dL 186 (H) 201 (H) Fasting Time hrs 12 12 VLDL Cholesterol <30 mg/dL 44 (H) 52 (H) TC:HDL Ratio <5.10 5.54 (H) 6.15 (H) LDL:HDL Ratio <2.54 3.46 (H) 3.82 (H) 03/21/2021 CBC, CMP [facility]: WBC 7.5 Hgb 13.7 HCT 42.4 PLT 279, RDW 12.9, indices WNL. ESR 13, CRP 2.90 GLU 125 BUN 15 CRE 0.9, EGFR 61 NA 141 K3.9 CL 108 CO2 27.0 AG 6 CPK 108 ALP 61 ALT 26 AST TSH 1.56, free T4 0.95 Vitamin D 25OH: 43.8 Vitamin D3 5000 units daily SOB: Fluticasone salmeterol 2 50 50 MCG per dose 1 puff twice daily Albuterol HFA 90 MCG per actuation 2 puffs every 4-6 hours prn Primary osteoarthtritis left knee Dr. Whelan: offered steroid injection, viscosupplementation HISTORIES FAMILY HISTORY Problem Relation Age of Onset other (thyroid dis) Mother 2 bro, 1 sis other (Liver) Mother Heart Father aunts, uncles other (hyperchol) Son 2 bro, 2 sis other (cva) Sister Diabetes Brother uncles, cousins other (migraine) Other mgm PAST MEDICAL HISTORY Diagnosis Date COPD (chronic obstructive pulmonary disease) (HCC) Endometriosis Essential hypertension, benign Female bladder prolapse Myalgia and myositis, unspecified Other and unspecified hyperlipidemia Other forms of migraine Snoring Type II or unspecified type diabetes mellitus without mention of complication, not stated as uncontrolled PAST SURGICAL HISTORY Procedure Laterality Date APPENDECTOMY 1985 COLONOSCOP W/ OR W/O [facility] SPEC 06/14/06 Repeat in COLONOSCOP W/ OR W/O [facility] SPEC 12/25/2017 Colonoscopy KNEE SCOPE,DIAGNOSTIC Left 07/25/06 Arthroscopy, knee PAST SURGICAL HISTORY OF rotator cuff repair on R REMOVAL GALLBLADDER 1985 Cholecystectomy TOTAL ABDOM HYSTERECTOMY 1970's Hysterectomy, BRUNILDA Social History Tobacco Use Smoking status: Never Smoker Smokeless tobacco: Never Used Vaping Use Vaping Use: Never used Substance Use Topics Alcohol use: No Drug use: No ACTIVE PROBLEM LIST Hyperlipidemia PAIN ABDOMEN( Right Upper Quadrant) COPD W BRONCHITIS,OBSTRUCTIVE OSTEOARTHRITIS LOCALIZED, PRIMARY( Lower Leg) MIGRAINE COMMON Myalgia and Myositis, Unspecified Other Malaise and Fatigue Insomnia, Unspecified Essential Hypertension SVT (supraventricular tachycardia) (HCC) Urinary Incontinence Seasonal Allergies Female Bladder Prolapse Diabetes Mellitus Without Complication (Hcc) Vitamin D Deficiency Atrophic Vaginitis Occult Blood Positive Stool Encounter for Screening for Malignant Neoplasm of Colon Other Chest Pain Anginal Equivalent (Hcc) Adrenal Adenoma, Left Current Outpatient Medications Medication Sig Dispense Refill metFORMIN ER (GLUCOPHAGE XR) 500 mg 24 hr tablet Take 3 tablets by mouth daily with breakfast. 270 tablet 1 celecoxib (CELEBREX) 200 mg capsule Take 1 capsule by mouth once daily. 90 capsule 1 colestipol (COLESTID) 1 gram tablet Take 2 tablets by mouth twice daily. 120 tablet 1 nabumetone (RELAFEN) 500 mg tablet Take 1 tablet by mouth twice daily as needed. TAKE WITH FOOD (Patient not taking: Reported on 07/06/2021 ) 60 tablet 0 Cholecalciferol, Vitamin D3, 125 mcg (5,000 unit) cap Take 1 capsule by mouth once daily. 90 capsule 3 amLODIPine (NORVASC) 5 mg tablet Take 1 tablet by mouth once daily. 90 tablet 3 fluticasone (FLONASE) 50 mcg/actuation nasal spray Use 2 Sprays in each nostril once daily. Rinse mouth after use. 1 Bottle 11 blood sugar diagnostic (ONETOUCH ULTRA TEST STRIP) test strip Test blood sugars once daily. DX: Ell.9 Insulin: No 50 Strip 5 Lancets lancets One Touch Ultra Blue: Test blood sugar(s) 1 times daily. Dx: Type 2 DM - [id number] Insulin: No 50 Each 11 metoprolol succinate ER (TOPROL XL) 50 mg 24 hr tablet Take 1 tablet by mouth once daily. 30 tablet2 fluticasone-salmeterol (ADVAIR DISKUS) 250-50 mcg/dose dsdv Inhale 1 Puff as instructed twice daily. Rinse and gargle mouth after use with water. 60 Each 5 albuterol HFA (VENTOLIN HFA) 90 mcg/actuation inhaler Inhale 2 Puffs as instructed every 4 hours asneeded for Wheezing/Shortness of Breath. 1 Inhaler 3 L. acidophilus/Bifid. animalis (DAILY PROBIOTIC ORAL) Take by mouth as directed. (Patient not taking: Reported on 07/06/2021 ) aspirin 81 mg chewable tablet Take 1 tablet by mouth once daily. No current facility-administered medications for this visit. DTAP,TDAP,TD(1 - Tdap) due on 07/31/2005 SHINGRIX VACCINE(2 of 3) due on 09/06/2014 DEPRESSION SCREENING due on 07/11/2019 BP CONTROLLED (<130/80) due on 03/30/2020 MAMMOGRAM due on 06/14/2021 HBA1C due on 08/09/2021 ADVANCE DIRECTIVE DISCUSSION Never done URINE ALBUMIN:CREATININE RATIO due on 09/12/2021 DIABETIC FOOT EXAM due on 09/12/2021 REVIEW OF SYSTEMS PAIN ASSESSMENT: chronic pain in bilateral but mostly right knee, OA, myalgias in mid back. taking Celebrex helps. GENERAL: No weight loss, malaise or fevers HEENT: Negative for frequent or significant headaches, No changes in hearing or vision, no nose bleeds or other nasal problems, hx migraines but not in a long time. 2 motnsh ago had aura with light and tuneel feeling like migraine but only mild headache and then had trouble getting words out and felt off in thinking. 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: Negative for abnormal vaginal bleeding, abnormal vaginal discharge or still sexually MUSCULOSKELETAL: Negative for joint pain or swelling, back pain or muscle pain and see HPI SKIN: Negative for lesions, rash, and itching PSYCH: Negative for sleep disturbance, mood disorder and recent psychosocial stressors HEMATOLOGY/LYMPHOLOGY: Negative for prolonged bleeding, bruising easily or swollen nodes ENDOCRINE: Negative for cold or heat intolerance, polyuria, polydipsia and goiter NEURO: as above EXAM: BP 128/70 Pulse 64 Resp 14 Ht 165 cm (5' 4.96) Wt 72.1 kg (159 lb) SpO2 96% BMI 26.49 kg/m Pleasant well appearing adult woman in no acute distress. Alert and oriented all spheres. Normal affect and cognition. Speech normal. No deficits to learning or comprehension. Skin warm, dry, pink to lips and nailbeds. Normal turgor. No significant lesions sparing breasts/ pelvis Respirations regular and unlabored. HEENT: NCAT. No scleral icterus or conjunctival injection. PERRLA. TM's clear. Nose and oropharynx free from injection or lesion. Oral membranes moist and pink. Has mild gingivitis right lower facialgum tooth #8. No cervical lymph nodes. Thyroid non-tender, no masses, or enlargement. Carotids pulses 2+/4+ without bruits. No JVD with HOB at 30 degrees. Chest is normal shape. Lungs are clear to all taylor with good air exchange through out. HRRR without murmur or gallop. No lifts, heaves, or rubs. Abdomen: active bowel sounds throughout, soft, nontender, no masses or organomegaly. No CVAT. Extrem: no clubbing, cyanosis, edema. Distal pulses 2+/4, prompt capillary refill. Feet:Shoes and socks removed, No deformities, ulcers, calluses, normal distal pulses and sensitive to 10 gm monofilament Back: normal curvature. Gait and balance normal. Sensation grossly intact. Negative findings: speech normal, mental status intact, cranial nerves 2-12 intact, muscle tone normal, DTRs 2/4+ and symmetric ASSESSMENT/PLAN: 1. Encounter for Medicare annual wellness exam - ICD9: V70.0, ICD10: Z00.00 (primary diagnosis) - Counseled on healthy diet and regular exercise - Calcium intake with supplements or by diet of 1000 mg/day for under 50, 1200- 1500 mg/day for 50+ - Mammogram ordered - exam recommended once yearly - Bone mineral density ordered - Follow up for annual exam in one year 2. SVT (supraventricular tachycardia) (HCC) - ICD9: 427.89, ICD10: I47.1 Stable, controlled sx 3. Anginal equivalent (HCC) - ICD9: 413.9, ICD10: I20.8 resolved - CBC + DIFF - COMP METABOLIC PANEL - LIPID PANEL BASIC 4. Left ventricular hypokinesis - ICD9: 429.89, ICD10: I51.89 No overt CHF sx 5. Essential hypertension - ICD9: 401.9, ICD10: I10 - good control - Continue current medication(s) - Recommended regular aerobic exercise. - Recommend home blood pressure monitoring, to bring results in on next visit - Goal of BP <130/80 - AMLODIPINE 5 MG TABLET 6. Hyperlipidemia, unspecified hyperlipidemia type - ICD9: 272.4, ICD10: E78.5 - good control - Continue current medication. - Encouraged following a low fat, low cholesterol diet. Discussed statin for 10 year risk CVE >30% Willing to retry: will check labs first. - CBC + DIFF - COMP METABOLIC PANEL - LIPID PANEL BASIC 7. Diabetes mellitus without complication (HCC) - ICD9: 250.00, ICD10: E11.9 Controlled. - Continue current medications - HGB A1C - ALBUMIN/CREAT RATIO RND UR 8. Vitamin D deficiency - ICD9: 268.9, ICD10: E55.9 - VITAMIN D 25 HYDROXY 9. Adjustment insomnia - ICD9: 307.41, ICD10: F51.02 stable 10. Arthritis of knee - ICD9: 716.96, ICD10: M17.10 Continue Celebrex: reviewed recs per Dr. Whelan- doesn't want to pursue yet. 11. SOB (shortness of breath) - ICD9: 786.05, ICD10: R06.02 Mild, not prohibiting activity Discussed options to work up- will wait. 12. Primary localized osteoarthrosis of left lower leg - ICD9: 715.16, ICD10: M17.12 - CELECOXIB 200 MG CAPSULE Lidya Nation PA-C [facility] History of Past illness Narrative* Problem Noted Date Resolved Date Skin tag 02/15/2011 02/05/2012 Rash 05/23/2010 02/05/2012 Left leg weakness 10/31/2009 02/05/2012 Unspecified transient cerebral ischemia 12/23/19 09 10/29/2016 DM w/o complication type II, uncontrolled 200702/05/2012 PAIN BACK, LOW 12/10/2007 02/05/2012 Other seborrheic keratosis 12/10/200702/04 Neoplasm of uncertain behavior of skin 8 12/10/2007 Major depressive disorder, recurrent episode, mo derate 05/28/2007 02/05/2012 PAIN FOOT 03/31/2007 02/05/2012 PAIN FLANK 04/09/2006 02/05/2012 Obesity, unspecified 08/09/2005 01/04/2006 Follow-up examination, following other surgery 0 12/21/2004 08/09/2005 Follow-up examination following surgery 08/15/20 04 08/09/2005 Rotator cuff (capsule) sprain 07/12/2004 Essential hypertension, benign 0 02/17/2008 Abdominal pain, right lower quadrant 05/23/2010 Unspecified constipation 012 Internal hemorrhoids without mention of complica tion 02/05/2012 documented as of this encounter (statuses as of 12/12/2021) [facility] of Past illness Narrative* Problem Noted Date Resolved Date Skin tag 02/15/2011 02/05/2012 Rash 05/23/2010 02/05/2012 Left leg weakness 10/31/2009 02/05/2012 Unspecified transient cerebral ischemia 12/23/19 09 10/29/2016 DM w/o complication type II, uncontrolled 200702/05/2012 PAIN BACK, LOW 12/10/2007 02/05/2012 Other seborrheic keratosis 12/10/200702/04 Neoplasm of uncertain behavior of skin 8 12/10/2007 Major depressive disorder, recurrent episode, mo derate 05/28/2007 02/05/2012 PAIN FOOT 03/31/2007 02/05/2012 PAIN FLANK 04/09/2006 02/05/2012 Obesity, unspecified 08/09/2005 01/04/2006 Follow-up examination, following other surgery 0 12/21/2004 08/09/2005 Follow-up examination following surgery 08/15/20 04 08/09/2005 Rotator cuff (capsule) sprain 07/12/2004 Essential hypertension, benign 0 02/17/2008 Abdominal pain, right lower quadrant 05/23/2010 Unspecified constipation 012 Internal hemorrhoids without mention of complica tion 02/05/2012 documented as of this encounter (statuses as of 03/13/2022) [facility] of Past illness Narrative* Problem Noted Date Resolved Date Skin tag 02/15/2011 02/05/2012 Rash 05/23/2010 02/05/2012 Left leg weakness 10/31/2009 02/05/2012 Unspecified transient cerebral ischemia 12/23/19 09 10/29/2016 DM w/o complication type II, uncontrolled 200702/05/2012 PAIN BACK, LOW 12/10/2007 02/05/2012 Other seborrheic keratosis 12/10/200702/04 Neoplasm of uncertain behavior of skin 8 12/10/2007 Major depressive disorder, recurrent episode, mo derate 05/28/2007 02/05/2012 PAIN FOOT 03/31/2007 02/05/2012 PAIN FLANK 04/09/2006 02/05/2012 Obesity, unspecified 08/09/2005 01/04/2006 Follow-up examination, following other surgery 0 12/21/2004 08/09/2005 Follow-up examination following surgery 08/15/20 04 08/09/2005 Rotator cuff (capsule) sprain 07/12/2004 Essential hypertension, benign 0 02/17/2008 Abdominal pain, right lower quadrant 05/23/2010 Unspecified constipation 012 Internal hemorrhoids without mention of complica tion 02/05/2012 documented as of this encounter (statuses as of 07/03/2022) [facility] of Past illness Narrative* Problem Noted Date Resolved Date Skin tag 02/15/2011 02/05/2012 Rash 05/23/2010 02/05/2012 Left leg weakness 10/31/2009 02/05/2012 Unspecified transient cerebral ischemia 12/23/19 09 10/29/2016 DM w/o complication type II, uncontrolled 200702/05/2012 PAIN BACK, LOW 12/10/2007 02/05/2012 Other seborrheic keratosis 12/10/200702/04 Neoplasm of uncertain behavior of skin 8 12/10/2007 Major depressive disorder, recurrent episode, mo derate 05/28/2007 02/05/2012 PAIN FOOT 03/31/2007 02/05/2012 PAIN FLANK 04/09/2006 02/05/2012 Obesity, unspecified 08/09/2005 01/04/2006 Follow-up examination, following other surgery 0 12/21/2004 08/09/2005 Follow-up examination following surgery 08/15/20 04 08/09/2005 Rotator cuff (capsule) sprain 07/12/2004 Essential hypertension, benign 0 02/17/2008 Abdominal pain, right lower quadrant 05/23/2010 Unspecified constipation 012 Internal hemorrhoids without mention of complica tion 02/05/2012 documented as of this encounter (statuses as of 07/21/2022) [facility] of Past illness Narrative* Problem Noted Date Resolved Date Skin tag 02/15/2011 02/05/2012 Rash 05/23/2010 02/05/2012 Left leg weakness 10/31/2009 02/05/2012 Unspecified transient cerebral ischemia 12/23/19 09 10/29/2016 DM w/o complication type II, uncontrolled 200702/05/2012 PAIN BACK, LOW 12/10/2007 02/05/2012 Other seborrheic keratosis 12/10/200702/04 Neoplasm of uncertain behavior of skin 8 12/10/2007 Major depressive disorder, recurrent episode, mo derate 05/28/2007 02/05/2012 PAIN FOOT 03/31/2007 02/05/2012 PAIN FLANK 04/09/2006 02/05/2012 Obesity, unspecified 08/09/2005 01/04/2006 Follow-up examination, following other surgery 0 12/21/2004 08/09/2005 Follow-up examination following surgery 08/15/20 04 08/09/2005 Rotator cuff (capsule) sprain 07/12/2004 Essential hypertension, benign 0 02/17/2008 Abdominal pain, right lower quadrant 05/23/2010 Unspecified constipation 012 Internal hemorrhoids without mention of complica tion 02/05/2012 documented as of this encounter (statuses as of 09/10/2022) [facility] illness Narrative* Problem Noted Date Resolved Date Skin tag 02/15/2011 02/05/2012 Rash 05/23/2010 02/05/2012 Left leg weakness 10/31/2009 02/05/2012 Unspecified transient cerebral ischemia 12/23/19 09 10/29/2016 DM w/o complication type II, uncontrolled 200702/05/2012 PAIN BACK, LOW 12/10/2007 02/05/2012 Other seborrheic keratosis 12/10/200702/04 Neoplasm of uncertain behavior of skin 8 12/10/2007 Major depressive disorder, recurrent episode, mo derate 05/28/2007 02/05/2012 PAIN FOOT 03/31/2007 02/05/2012 PAIN FLANK 04/09/2006 02/05/2012 Obesity, unspecified 08/09/2005 01/04/2006 Follow-up examination, following other surgery 0 12/21/2004 08/09/2005 Follow-up examination following surgery 08/15/20 04 08/09/2005 Rotator cuff (capsule) sprain 07/12/2004 Essential hypertension, benign 0 02/17/2008 Abdominal pain, right lower quadrant 05/23/2010 Unspecified constipation 012 Internal hemorrhoids without mention of complica tion 02/05/2012 documented as of this encounter (statuses as of 10/22/2022) [facility]2011 History of Past illness Narrative* Problem Noted Date Resolved Date Skin tag 02/15/2011 02/05/2012 Rash 05/23/2010 02/05/2012 Left leg weakness 10/31/2009 02/05/2012 Unspecified transient cerebral ischemia 12/23/19 09 10/29/2016 DM w/o complication type II, uncontrolled 200702/05/2012 PAIN BACK, LOW 12/10/2007 02/05/2012 Other seborrheic keratosis 12/10/200702/04 Neoplasm of uncertain behavior of skin 8 12/10/2007 Major depressive disorder, recurrent episode, mo derate 05/28/2007 02/05/2012 PAIN FOOT 03/31/2007 02/05/2012 PAIN FLANK 04/09/2006 02/05/2012 Obesity, unspecified 08/09/2005 01/04/2006 Follow-up examination, following other surgery 0 12/21/2004 08/09/2005 Follow-up examination following surgery 08/15/20 04 08/09/2005 Rotator cuff (capsule) sprain 07/12/2004 Essential hypertension, benign 0 02/17/2008 Abdominal pain, right lower quadrant 05/23/2010 Unspecified constipation 012 Internal hemorrhoids without mention of complica tion 02/05/2012 documented as of this encounter (statuses as of 12/07/2022) [facility] History of Past illness Narrative* Problem Noted Date Resolved Date Skin tag 02/15/2011 02/05/2012 Rash 05/23/2010 02/05/2012 Left leg weakness 10/31/2009 02/05/2012 Unspecified transient cerebral ischemia 12/23/19 09 10/29/2016 DM w/o complication type II, uncontrolled 200702/05/2012 PAIN BACK, LOW 12/10/2007 02/05/2012 Other seborrheic keratosis 12/10/200702/04 Neoplasm of uncertain behavior of skin 8 12/10/2007 Major depressive disorder, recurrent episode, mo derate 05/28/2007 02/05/2012 PAIN FOOT 03/31/2007 02/05/2012 PAIN FLANK 04/09/2006 02/05/2012 Obesity, unspecified 08/09/2005 01/04/2006 Follow-up examination, following other surgery 0 12/21/2004 08/09/2005 Follow-up examination following surgery 08/15/20 04 08/09/2005 Rotator cuff (capsule) sprain 07/12/2004 Essential hypertension, benign 0 02/17/2008 Abdominal pain, right lower quadrant 05/23/2010 Unspecified constipation 012 Internal hemorrhoids without mention of complica tion 02/05/2012 documented as of this encounter (statuses as of 12/19/2022) [facility] History of Past illness Narrative* Problem Noted Date Resolved Date Skin tag 02/15/2011 02/05/2012 Rash 05/23/2010 02/05/2012 Left leg weakness 10/31/2009 02/05/2012 Unspecified transient cerebral ischemia 12/23/19 09 10/29/2016 DM w/o complication type II, uncontrolled 200702/05/2012 PAIN BACK, LOW 12/10/2007 02/05/2012 Other seborrheic keratosis 12/10/200702/04 Neoplasm of uncertain behavior of skin 8 12/10/2007 Major depressive disorder, recurrent episode, mo derate 05/28/2007 02/05/2012 PAIN FOOT 03/31/2007 02/05/2012 PAIN FLANK 04/09/2006 02/05/2012 Obesity, unspecified 08/09/2005 01/04/2006 Follow-up examination, following other surgery 0 12/21/2004 08/09/2005 Follow-up examination following surgery 08/15/20 04 08/09/2005 Rotator cuff (capsule) sprain 07/12/2004 Essential hypertension, benign 0 02/17/2008 Abdominal pain, right lower quadrant 05/23/2010 Unspecified constipation 012 Internal hemorrhoids without mention of complica tion 02/05/2012 documented as of this encounter (statuses as of 12/26/2022) [facility] History of Past illness Narrative* Problem Noted Date Diagnosed Date Resolved Date Skin tag 02/15/2011 02/05/2012 Rash 05/23/2010 02/05/2012 Left leg weakness 10/31/2009 02/05/2012 Unspecified transient cerebral ischemia 12/22/2008 10/29/2016 DM w/o complication type II, uncontrolled 08/17/2008 02/05/2012 PAIN BACK, LOW 12/10/2007 02/05/2012 Other seborrheic keratosis 12/10/2007 0 02/05/2012 Neoplasm of uncertain behavior of skin 11/05/2007 12/10/2007 Major depressive disorder, r ecurrent episode, moderate 05/28/2007 02/05/2012 PAIN FOOT 03/31/2007 02/05/2012 PAIN FLANK 04/09/2006 02/05/2012 Obesity, unspecified 08/09/2005 006 Follow-up examination, follo wing other surgery 12/21/2004 08/09/2005 Follow-up examination following surgery 08/15/2004 08/09/2005 Rotator cuff (capsule) sprain 07/12/2004 02/05/2012 Essential hypertension, benign 02/17/2008 Abdominal pain, right lower quadrant 05/23/2010 Unspecified constipation Internal hemorrhoids without mention of complication 02/05/2012 documented as of this encounter (statuses as of 04/20/2023) [facility] History of Past illness Narrative* Problem Noted Date Diagnosed Date Resolved Date Skin tag 02/15/2011 02/05/2012 Rash 05/23/2010 02/05/2012 Left leg weakness 10/31/2009 02/05/2012 Unspecified transient cerebral ischemia 12/22/2008 10/29/2016 DM w/o complication type II, uncontrolled 08/17/2008 02/05/2012 PAIN BACK, LOW 12/10/2007 02/05/2012 Other seborrheic keratosis 12/10/2007 0 02/05/2012 Neoplasm of uncertain behavior of skin 11/05/2007 12/10/2007 Major depressive disorder, r ecurrent episode, moderate 05/28/2007 02/05/2012 PAIN FOOT 03/31/2007 02/05/2012 PAIN FLANK 04/09/2006 02/05/2012 Obesity, unspecified 08/09/2005 006 Follow-up examination, amna childs other surgery 12/21/2004 08/09/2005 Follow-up examination following surgery 08/15/2004 08/09/2005 Rotator cuff (capsule) sprain 07/12/2004 02/05/2012 Essential hypertension, benign 02/17/2008 Abdominal pain, right lower quadrant 05/23/2010 Unspecified constipation Internal hemorrhoids without mention of complication 02/05/2012 documented as of this encounter (statuses as of 04/25/2023) [facility] History of Past illness Narrative* Problem Noted Date Diagnosed Date Resolved Date Skin tag 02/15/2011 02/05/2012 Rash 05/23/2010 02/05/2012 Left leg weakness 10/31/2009 02/05/2012 Unspecified transient cerebral ischemia 12/22/2008 10/29/2016 DM w/o complication type II, uncontrolled 08/17/2008 02/05/2012 PAIN BACK, LOW 12/10/2007 02/05/2012 Other seborrheic keratosis 12/10/2007 0 02/05/2012 Neoplasm of uncertain behavior of skin 11/05/2007 12/10/2007 Major depressive disorder, r ecurrent episode, moderate 05/28/2007 02/05/2012 PAIN FOOT 03/31/2007 02/05/2012 PAIN FLANK 04/09/2006 02/05/2012 Obesity, unspecified 08/09/2005 006 Follow-up examination, amna childs other surgery 12/21/2004 08/09/2005 Follow-up examination following surgery 08/15/2004 08/09/2005 Rotator cuff (capsule) sprain 07/12/2004 02/05/2012 Essential hypertension, benign 02/17/2008 Abdominal pain, right lower quadrant 05/23/2010 Unspecified constipation Internal hemorrhoids without mention of complication 02/05/2012 documented as of this encounter (statuses as of 10/09/2023) [facility] History of Past illness Narrative* Problem Noted Date Diagnosed Date Resolved Date Skin tag 02/15/2011 02/05/2012 Rash 05/23/2010 02/05/2012 Left leg weakness 10/31/2009 02/05/2012 Unspecified transient cerebral ischemia 12/22/2008 10/29/2016 DM w/o complication type II, uncontrolled 08/17/2008 02/05/2012 PAIN BACK, LOW 12/10/2007 02/05/2012 Other seborrheic keratosis 12/10/2007 0 02/05/2012 Neoplasm of uncertain behavior of skin 11/05/2007 12/10/2007 Major depressive disorder, r ecurrent episode, moderate 05/28/2007 02/05/2012 PAIN FOOT 03/31/2007 02/05/2012 PAIN FLANK 04/09/2006 02/05/2012 Obesity, unspecified 08/09/2005 006 Follow-up examination, follo wing other surgery 12/21/2004 08/09/2005 Follow-up examination following surgery 08/15/2004 08/09/2005 Rotator cuff (capsule) sprain 07/12/2004 02/05/2012 Essential hypertension, benign 02/17/2008 Abdominal pain, right lower quadrant 05/23/2010 Unspecified constipation Internal hemorrhoids without mention of complication 02/05/2012 documented as of this encounter (statuses as of 10/10/2023) [facility] History of Past illness Narrative* Problem Noted Date Diagnosed Date Resolved Date Skin tag 02/15/2011 02/05/2012 Rash 05/23/2010 02/05/2012 Left leg weakness 10/31/2009 02/05/2012 Unspecified transient cerebral ischemia 12/22/2008 10/29/2016 DM w/o complication type II, uncontrolled 08/17/2008 02/05/2012 PAIN BACK, LOW 12/10/2007 02/05/2012 Other seborrheic keratosis 12/10/2007 0 02/05/2012 Neoplasm of uncertain behavior of skin 11/05/2007 12/10/2007 Major depressive disorder, r ecurrent episode, moderate 05/28/2007 02/05/2012 PAIN FOOT 03/31/2007 02/05/2012 PAIN FLANK 04/09/2006 02/05/2012 Obesity, unspecified 08/09/2005 006 Follow-up examination, amna childs other surgery 12/21/2004 08/09/2005 Follow-up examination following surgery 08/15/2004 08/09/2005 Rotator cuff (capsule) sprain 07/12/2004 02/05/2012 Essential hypertension, benign 02/17/2008 Abdominal pain, right lower quadrant 05/23/2010 Unspecified constipation Internal hemorrhoids without mention of complication 02/05/2012 documented as of this encounter (statuses as of 10/14/2023) [facility] History of Past illness Narrative* Problem Noted Date Diagnosed Date Resolved Date Skin tag 02/15/2011 02/05/2012 Rash 05/23/2010 02/05/2012 Left leg weakness 10/31/2009 02/05/2012 Unspecified transient cerebral ischemia 12/22/2008 10/29/2016 DM w/o complication type II, uncontrolled 08/17/2008 02/05/2012 PAIN BACK, LOW 12/10/2007 02/05/2012 Other seborrheic keratosis 12/10/2007 0 02/05/2012 Neoplasm of uncertain behavior of skin 11/05/2007 12/10/2007 Major depressive disorder, r ecurrent episode, moderate 05/28/2007 02/05/2012 PAIN FOOT 03/31/2007 02/05/2012 PAIN FLANK 04/09/2006 02/05/2012 Obesity, unspecified 08/09/2005 006 Follow-up examination, amna childs other surgery 12/21/2004 08/09/2005 Follow-up examination following surgery 08/15/2004 08/09/2005 Rotator cuff (capsule) sprain 07/12/2004 02/05/2012 Essential hypertension, benign 02/17/2008 Abdominal pain, right lower quadrant 05/23/2010 Unspecified constipation Internal hemorrhoids without mention of complication 02/05/2012 documented as of this encounter (statuses as of 10/20/2023) [facility] History of Past illness Narrative* Problem Noted Date Diagnosed Date Resolved Date Skin tag 02/15/2011 02/05/2012 Rash 05/23/2010 02/05/2012 Left leg weakness 10/31/2009 02/05/2012 Unspecified transient cerebral ischemia 12/22/2008 10/29/2016 DM w/o complication type II, uncontrolled 08/17/2008 02/05/2012 PAIN BACK, LOW 12/10/2007 02/05/2012 Other seborrheic keratosis 12/10/2007 0 02/05/2012 Neoplasm of uncertain behavior of skin 11/05/2007 12/10/2007 Major depressive disorder, r ecurrent episode, moderate 05/28/2007 02/05/2012 PAIN FOOT 03/31/2007 02/05/2012 PAIN FLANK 04/09/2006 02/05/2012 Obesity, unspecified 08/09/2005 006 Follow-up examination, follo wing other surgery 12/21/2004 08/09/2005 Follow-up examination following surgery 08/15/2004 08/09/2005 Rotator cuff (capsule) sprain 07/12/2004 02/05/2012 Essential hypertension, benign 02/17/2008 Abdominal pain, right lower quadrant 05/23/2010 Unspecified constipation Internal hemorrhoids without mention of complication 02/05/2012 documented as of this encounter (statuses as of 10/24/2023) [facility] Evaluation note* Diagnosis Encounter for Medicare annual wellness exam- Primary Routine general medical examination at a health care facility SVT (supraventricular tachycardia) (HCC) Other specified cardiac dysrhythmias Anginal equivalent (HCC) Left ventricular hypokinesis Essential hypertension Unspecified essential hypertension Hyperlipidemia, unspecified hyperlipidemia type Diabetes mellitus without complication (HCC) Type II or unspecified type diabetes mellitus without mention of complication, not stated as uncontrolled Vitamin D deficiency Unspecified vitamin D deficiency Adjustment insomnia Transient disorder of initiating or maintaining sleep Arthritis of knee Unspecified arthropathy, lower leg SOB (shortness of breath) Shortness of breath Primary localized osteoarthrosis of left lower leg Asymptomatic menopausal state Asymptomatic postmenopausal status (age-related) (natural) [facility] Diagnosis Onset Date Resolution Status Chest pain acute Lightheaded acute SVT (supraventricular tachycardia) acute Essential (primary) hypertension chronic Hyperlipidemia [facility] Work Phone: Evaluation note* Diagnosis Controlled type 2 diabetes mellitus without complication, without long-term current use of insulin (HCC) documented in this encounter [facility] note* Diagnosis Rib pain on left side- Primary Chest pain, unspecified documented in this encounter [facility] note* Diagnosis Chronic diarrhea- Primary Diarrhea Incomplete defecation Incomplete bladder emptying Foul smelling urine Other nonspecific finding on examination of urine documented in this encounter [facility] noteNo assessment information availableWKettering [facility]* Diagnosis Encounter for screening mammogram for malignant neoplasm of breast- Primary Other screening mammogram documented in this encounter [facility] note* Diagnosis Primary localized osteoarthrosis of left lower leg Essential hypertension Unspecified essential hypertension documented in this encounter [facility] note* Diagnosis Procedure not carried out- Primary Procedure not carried out for other reasons documented in this encounter [facility] note* Diagnosis URI, acute- Primary Acute upper respiratory infections of unspecified site documented in this encounter [facility] note* Diagnosis COPD with exacerbation (HCC)- Primary Obstructive chronic bronchitis with exacerbation documented in this encounter [facility] note* Diagnosis Acute bronchitis with chronic obstructive pulmonary disease (COPD) (HCC) (HCC)- Primary Obstructive chronic bronchitis with acute bronchitis Hospital discharge follow-up Other follow-up examination documented in this encounter [facility] note* Diagnosis Hyperlipidemia, mixed- Primary Mixed hyperlipidemia Primary localized osteoarthrosis of left lower leg Essential hypertension Unspecified essential hypertension Controlled type 2 diabetes mellitus without complication, without long-term current use of insulin (HCC) documented in this encounter [facility] note* Diagnosis Flank pain- Primary Abdominal pain, unspecified site Arthralgia, unspecified joint Diabetes mellitus without complication (HCC) Type II or unspecified type diabetes mellitus without mention of complication, not stated as uncontrolled documented in this encounter [facility] note* Diagnosis Flank pain- Primary Abdominal pain, unspecified site Screening for depression Encounter for screening examination for other mental health and behavioral disorders Essential hypertension Unspecified essential hypertension Diabetes mellitus without complication (HCC) Type II or unspecified type diabetes mellitus without mention of complication, not stated as uncontrolled Left lateral abdominal pain Abdominal pain, unspecified site Primary osteoarthritis of left knee Primary localized osteoarthrosis, lower leg documented in this encounter [facility] note* Diagnosis Rib pain on left side Chest pain, unspecified documented in this encounter [facility] note* Diagnosis Bacterial sinusitis- Primary Unspecified sinusitis (chronic) documented in this encounter [facility] note* Diagnosis Preop examination- Primary Preoperative examination, unspecified Abnormal EKG Nonspecific abnormal electrocardiogram (ECG) (EKG) Chronic pain of left knee Pain in joint, lower leg documented in this encounter [facility] note* Diagnosis Leukocytosis, unspecified type- Primary documented in this encounter [facility] note* Diagnosis Seasonal allergies- Primary Allergic rhinitis, cause unspecified Ear pain, left Otalgia, unspecified Cervical radiculopathy Brachial neuritis or radiculitis nos documented in this encounter [facility] note* Diagnosis Ear pain, left Otalgia, unspecified documented in this encounter [facility] note* Diagnosis Pure hypercholesterolemia- Primary Controlled type 2 diabetes mellitus without complication, without long-term current use of insulin (HCC) Diabetes mellitus without complication (HCC) Type II or unspecified type diabetes mellitus without mention of complication, not stated as uncontrolled SVT (supraventricular tachycardia) (HCC) Other specified cardiac dysrhythmias Essential hypertension Unspecified essential hypertension documented in this encounter [facility] note* Diagnosis Chronic obstructive pulmonary disease, unspecified COPD type (HCC)- Primary Essential hypertension Unspecified essential hypertension Primary localized osteoarthrosis of left lower leg SVT (supraventricular tachycardia) (HCC) Other specified cardiac dysrhythmias Controlled type 2 diabetes mellitus without complication, without long-term current use of insulin (HCC) Chronic bilateral low back pain with left-sided sciatica Diabetes mellitus without complication (HCC) Type II or unspecified type diabetes mellitus without mention of complication, not stated as uncontrolled Chronic bilateral low back pain with left-sided sciatica documented in this encounter [facility] note* Diagnosis Chronic bilateral low back pain with left-sided sciatica documented in this encounter [facility] note* Diagnosis Otalgia, left- Primary Acute nonintractable headache, unspecified headache type documented in this encounter [facility] note* Diagnosis Primary localized osteoarthrosis of left lower leg documented in this encounter [facility] note* Diagnosis Sore throat- Primary Acute pharyngitis Viral upper respiratory tract infection Acute upper respiratory infections of unspecified site documented in this encounter [facility] course Narrative No data available for this section [facility] Discharge instructions No data available for this section [facility] Progress note No data available for this section [facility] Reason for referral (narrative)* Diagnostic Procedure Only (Urgent) - Closed Specialty Diagnoses / Procedures Referred By Contac t Referred To Contact XR IMAGING Diagnoses Rib pain on left side Procedures XR RIBS/CHEST 3V AP RIB/OBLS/CXR LEFT RADEX RIBS UNI W/POSTEROANT CH MINIMUM 3 VIEWS Dimitrios Giron MD [address] [place] [address] Xr Imaging Referral ID Status Reason Start Date Expiration Date V isits Requested Visits Authorized [id number] Closed Auto-Generate d Referral 07/21/2022 08/20/2023 1 1 [facility] for referral (narrative)* Diagnostic Procedure Only (Routine) - Pending Review Specialty Diagnoses / Procedures Referred By Contac t Referred To Contact BR IMAG[facility] Diagnoses Encounter for screening mammogram for malignant neoplasm of breast Procedures NADIA SCREENING W SANTY SCREENING DIGITAL BREAST TOMOSYNTHESIS BI SCREENING MAMMOGRAPHY BI 2-VIEW BREAST INC CAD Lidya Nation PA-C [address] [place] [address] [facility] [address] [place] [address] Referral ID Status Reason Start Date Expiration Date Visits Requested Visits Authorized [id number] Pending Review Auto-Generat ed Referral 12/07/2022 11/24/2023 1 1 [facility] for referral (narrative)* Diagnostic Procedure Only (Urgent) - Closed Specialty Diagnoses / Procedures Referred By Contac t Referred To Contact XR IMAGING Diagnoses Rib pain on left side Procedures XR RIBS/CHEST 3V AP RIB/OBLS/CXR LEFT RADEX RIBS UNI W/POSTEROANT CH MINIMUM 3 VIEWS Dimitrios Giron MD [address] [place] [address] [place] [address] Referral ID Status Reason Start Date Expiration Date V isits Requested Visits Authorized [id number] Closed Auto-Generate d Referral 07/21/2022 08/20/2023 1 1 [facility] for referral (narrative)* Outpatient Procedure (Routine) - Authorized Specialty Diagnoses / Procedures Referred By Denae t Referred To Contact [facility] Diagnoses Abnormal EKG Procedures ECHO ECHO TTHRC R-T 2D W/WOM-MODE COMPL SPEC&COLR Valarie Latif APRN.CNP [address] [place] [address] [facility] [address] [place] [id number] Referral ID Status Reason Start Date Expiration Date Visits Requested Visits Authorized [id number] Authorized Auto-Generat ed Referral 06/10/2025 1 1 [facility] for referral (narrative)No reason for referral information availableWKettering Health [facility] Work Phone: Reason for visit Narrative* Diagnostic Procedure Only (Urgent) - Closed Specialty Diagnoses / Procedures Referred By Denae harrison Referred To Contact XR IMAGING Diagnoses Rib pain on left side Procedures XR RIBS/CHEST 3V AP RIB/OBLS/CXR LEFT RADEX RIBS UNI W/POSTEROANT CH MINIMUM 3 VIEWS Dimitrios Giron MD [address] [place] [address] [place] [address] Referral ID Status Reason Start Date Expiration Date V isits Requested Visits Authorized [id number] Closed Auto-Generate d Referral 07/21/2022 08/20/2023 1 1 [facility] for visit Narrative* Diagnostic Procedure Only (Urgent) - Closed Specialty Diagnoses / Procedures Referred By Denae harrison Referred To Contact XR IMAGING Diagnoses Chronic bilateral low back pain with left-sided sciatica Procedures XR LUMBAR GENERAL 3V AP/LAT/L5-S1 XR LUMBAR GENERAL 3V AP/LAT/L5-S1 RADEX SPINE LUMBOSACRAL 2/3 VIEWS Hyun Villa, LINE OPERATOR.BINDERY ASSISTANT [address] [place] [address] Phone: tel: fax: [place] [address] Referral ID Status Reason Start Date Expiration Date V isits Requested Visits Authorized [id number] Closed Auto-Generate d Referral 01/25/2025 02/24/2026 1 1 [facility] Advance Directives Documents on File Type Date Recorded Patient 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 Door 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 Advance Directive(s) 12/25/2017 6:31 AM Advance Directive(s) 12/17/2017 1:18 PM Advance Directive Response Recorded Date/ Time Advance Directives Yes September 16, 2016 7:54pm Living Will Yes February 21, 2019 1 1:12pm Power of Bung Remover Yes February 21, 2019 11:12pm Advance Directive Response Recorded Date/ Time Advance Directives Yes September 16, 2016 7:54pm Living Will No April 25 5:34pm Power of Bung Remover No April 25, 2023 5:34pm Advance Directive Response Recorded Date/ Time Advance Directives Yes September 16, 2016 7:54pm Chief Complaint and Reason for Visit Chief Complaint DIZZINESS 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 pain, 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) Markson Reason for Visit Chest pain Lightheaded SVT (supraventricular tachycardia) Essential (primary) hypertension Hyperlipidemia Chief Complaint DIZZINESS 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 pain, 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) Pérez DIZZINESS Reason for Visit Chest pain Lightheaded SVT (supraventricular tachycardia) Essential (primary) hypertension Hyperlipidemia Chief Complaint UTI Chief Complaint UTI SCREENING Chief Complaint DIZZINESS Chief Complaint Admit Date CHEST XRAY May 19, 2025 11 :37am Family History Relationship Condition Age at Onset Recorded Date/T chino mother Disorder of thyroid Unknown Disorder of liver Unknown father Coronary artery disease Unknown son Hyperlipidemia Unknown brother Disorder of thyroid Unknown sister Disorder of thyroid Unknown Reason for Referral Specialty Diagnoses / Procedures Referred By Denae harrison Referred To Contact Diagnoses Chronic diarrhea Incomplete defecation Incomplete bladder emptying Procedures CONSULT TO FEMALE UROLOGY/URO GYNECOLOGY OFFICE/OUTPATIENT [facility] HIGH MDM 60-74 MINUTES Lidya Nation PA-C [address] [place] [address] Referral ID Status Reason Start Date Expiration Date Visits Requested Visits Authorized [id number] Pending Review PCP Requested Referral 10/22/2022 10/22/2023 1 1 Specialty Diagnoses / Procedures Referred By Contac t Referred To Contact CT IMAGING Diagnoses Ear pain, left Procedures CT BRAIN WO IVCON CT HEAD/BRAIN W/O CONTRAST MATERIAL Hyun Villa, LINE OPERATOR.BINDERY ASSISTANT [address] [place] [address] [place] [address] Referral ID Status Reason Start Date Expiration Date Visits Requested Visits Authorized [id number] Authorized Auto-Generat ed Referral 08/15/2024 1 1 Referral ID Status Reason Start Date Expiration Date V isits Requested Visits Authorized [id number] Closed Auto-Generate d Referral 06/16/2024 08/15/2024 1 1 Health Concerns Infection Onset Date Last Indicated Resolved Time RSV 10/09/2023 10/09/2023 Summary Purpose Additional Source Comments Source Comments (unrecognize d section and content) In the event this informatio n is protected by the Federal Confidentiality of Alcohol and Drug Abuse Patient Records regulations: The Federal rules restrict any use of the information to criminally investigate or prosecute any alcohol or drug abuse patient.[facility] the event this information is protected by the Federal Confidentiality of Alcohol and Drug Abuse Patient Records regulations: The Federal rules restrict any use of the information to criminally investigate or prosecute any alcohol or drug abuse patient.[facility] HospitalIn the event this information is protected by the Federal Confidentiality of Alcohol and Drug Abuse Patient Records regulations: The Federal rules restrict any use of the information to criminally investigate or prosecute any alcohol or drug abuse patient.[facility] HospitalIn the event this information is protected by the Federal Confidentiality of Alcohol and Drug Abuse Patient Records regulations: The Federal rules restrict any use of the information to criminally investigate or prosecute any alcohol or drug abuse patient.[facility] HospitalIn the event this information is protected by the Federal Confidentiality of Alcohol and Drug Abuse Patient Records regulations: The Federal rules restrict any use of the information to criminally investigate or prosecute any alcohol or drug abuse patient.[facility] HospitalIn the event this information is protected by the Federal Confidentiality of Alcohol and Drug Abuse Patient Records regulations: The Federal rules restrict any use of the information to criminally investigate or prosecute any alcohol or drug abuse patient.[facility] HospitalIn the event this information is protected by the Federal Confidentiality of Alcohol and Drug Abuse Patient Records regulations: The Federal rules restrict any use of the information to criminally investigate or prosecute any alcohol or drug abuse patient.[facility] HospitalIn the event this information is protected by the Federal Confidentiality of Alcohol and Drug Abuse Patient Records regulations: The Federal rules restrict any use of the information to criminally investigate or prosecute any alcohol or drug abuse patient.[facility] HospitalIn the event this information is protected by the Federal Confidentiality of Alcohol and Drug Abuse Patient Records regulations: The Federal rules restrict any use of the information to criminally investigate or prosecute any alcohol or drug abuse patient.[facility] HospitalIn the event this information is protected by the Federal Confidentiality of Alcohol and Drug Abuse Patient Records regulations: The Federal rules restrict any use of the information to criminally investigate or prosecute any alcohol or drug abuse patient.[facility] HospitalIn the event this information is protected by the Federal Confidentiality of Alcohol and Drug Abuse Patient Records regulations: The Federal rules restrict any use of the information to criminally investigate or prosecute any alcohol or drug abuse patient.[facility] HospitalIn the event this information is protected by the Federal Confidentiality of Alcohol and Drug Abuse Patient Records regulations: The Federal rules restrict any use of the information to criminally investigate or prosecute any alcohol or drug abuse patient.[facility] HospitalIn the event this information is protected by the Federal Confidentiality of Alcohol and Drug Abuse Patient Records regulations: The Federal rules restrict any use of the information to criminally investigate or prosecute any alcohol or drug abuse patient.[facility] HospitalIn the event this information is protected by the Federal Confidentiality of Alcohol and Drug Abuse Patient Records regulations: The Federal rules restrict any use of the information to criminally investigate or prosecute any alcohol or drug abuse patient.[facility] HospitalIn the event this information is protected by the Federal Confidentiality of Alcohol and Drug Abuse Patient Records regulations: The Federal rules restrict any use of the information to criminally investigate or prosecute any alcohol or drug abuse patient.[facility] HospitalIn the event this information is protected by the Federal Confidentiality of Alcohol and Drug Abuse Patient Records regulations: The Federal rules restrict any use of the information to criminally investigate or prosecute any alcohol or drug abuse patient.[facility] HospitalIn the event this information is protected by the Federal Confidentiality of Alcohol and Drug Abuse Patient Records regulations: The Federal rules restrict any use of the information to criminally investigate or prosecute any alcohol or drug abuse patient.[facility] HospitalIn the event this information is protected by the Federal Confidentiality of Alcohol and Drug Abuse Patient Records regulations: The Federal rules restrict any use of the information to criminally investigate or prosecute any alcohol or drug abuse patient.[facility] HospitalIn the event this information is protected by the Federal Confidentiality of Alcohol and Drug Abuse Patient Records regulations: The Federal rules restrict any use of the information to criminally investigate or prosecute any alcohol or drug abuse patient.[facility] HospitalIn the event this information is protected by the Federal Confidentiality of Alcohol and Drug Abuse Patient Records regulations: The Federal rules restrict any use of the information to criminally investigate or prosecute any alcohol or drug abuse patient.[facility] HospitalIn the event this information is protected by the Federal Confidentiality of Alcohol and Drug Abuse Patient Records regulations: The Federal rules restrict any use of the information to criminally investigate or prosecute any alcohol or drug abuse patient.[facility] HospitalIn the event this information is protected by the Federal Confidentiality of Alcohol and Drug Abuse Patient Records regulations: The Federal rules restrict any use of the information to criminally investigate or prosecute any alcohol or drug abuse patient.[facility] HospitalIn the event this information is protected by the Federal Confidentiality of Alcohol and Drug Abuse Patient Records regulations: The Federal rules restrict any use of the information to criminally investigate or prosecute any alcohol or drug abuse patient.[facility] HospitalIn the event this information is protected by the Federal Confidentiality of Alcohol and Drug Abuse Patient Records regulations: The Federal rules restrict any use of the information to criminally investigate or prosecute any alcohol or drug abuse patient.[facility] HospitalIn the event this information is protected by the Federal Confidentiality of Alcohol and Drug Abuse Patient Records regulations: The Federal rules restrict any use of the information to criminally investigate or prosecute any alcohol or drug abuse patient.[facility] HospitalIn the event this information is protected by the Federal Confidentiality of Alcohol and Drug Abuse Patient Records regulations: The Federal rules restrict any use of the information to criminally investigate or prosecute any alcohol or drug abuse patient.[facility] HospitalIn the event this information is protected by the Federal Confidentiality of Alcohol and Drug Abuse Patient Records regulations: The Federal rules restrict any use of the information to criminally investigate or prosecute any alcohol or drug abuse patient.[facility] HospitalIn the event this information is protected by the Federal Confidentiality of Alcohol and Drug Abuse Patient Records regulations: The Federal rules restrict any use of the information to criminally investigate or prosecute any alcohol or drug abuse patient.[facility] HospitalIn the event this information is protected by the Federal Confidentiality of Alcohol and Drug Abuse Patient Records regulations: The Federal rules restrict any use of the information to criminally investigate or prosecute any alcohol or drug abuse patient.[facility] HospitalIn the event this information is protected by the Federal Confidentiality of Alcohol and Drug Abuse Patient Records regulations: The Federal rules restrict any use of the information to criminally investigate or prosecute any alcohol or drug abuse patient.[facility] HospitalIn the event this information is protected by the Federal Confidentiality of Alcohol and Drug Abuse Patient Records regulations: The Federal rules restrict any use of the information to criminally investigate or prosecute any alcohol or drug abuse patient.[facility] HospitalIn the event this information is protected by the Federal Confidentiality of Alcohol and Drug Abuse Patient Records regulations: The Federal rules restrict any use of the information to criminally investigate or prosecute any alcohol or drug abuse patient.[facility] HospitalIn the event this information is protected by the Federal Confidentiality of Alcohol and Drug Abuse Patient Records regulations: The Federal rules restrict any use of the information to criminally investigate or prosecute any alcohol or drug abuse patient.[facility] HospitalIn the event this information is protected by the Federal Confidentiality of Alcohol and Drug Abuse Patient Records regulations: The Federal rules restrict any use of the information to criminally investigate or prosecute any alcohol or drug abuse patient.[facility] HospitalIn the event this information is protected by the Federal Confidentiality of Alcohol and Drug Abuse Patient Records regulations: The Federal rules restrict any use of the information to criminally investigate or prosecute any alcohol or drug abuse patient.[facility] HospitalIn the event this information is protected by the Federal Confidentiality of Alcohol and Drug Abuse Patient Records regulations: The Federal rules restrict any use of the information to criminally investigate or prosecute any alcohol or drug abuse patient.[facility] HospitalIn the event this information is protected by the Federal Confidentiality of Alcohol and Drug Abuse Patient Records regulations: The Federal rules restrict any use of the information to criminally investigate or prosecute any alcohol or drug abuse patient.[facility] HospitalIn the event this information is protected by the Federal Confidentiality of Alcohol and Drug Abuse Patient Records regulations: The Federal rules restrict any use of the information to criminally investigate or prosecute any alcohol or drug abuse patient.[facility] Reason for Visit (unrecogniz ed section and content) Reason Comments Well Adult Reason Comments Headache vision issues Reason Onset Date Comments Refill Request 07/03/2022 Reason Comments Pain Pt reported intermit tent pain scapula radiating to (LT) breast, facial tingling x3 days. Reason Comments Refill Request Reason Comments Diarrhea Abdominal Pain Reason Comments Results Reason Comments Dizziness Reason Comments Chest Congestion Reason Comments Results Reason Comments URI Reason Comments Cough Wheezing, SOB x2 wee ks Reason Comments Follow Up [facility]en [facility] 10/[facility]/2023 COPD with exacerbation Reason Onset Date Comments Refill Request 12/20/2023 Reason Comments Pain Reason Comments 6 Month Exam Reason Comments Sinus Problem sinus pressure, drai nage, left ear pain on left side x 10 days Reason Comments Patient Update Reason Comments Pre-Op Exam L TKR with Dr. Andres dowell on 06/30/24 Reason Comments Results, Lab Reason Comments Pain Left side jaw, radia ting into neck and shoulder since she had sinus infection Reason Comments Radiology CT Specialty Diagnoses / Procedures Referred By Denae t Referred To Contact CT IMAGING Diagnoses Ear pain, left Procedures CT BRAIN WO IVCON CT HEAD/BRAIN W/O CONTRAST MATERIAL Hyun Villa, LINE OPERATOR.BINDERY ASSISTANT [address] [place] [address] [place] [address] Referral ID Status Reason Start Date Expiration Date V isits Requested Visits Authorized [id number] Closed Auto-Generate d Referral 06/16/2024 08/15/2024 1 1 Reason Comments Follow Up 3 month exam Reason Comments Medicare Wellness Exam Reason Onset Date Comments Results 01/25/2025 Reason Comments Ear Pain Left ear pain x 1 da y, eyes and CASAS x 3 days Reason Comments Patient Question Reason Onset Date Comments Results 04/28/2025 Reason Comments Acute Visit Sore throat, low gra de fever (100.4 last evening), cough, body aches, headache Care Teams (unrecognized sec tion and content) Project Archivist Relationship Specialty Start Date End Date Lidya Nation PA-C [address] [place] [address] PCP - General Family Practice 06/30/20 Project Archivist Relationship Specialty Start Date End Date Lidya Nation PA-C [address] [place] [address] PCP - General Family Practice 06/30/20 Project Archivist Relationship Specialty Start Date End Date Lidya Nation PA-C [address] [place] [address] PCP - General Family Medicine 06/30/20 Project Archivist Relationship Specialty Start Date End Date Lidya Nation PA-C [address] [place] [address] PCP - General Family Medicine 06/30/20 Project Archivist Relationship Specialty Start Date End Date Lidya Nation PA-C [address] [place] [address] PCP - General Family Medicine 06/30/20 Project Archivist Relationship Specialty Start Date End Date Lidya Nation PA-C [address] [place] [address] PCP - General Family Medicine 06/30/20 Team Status: Active Member Role Status Dates Dr. Gala Velez MD Family Provider Active RAUL Diamond Primary Care Provider Active Team Status: Inactive Member Role Status Dates RAUL Diamond Primary Care Provider Active Dr. Loretta Neumann MD Attending Provider, Referring P daljit Active Project Archivist Relationship Specialty Start Date End Date Lidya Nation PA-C [address] [place] [address] PCP - General Family Medicine 06/30/20 Project Archivist Relationship Specialty Start Date End Date Lidya Nation PA-C [address] [place] [address] PCP - General Family Medicine 06/30/20 Team Status: Inactive Member Role Status Dates RAUL Diamond Primary Care Pro vider, Attending Provider, Referring Provider Active Project Archivist Relationship Specialty Start Date End Date Lidya Nation PA-C [address] [place] [address] PCP - General Family Medicine 06/30/20 Project Archivist Relationship Specialty Start Date End Date Lidya Nation PA-C [address] [facility] [place] [address] PCP - General Family Medicine 06/30/20 Project Archivist Relationship Specialty Start Date End Date Lidya Nation PA-C 0 [facility] [place] [address] PCP - General Family Medicine 06/30/20 Team Status: Inactive Member Role Status Dates RAUL Diamond Primary Care Provider Active Dr. Huy Montiel MD Emergency Provider Active Project Archivist Relationship Specialty Start Date End Date Lidya Nation PA-C [address] [facility] [place] [address] PCP - General Family Medicine 06/30/20 Project Archivist Relationship Specialty Start Date End Date Lidya Nation PA-C [address] [place] [address] PCP - General Family Medicine 06/30/20 Project Archivist Relationship Specialty Start Date End Date Lidya Nation PA-C [address] [place] [address] PCP - General Family Medicine 06/30/20 Project Archivist Relationship Specialty Start Date End Date Lidya Nation PA-C [address] [place] [address] PCP - General Family Medicine 06/30/20 Project Archivist Relationship Specialty Start Date End Date Lidya Nation PA-C [address] [place] [address] PCP - General Family Medicine 06/30/20 Project Archivist Relationship Specialty Start Date End Date Lidya Nation PA-C [address] [facility] [place] [address] PCP - General Family Medicine 06/30/20 Project Archivist Relationship Specialty Start Date End Date Lidya Nation PA-C [address] [facility] [place] [address] PCP - General Family Medicine 06/30/20 Project Archivist Relationship Specialty Start Date End Date Lidya Nation PA-C [address] [facility] [place] [address] PCP - General Family Medicine 06/30/20 Project Archivist Relationship Specialty Start Date End Date Lidya Nation PA-C [address] [place] [address] PCP - General Family Medicine 06/30/20 Project Archivist Relationship Specialty Start Date End Date Lidya Nation PA-C [address] [facility] [place] [address] PCP - General Family Medicine 06/30/20 Project Archivist Relationship Specialty Start Date End Date Lidya Nation PA-C [address] [facility] [place] [address] PCP - General Family Medicine 06/30/20 Project Archivist Relationship Specialty Start Date End Date Lidya Nation PA-C [address] [facility] [place] [address] PCP - General Family Medicine 06/30/20 Project Archivist Relationship Specialty Start Date End Date Lidya Nation PA-C [address] [facility] [place] [address] PCP - General Family Medicine 06/30/20 Project Archivist Relationship Specialty Start Date End Date Lidya Nation PA-C [address] [facility] [place] [address] PCP - General Family Medicine 06/30/20 Project Archivist Relationship Specialty Start Date End Date Hyun Villa, LINE OPERATOR.BINDERY ASSISTANT [address] [facility] [place] [address] PCP - General Family Medicine 07/04/24 Project Archivist Relationship Specialty Start Date End Date Hyun Villa, LINE OPERATOR.BINDERY ASSISTANT [address] [facility] [place] [address] PCP - General Family Medicine 07/04/24 Project Archivist Relationship Specialty Start Date End Date Hyun Villa, LINE OPERATOR.BINDERY ASSISTANT [address] [facility] [place] [address] PCP - General Family Medicine 07/04/24 Project Archivist Relationship Specialty Start Date End Date Hyun Villa, LINE OPERATOR.BINDERY ASSISTANT [address] [facility] [place] [address] PCP - General Family Medicine 07/04/24 Project Archivist Relationship Specialty Start Date End Date Hyun Villa, LINE OPERATOR.BINDERY ASSISTANT [address] [facility] [place] [address] PCP - General Family Medicine 07/04/24 Project Archivist Relationship Specialty Start Date End Date Hyun Villa, LINE OPERATOR.BINDERY ASSISTANT [address] [facility] [place] [address] PCP - General Family Medicine 07/04/24 Project Archivist Relationship Specialty Start Date End Date Hyun Villa, LINE OPERATOR.BINDERY ASSISTANT [address] [facility] [place], [place] [address] PCP - General Family Medicine 07/04/24 Team Status: Active Member Role/Relationship Status Dates Dr. Gala Velez MD Primary care physician Active RAUL Diamond Primary care physician Active Team Status: Inactive Member Role/Relationship Status Dates RAUL Diamond Primary care physician Active Start: February 16, 2025 Dr. Loretta Neumann MD Attending physician Active Start: February 16, 2025 Team Status: Inactive Member Role/Relationship Status Dates RAUL Diamond Primary care physician Active Start: May 19, 2025 End: May 19, 2025 Dr. Dimitrios Prabhakar MD Attending physician Active Start: May 19, 2025 End: May 19, 2025 Dr. Dimitrios Prabhakar MD Referring Provider Active Start: May 19, 2025 End: May 19, 2025 Goals (unrecognized section and content) Goals may be documented in a n alternate sectionGoals may be documented in an alternate sectionGoals may be documented in an alternate sectionGoals may be documented in an alternate sectionGoals may be documented in an alternate section No data available for this section No data available for this sectionGoals may be documented in an alternate section INFORMATION SOURCE (unrecogn ized section and content) DATE CREATED AUTHOR 07/09/2024 [facility] DATE CREATED AUTHOR AUTHOR'S ORGANIZ ATION 05/30/2025 [facility] DATE CREATED AUTHOR AUTHOR'S ORGANIZ ATION 06/10/2025 [facility] FOR RECORDS PERTAINING TO PATIENTS WHO ARE OR HAVE BEEN ENROLLED IN A CHEMICAL DEPENDENCY/SUBSTANCEABUSE PROGRAM, SOME INFORMATION MAY BE OMITTED. This clinical summary was aggregated from multiple sources. Caution should be exercised in using it in the provision of clinical care. This summary normalizes information from multiple sources, and as a consequence, information in this document may materially change the coding, format and clinical context of patient data. In addition, data may be omitted in some cases. CLINICAL DECISIONS SHOULD BE BASED ON THE PRIMARY CLINICAL RECORDS. [facility] [facility]. provides no warranty or guarantee of the accuracy or completeness of information in this document.
[2025-08-07 12:42] VITALS: BMI 19.4
[2025-08-07 13:36] VITALS: BP 163/74; PULSE 70; RESP 16; TEMP 36.6; O2SAT 97
== END 2025-08-07 14:03 | disposition home or self-care (01) ==
PROVIDERS: Emergency Provider Emergency Medicine; PCP Family Medicine; Visit Provider Emergency Medicine
DX: S09.90XA Unspecified injury of head, initial encounter (principal); E11.9 Type 2 diabetes mellitus without complications; S40.012A Contusion of left shoulder, initial encounter; E78.5 Hyperlipidemia, unspecified; I10 Essential (primary) hypertension; W01.0XXA Fall on same level from slipping, tripping and stumbling without subsequent striking against object, initial encounter; Z23 Encounter for immunization
CPT/HCPCS: 70450; 72125; 73060; 90471; 90715; 99282